=== PATIENT | male | born 1940 | race Caucasian/White ===

== ENCOUNTER 2017-12-14 07:47 | Outpatient (CLI) | payer MEDICARE, SELFPAY ==
[2017-12-14 13:13] LABS: Hemoglobin A1C 7.1 % (4.5-6.2)
[2017-12-14 13:49] LABS: Anion Gap 8.9 mmol/L (3-11); BUN 30 mg/dL (7-18); CO2 26.1 mmol/L (21.0-32.0); Calcium 8.6 mg/dL (8.5-10.1); Chloride 105 mmol/L (98-107); Estimated GFR 36.87 (mL/min/1.73m2); Glucose 144 mg/dL (70-100); Potassium 4.6 mmol/L (3.5-5.1); Sodium 140 mmol/L (136-145)
== END 2017-12-14 08:07 ==
PROVIDERS: PCP Emergency Medicine; Visit Provider Emergency Medicine
DX: E11.9 Type 2 diabetes mellitus without complications (principal)
CPT/HCPCS: 36415; 80048; 83036

== ENCOUNTER 2017-12-18 00:56 | Outpatient (CLI) | payer MEDICARE, SELFPAY ==
[2017-12-18 07:39] LABS: ALT 24 U/L (12-78); AST 21 U/L (15-37); Albumin 3.3 g/dL (3.4-5.0); Alkaline Phosphatase 66 U/L (46-116); Anion Gap 6.9 mmol/L (3-11); BUN 23 mg/dL (7-18); Bilirubin, Total 0.3 mg/dL (0.2-1.0); CO2 28.1 mmol/L (21.0-32.0); CREATININE 1.55 mg/dL (0.70-1.30); Calcium 8.9 mg/dL (8.5-10.1); Chloride 104 mmol/L (98-107); Estimated GFR 43.81 (mL/min/1.73m2); Glucose 168 mg/dL (70-100); Potassium 4.7 mmol/L (3.5-5.1); Sodium 139 mmol/L (136-145); Total Protein 7.1 g/dL (6.4-8.2)
== END 2017-12-18 01:16 ==
PROVIDERS: PCP Emergency Medicine; Visit Provider Urology
DX: C67.9 Malignant neoplasm of bladder, unspecified (principal)
CPT/HCPCS: 36415; 80053

== ENCOUNTER 2018-01-13 14:37 | Outpatient (CLI) | payer MEDICARE, SELFPAY ==
[2018-01-13 15:11] LABS: Bilirubin Negative (Negative); Blood Moderate (Negative); Clarity Clear; Glucose 100 mg/dL (Negative); Ketones Negative (Negative); Leukocyte Esterase Negative (Negative); Nitrite Negative (Negative); Urobilinogen 0.2 EU/dL (Up TO 0.2)
[2018-01-13 15:33] LABS: Epithelial Cells Rare HPF (Negative); RBC 20-50 (0-2)
[2018-01-13 15:34] LABS: Bacteria Rare HPF (Negative); Casts 0-2 Coarse Granular LPF (Negative); Crystals Negative HPF (Negative); Mucus Trace (Negative)
[2018-01-13 15:35] LABS: C & S Indicated? Yes
[2018-01-13 23:11] LABS: Other Cells Rare Yeast (Negative)
== END 2018-01-13 14:57 ==
PROVIDERS: PCP Emergency Medicine; Visit Provider Emergency Medicine
DX: R31.29 Other microscopic hematuria (principal)
CPT/HCPCS: 81003; 81015; 87086

== ENCOUNTER 2018-01-19 21:43 | Emergency (ER) | payer MEDICARE, SELFPAY ==
--- NOTE | 2018-01-19 00:20 | DI.CT_ITS ---
SYMPTOMS/DIAGNOSIS: LEFT FLANK PAIN, HEMATURIA NONCONTRAST CT OF THE ABDOMEN AND PELVIS: Comparison is made with June,. The lung bases are clear. The liver shows fatty infiltration. Gallstones are noted. There is no gallbladder wall thickening or biliary dilatation. The spleen, pancreas and left adrenal are unremarkable. There is a stable right adrenal adenoma. There are bilateral renal cysts. No urinary tract calculi are identified. There is a calcification near the left renal hilum, which is an arterial calcification. There is high density material in the posterior aspect of the bladder, which could represent a clot; however, a posterior mass cannot be entirely excluded. The prostate appears normal in size. No bowel dilatation or inflammatory changes are seen. There is calcification along the aorta. There is dilatation of both iliac arteries just prior to the bifurcation. There are anterior upper abdominal wall hernias containing nonobstructed loops of bowel, which have enlarged when compared with the 2014 exam. Degenerative changes are seen in the spine. IMPRESSION: High density material within the urinary bladder could represent clot versus mass. No obstructing calculi are seen.
[2018-01-19 21:47] VITALS: BP 157/70; PULSE 78; RESP 16; TEMP 36.3; O2SAT 96
[2018-01-19 22:27] LABS: Bilirubin Negative (Negative); Blood Large (Negative); Clarity Cloudy; Glucose 100 mg/dL (Negative); Ketones Negative (Negative); Leukocyte Esterase Negative (Negative); Nitrite Negative (Negative); Specific Gravity >= 1.030 (1.005-1.025); Urobilinogen 0.2 EU/dL (Up TO 0.2); pH 6.5 (5-8)
[2018-01-19 22:28] LABS: C & S Indicated? Yes; RBC >50 (0-2)
--- NOTE | 2018-01-19 23:40 | W.ED.GENAD ---
Discharge Plan Disposition Patient Disposition: HOME Condition: Good Discharge Details Chief Complaint: Urinary Clinical Impression: Gross hematuria Primary Care Provider: Mahin Damon ED Provider: Jorge Holman Home Meds and New Rx's Prescriptions: Continue aspirin [Aspirin Low-Strength] 81 MG tablet,chewable 81 mg PO DAILY RF: 0 LANCETS 1 EACH EACH 1 ea Miscellaneous QID Qty: 400 RF: 4 dorzolamide-timolol 10 ML drops 1 drp OS BID Qty: 1 RF: 12 blood sugar diagnostic [FreeStyle Lite Strips] 1 EACH strip 1 ea Miscellaneous DAILY Qty: 100 RF: 4 latanoprost [Xalatan] 2.5 ML drops 1 drp OU HS Qty: 1 RF: 6 lisinopril 20 mg tablet 20 mg PO DAILY RF: 0 atenolol 50 mg tablet 50 mg PO BID RF: 0 pravastatin [Pravachol] 40 mg tablet 40 mg PO HS RF: 0 terazosin 5 mg capsule 5 mg PO HS RF: 0 omeprazole 20 mg capsule,delayed release(DR/EC) 20 mg PO DAILY RF: 0 sildenafil [Viagra] 100 mg tablet 100 mg PO ONCE PRNRF: 0 amlodipine 5 mg tablet 5 mg PO DAILY Qty: 90 RF: 3 clonazepam 0.5 mg tablet 0.5 mg PO HS Qty: 90 RF: 1 Discharge Instructions Instructions: Hematuria (ED) Additional Instructions: Please contact your urologist at [facility] today for follow-up. Return to emergency department if you develop fever, inability to urinate, increasing abdominal pain, other concerns. Referrals: [facility] [Outside] Medical Decision Making Patient presenting with hematuria with a history of bladder cancer. He is also having a little bit of left back pain. He is not on blood thinners other than an aspirin. He looks pretty comfortable. Urine is grossly bloody. Because of the left back pain we will get a CT stone kidney stone. We will check CBC and chemistry. Patient's CBC is normal. His renal function is baseline. His CT scan is essentially unremarkable other than debris and presumed blood in his bladder. He continues to have some clots when he urinates. Elected to go ahead and place a three-way Obrien and start CBI. Patient has essentially cleared after a bag. We watched him for a while and his urine remained pinkish but did not turn bright red again. We will pull his Obrien and let him go home. He can contact his urologist at [facility] for follow-up. He is given a dose of p.o. Cipro as he reports that typically when he gets catheterized to give him antibiotics for 1 dose. Return to ED for inability to urinate, fever, worsening pain. Discharged home in good condition. Lab Data Lab results reviewed: Yes I reviewed the patient's lab results. HPI General Mode of arrival: ambulatory. Date/Time Provider Initiated Documentation: 01/19/18 23:32. Limitations to Documentation: no limitations. Information obtained by: patient. HPI Narrative: Patient presents to ED with hematuria. Patient has a history of bladder cancer but was seen by his urologist at [facility] just about a month ago. He had a CT scan with IV contrast as well as a cystoscopy which was essentially clean. There was one area in the bladder that he says was burned but he was given a clean bill of health by his urologist with follow-up in 6 months. He is not on blood thinners. He has a little bit of left lower back pain. He has no fever. He has had no nausea vomiting. He has no abdominal pain. He has no dysuria. He does report that he had some slight hematuria last week but it resolved within a day. This is more bright red and persistent. Related Data Home Medications Medication Instructions Recorded Confirmed Lancets 1 ea MISCELLANEOUS QID #400 ea 07/15/12 01/20/18 aspirin [Aspirin Low-Strength] 81 mg PO DAILY 07/15/12 01/20/18 dorzolamide-timolol 1 drp OS BID #1 drp 03/24/17 01/20/18 blood sugar diagnostic [FreeStyle #100 strip 07/28/17 01/20/18 Lite Strips] latanoprost [Xalatan] 1 drp OU HS #1 drp 10/28/17 01/20/18 atenolol 50 mg tablet 50 mg PO BID tab 12/01/17 01/20/18 lisinopril 20 mg tablet 20 mg PO DAILY 12/01/17 01/20/18 omeprazole 20 mg capsule,delayed 20 mg PO DAILY 12/01/17 01/20/18 release pravastatin 40 mg tablet 40 mg PO HS tab 12/01/17 01/20/18 sildenafil 100 mg tablet 100 mg PO ONCE PRN 12/01/17 01/20/18 terazosin 5 mg capsule 5 mg PO HS cap 12/01/17 01/20/18 amlodipine 5 mg tablet 5 mg PO DAILY #90 tab 12/08/17 01/20/18 clonazepam 0.5 mg tablet 0.5 mg PO HS #90 tab 12/08/17 01/20/18 Previous Rx's Medication Instructions Recorded dorzolamide-timolol 1 drp OS BID #1 drp 03/24/17 blood sugar diagnostic [FreeStyle #100 strip 07/28/17 Lite Strips] latanoprost [Xalatan] 1 drp OU HS #1 drp 10/28/17 amlodipine 5 mg tablet 5 mg PO DAILY #90 tab 12/08/17 clonazepam 0.5 mg tablet 0.5 mg PO HS #90 tab 12/08/17 Allergies Allergy/AdvReac Type Severity Reaction Status Date / Time ivp Allergy Intermediate per MD Uncoded 01/19/18 21:51 could shut down his kidneys General Stated Complaint: Urinary SUSAN: 3 Review of Systems Constitutional Denies chills, Denies fever(s), Denies headache(s), Denies malaise and Denies weakness ENT Denies otalgia, Denies headache(s) and Denies sore throat Cardiovascular Denies chest pain, Denies syncope, Denies edema and Denies dyspnea Respiratory Denies cough and Denies dyspnea Gastrointestinal Denies abdominal pain, Denies diarrhea, Denies nausea and Denies vomiting Genitourinary Reports hematuria, Denies difficulty urinating, Denies dysuria, Denies flank pain, Denies urinary frequency and Denies urinary hesitancy Musculoskeletal Reports back pain, Denies myalgias, Denies arthralgias and Denies numbness Integumentary/Breasts Denies erythema and Denies rash Neurologic Denies syncope, Denies headache(s), Denies numbness and Denies weakness [facility] Family History Mother No problems noted. Father Neoplasm Sister Heart disease Cerebrovascular accident Grandfather No problems noted. Grandfather Heart disease Grandmother No problems noted. Grandmother Personal history of malignant neoplasm Sister No problems noted. Sister No problems noted. Brother Neoplasm Brother No problems noted. Brother No problems noted. Brother No problems noted. Brother No problems noted. Son No problems noted. 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) Obstructive sleep apnea syndrome (Acute) Obesity (Acute) Incisional hernia of anterior abdominal wall without obstruction or gangrene (Acute 06/24/17) Glaucoma (Acute) Essential hypertension (Acute 07/09/16) Diabetes mellitus (Acute 08/04/12) Chronic gout due to renal impairment of multiple sites without tophus (Acute 06/05/15) CKD (chronic kidney disease) (Acute 06/12/15) Benign prostatic hyperplasia (Acute) Aortic aneurysm and dissection (Acute) Anxiety (Acute) Actinic keratoses (Acute 06/24/17) Social History household members: none current occupational status: retired pets and animals: No frequency: 3-4 times per week duration: 45-60 minutes/day Smoking/Tobacco Use Status: Former Tobacco Use alcohol intake: never substance use type: does not use noe/rastafarian: None Surgical History TURBT (08/11/16) hernia repair Exam Const General: cooperative and comfortable Orientation: alert and oriented x3 HENMT Head: normal to inspection, normocephalic and atraumatic Neck Neck: normal visual inspection, trachea midline and supple Resp Effort & Inspection: normal respiratory effort Auscultation: clear to auscultation bilaterally Cardio Rate: regular rate Rhythm: regular rhythm Heart Sounds: S1 normal and S2 normal GI Inspection: normal to inspection Palpation: soft, not firm, no guarding and nontender Back/Spine/Pelvis Back: no CVA tenderness Skin General skin exam: no rashes or lesions noted Neuro General: alert, oriented x3, no focal motor deficits and CN's II-XI intact bilaterally Extrem General: normal to inspection and full ROM Course Vital Signs Temperature 97.3 F L 01/19/18 21:47 Pulse 78 01/19/18 21:47 Respiratory Rate 16 01/19/18 21:47 Blood Pressure 157/70 H 10/23/18 21:47 Pulse Oximetry 96 01/19/18 21:47 Temperature 97.3 F L 01/19/18 21:47 Temperature Source Skin 01/19/18 21:47 Pulse 78 01/19/18 21:47 Respiratory Rate 16 01/19/18 21:47 Respiratory Effort Non-Labored 01/19/18 21:50 Blood Pressure 157/70 H 01/19/18 21:47 Pulse Oximetry 96 01/19/18 21:47 Oxygen Delivery Method Room Air 01/19/18 21:47 Oxygen Flow Rate 0 01/19/18 21:47 Lab/Test Results Lab/Test Results: 01/19/18 21:53 Urine - Reflex from Ua Urine Culture - Pending Laboratory Tests Range/Units 01/19/18 21:53 Urine Color (Yellow) Red Urine Clarity Cloudy Urine pH (5-8) 6.5 Ur Specific [place] (1.005-1.025) >= 1.030 H Urine Protein (Negative) mg/dL >=300 H Urine Ketones (Negative) mg/dL Negative Urine Blood (Negative) Large H Urine Nitrite (Negative) Negative Urine Bilirubin (Negative) Negative Urine Urobilinogen (Up TO 0.2) EU/dL 0.2 Ur Leukocyte Esterase (Negative) Negative Urine RBC (0-2) >50 H Urine WBC Not Applicable Ur Epithelial Cells Not Applicable Urine Crystals Not Applicable Urine Bacteria Not Applicable Urine Mucus Not Applicable Ur Culture Indicated? Yes Urine Glucose (Negative) mg/dL 100
[2018-01-20 00:06] LABS: Abs Immature Grans 0.02 k/cumm (0.0-0.09); Absolute Basophil Count 0.02 k/cumm (0.0-0.2); Absolute Lymphocyte Count 1.76 k/cumm (1.2-3.4); Absolute Monocyte Count 0.56 k/cumm (0.11-0.7); Absolute Neutrophil Count 4.86 k/cumm (1.2-6.7); Basophils % 0.3; Eosinophils % 1.4; HCT 42.6 % (40.0-50.0); HGB 14.4 g/dL (13.5-17.5); Immature Grans % 0.3; Mean Corp. HGB Concentration 33.8 g/dL (32.0-36.0); Mean Corpuscular Hemoglobin 31.7 pg (27.0-33.0); Mean Corpuscular Volume 93.8 fL (80-95); Mean Platelet Volume 9.9 fL (8.0-11.0); Monocytes % 7.7; Neutrophils % 66.3; Platelet Count 204 x1000/uL (130-400); RBC 4.54 m/cumm (4.50-6.00); RBC Distribution Width 12.3 % (11.8-14.1); White Blood Cell Count 7.32 k/cumm (4.4-10.8)
[2018-01-20 00:16] LABS: Anion Gap 9.8 mmol/L (3-11); BUN 28 mg/dL (7-18); CO2 26.2 mmol/L (21.0-32.0); CREATININE 1.88 mg/dL (0.70-1.30); Chloride 103 mmol/L (98-107); Estimated GFR 35.06 (mL/min/1.73m2); Glucose 163 mg/dL (70-100); Potassium 4.3 mmol/L (3.5-5.1); Sodium 139 mmol/L (136-145)
--- NOTE | 2018-01-20 01:06 | DI.VRAD_ITS ---
EXAM: CT Abdomen and Pelvis Without Intravenous Contrast CLINICAL HISTORY: 77 years old, male; Pain; Other: L flank; Patient HX: L flank pain and blood in urine TECHNIQUE: Axial computed tomography images of the abdomen and pelvis without intravenous contrast. All CT scans at this facility use at least one of these dose optimization techniques: automated exposure control; mA and/or kV adjustment per patient size (includes targeted exams where dose is matched to clinical indication); or iterative reconstruction. Coronal and sagittal reformatted images were created and reviewed. COMPARISON: CT RENAL COLIC WO CONTRAST 07/18/2013 10:39 AM FINDINGS: Lung bases: Unremarkable. No mass. No consolidation. ABDOMEN: Liver: Hepatic steatosis. Gallbladder and bile ducts: Unremarkable. No calcified stones. No ductal dilation. Pancreas: Unremarkable. No ductal dilation. Spleen: Unremarkable. No splenomegaly. Adrenals: Right adrenal gland adenoma. Kidneys and ureters: Renal cysts up to 2.6 cm. No obstructing stones. No hydronephrosis. Stomach and bowel: Colonic diverticulosis. Bowel containing midline ventral hernias. No obstruction. No mucosal thickening. PELVIS: Appendix: No findings to suggest acute appendicitis. Bladder: Nonspecific high density in the urinary bladder it likely represents blood products with underlying soft tissue mass unable to be excluded. No stones. Reproductive: Unremarkable as visualized. ABDOMEN and PELVIS: Intraperitoneal space: Unremarkable. No free air. No significant fluid collection. Bones/joints: Degenerative change of the spine. No acute fracture. No dislocation. Soft tissues: See above. Vasculature: Unremarkable. No abdominal aortic aneurysm. Lymph nodes: Unremarkable. No enlarged lymph nodes. Other findings: Fat-containing left internal hernia. IMPRESSION: Nonspecific high density in the urinary bladder, likely represents blood products with underlying soft tissue mass unable to be excluded. Dictated and Authenticated by: Noah Hairston MD. Ordering:AGAPITO RAMOS MD
[2018-01-20] MEDS: Ciprofloxacin 500 MG TAB PO (04:35)
== END 2018-01-20 04:40 | disposition home or self-care (01) ==
PROVIDERS: Emergency Provider Emergency Medicine; PCP Emergency Medicine
DX: R31.0 Gross hematuria (principal); R10.32 Left lower quadrant pain; Z85.51 Personal history of malignant neoplasm of bladder; I12.9 Hypertensive chronic kidney disease with stage 1 through stage 4 chronic kidney disease, or unspecified chronic kidney disease; N18.9 Chronic kidney disease, unspecified; E11.22 Type 2 diabetes mellitus with diabetic chronic kidney disease
CPT/HCPCS: 36415; 51700; 80048; 99284; 74176; 81003; 81015; 85025; 87086

== ENCOUNTER 2018-01-21 07:45 | Outpatient (CLI) | payer MEDICARE, SELFPAY ==
[2018-01-21 08:12] LABS: Bilirubin Negative (Negative); Blood Moderate (Negative); Clarity Clear; Glucose 500 mg/dL (Negative); Ketones Negative (Negative); Leukocyte Esterase Negative (Negative); Nitrite Negative (Negative); Urobilinogen 0.2 EU/dL (Up TO 0.2)
[2018-01-21 08:19] LABS: Bacteria Negative HPF (Negative); C & S Indicated? No; Casts Negative LPF (Negative); Crystals Negative HPF (Negative); Epithelial Cells Rare HPF (Negative); Mucus Negative (Negative)
== END 2018-01-21 08:05 ==
PROVIDERS: PCP Emergency Medicine; Visit Provider Emergency Medicine
DX: R31.9 Hematuria, unspecified (principal)
CPT/HCPCS: 81003; 81015

== ENCOUNTER 2018-04-14 01:04 | Outpatient (CLI) | payer MEDICARE, SELFPAY ==
--- NOTE | 2018-04-14 08:12 | DI.CT_ITS ---
SYMPTOMS/DIAGNOSIS: CHRONIC LEFT LUMBAR PAIN, KNOWN RT RENAL MASS, M54.5, N28.89 CT OF THE LUMBAR SPINE: Comparison is made with CT of the abdomen and pelvis dated . Images were performed from mid T 12 through S 4. The vertebral bodies are well maintained in height. The T 12 - L 1 and L 1 - 2 levels are unremarkable. There are anteriorly projecting osteophytes at L 2 - 3. There are mild facet degenerative changes. There is concentric disc bulging causing mild bilateral neural foraminal narrowing. At L 3 - 4, there are more prominent endplate osteophytes and moderate broad based disc bulging. There is ligamentous hypertrophy combining to produce mild to moderate degree of central canal stenosis. There is severe right and moderate left neural foraminal narrowing. At L 4 - 5, there is concentric disc bulging and vacuum disc. Endplate osteophytes along with a bulging disc cause severe bilateral neural foraminal encroachment. Facet degenerative changes and ligamentous hypertrophy combine to produce a moderate degree of central canal stenosis. At L 5 - S 1, there is mild disc bulging and facet degenerative changes. There is no significant central canal stenosis. Mild right and moderate left neural foraminal narrowing is seen. A right adrenal mass is again noted. A stent is now seen in the right kidney without evidence of hydronephrosis. There is stable dilatation of the iliac arteries and bilateral iliac artery aneurysms. IMPRESSION: Degenerative disc changes and facet degenerative changes combine to procedure central canal stenosis at L 3 - 4 and L 4 - 5. Bilateral neural foraminal narrowing is noted at multiple levels.
== END 2018-04-14 01:24 ==
PROVIDERS: PCP Emergency Medicine; Visit Provider Emergency Medicine
DX: M54.5 Low back pain (principal); M51.37 Other intervertebral disc degeneration, lumbosacral region; N28.89 Other specified disorders of kidney and ureter
CPT/HCPCS: 72131

== ENCOUNTER 2018-05-02 11:27 | Emergency (ER) | payer MEDICARE, SELFPAY ==
[2018-05-02] VITALS (31 sets, daily range): BP systolic 104–145; BP diastolic 53–72; PULSE 48–65; RESP 9–26; TEMP 36.5; O2SAT 95–98
--- NOTE | 2018-05-02 12:02 | W.ED.GENAD ---
Discharge Plan Disposition Patient Disposition: HOME Condition: Improving Discharge Details Chief Complaint: Chest Pain Clinical Impression: Atypical chest pain Primary Care Provider: Mahin Damon ED Provider: Tong James Home Meds and New Rx's Prescriptions: Continued aspirin [Aspirin Low-Strength] 81 MG tablet,chewable 81 mg PO DAILY RF: 0 LANCETS 1 EACH EACH 1 ea Miscellaneous QID Qty: 400 RF: 4 FreeStyle Lite Strips 1 EACH strip 1 ea Miscellaneous DAILY Qty: 100 RF: 4 latanoprost [Xalatan] 2.5 ML drops 1 drp OU HS Qty: 1 RF: 6 lisinopril 20 mg tablet 20 mg PO DAILY RF: 0 atenolol 50 mg tablet 50 mg PO BID RF: 0 pravastatin [Pravachol] 40 mg tablet 40 mg PO HS RF: 0 terazosin 5 mg capsule 5 mg PO HS RF: 0 omeprazole 20 mg capsule,delayed release(DR/EC) 20 mg PO DAILY RF: 0 sildenafil [Viagra] 100 mg tablet 100 mg PO ONCE PRNRF: 0 amlodipine 5 mg tablet 5 mg PO DAILY Qty: 90 RF: 3 clonazepam 0.5 mg tablet 0.5 mg PO HS Qty: 90 RF: 1 dorzolamide-timolol 22.3-6.8 mg/mL drops 1 drp OS BID Qty: 1 RF: 12 Discharge Instructions Instructions: Chest Pain (ED) Additional Instructions: Return if you have recurrent or persistent chest pain, develop a fever, vomiting, abdominal pain or any other acute concerns. Please follow-up with Dr. Damon for recheck if not improving this week. Continue your regular medications. [place] diet today Medical Decision Making 77-year-old male presents from home with his complaining of intermittent episodes of 3 out of 10 right-sided chest pressure. Last minutes at a time and dissipates on its own. Does not seem to be provoked by exercise. He denies fever, cough, shortness of breath. No palpitations. No lower extremity pain or swelling. He has been followed by Dr. Winkler at [facility] for a urothelial carcinoma, most recently undergoing laser surgery and placement of a right ureteral stent. Patient arrives with normal vital signs, he has no further complaints of discomfort. Referred for chest x-ray and screening laboratories. Patient is unremarkable CBC, chemistries are reassuring with a negative troponin. 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 Remains pain-free. Will discharge to home. Discussed with him that it may be mild gastritis, colonic distention, other benign process. Discussed with him return precautions to the ED. He will follow-up with primary care for recheck. Lab Data Lab results reviewed: Yes I reviewed the patient's lab results. Laboratory Results - last 24 hr 05/02/18 05/02/18 11:57 11:57 WBC 9.14 RBC 4.86 Hgb 15.3 Hct 45.1 MCV 92.8 MCH 31.5 MCHC 33.9 RDW 11.9 Plt Count 243 MPV 10.4 Immature Gran % 0.2 Neutrophils % 61.4 Lymphocytes % 28.7 Monocytes % 8.5 Eosinophils % 1.0 Basophils % 0.2 Absolute Neutrophils 5.61 Absolute Lymphocytes 2.62 Absolute Monocytes 0.78 H Absolute Eosinophils 0.09 Absolute Basophils 0.02 Sodium 140 Potassium 4.1 Chloride 105 Carbon Dioxide 27.9 Anion Gap 7.1 BUN 21 H Creatinine 1.82 H Estimated GFR/1.73 m2 36.40 Glucose 118 H Calcium 8.9 Magnesium 1.4 L Total Bilirubin 0.4 AST 18 ALT 24 Alkaline Phosphatase 65 Troponin I < 0.02 Total Protein 7.8 Albumin 3.5 ECG Data Attestation: I personally reviewed and interpreted this ECG (s) as follows: Prior ECG tracings: available for review Interpretation: Normal sinus rhythm, the rate is 55, QRS intraventricular conduction delay with slight right bundle branch block pattern. There is T wave inversion in aVR, the tracing is unchanged versus comparison of February 11, 2018 [facility] General Mode of arrival: ambulatory. Date/Time Provider Initiated Documentation: 05/02/18 11:52. Limitations to Documentation: no limitations. Information obtained by: patient. History of Present Illness 77 year old M presents to the emergency department with the chief complaint of Intermittent right-sided chest pain beginning yesterday afternoon. None at, with intensity rated at 3. Quality is described as dull, and is localized to the chest. Patient reports no radiation. Patient started experiencing this day(s) and it has been intermittent. No exacerbating factors reported . Patient notes no other symptoms.. Patient did receive the following treatments prior to arrival, none Related Data Home Medications Medication Instructions Recorded Confirmed Lancets 1 ea MISCELLANEOUS QID #400 ea 07/15/12 04/23/18 aspirin [Aspirin Low-Strength] 81 mg PO DAILY 07/15/12 04/23/18 FreeStyle Lite Strips #100 strip 07/28/17 04/23/18 latanoprost [Xalatan] 1 drp OU HS #1 drp 10/28/17 04/23/18 atenolol 50 mg tablet 50 mg PO BID tab 12/01/17 04/23/18 lisinopril 20 mg tablet 20 mg PO DAILY 12/01/17 04/23/18 omeprazole 20 mg capsule,delayed 20 mg PO DAILY 12/01/17 04/23/18 release pravastatin 40 mg tablet 40 mg PO HS tab 12/01/17 04/23/18 sildenafil 100 mg tablet 100 mg PO ONCE PRN 12/01/17 04/23/18 terazosin 5 mg capsule 5 mg PO HS cap 12/01/17 04/23/18 amlodipine 5 mg tablet 5 mg PO DAILY #90 tab 12/08/17 04/23/18 clonazepam 0.5 mg tablet 0.5 mg PO HS #90 tab 12/08/17 04/23/18 dorzolamide 22.3 mg-timolol 6.8 1 drp OS BID #1 drp 03/31/18 04/23/18 mg/mL eye drops Previous Rx's Medication Instructions Recorded FreeStyle Lite Strips #100 strip 07/28/17 latanoprost [Xalatan] 1 drp OU HS #1 drp 10/28/17 amlodipine 5 mg tablet 5 mg PO DAILY #90 tab 12/08/17 clonazepam 0.5 mg tablet 0.5 mg PO HS #90 tab 12/08/17 dorzolamide 22.3 mg-timolol 6.8 1 drp OS BID #1 drp 03/31/18 mg/mL eye drops Allergies Allergy/AdvReac Type Severity Reaction Status Date / Time ivp Allergy Intermediate per MD Uncoded 05/02/18 11:41 could shut down his kidneys General Stated Complaint: Chest Pain SUSAN: 2 Review of Systems Review of Systems 8 systems reviewed and otherwise neg [facility] 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 Father Neoplasm Sister Heart disease Stroke Grandfather No problems noted. Grandfather Heart disease Grandmother No problems noted. Grandmother Personal history of malignant neoplasm Sister No problems noted. Sister No problems noted. Brother Neoplasm Brother No problems noted. Brother No problems noted. Brother No problems noted. Brother No problems noted. Son No problems noted. Social History household members: none current occupational status: retired pets and animals: No frequency: 3-4 times per week duration: 45-60 minutes/day Smoking/Tobacco Use Status: Former Tobacco Use alcohol intake: never substance use type: does not use noe/hindu: None Exam Narrative Exam Narrative: GEN: awake, alert, oriented 3. Pleasant, well groomed, interactive. HEAD: Normocephalic, atraumatic ENT: Mucous membranes moist, oropharynx unremarkable, External ear exam unremarkable EYES: PERRL, EOMI NECK: Full ROM, no YEVGENIY, no menigismus CHEST/RESP: Nontender, clear to auscultation bilateral, no wheeze/rhonchi/rales CARDIOVASCULAR: RRR, no murmur, rub cruz. 2+ Rad pulse bilateral ABDOMEN: Soft, nontender, no mass. +Bowel sounds EXT: Full ROM, no edema, no rash Neuro: Grossly normal neurologic exam, conversant, interactive. Psych: Speech fluent, thoughts congruent, affect normal Course Vital Signs Temperature 36.5 C 05/02/18 11:32 Pulse 60 05/02/18 11:32 Respiratory Rate 16 05/02/18 11:32 Blood Pressure 136/72 05/02/18 11:32 Pulse Oximetry 97 05/02/18 11:32 Temperature 36.5 C 05/02/18 11:32 Temperature Source Skin 05/02/18 11:32 Pulse 60 05/02/18 11:32 Respiratory Rate 16 05/02/18 11:52 Respiratory Effort 05/02/18 11:52 Respiratory Depth Normal 05/02/18 11:52 Blood Pressure 136/72 05/02/18 11:32 Blood Pressure Position Sitting 05/02/18 11:32 Pulse Oximetry 97 05/02/18 11:32 Oxygen Delivery Method Room Air 05/02/18 11:32 Oxygen Flow Rate 0 05/02/18 11:32 Pain Level 3 05/02/18 11:52
--- NOTE | 2018-05-02 12:05 | ED.GENADUL_ITS ---
Discharge Plan Disposition Patient Disposition: HOME Condition: Improving Discharge Details Chief Complaint: Chest Pain Clinical Impression: Atypical chest pain Primary Care Provider: Mahin Damon ED Provider: Tong James Home Meds and New Rx's Prescriptions: Continued aspirin [Aspirin Low-Strength] 81 MG tablet,chewable 81 mg PO DAILY RF: 0 LANCETS 1 EACH EACH 1 ea Miscellaneous QID Qty: 400 RF: 4 FreeStyle Lite Strips 1 EACH strip 1 ea Miscellaneous DAILY Qty: 100 RF: 4 latanoprost [Xalatan] 2.5 ML drops 1 drp OU HS Qty: 1 RF: 6 lisinopril 20 mg tablet 20 mg PO DAILY RF: 0 atenolol 50 mg tablet 50 mg PO BID RF: 0 pravastatin [Pravachol] 40 mg tablet 40 mg PO HS RF: 0 terazosin 5 mg capsule 5 mg PO HS RF: 0 omeprazole 20 mg capsule,delayed release(DR/EC) 20 mg PO DAILY RF: 0 sildenafil [Viagra] 100 mg tablet 100 mg PO ONCE PRNRF: 0 amlodipine 5 mg tablet 5 mg PO DAILY Qty: 90 RF: 3 clonazepam 0.5 mg tablet 0.5 mg PO HS Qty: 90 RF: 1 dorzolamide-timolol 22.3-6.8 mg/mL drops 1 drp OS BID Qty: 1 RF: 12 Discharge Instructions Instructions: Chest Pain (ED) Additional Instructions: Return if you have recurrent or persistent chest pain, develop a fever, vomiting, abdominal pain or any other acute concerns. Please follow-up with Dr. Damon for recheck if not improving this week. Continue your regular medications. [place] diet today Medical Decision Making 77-year-old male presents from home with his complaining of intermittent episodes of 3 out of 10 right-sided chest pressure. Last minutes at a time and dissipates on its own. Does not seem to be provoked by exercise. He denies fever, cough, shortness of breath. No palpitations. No lower extremity pain or swelling. He has been followed by Dr. Winkler at [facility] for a urothelial carcinoma, most recently undergoing laser surgery and placement of a right ureteral stent. Patient arrives with normal vital signs, he has no further complaints of discomfort. Referred for chest x-ray and screening laboratories. Patient is unremarkable CBC, chemistries are reassuring with a negative troponin. Patient kept on child monitor repeat troponin obtained and negative as well. Remains pain-free. Will discharge to home. Discussed with him that it may be mild gastritis, colonic distention, other benign process. Discussed with him return precautions to the ED. He will follow-up with primary care for recheck. Lab Data Lab results reviewed: Yes I reviewed the patient's lab results. Laboratory Results - last 24 hr 05/02/18 05/02/18 11:57 11:57 WBC 9.14 RBC 4.86 Hgb 15.3 Hct 45.1 MCV 92.8 MCH 31.5 MCHC 33.9 RDW 11.9 Plt Count 243 MPV 10.4 Immature Gran % 0.2 Neutrophils % 61.4 Lymphocytes % 28.7 Monocytes % 8.5 Eosinophils % 1.0 Basophils % 0.2 Absolute Neutrophils 5.61 Absolute Lymphocytes 2.62 Absolute Monocytes 0.78 H Absolute Eosinophils 0.09 Absolute Basophils 0.02 Sodium 140 Potassium 4.1 Chloride 105 Carbon Dioxide 27.9 Anion Gap 7.1 BUN 21 H Creatinine 1.82 H Estimated GFR/1.73 m2 36.40 Glucose 118 H Calcium 8.9 Magnesium 1.4 L Total Bilirubin 0.4 AST 18 ALT 24 Alkaline Phosphatase 65 Troponin I < 0.02 Total Protein 7.8 Albumin 3.5 ECG Data Attestation: I personally reviewed and interpreted this ECG (s) as follows: Prior ECG tracings: available for review Interpretation: Normal sinus rhythm, the rate is 55, QRS intraventricular conduction delay with slight right bundle branch block pattern. There is T wave inversion in aVR, the tracing is unchanged versus comparison of February 11, 2018 [facility] General Mode of arrival: ambulatory . Date/Time Provider Initiated Documentation: 05/02/18 11:52 . Limitations to Documentation: no limitations . Information obtained by: patient . History of Present Illness 77 year old M presents to the emergency department with the chief complaint of Intermittent right-sided chest pain beginning yesterday afternoon. None at, with intensity rated at 3. Quality is described as dull, and is localized to the chest. Patient reports no radiation. Patient started experiencing this day(s) and it has been intermittent. No exacerbating factors reported . Patient notes no other symptoms.. Patient did receive the following treatments prior to arrival, none Related Data Home Medications Medication Instructions Recorded Confirmed Lancets 1 ea MISCELLANEOUS QID #400 ea 07/15/12 04/23/18 aspirin [Aspirin Low-Strength] 81 mg PO DAILY 07/15/12 04/23/18 FreeStyle Lite Strips #100 strip 07/28/17 04/23/18 latanoprost [Xalatan] 1 drp OU HS #1 drp 10/28/17 04/23/18 atenolol 50 mg tablet 50 mg PO BID tab 12/01/17 04/23/18 lisinopril 20 mg tablet 20 mg PO DAILY 12/01/17 04/23/18 omeprazole 20 mg capsule,delayed 20 mg PO DAILY 12/01/17 04/23/18 release pravastatin 40 mg tablet 40 mg PO HS tab 12/01/17 04/23/18 sildenafil 100 mg tablet 100 mg PO ONCE PRN 12/01/17 04/23/18 terazosin 5 mg capsule 5 mg PO HS cap 12/01/17 04/23/18 amlodipine 5 mg tablet 5 mg PO DAILY #90 tab 12/08/17 04/23/18 clonazepam 0.5 mg tablet 0.5 mg PO HS #90 tab 12/08/17 04/23/18 dorzolamide 22.3 mg-timolol 6.8 1 drp OS BID #1 drp 03/31/18 04/23/18 mg/mL eye drops Previous Rx's Medication Instructions Recorded FreeStyle Lite Strips #100 strip 07/28/17 latanoprost [Xalatan] 1 drp OU HS #1 drp 10/28/17 amlodipine 5 mg tablet 5 mg PO DAILY #90 tab 12/08/17 clonazepam 0.5 mg tablet 0.5 mg PO HS #90 tab 12/08/17 dorzolamide 22.3 mg-timolol 6.8 1 drp OS BID #1 drp 03/31/18 mg/mL eye drops Allergies Allergy/AdvReac Type Severity Reaction Status Date / Time ivp Allergy Intermediate per MD Uncoded 05/02/18 11:41 could shut down his kidneys General Stated Complaint: Chest Pain SUSAN: 2 Review of Systems Review of Systems 8 systems reviewed and otherwise neg [facility] 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 Father Neoplasm Sister Heart disease Stroke Grandfather No problems noted. Grandfather Heart disease Grandmother No problems noted. Grandmother Personal history of malignant neoplasm Sister No problems noted. Sister No problems noted. Brother Neoplasm Brother No problems noted. Brother No problems noted. Brother No problems noted. Brother No problems noted. Son No problems noted. Social History household members: none current occupational status: retired pets and animals: No frequency: 3-4 times per week duration: 45-60 minutes/day Smoking/Tobacco Use Status: Former Tobacco Use alcohol intake: never substance use type: does not use noe/worship: None Exam Narrative Exam Narrative: GEN: awake, alert, oriented 3. Pleasant, well groomed, interactive. HEAD: Normocephalic, atraumatic ENT: Mucous membranes moist, oropharynx unremarkable, External ear exam unremarkable EYES: PERRL, EOMI NECK: Full ROM, no YEVGENIY, no menigismus CHEST/RESP: Nontender, clear to auscultation bilateral, no wheeze/rhonchi/rales CARDIOVASCULAR: RRR, no murmur, rub cruz. 2+ Rad pulse bilateral ABDOMEN: Soft, nontender, no mass. +Bowel sounds EXT: Full ROM, no edema, no rash Neuro: Grossly normal neurologic exam, conversant, interactive. Psych: Speech fluent, thoughts congruent, affect normal Course Vital Signs Temperature 36.5 C 05/02/18 11:32 Pulse 60 05/02/18 11:32 Respiratory Rate 16 05/02/18 11:32 Blood Pressure 136/72 05/02/18 11:32 Pulse Oximetry 97 05/02/18 11:32 Temperature 36.5 C 05/02/18 11:32 Temperature Source Skin 05/02/18 11:32 Pulse 60 05/02/18 11:32 Respiratory Rate 16 05/02/18 11:52 Respiratory Effort 05/02/18 11:52 Respiratory Depth Normal 05/02/18 11:52 Blood Pressure 136/72 05/02/18 11:32 Blood Pressure Position Sitting 05/02/18 11:32 Pulse Oximetry 97 05/02/18 11:32 Oxygen Delivery Method Room Air 05/02/18 11:32 Oxygen Flow Rate 0 05/02/18 11:32 Pain Level 3 05/02/18 11:52
[2018-05-02 12:22] LABS: Abs Immature Grans 0.02 k/cumm (0.0-0.09); Absolute Basophil Count 0.02 k/cumm (0.0-0.2); Absolute Eosinophil Count 0.09 k/cumm (0.0-0.7); Absolute Lymphocyte Count 2.62 k/cumm (1.2-3.4); Absolute Monocyte Count 0.78 k/cumm (0.11-0.7); Absolute Neutrophil Count 5.61 k/cumm (1.2-6.7); Basophils % 0.2; HCT 45.1 % (40.0-50.0); HGB 15.3 g/dL (13.5-17.5); Immature Grans % 0.2; Lymphocytes % 28.7; Mean Corp. HGB Concentration 33.9 g/dL (32.0-36.0); Mean Corpuscular Hemoglobin 31.5 pg (27.0-33.0); Mean Corpuscular Volume 92.8 fL (80-95); Mean Platelet Volume 10.4 fL (8.0-11.0); Monocytes % 8.5; Neutrophils % 61.4; Platelet Count 243 x1000/uL (130-400); RBC 4.86 m/cumm (4.50-6.00); RBC Distribution Width 11.9 % (11.8-14.1); White Blood Cell Count 9.14 k/cumm (4.4-10.8)
--- NOTE | 2018-05-02 12:25 | DI.RAD_ITS ---
SYMPTOM/DIAGNOSIS: RT SIDED CHEST PAIN PA AND LATERAL CHEST: Comparison is made with 01/20/17. The heart size is within normal limits. The lungs are clear. No infiltrate, effusion or pneumothorax is seen. IMPRESSION: Negative chest xray.
[2018-05-02 12:34] LABS: ALT 24 U/L (12-78); AST 18 U/L (15-37); Albumin 3.5 g/dL (3.4-5.0); Alkaline Phosphatase 65 U/L (46-116); Anion Gap 7.1 mmol/L (3-11); BUN 21 mg/dL (7-18); Bilirubin, Total 0.4 mg/dL (0.2-1.0); CO2 27.9 mmol/L (21.0-32.0); CREATININE 1.82 mg/dL (0.70-1.30); Calcium 8.9 mg/dL (8.5-10.1); Chloride 105 mmol/L (98-107); Glucose 118 mg/dL (70-100); Magnesium 1.4 mg/dL (1.8-2.4); Potassium 4.1 mmol/L (3.5-5.1); Sodium 140 mmol/L (136-145); Total Protein 7.8 g/dL (6.4-8.2)
[2018-05-02 12:40] LABS: Troponin I < 0.02 ng/mL (0.00-0.06)
[2018-05-02] MEDS: MAGNESIUM SULFATE 1 GM/100 ML BAG IVPB (13:21)
--- NOTE | 2018-05-02 13:51 | DI.VRAD_ITS ---
EXAM: XR Chest, 2 Views EXAM DATE/TIME: 05/02/2018 12:03 PM CLINICAL HISTORY: 77 years old, male; Pain; Chest pain; On breathing; Patient HX: Right sided chest pain. TECHNIQUE: XR of the chest, 2 views. COMPARISON: CR (CHEST, RT) 01/20/2017 8:52 AM FINDINGS: Lungs: The lungs remain hyperaerated and hyperlucent. No focal infiltrates. Pleural space: Unremarkable. No pleural effusion. No pneumothorax. Heart/Mediastinum: Unremarkable. No cardiomegaly. Bones/joints: Unremarkable. IMPRESSION: No changes COPD. No evidence for acute abnormality. COMMENT: Preliminary interpretation is based on receipt of 2 image(s). A final report will be issued subsequently. Dictated and Authenticated by: Luann Sánchez MD. Ordering:MARINA Fortune MD
[2018-05-02 14:54] LABS: Troponin I < 0.02 ng/mL (0.00-0.06)
== END 2018-05-02 15:07 | disposition home or self-care (01) ==
PROVIDERS: Emergency Provider Emergency Medicine; PCP Emergency Medicine
DX: R07.89 Other chest pain (principal); I12.9 Hypertensive chronic kidney disease with stage 1 through stage 4 chronic kidney disease, or unspecified chronic kidney disease; N18.9 Chronic kidney disease, unspecified; E11.22 Type 2 diabetes mellitus with diabetic chronic kidney disease
CPT/HCPCS: 36415; 80053; 93005; 96365; 96366; 99285; 71046; 83735; 84484; 85025; 93010; J3475

== ENCOUNTER 2018-07-14 00:47 | Outpatient (CLI) | payer MEDICARE, SELFPAY ==
[2018-07-14 07:33] LABS: CREATININE 2.47 mg/dL (0.70-1.30); Estimated GFR 25.59 (mL/min/1.73m2)
== END 2018-07-14 01:07 ==
PROVIDERS: PCP Emergency Medicine; Visit Provider Urology
DX: C68.9 Malignant neoplasm of urinary organ, unspecified (principal)
CPT/HCPCS: 36415; 82565

== ENCOUNTER 2018-07-20 11:08 | Outpatient (CLI) | payer MEDICARE, SELFPAY ==
[2018-07-20 12:56] LABS: Abs Immature Grans 0.02 k/cumm (0.0-0.09); Absolute Basophil Count 0.04 k/cumm (0.0-0.2); Absolute Eosinophil Count 0.07 k/cumm (0.0-0.7); Absolute Lymphocyte Count 1.58 k/cumm (1.2-3.4); Absolute Monocyte Count 1.01 k/cumm (0.11-0.7); Absolute Neutrophil Count 5.16 k/cumm (1.2-6.7); Basophils % 0.5; Eosinophils % 0.9; HGB 12.8 g/dL (13.5-17.5); Immature Grans % 0.3; Lymphocytes % 20.1; Mean Corp. HGB Concentration 32.8 g/dL (32.0-36.0); Mean Corpuscular Hemoglobin 30.1 pg (27.0-33.0); Mean Corpuscular Volume 91.8 fL (80-95); Mean Platelet Volume 10.2 fL (8.0-11.0); Monocytes % 12.8; Neutrophils % 65.4; Platelet Count 303 x1000/uL (130-400); RBC 4.25 m/cumm (4.50-6.00); RBC Distribution Width 12.3 % (11.8-14.1); White Blood Cell Count 7.88 k/cumm (4.4-10.8)
[2018-07-20 13:35] LABS: ALT 18 U/L (12-78); AST 15 U/L (15-37); Albumin 3.2 g/dL (3.4-5.0); Alkaline Phosphatase 80 U/L (46-116); BUN 33 mg/dL (7-18); Bilirubin, Total 0.6 mg/dL (0.2-1.0); CREATININE 2.97 mg/dL (0.70-1.30); Chloride 101 mmol/L (98-107); Estimated GFR 20.69 (mL/min/1.73m2); Glucose 137 mg/dL (70-100); Potassium 5.1 mmol/L (3.5-5.1); Sodium 135 mmol/L (136-145); Total Protein 7.3 g/dL (6.4-8.2)
[2018-07-21 09:13] LABS: PSA, Screening 6.2 ng/ml (0-6.5)
== END 2018-07-20 11:28 ==
PROVIDERS: PCP Emergency Medicine; Visit Provider Family Medicine
DX: Z01.818 Encounter for other preprocedural examination (principal); I10 Essential (primary) hypertension; K43.2 Incisional hernia without obstruction or gangrene; Z12.5 Encounter for screening for malignant neoplasm of prostate
CPT/HCPCS: 36415; 80053; 84153; 85025

== ENCOUNTER 2018-08-04 15:55 | Outpatient (CLI) | payer MEDICARE, SELFPAY ==
[2018-08-04 16:40] LABS: Abs Immature Grans 0.01 k/cumm (0.0-0.09); Absolute Basophil Count 0.03 k/cumm (0.0-0.2); Absolute Eosinophil Count 0.14 k/cumm (0.0-0.7); Absolute Lymphocyte Count 1.44 k/cumm (1.2-3.4); Absolute Monocyte Count 0.76 k/cumm (0.11-0.7); Absolute Neutrophil Count 3.96 k/cumm (1.2-6.7); Basophils % 0.5; Eosinophils % 2.2; HGB 12.4 g/dL (13.5-17.5); Immature Grans % 0.2; Lymphocytes % 22.7; Mean Corp. HGB Concentration 32.6 g/dL (32.0-36.0); Mean Corpuscular Volume 91.8 fL (80-95); Mean Platelet Volume 9.8 fL (8.0-11.0); Neutrophils % 62.4; Platelet Count 216 x1000/uL (130-400); RBC 4.14 m/cumm (4.50-6.00); RBC Distribution Width 12.5 % (11.8-14.1); White Blood Cell Count 6.34 k/cumm (4.4-10.8)
[2018-08-04 16:42] LABS: Bilirubin Negative (Negative); Blood Small (Negative); Clarity Clear; Glucose Negative (Negative); Ketones Negative (Negative); Leukocyte Esterase Moderate (Negative); Nitrite Negative (Negative); Urobilinogen 0.2 EU/dL (Up TO 0.2); pH 5.5 (5-8)
[2018-08-04 17:00] LABS: Hemoglobin A1C 7.5 % (4.5-6.2)
[2018-08-04 17:01] LABS: Bacteria Negative HPF (Negative); C & S Indicated? Yes; Casts Negative LPF (Negative); Crystals Negative HPF (Negative); Epithelial Cells Few HPF (Negative); Mucus Negative (Negative); WBC 20-50 HPF (0-5)
[2018-08-04 17:23] LABS: ESR 50 MM/HR (1-20)
[2018-08-04 19:34] LABS: ALT 37 U/L (12-78); AST 22 U/L (15-37); Albumin 3.2 g/dL (3.4-5.0); Alkaline Phosphatase 116 U/L (46-116); Anion Gap 10.7 mmol/L (3-11); BUN 33 mg/dL (7-18); Bilirubin, Total 0.4 mg/dL (0.2-1.0); C-Reactive Protein 0.94 mg/dL (0.0-0.3); CO2 24.3 mmol/L (21.0-32.0); CREATININE 2.82 mg/dL (0.70-1.30); Calcium 8.5 mg/dL (8.5-10.1); Chloride 102 mmol/L (98-107); Estimated GFR 21.96 (mL/min/1.73m2); Glucose 117 mg/dL (70-100); Potassium 4.7 mmol/L (3.5-5.1); Sodium 137 mmol/L (136-145); TSH 0.65 uIU/mL (0.358-3.74); Total Protein 7.3 g/dL (6.4-8.2)
== END 2018-08-04 16:15 ==
PROVIDERS: PCP Emergency Medicine; Visit Provider Emergency Medicine
DX: R63.4 Abnormal weight loss (principal); E11.9 Type 2 diabetes mellitus without complications; E03.9 Hypothyroidism, unspecified; R30.0 Dysuria
CPT/HCPCS: 36415; 80053; 85652; 87077; 81003; 81015; 83036; 84443; 85025; 86140; 87086

== ENCOUNTER 2018-08-05 02:18 | Outpatient (CLI) | payer MEDICARE, SELFPAY ==
[2018-08-05 11:20] LABS: HCT 37.2 % (40.0-50.0); HGB 12.1 g/dL (13.5-17.5); Mean Corp. HGB Concentration 32.5 g/dL (32.0-36.0); Mean Corpuscular Hemoglobin 30.1 pg (27.0-33.0); Mean Corpuscular Volume 92.5 fL (80-95); Mean Platelet Volume 10.3 fL (8.0-11.0); Platelet Count 225 x1000/uL (130-400); RBC 4.02 m/cumm (4.50-6.00); RBC Distribution Width 12.5 % (11.8-14.1)
[2018-08-05 11:24] LABS: Anion Gap 9.1 mmol/L (3-11); CO2 26.9 mmol/L (21.0-32.0); CREATININE 2.74 mg/dL (0.70-1.30); Chloride 103 mmol/L (98-107); Sodium 139 mmol/L (136-145)
== END 2018-08-05 02:38 ==
PROVIDERS: PCP Emergency Medicine; Visit Provider Urology
DX: C68.9 Malignant neoplasm of urinary organ, unspecified (principal)
CPT/HCPCS: 36415; 80051; 85027; 82565

== ENCOUNTER 2018-08-11 13:49 | Outpatient (CLI) | payer MEDICARE, SELFPAY ==
[2018-08-11 14:04] LABS: Bilirubin Small (Negative); Blood Negative (Negative); Clarity Clear; Glucose Negative (Negative); Ketones Trace mg/dL (Negative); Leukocyte Esterase Trace (Negative); Nitrite Negative (Negative); Urobilinogen 0.2 EU/dL (Up TO 0.2); pH 5.5 (5-8)
[2018-08-11 14:17] LABS: Bacteria Few HPF (Negative); C & S Indicated? Yes; Casts Negative LPF (Negative); Crystals Negative HPF (Negative); Epithelial Cells Rare HPF (Negative); Mucus Trace (Negative); RBC 0-2 (0-2)
== END 2018-08-11 14:09 ==
PROVIDERS: PCP Emergency Medicine; Visit Provider Emergency Medicine
DX: R30.0 Dysuria (principal)
CPT/HCPCS: 81003; 81015; 87086

== ENCOUNTER 2018-08-24 08:43 | Outpatient (CLI) | payer MEDICARE, SELFPAY ==
[2018-08-24 11:06] LABS: HCT 38.1 % (40.0-50.0); HGB 12.5 g/dL (13.5-17.5); Mean Corp. HGB Concentration 32.8 g/dL (32.0-36.0); Mean Corpuscular Hemoglobin 30.2 pg (27.0-33.0); Mean Platelet Volume 10.4 fL (8.0-11.0); Platelet Count 237 x1000/uL (130-400); RBC 4.14 m/cumm (4.50-6.00); RBC Distribution Width 12.6 % (11.8-14.1); White Blood Cell Count 6.75 k/cumm (4.4-10.8)
[2018-08-24 11:11] LABS: Anion Gap 9.1 mmol/L (3-11); BUN 32 mg/dL (7-18); CO2 26.9 mmol/L (21.0-32.0); CREATININE 2.89 mg/dL (0.70-1.30); Calcium 8.9 mg/dL (8.5-10.1); Chloride 102 mmol/L (98-107); Estimated GFR 21.35 (mL/min/1.73m2); Glucose 155 mg/dL (70-100); Magnesium 1.2 mg/dL (1.8-2.4); Potassium 4.7 mmol/L (3.5-5.1); Sodium 138 mmol/L (136-145)
[2018-08-24 11:41] LABS: ESR 43 MM/HR (1-20)
[2018-08-25 12:06] LABS: ANCA Interpretation Negative (NEGAT)
== END 2018-08-24 09:03 ==
PROVIDERS: PCP Emergency Medicine; Visit Provider Emergency Medicine
DX: I10 Essential (primary) hypertension (principal); R63.4 Abnormal weight loss
CPT/HCPCS: 36415; 80048; 85027; 85652; 86255; 83735

== ENCOUNTER 2018-09-21 11:15 | Outpatient (CLI) | payer MEDICARE, SELFPAY ==
[2018-09-21 13:05] LABS: HCT 38.7 % (40.0-50.0); HGB 12.7 g/dL (13.5-17.5); Mean Corp. HGB Concentration 32.8 g/dL (32.0-36.0); Mean Corpuscular Hemoglobin 29.7 pg (27.0-33.0); Mean Corpuscular Volume 90.4 fL (80-95); Platelet Count 211 x1000/uL (130-400); RBC 4.28 m/cumm (4.50-6.00); RBC Distribution Width 12.7 % (11.8-14.1); White Blood Cell Count 6.29 k/cumm (4.4-10.8)
[2018-09-21 13:11] LABS: ALT 19 U/L (12-78); AST 15 U/L (15-37); Albumin 3.4 g/dL (3.4-5.0); Anion Gap 11.1 mmol/L (3-11); BUN 28 mg/dL (7-18); Bilirubin, Total 0.5 mg/dL (0.2-1.0); CO2 25.9 mmol/L (21.0-32.0); CREATININE 2.45 mg/dL (0.70-1.30); Calcium 9.2 mg/dL (8.5-10.1); Chloride 102 mmol/L (98-107); Estimated GFR 25.76 (mL/min/1.73m2); Glucose 111 mg/dL (70-100); Potassium 4.7 mmol/L (3.5-5.1); Sodium 139 mmol/L (136-145); Total Protein 7.4 g/dL (6.4-8.2)
[2018-09-21 14:16] LABS: Iron 56 ug/dL (50-175); Total Iron Binding Capacity 249 ug/dL (250-450); Transferrin Sat 22 % (20-55)
[2018-09-21 14:41] LABS: Alkaline Phosphatase 106 U/L (46-116); Ferritin 240 ng/mL (8-388); Folate 5.7 ng/mL (8.6-20.0); Vitamin B12 288 pg/mL (193-986)
== END 2018-09-21 11:35 ==
PROVIDERS: PCP Emergency Medicine; Visit Provider Emergency Medicine
DX: D64.9 Anemia, unspecified (principal); R63.4 Abnormal weight loss; I10 Essential (primary) hypertension
CPT/HCPCS: 36415; 80053; 85027; 82607; 82728; 82746; 83540; 83550

== ENCOUNTER 2018-09-24 02:01 | Outpatient (CLI) | payer MEDICARE, SELFPAY ==
[2018-09-24 09:11] LABS: Folate 6.9 ng/mL (8.6-20.0)
[2018-09-27 10:58] LABS: Homocysteine 21.6 umol/L (4.5-12.4)
[2018-09-28 09:25] LABS: Methylmalonic Acid 0.48 nmol/mL (<=0.40)
== END 2018-09-24 02:21 ==
PROVIDERS: PCP Emergency Medicine; Visit Provider Emergency Medicine
DX: D64.9 Anemia, unspecified (principal)
CPT/HCPCS: 36415; 80186; 83090; 82746

== ENCOUNTER 2018-11-24 09:02 | Outpatient (CLI) | payer MEDICARE, SELFPAY ==
[2018-11-24 11:22] LABS: HCT 39.9 % (40.0-50.0); HGB 12.9 g/dL (13.5-17.5); Mean Corp. HGB Concentration 32.3 g/dL (32.0-36.0); Mean Corpuscular Hemoglobin 29.7 pg (27.0-33.0); Mean Corpuscular Volume 91.9 fL (80-95); Mean Platelet Volume 10.4 fL (8.0-11.0); Platelet Count 214 x1000/uL (130-400); RBC 4.34 m/cumm (4.50-6.00); White Blood Cell Count 7.88 k/cumm (4.4-10.8)
[2018-11-24 12:51] LABS: Vitamin B12 924 pg/mL (193-986)
[2018-11-24 12:53] LABS: Folate > 20.0 ng/mL (8.6-20.0)
[2018-11-30 12:01] LABS: Methylmalonic Acid 0.25 nmol/mL (<=0.40)
== END 2018-11-24 09:22 ==
PROVIDERS: PCP Emergency Medicine; Visit Provider Emergency Medicine
DX: E53.8 Deficiency of other specified B group vitamins (principal); D64.9 Anemia, unspecified; N18.3 Chronic kidney disease, stage 3 (moderate); C64.1 Malignant neoplasm of right kidney, except renal pelvis
CPT/HCPCS: 36415; 80186; 85027; 82607; 82746

== ENCOUNTER 2018-12-24 10:11 | Outpatient (CLI) | payer MEDICARE, SELFPAY ==
[2018-12-24 13:06] LABS: HCT 40.8 % (40.0-50.0); HGB 13.3 g/dL (13.5-17.5); Mean Corp. HGB Concentration 32.6 g/dL (32.0-36.0); Mean Corpuscular Hemoglobin 30.1 pg (27.0-33.0); Mean Corpuscular Volume 92.3 fL (80-95); Mean Platelet Volume 10.4 fL (8.0-11.0); Platelet Count 209 x1000/uL (130-400); RBC 4.42 m/cumm (4.50-6.00); RBC Distribution Width 12.8 % (11.8-14.1); White Blood Cell Count 7.99 k/cumm (4.4-10.8)
[2018-12-24 13:07] LABS: Anion Gap 8.4 mmol/L (3-11); BUN 32 mg/dL (7-18); CO2 25.6 mmol/L (21.0-32.0); CREATININE 2.45 mg/dL (0.70-1.30); Chloride 106 mmol/L (98-107); Estimated GFR 25.76 (mL/min/1.73m2); Glucose 105 mg/dL (70-100); Potassium 5.1 mmol/L (3.5-5.1); Sodium 140 mmol/L (136-145)
[2018-12-24 14:49] LABS: Hemoglobin A1C 6.7 % (4.5-6.2)
== END 2018-12-24 10:31 ==
PROVIDERS: PCP Emergency Medicine; Visit Provider Emergency Medicine
DX: I10 Essential (primary) hypertension (principal); E11.9 Type 2 diabetes mellitus without complications
CPT/HCPCS: 36415; 80048; 85027; 83036

== ENCOUNTER 2019-04-27 07:00 | Outpatient (CLI) | payer MEDICARE, SELFPAY ==
[2019-04-27 12:42] LABS: Anion Gap 6.3 mmol/L (3-11); BUN 29 mg/dL (7-18); CO2 27.7 mmol/L (21.0-32.0); CREATININE 2.39 mg/dL (0.70-1.30); Calcium 8.8 mg/dL (8.5-10.1); Chloride 105 mmol/L (98-107); Estimated GFR 26.51 (mL/min/1.73m2); Glucose 123 mg/dL (74-106); Sodium 139 mmol/L (136-145)
[2019-04-27 12:50] LABS: HCT 42.3 % (40.0-50.0); Mean Corp. HGB Concentration 33.1 g/dL (32.0-36.0); Mean Corpuscular Volume 93.6 fL (80-95); Mean Platelet Volume 10.5 fL (8.0-11.0); Platelet Count 181 x1000/uL (130-400); RBC 4.52 m/cumm (4.50-6.00); RBC Distribution Width 12.2 % (11.8-14.1)
== END 2019-04-27 07:20 ==
PROVIDERS: PCP Emergency Medicine; Visit Provider Family Medicine
DX: N40.0 Benign prostatic hyperplasia without lower urinary tract symptoms (principal); Z01.818 Encounter for other preprocedural examination
CPT/HCPCS: 36415; 80048; 85027; 87086

== ENCOUNTER 2019-05-16 02:00 | Outpatient (CLI) | payer MEDICARE, SELFPAY ==
--- NOTE | 2019-05-16 | DI.CT_ITS ---
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 TECHNIQUE: Imaging Protocol: Axial computed tomography images with coronal and sagittal reformatted images were created and reviewed. COMPARISON: RENAL COLIC WO CONTRAST from 07/18/2013 CT renal colic wo from 01/19/2018 FINDINGS: ABDOMEN: Lung Bases: Normal where visualized. Liver: Nonenhanced liver appears unremarkable. No measurable mass. Gallbladder and biliary tract: Cholelithiasis. No biliary ductal dilatation. Pancreas: Normal density. Calcifications seen within the pancreas which may reflect previous bouts o f pancreatitis. Spleen: Normal. Kidneys: There is right renal cortical atrophy. Since the prior examination, there is marked dilatat ion of the right renal pelvis and proximal ureter to the level of the pelvic inlet. No discernible u reteral mass is identified. Bilateral renal cysts are present. No nephrolithiasis. Adrenal glands: There is again seen a right adrenal mass. This is unchanged compared to the CT scan from 07/18/2013. The left adrenal gland is unremarkable. Lymph nodes: Within normal limits. Abdominal Aorta: There is a 3.1 centimeter infrarenal abdominal aortic aneurysm. There is also aneur ysmal dilatation of both the common iliac arteries. PELVIS: Bladder: The urinary bladder is incompletely distended. There is bladder wall thickening present. It does appear asymmetric on the left and mass cannot be excluded. Bowel: Colonic diverticulosis. No evidence of acute diverticulitis. A normal appendix is visualized . There are 2 midline supraumbilical hernia present in the anterior abdominal wall. They both conta in unremarkable loops of bowel. No evidence of obstruction or incarceration. Peritoneal cavity: No ascites, collection or mesenteric inflammatory response. Reproductive organs: Within normal limits. Bones: Degenerative changes are present. IMPRESSION: 1. Incompletely distended urinary bladder. Asymmetric wall thickening of the urinary bladder. This may reflect inflammation or infection. Bladder mass cannot be excluded. 2. Interval marked dilatation of the right renal pelvis and proximal ureter. No definite obstructing mass or calculus is identified. CT urogram should be considered for further evaluation. 3. Abdominal and iliac artery aneurysms. 4. Stable right adrenal mass. 5. Anterior abdominal wall hernia containing unremarkable loops of bowel. 6. Cholelithiasis. No biliary ductal dilatation. DATA REPOSITORY: All CT scans at this facility are submitted to the National Radiology Data Registry (NRDR) Dose Index Registry (DIR) with the [employer] (ACR). RADIATION OPTIMIZATION: All CT scans at this facility use at least one of these dose optimization te chniques: automated exposure control; mA and/or kV adjustment per patient size (includes targeted exa ms where dose is matched to clinical indication); or iterative reconstruction.
--- NOTE | 2019-05-16 09:05 | DI.RAD_ITS ---
EXAM: XR CHEST 2V PA LATERAL CLINICAL HISTORY: HX UROTHELIAL CELL CARCINOMA C89.9. TECHNIQUE: 2D digital imaging was performed. COMPARISON: XR CHEST 2V PA LATERAL from 05/02/2018 FINDINGS: LUNGS: Clear. No pleural abnormality seen. HEART: Normal. MEDIASTINUM: Normal. OTHER FINDINGS:Normal. BONE:No acute abnormality. IMPRESSION: No acute pulmonary findings.
[2019-05-16] MEDS: Omnipaque 350 MG/ML 50 ML BTL PO (09:44)
[2019-05-16] MEDS: Breeza Beverage 473 ML BTL PO ×2 (09:44→09:45)
== END 2019-05-16 02:20 ==
PROVIDERS: PCP Emergency Medicine; Visit Provider Urology
DX: C68.9 Malignant neoplasm of urinary organ, unspecified (principal); K80.20 Calculus of gallbladder without cholecystitis without obstruction; E27.9 Disorder of adrenal gland, unspecified; N32.89 Other specified disorders of bladder; I71.4 Abdominal aortic aneurysm, without rupture
CPT/HCPCS: 71046; 74176; Q9967

== ENCOUNTER 2019-10-21 02:11 | Outpatient (CLI) | payer MEDICARE, SELFPAY ==
[2019-10-21 11:12] LABS: HCT 40.2 % (40.0-50.0); HGB 13.6 g/dL (13.5-17.5); Mean Corp. HGB Concentration 33.8 g/dL (32.0-36.0); Mean Corpuscular Hemoglobin 31.9 pg (27.0-33.0); Mean Corpuscular Volume 94.1 fL (80-95); Mean Platelet Volume 9.9 fL (8.0-11.0); Platelet Count 194 x1000/uL (130-400); RBC 4.27 m/cumm (4.50-6.00); RBC Distribution Width 12.1 % (11.8-14.1); White Blood Cell Count 6.37 k/cumm (4.4-10.8)
[2019-10-21 11:36] LABS: Hemoglobin A1C 6.6 % (3.8-5.6)
[2019-10-21 12:02] LABS: Anion Gap 8.7 mmol/L (3-11); BUN 38 mg/dL (7-18); CO2 25.3 mmol/L (21.0-32.0); CREATININE 2.51 mg/dL (0.70-1.30); Calcium 9.2 mg/dL (8.5-10.1); Chloride 106 mmol/L (98-107); Estimated GFR 24.99 (mL/min/1.73m2); Glucose 138 mg/dL (74-106); Potassium 5.4 mmol/L (3.5-5.1); Sodium 140 mmol/L (136-145)
== END 2019-10-21 02:31 ==
PROVIDERS: PCP Emergency Medicine; Visit Provider Emergency Medicine
DX: E11.9 Type 2 diabetes mellitus without complications (principal); I10 Essential (primary) hypertension
CPT/HCPCS: 36415; 80048; 85027; 83036

== ENCOUNTER 2019-10-31 01:14 | Outpatient (CLI) | payer MEDICARE, SELFPAY ==
--- NOTE | 2019-10-31 10:05 | DI.CT_ITS ---
EXAM: CT ABDOMEN PELVIS WO CLINICAL HISTORY: F/U UROTHELIAL CA,C68.9 TECHNIQUE: COMPARISON: CT CT ABDOMEN PELVIS WO from 05/16/2019 FINDINGS: CT examination of the abdomen and pelvis was performed without contrast administration due to impaire d renal function. Images obtained through the lung bases are unremarkable. The liver and spleen appear normal by nonco ntrast criteria. No biliary dilatation. Cholelithiasis noted. Pancreas is unremarkable in appearan ce except for scattered pancreatic calcifications. There is a ventral hernia containing fat and nonobstructed small bowel. No other significant abdomin al wall hernia seen. 31 millimeter abdominal aortic aneurysm noted, 26 millimeter left common iliac artery aneurysm noted. 25 millimeter right common iliac artery aneurysm noted. No evidence of leaking aneurysm. No abdom inal or pelvic adenopathy. Patient reportedly has a history of urothelial carcinoma. Urinary bladder is under distended cannot be adequately evaluated but there may be urinary bladder wall thickening. There is moderate to sever e right hydronephrosis, similar in appearance to prior CT of 05/16/2019 with dilatation of the right ureter to the mid ureteral level. No left hydronephrosis. No urinary tract calcification. Presumed left renal cyst noted. Stable 32 millimeter right adrenal mass noted. Left adrenal unremarkable in appearance. IMPRESSION: Stable appearance of moderate to severe right hydronephrosis and hydroureter to mid ureteral level in a patient with history of urothelial carcinoma. Additional findings as described above.
== END 2019-10-31 01:34 ==
PROVIDERS: PCP Emergency Medicine; Visit Provider Urology
DX: N13.30 Unspecified hydronephrosis (principal); Z85.51 Personal history of malignant neoplasm of bladder; I71.4 Abdominal aortic aneurysm, without rupture
CPT/HCPCS: 74176

== ENCOUNTER 2019-12-30 04:30 | Outpatient (CLI) | payer MEDICARE, SELFPAY ==
[2019-12-31 20:39] LABS: COVID-19 RT-PCR Result NEGATIVE (Negative)
== END 2019-12-30 04:50 ==
PROVIDERS: PCP Emergency Medicine; Visit Provider Urology
DX: Z11.59 Encounter for screening for other viral diseases (principal); Z01.818 Encounter for other preprocedural examination
CPT/HCPCS: U0003

== ENCOUNTER 2020-01-19 20:24 | Outpatient (REF) | payer MEDICARE, SELFPAY | END 2020-01-19 20:44 | LOC: LBN 20:24 | PROVIDERS: PCP Emergency Medicine; Visit Provider Nurse Practitioner Family | DX: N39.0 Urinary tract infection, site not specified (principal) | CPT/HCPCS: 87077; 87086; 87186 ==

== ENCOUNTER 2020-01-31 16:23 | Outpatient (REF) | payer MEDICARE, SELFPAY ==
[2020-01-31 12:52] LABS: Bilirubin Negative (Negative); Blood Trace-intact (Negative); Clarity Sl Cloudy (Clear); Glucose Negative (Negative); Ketones Negative (Negative); Leukocyte Esterase Negative (Negative); Nitrite Negative (Negative); Urobilinogen 0.2 EU/dL (Up TO 0.2)
[2020-01-31 12:58] LABS: Bacteria Negative HPF (Negative); C & S Indicated? No; Casts Negative LPF (Negative); Crystals Negative HPF (Negative); Epithelial Cells Rare HPF (Negative); Mucus Negative (Negative); Other Cells Negative (Negative); WBC 0-2 HPF (0-5)
== END 2020-01-31 16:43 ==
LOC: LBN 16:23
PROVIDERS: PCP Emergency Medicine; Visit Provider Emergency Medicine
DX: R30.0 Dysuria (principal)
CPT/HCPCS: 81003; 81015

== ENCOUNTER 2020-05-02 10:36 | Outpatient (CLI) | payer MEDICARE, SELFPAY ==
[2020-05-03 14:05] LABS: COVID-19 RT-PCR UVMMC Result Negative (Negative)
== END 2020-05-02 10:37 | disposition home or self-care (01) ==
LOC: LBO 10:37
PROVIDERS: PCP Emergency Medicine; Visit Provider Emergency Medicine
DX: Z20.822 Contact with and (suspected) exposure to COVID-19 (principal)
CPT/HCPCS: U0003; U0005

== ENCOUNTER 2020-06-28 01:45 | Outpatient (CLI) | payer MEDICARE, SELFPAY ==
--- NOTE | 2020-06-28 | DI.CT_ITS ---
EXAM: CT ABDOMEN PELVIS WO CLINICAL HISTORY: F/U UROTHELIAL CA,C68.9,BLADDER CA, STAGING EXAM. TECHNIQUE: Imaging Protocol: Axial computed tomography images with coronal and sagittal reformatted images were created and reviewed CONTRAST MATERIAL: Intravenous: none Oral: None COMPARISON: CT CT ABDOMEN PELVIS WO from 10/31/2019 FINDINGS: VISUALIZED LUNG BASES: No nodules nor pleural effusions evident. ABDOMEN: There is no ascites. There is anterior abdominal wall midline hernia again noted. This contains bot h small and large bowel loops do not appear obstructed. The hernia sac measurement is 5.6 centimetre s wide with wide neck. Cephalocaudal length of the hernia sac is 6.6 cm. LIVER: There are no obvious focal hepatic lesions evident of this noninfused study. GALLBLADDER/BILIARY: Gallstones are again noted. No gallbladder wall edema or pericholecystic fluid. CBD is not dilated. PANCREAS: There are few pancreatic parenchymal calcifications noted. No obvious mass in the pancreas evident on this noninfused study. The pancreatic duct is not dilated. SPLEEN: Spleen is not enlarged. No obvious intrasplenic lesions. ADRENALS: Continued stable appearance of the previously described mass in the right adrenal gland beh ind the IVC which measures 2.8 by 3.1 cm, unchanged. The opposite-left adrenal gland remains unremar kable. KIDNEYS:High-grade unilateral right-sided hydronephrosis and hydroureter are again noted. The right ureter is again noted be dilated down to the level of the right common iliac artery. It exhibits nor mal size below this level. There is no extrinsic compression despite the presence of an adjacent and aneurysm in the distal right common iliac artery which exhibits a diameter of 2.5 cm. The cortical mantle of the hydronephrotic right kidney is thin. There are no calculi in the right collecting syst em. Left kidney is unremarkable with the exception of a partially exophytic 1.8 by 1.3 cm unchanged nodule which is slightly dense for a simple cyst. There are no calculi in left kidney. No solid clarisa al masses. No calculi nor hydronephrosis. . ABDOMINAL AORTA: Mild fusiform infrarenal abdominal aortic aneurysm which exhibits maximum diameter o f 3 cm. There is arterial megaly of the common iliac arteries noted with distal aneurysms in these v essels again noted no aneurysm seen in the bilateral external iliac arteries nor in the internal karen c arteries. LYMPH NODES: There is no retroperitoneal nor paraaortic adenopathy. ABDOMINAL WALL/GI: Abdominal hernia as described above. No bowel obstruction. PELVIS: LYMPH NODES: There is no intrapelvic nor inguinal adenopathy. GI: No evidence of appendicitis.Sigmoid diverticulosis but no evidence of obvious acute diverticuliti s. URINARY BLADDER: No calculi nor obvious masses evident REPRODUCTIVE: Prostate gland size upper normal. Seminal vesicles unremarkable. OSSEOUS: In no significant osseous lesions. Partial ankylosis of the SI joints is noted IMPRESSION: 1. Compared to the prior CT scan of October 2019 there is again noted severe unilateral right-sided hy dronephrosis and hydroureter with the right ureter significantly dilated down to the level of the rig ht common iliac artery and normal diameter below this level. No obvious extrinsic compression and th erefore 1st consideration is for neoplastic lesion of the ureter at this level. There is no radiopaq ue calculus seen at this level nor elsewhere in either collecting system nor in the urinary bladder. 2. Finding in the opposite-left kidney is probably a hemorrhagic cyst but should be studied with ultr asound. 3. No obvious abnormality in the urinary bladder. 4. Prominent anterior abdominal wall midline hernia which contains small and large bowel loops, too lar to previous. There is no bowel obstruction although there is some streaking in the contain mesen judith. 5. Cholelithiasis again noted. No evidence of acute cholecystitis nor dilatation of the biliary roxane e. 6. There are few pancreatic parenchymal calcifications again noted. No obvious mass in the pancreas evident on this noninfused study. 7. Right adrenal mass is unchanged in size. Left adrenal gland remains unremarkable. 8. 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 These are unchanged. RADIATION DOSE DELIVERED: 1,173.56mGy.cm Total DLP DATA REPOSITORY: All CT scans at this facility are submitted to the National Radiology Data Registry (NRDR) Dose Index Registry (DIR) with the [employer] (ACR). RADIATION OPTIMIZATION: All CT scans at this facility use at least one of these dose optimization te chniques: automated exposure control; mA and/or kV adjustment per patient size (includes targeted exa ms where dose is matched to clinical indication); or iterative reconstruction.
--- NOTE | 2020-06-28 08:12 | DI.RAD_ITS ---
EXAM: XR CHEST 2V PA LATERAL CLINICAL HISTORY: F/U UROTHELIAL CA,C68.9,STAGING EXAM. TECHNIQUE: 2D digital imaging was performed. COMPARISON: CR CHEST 2 VIEWS PA,LAT from 06/08/2015 CR PORTABLE CHEST ONE VIEW from 06/15/2016 CR from 01/20/2017 CR XR CHEST 2V PA LATERAL from 05/02/2018 CR XR CHEST 2V PA LATERAL from 05/16/2019 FINDINGS: Heart size is normal. The mediastinum is not widened. Left lung is clear. In the right parahilar region there is a and 8 by 7 millimeter nodular density, not evident on prior studies. Possibly a new nodule. No other focal pulmonary findings nor pleural effusions. IMPRESSION: Possible 8 x 7 millimeter new right lung nodule. There is a possibility that this may just represent a vessel visualize and on but this finding is more evident on prior recent chest x-rays. Chest CT s can recommended. DATA REPOSITORY: RADIATION DOSE DELIVERED:
== END 2020-06-28 02:05 ==
PROVIDERS: PCP Emergency Medicine; Visit Provider Urology
DX: R91.8 Other nonspecific abnormal finding of lung field (principal); C68.8 Malignant neoplasm of overlapping sites of urinary organs; E27.8 Other specified disorders of adrenal gland; K80.20 Calculus of gallbladder without cholecystitis without obstruction; N13.30 Unspecified hydronephrosis; R93.422 Abnormal radiologic findings on diagnostic imaging of left kidney; I72.3 Aneurysm of iliac artery
CPT/HCPCS: 71046; 74176

== ENCOUNTER 2020-07-06 03:03 | Outpatient (CLI) | payer MEDICARE, SELFPAY ==
[2020-07-06 08:54] LABS: Anion Gap 7.3 mmol/L (3-11); BUN 25 mg/dL (7-18); CO2 29.7 mmol/L (21.0-32.0); CREATININE 2.2 mg/dL (0.70-1.30); Calcium 8.8 mg/dL (8.5-10.1); Chloride 106 mmol/L (98-107); Estimated GFR 29.09 (mL/min/1.73m2); Glucose 173 mg/dL (74-106); Potassium 4.8 mmol/L (3.5-5.1); Sodium 143 mmol/L (136-145)
== END 2020-07-06 03:04 | disposition home or self-care (01) ==
LOC: LBO 03:03
PROVIDERS: PCP Emergency Medicine; Visit Provider Urology
DX: I10 Essential (primary) hypertension (principal); E11.9 Type 2 diabetes mellitus without complications; N18.30 Chronic kidney disease, stage 3 unspecified
CPT/HCPCS: 36415; 80048

== ENCOUNTER 2020-07-24 03:29 | Outpatient (CLI) | payer MEDICARE, SELFPAY ==
[2020-07-24 08:38] LABS: Hemoglobin A1C 6.8 % (<5.7)
[2020-07-24 09:36] LABS: Uric Acid 6.9 mg/dL (3.5-7.2)
[2020-07-24 09:48] LABS: Calculated LDL 106 mg/dL (<100); Cholesterol 169 mg/dL (<200); HDL Cholesterol 38 mg/dL (40-60); Triglyceride 127 mg/dL (<150)
== END 2020-07-24 03:30 | disposition home or self-care (01) ==
LOC: LBO 03:29
PROVIDERS: PCP Emergency Medicine; Visit Provider Emergency Medicine
DX: E11.9 Type 2 diabetes mellitus without complications (principal); N18.30 Chronic kidney disease, stage 3 unspecified; I10 Essential (primary) hypertension
CPT/HCPCS: 36415; 80061; 83036; 84550

== ENCOUNTER 2020-08-29 01:55 | Outpatient (CLI) | payer MEDICARE, SELFPAY ==
--- NOTE | 2020-08-29 | DI.US_ITS ---
Exam(s) US RENAL EXAM: US RENAL CLINICAL HISTORY: F/U RENAL CYST,N28.1,F/U UROTHELIAL CA,C68.9. TECHNIQUE: Stone scale, color and spectral Doppler were used. COMPARISON: CT CT ABDOMEN PELVIS WO from 06/28/2020 FINDINGS: Renal size in cm: Right: 14.8. Left: 11.2. Echogenicity: Normal. Hydronephrosis: Persistent marked right hydronephrosis. Cyst or mass: 1.6 x 1.5 x 1.5 cm anechoic avascular exophytic lesion at the inferior pole of the left kidney consistent with a simple cyst. This corresponds to the finding on the CT scan. No solid clarisa al mass. Nephrolithiasis: No. Other findings: Right renal cortical thinning. Bladder:Normal. Ureteral jets: Right: Not definitely visualized on this examination. Left: Visualized and unremarkable. Prevoid vol:159 cc Postvoid vol:0 cc Prostate: 55 cc cc Renal color flow: Symmetric and within normal limits. IMPRESSION: 1. Simple cyst in the inferior pole of the left kidney corresponding to the CT abnormality. 2. Persistent marked right hydronephrosis and right renal cortical thinning. 3. Enlarged prostate gland. DATA REPOSITORY:
--- NOTE | 2020-08-29 | DI.CT_ITS ---
Exam(s) CT CHEST WO EXAM: CT CHEST WO CLINICAL HISTORY: H/O UROTHELIAL CA,C68.9,STAGING EXAM FOR BLADDER CA. TECHNIQUE: Imaging protocol: Axial computed tomography images were obtained and coronal and sagittal reformatted images were created and reviewed. COMPARISON: CT CHEST WITHOUT CONTRAST from 03/05/[address] ABDOMEN PELVIS WO from 06/28/2020 FINDINGS: Tracheobronchial tree: Patent where visualized. Pulmonary parenchyma: No consolidation or dominant measurable mass. No architectural distortion. No p ulmonary nodules. Mediastinum and Maribel: No dominant adenopathy or fluid collection. Pleura: No effusion or pneumothorax. Heart: The heart is not dilated. Dense coronary artery calcification. No pericardial effusion. Aorta: Thoracic aorta non-dilated. Atherosclerosis. Upper abdomen: Cholelithiasis. No biliary ductal dilatation. There is persistent smart right hydro nephrosis with renal cortical thinning. There is a stable 3 cm right adrenal nodule. A persistent m idline anterior abdominal wall hernia containing an unremarkable bowel loop is again noted. Lymph nodes: Within normal limits. Soft tissues: Unremarkable. Bones:Multiple old healed right rib fractures are present. No suspicious lytic or sclerotic lesions are seen in the bones. IMPRESSION: No evidence of thoracic metastatic disease. RADIATION DOSE DELIVERED: 586.91mGy.cm Total DLP 586.91mGy.cm Total DLP DATA REPOSITORY: All CT scans at this facility are submitted to the National Radiology Data Registry (NRDR) Dose Index Registry (DIR) with the [employer] (ACR). RADIATION OPTIMIZATION: All CT scans at this facility use at least one of these dose optimization te chniques: automated exposure control; mA and/or kV adjustment per patient size (includes targeted exa ms where dose is matched to clinical indication); or iterative reconstruction.
== END 2020-08-29 02:15 ==
PROVIDERS: PCP Emergency Medicine; Visit Provider Urology
DX: N28.1 Cyst of kidney, acquired (principal); N13.30 Unspecified hydronephrosis; N40.0 Benign prostatic hyperplasia without lower urinary tract symptoms; C68.9 Malignant neoplasm of urinary organ, unspecified; K80.20 Calculus of gallbladder without cholecystitis without obstruction
CPT/HCPCS: 71250; 76770

== ENCOUNTER 2020-11-08 04:19 | Outpatient (CLI) | payer MEDICARE, SELFPAY ==
[2020-11-08 11:04] LABS: Anion Gap 6.9 mmol/L (3-11); BUN 22 mg/dL (7-18); CO2 26.1 mmol/L (21.0-32.0); CREATININE 2.2 mg/dL (0.70-1.30); Calcium 8.5 mg/dL (8.5-10.1); Chloride 108 mmol/L (98-107); Estimated GFR 29.02 (mL/min/1.73m2); Glucose 141 mg/dL (74-106); Potassium 4.4 mmol/L (3.5-5.1); Sodium 141 mmol/L (136-145)
[2020-11-08 11:12] LABS: Hemoglobin A1C 6.9 % (<5.7)
== END 2020-11-08 04:20 | disposition home or self-care (01) ==
LOC: LBO 04:19
PROVIDERS: PCP Emergency Medicine; Visit Provider Emergency Medicine
DX: I10 Essential (primary) hypertension (principal); E11.9 Type 2 diabetes mellitus without complications
CPT/HCPCS: 36415; 80048; 83036

== ENCOUNTER 2021-02-07 01:05 | Outpatient (CLI) | payer MEDICARE, SELFPAY ==
--- NOTE | 2021-02-07 12:15 | DI.RAD_ITS ---
Exam(s) XR CHEST 2V PA LATERAL EXAM: XR CHEST 2V PA LATERAL CLINICAL HISTORY: UROTHELIAL CARCINOMA C68.9 TECHNIQUE: 2D digital imaging was performed. COMPARISON: CT CT CHEST WO from 08/29/2020 FINDINGS: MEDIASTINUM: Normal. HEART: Normal. PULMONARY VASCULATURE: Normal. LUNGS: Clear. No masses or nodules. No infiltrates. PLEURAL SPACE: No pleural effusion or pneumothorax. BONE:Unremarkable for age. IMPRESSION: No acute abnormality. DATA REPOSITORY: RADIATION DOSE DELIVERED:
[2021-02-07] MEDS: Breeza Beverage 473 ML BTL PO ×2 (12:18)
[2021-02-07] MEDS: Omnipaque 350 MG/ML 50 ML BTL PO (12:19)
--- NOTE | 2021-02-07 14:00 | DI.CT_ITS ---
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 TECHNIQUE: Imaging Protocol: Axial computed tomography images with coronal and sagittal reformatted images were created and reviewed. Oral: yes COMPARISON: CT CT renal colic wo from 01/19/[address] ABDOMEN PELVIS WO from 06/28/[address] ABDOMEN PELVIS WO from 06/28/2020 FINDINGS: ABDOMEN: Lung Bases: Normal where visualized. Heart mildly enlarged. Coronary artery calcifications. Liver: Normal density. No measurable mass. Gallbladder and biliary tract: Small dependent gallstones. No dilation. No gallbladder wall thicken ing. Pancreas: Normal density, no inflammatory process. Few scattered calcifications are again noted. Spleen: Normal. Kidneys: Stable severe right hydronephrosis with parenchymal thinning. Right ureter again dilated do wn to the level of the right common iliac artery. Stable small left renal cyst.. Adrenal glands: Stable low-density right adrenal lesion. Lymph nodes: Within normal limits. Abdominal Aorta: Athero sclerotic changes. Abdominal portion non-dilated. Dilatation of the iliac ar teries, stable. Soft tissues: Stable appearance of anterior upper abdominal wall hernias. PELVIS: Bladder: Symmetric distention, no gross wall thickening. Bowel: No obstruction or bowel wall thickening. Peritoneal cavity: No ascites, collection or mesenteric inflammatory response. Reproductive organs: Within normal limits. Bones: Within normal limits. Soft tissues: Fatty containing right inguinal hernia. IMPRESSION: Stable appearance of severe right hydronephrosis and transition point of the right ureter at the leve l of the right common iliac artery. There is no visible mass. No evidence of adenopathy or metastat ic disease. RADIATION DOSE DELIVERED: 1,203.79mGy.cm Total DLP DATA REPOSITORY: All CT scans at this facility are submitted to the National Radiology Data Registry (NRDR) Dose Index Registry (DIR) with the [employer] (ACR). RADIATION OPTIMIZATION: All CT scans at this facility use at least one of these dose optimization te chniques: automated exposure control; mA and/or kV adjustment per patient size (includes targeted exa ms where dose is matched to clinical indication); or iterative reconstruction.
== END 2021-02-07 01:25 ==
PROVIDERS: PCP Emergency Medicine; Visit Provider Urology
DX: C68.9 Malignant neoplasm of urinary organ, unspecified (principal); N13.30 Unspecified hydronephrosis
CPT/HCPCS: 71046; 74176; Q9967

== ENCOUNTER 2021-03-27 09:06 | Observation (INO) | payer MEDICARE, SELFPAY ==
[2021-03-27] VITALS (38 sets, daily range): BP systolic 120–165; BP diastolic 50–78; PULSE 47–78; RESP 10–22; TEMP 36.2–36.6; O2SAT 95–99
--- NOTE | 2021-03-27 09:00 | RT.EKG_ITS ---
APPROVED REPORT Exam: Resting ECG Reason for Exam: chest pain Patient Location: E HR:116 bpm ECG Measurements Heart Rate 116 [place] [place] [id number] P [id number] QRSd 197 QRS -90 QT 460 T -4 QTc 640 Conclusion Atrial fibrillation...V-rate 63-306, irreg A-activity Paired ventricular premature complexes...sequence of 2 V complexes RBBB and LAFB...QRSd >120mS, axis(-40,240) significant artifact, please disregard - will repeat
--- NOTE | 2021-03-27 09:00 | RT.EKG_ITS ---
APPROVED REPORT Exam: Resting ECG Reason for Exam: chest pain Patient Location: E HR:115 bpm ECG Measurements Heart Rate 115 [address] [place] [id number] P [id number] QRSd 170 QRS -62 QT 278 T [id number] QTc 386 Conclusion Atrial fibrillation...V-rate 98-150, irreg A-activity Ventricular tachycardia, unsustained...sequence of 3 or more V complexes Right bundle branch block...QRSd>120, terminal axis(90,270) significant artifact, please disregard - will repeat
--- NOTE | 2021-03-27 09:40 | W.ED.GENAD ---
Discharge Plan Disposition Condition: Good Discharge Details Chief Complaint: Chest Pain Admit Date/Time: 03/27/21 12:18 Admit Provider: Neelima Campbell Attending Provider: Neelima Campbell Primary Care Provider: Mahin Damon ED Provider: Flip Mcgee Discharge Instructions Activity:: Activity as Tolerated Equipment/Supplies:: No Equipment Needed Diet:: carb consistent heart healthy Discharge Orders Discharge Orders: Discharge Order (Routine); Ordered 03/28/21 Ordered By: Neelima Campbell Discharge Data Discharge Date/Time-TO BE ENTERED AT DEPARTURE: 03/27/21 13:09 Medical Decision Making 945--80-year-old male with altered medical problem occluding history of hypertension, diabetes, hyperlipidemia, smoking history, AAA status post repair, here with intermittent chest pain over the past few days. History concerning for coronary artery disease and unstable angina. Consider pulmonary embolism. Patient saturating well in no respiratory distress. He is hypertensive. No pain at this time. Initial three EKGs were reviewed and interpreted by me: Significant artifact secondary to technology issue (these EKG should be disregarded) Fourth EKG was reviewed and interpreted by me: No STEMI, please see report. Consider PE - will CT chest. --Patient notes poor kidney function. GFR 29. I discussed potential for pulmonary embolism and patient provided informed refusal of CT with contrast. Plan for VQ scan. 1054 -- I called and spoke with Dr. Campbell, on-call hospitalist, discussed ED presentation and course, she recommends canceling VQ scan to allow for nuclear medicine cardiac study and feel strongly that we should instead obtain bilateral lower extremity ultrasound. 1130 -- Bilateral LE US negative. HPI General Mode of arrival: ambulatory. Date/Time Provider Initiated Documentation: 03/27/21 09:10. Limitations to Documentation: no limitations. Information obtained by: patient. HPI Narrative: 80-year-old male with multiple medical problems including history of prior AAA status post repair, chronic kidney disease, diabetes, hypertension, hyperlipidemia, here with chief complaint of chest pain. Patient notes intermittent chest pain over the past few days. Pain moderate intensity. Pain localized to right left and central chest. Pain has occurred at rest. Pain is described as a dull ache. Pain can last up to an hour. No modifiers. No associated shortness of breath. He does note he has had cough recently and was seen by PCP and had negative Covid testing and was treated with a course of doxycycline. Patient has no associated leg swelling or calf pain. No abdominal pain. No pain currently - did have pain this AM. Related Data Home Medications Medication Instructions Recorded Confirmed Lancets 1 ea MISCELLANEOUS QID #400 ea 07/15/12 03/27/21 aspirin [Aspirin Low-Strength] 81 mg PO DAILY 07/15/12 03/27/21 cyanocobalamin (vitamin B-12) 1,000 mcg PO DAILY #90 cap 11/24/18 03/27/21 1,000 mcg capsule dorzolamide 22.3 mg-timolol 6.8 1 drp OS BID #1 drp 04/26/19 03/27/21 mg/mL eye drops latanoprost 0.005 % eye drops 1 drp OU HS #7.5 ml 06/14/20 03/27/21 atorvastatin 20 mg tablet 20 mg PO DAILY #90 tab 08/03/20 03/27/21 blood sugar diagnostic #100 strip 09/27/20 03/27/21 folic acid 1 mg tablet 1 mg PO DAILY #90 tab 10/11/20 03/27/21 atenolol 50 mg tablet 50 mg PO BID #180 tab 11/05/20 03/27/21 lisinopril 20 mg tablet 20 mg PO DAILY #90 tab 11/05/20 03/27/21 terazosin 5 mg capsule 5 mg PO HS #90 cap 12/06/20 03/27/21 amlodipine 5 mg tablet 5 mg PO DAILY #90 tab 01/07/21 03/27/21 clonazepam 0.5 mg tablet 0.5 mg PO HS #90 tab 01/28/21 03/27/21 magnesium oxide 400 mg PO BID #60 cap 03/28/21 omeprazole 40 mg PO DAILY #30 cap 03/28/21 Previous Rx's Medication Instructions Recorded cyanocobalamin (vitamin B-12) 1,000 mcg PO DAILY #90 cap 11/24/18 1,000 mcg capsule dorzolamide 22.3 mg-timolol 6.8 1 drp OS BID #1 drp 04/26/19 mg/mL eye drops latanoprost 0.005 % eye drops 1 drp OU HS #7.5 ml 06/14/20 atorvastatin 20 mg tablet 20 mg PO DAILY #90 tab 08/03/20 blood sugar diagnostic #100 strip 09/27/20 folic acid 1 mg tablet 1 mg PO DAILY #90 tab 10/11/20 atenolol 50 mg tablet 50 mg PO BID #180 tab 11/05/20 lisinopril 20 mg tablet 20 mg PO DAILY #90 tab 11/05/20 terazosin 5 mg capsule 5 mg PO HS #90 cap 12/06/20 amlodipine 5 mg tablet 5 mg PO DAILY #90 tab 01/07/21 clonazepam 0.5 mg tablet 0.5 mg PO HS #90 tab 01/28/21 magnesium oxide 400 mg PO BID #60 cap 03/28/21 omeprazole 40 mg PO DAILY #30 cap 03/28/21 Allergies Allergy/AdvReac Type Severity Reaction Status Date / Time ivp Allergy Intermediate per MD Uncoded 03/27/21 09:15 could shut down his kidneys General Stated Complaint: Chest Pain SUSAN: 2 Review of Systems All systems reviewed & are unremarkable except as noted in HPI and below Constitutional Constitutional: Denies fever(s) Cardiovascular Cardiovascular: Reports chest pain and Denies dyspnea Respiratory Respiratory: Reports cough and Denies dyspnea Gastrointestinal Gastrointestinal: Denies abdominal pain PFSH All Active Problems (Updated 03/29/21 @ 00:01 by ALEX JOHNSON) Hypomagnesemia (Acute) Atypical chest pain (Acute) URI (upper respiratory infection) (Acute) Urinary tract infection (Acute) Dental caries (Acute) History of umbilical hernia repair (Acute) Smoker (Acute) Status post hernia repair (Acute) Umbilical hernia (Acute) Weight loss, abnormal (Acute) Incisional hernia of anterior abdominal wall without obstruction or gangrene (Acute) Incisional hernia of anterior abdominal wall without obstruction or gangrene (Acute 06/24/17) Glaucoma (Acute) 03/12/15; OPTICAL EXPRESSIONS Chronic gout due to renal impairment of multiple sites without tophus (Acute 06/05/15) CKD (chronic kidney disease) stage 3, GFR 30-59 ml/min (Acute 07/30/16) due to ischemia during ruptured AAA Anxiety (Acute) Actinic keratoses (Acute 06/24/17) Medical History (Updated 03/29/21 @ 00:01 by ALEX JOHNSON) Anemia Anxiety 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 BELLO @ [facility] Umbilical hernia repaired 02/28 Family History Mother No problems noted. Father Neoplasm Sister Heart disease Stroke Grandfather No problems noted. Grandfather Heart disease Grandmother No problems noted. Grandmother Personal history of malignant neoplasm Sister No problems noted. Sister No problems noted. Brother Neoplasm Brother No problems noted. Brother No problems noted. Brother No problems noted. Brother No problems noted. Son No problems noted. Social History (Updated 11/06/20 @ 15:54 by Lindsey Locke) Smoking/Tobacco Use Status: Former Tobacco Use tobacco type: cigarettes Quit Date: 03/30/09 Second Hand Exposure: Yes Smoking risk assessment performed?: Yes Alcohol Intake: former Drug use: Never Substance use type: does not use Pets and animals: No Sexually active: Yes Do you think of yourself as: straight/heterosexual What is your relationship status?: How often do you talk on the phone with friends or family?: three or more times per week How often do you get together with friends or relatives?: three or more times per week How often do you attend pentecostal or gnosticist services?: decline to answer Do you belong to any clubs or organized social groups?: no Panel score (0-1 are the most socially isolated patients): 1 What type of physical activity do you participate in: walking Duration: 15-30 minutes/day Stephani/Latter Day: None Special stephani needs: No Seatbelt use: sometimes Helmet use: No Drive intox or ride 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: No Do you feel safe in your relationship?: Yes Exam Const General: cooperative and no acute distress [facility] Head: normocephalic and atraumatic Mouth: moist mucous membranes Eyes Conjunctivae: normal conjunctivae Sclera: normal sclerae Neck Neck: trachea midline and supple Resp Auscultation: no rales and wheezes (faint) Cardio Rate: regular rate and not tachycardic Rhythm: regular rhythm Heart Sounds: no murmurs GI Palpation: soft, not firm, no guarding, no masses, not rigid and nontender Skin General skin exam: no rashes or lesions noted Neuro General: patient alert, patient awake, patient oriented x3 and tone normal Extrem General: no calf tenderness and no edema Psych Appearance: grossly normal Mental Status: mental status grossly normal Course Vital Signs Vital signs: Vital Signs Temperature 36.2 C L 03/27/21 09:10 Pulse 64 03/27/21 09:10 Respiratory Rate 16 03/27/21 09:10 Blood Pressure 165/75 H 03/27/21 09:10 Pulse Oximetry 99 03/27/21 09:10 Temperature 36.2 C L 03/27/21 09:10 Temperature Source Skin 03/27/21 09:10 Pulse 64 03/27/21 09:10 Respiratory Rate 16 03/27/21 09:10 Respiratory Effort Non-Labored 03/27/21 09:10 Blood Pressure 165/75 H 03/27/21 09:10 Blood Pressure Position Supine 03/27/21 09:10 Pulse Oximetry 99 03/27/21 09:10 Oxygen Delivery Method Room Air 03/27/21 09:10 Oxygen Flow Rate 0 03/27/21 09:10 Pain Level 0 03/27/21 09:10
--- NOTE | 2021-03-27 09:45 | RT.EKG_ITS ---
APPROVED REPORT Exam: Resting ECG Reason for Exam: chest pain Patient Location: E HR:124 bpm ECG Measurements Heart Rate 124 [address] [place] [id number] P [id number] QRSd 136 QRS -62 QT [id number] T [id number] QTc 0 Conclusion Atrial fibrillation...? atrial activity Paired ventricular premature complexes...sequence of 2 V complexes Right bundle branch block...QRSd>120, terminal axis(90,270) Inferior infarct, age indeterminate...Q>35mS, T neg, II III aVF Nonspecific T abnormalities, lateral leads...T <-0.10mV, I aVL V5 V6 significant artifact, please disregard - will repeat EKG
--- NOTE | 2021-03-27 09:45 | RT.EKG_ITS ---
APPROVED REPORT Exam: Resting ECG Reason for Exam: chest pain Patient Location: E HR:56 bpm ECG Measurements Heart Rate 56 AXIS ME 179 P 56 QRSd 137 QRS -56 QT 461 T 11 QTc 446 Conclusion Sinus bradycardia...rate< 60 RBBB and LAFB...QRSd >120mS, axis(-40,240) Inferior infarct, old...Q >35mS, II III aVF no stemi
[2021-03-27 09:51] LABS: Abs Immature Grans 0.03 10^3/uL (0.0-0.06); Absolute Basophil Count 0.05 10^3/uL (0.0-0.2); Absolute Lymphocyte Count 2.65 10^3/uL (1.2-3.4); Absolute Monocyte Count 0.78 10^3/uL (0.1-0.8); Basophils % 0.6; Eosinophils % 1.1; HCT 41.3 % (40.0-50.0); HGB 13.4 g/dL (13.5-17.5); Immature Grans % 0.3; Lymphocytes % 29.7; MCH 30.7 pg (27.0-33.0); MCHC 32.4 % (32.0-36.0); MCV 94.5 fL (80-95); MPV 10.4 fL (8.0-11.0); Monocytes % 8.8; Neutrophils % 59.5; Nucleated RBC 0 %; Platelet Count 224 10^3/uL (130-400); RBC 4.37 10^6/uL (4.36-5.78); RDW 11.8 % (11.8-14.1); RDW-SD 41.1 fL; WBC 8.91 10^3/uL (4.4-10.8)
[2021-03-27 10:04] LABS: ALT 12 U/L (16-63); AST 15 U/L (15-37); Albumin 3.6 g/dL (3.4-5.0); Alkaline Phosphatase 79 U/L (46-116); BUN 24 mg/dL (7-18); Bilirubin, Total 0.6 mg/dL (0.2-1.0); CREATININE 2.2 mg/dL (0.70-1.30); Calcium 8.5 mg/dL (8.5-10.1); Chloride 102 mmol/L (98-107); Estimated GFR 29.02 (mL/min/1.73m2); Glucose 146 mg/dL (74-106); Magnesium 1.3 mg/dL (1.8-2.4); Potassium 3.9 mmol/L (3.5-5.1); Sodium 139 mmol/L (136-145); Total Protein 7.9 g/dL (6.4-8.2); Troponin I < 50 ng/L (<or=60)
[2021-03-27 10:08] LABS: Source Nasal/Nares
--- NOTE | 2021-03-27 10:30 | DI.RAD_ITS ---
Exam(s) XR CHEST 2V PA LATERAL EXAM: XR CHEST 2V PA LATERAL CLINICAL HISTORY: chest pain. TECHNIQUE: 2D digital imaging was performed. COMPARISON: CR XR CHEST 2V PA LATERAL from 02/07/2021 FINDINGS: Heart size is normal. The mediastinum is not widened. Lungs are clear. No infiltrates nor pleural effusions. IMPRESSION: No acute pulmonary findings.No significant change compared to 02/07/2021 DATA REPOSITORY: RADIATION DOSE DELIVERED:
--- NOTE | 2021-03-27 10:50 | DI.US_ITS ---
Exam(s) US EXTREMITY VENOUS BI EXAM: US EXTREMITY VENOUS BI CLINICAL HISTORY: possible PE TECHNIQUE: Grayscale, color, and doppler imaging of the deep venous system of both lower extremities was performed. COMPARISON: US US RENAL from 08/29/2020 FINDINGS: There is no evidence of intraluminal thrombus and there is normal compression and augmentation demons trated within the common femoral veins, femoral veins, and popliteal veins of both lower extremities. In the calves the interrogated veins also exhibit normal compression/ augmentation properties. The greater saphenous veins also appear patent as do the saphenofemoral junctions bilaterally.. IMPRESSION: 1. No ultrasound evidence of DVT in either lower extremity. DATA REPOSITORY:
[2021-03-27 11:12] LABS: D-Dimer 2015 ng/mlFEU (<500)
--- NOTE | 2021-03-27 11:32 | DI.NM_ITS ---
Exam(s) NM LUNG SCAN VENT PERF AEROS EXAM: NM LUNG SCAN VENT PERF AEROS CLINICAL HISTORY: elevated ddimer. chest pain. TECHNIQUE: Injected Dose: Ventilation: 34 mCi Tc-99m DTPA via inhalation Perfusion: 4.8 mCi Tc-99m MAA via IV COMPARISON: CR XR CHEST 2V PA LATERAL from 03/27/2021 FINDINGS: Chest X-Ray: Clear lungs. Perfusion: Normal. Ventilation:Normal There are no significant V/Q mismatches. IMPRESSION: 1. By the PIOPED criteria this scan is low probability for the presence of recent hemodynamically sig nificant pulmonary emboli. Modified PIOPED II criteria Probability Criteria High Two or more segments of V/Q mismatch Low Normal Perfusion, Non segmental perfusion abnormalitie s, pleural effusion in at least 1/3 of pleural cavity with no other defect Radiograph/perfusion matched defect in mid to upper lung confined to segment, one to three small segmental perfusion defects (<25% of segment) Perfusion defect smaller than corresponding radiogra phic lesion. Intermediate All other findings DATA REPOSITORY:
[2021-03-27] MEDS: MAGNESIUM SULFATE 2 GM/50 ML BAG IVPB ×2 (11:39→17:03)
[2021-03-27 11:59] LABS: Troponin I < 50 ng/L (<or=60)
[2021-03-27 12:34] LABS: COVID-19 PCR Negative (Negative)
[2021-03-27] MEDS: Enoxaparin 30 MG/0.3 ML SYR SC (17:02)
[2021-03-27] MEDS: Normal Saline Flush 10 ML SYR IVP ×2 (17:03→20:16)
--- NOTE | 2021-03-27 18:30 | RT.EKG_ITS ---
APPROVED REPORT Exam: Resting ECG Reason for Exam: chest pain Patient Location: I HR:131 bpm ECG Measurements Heart Rate 131 [address] [place] [id number] P [id number] QRSd 168 QRS -79 QT [id number] T -7 QTc 0 Conclusion NSR artifact Right bundle branch block...QRSd>120, terminal axis(90,270) Inferior infarct, age indeterminate...Q>35mS, T neg, II III aVF
[2021-03-27 18:31] LABS: Troponin I < 50 ng/L (<or=60)
--- NOTE | 2021-03-27 18:32 | W.PM.HP.N ---
Date of service: 03/27/21 Time of Service: 18:32 Assessment and Plan Assessment and plan (1) Atypical chest pain: Status: Acute Assessment and plan: ACS ruled out. DDx: arrhythmia in setting of hypomagnesemia, costochondritis, esophagitis from doxycycline, bronchitic pain/bronchospasm. Replete mag, repeat EKG, monitor on tele. Will benefit from outpatient MPI. Cannot complete MPI in-house tomorrow because the patient had a nuclear study (VQ today). We are clarifying how long of a period of time it needs to be between two nuclear tests. (2) Diabetes mellitus: Assessment and plan: Diet-controlled at home. Continue carb consistent diet here with SSI. (3) Essential hypertension: Assessment and plan: continue atenolol and amlodipine. (4) Hyperlipidemia: Assessment and plan: Check FLP. Continue atorvastatin 20 mg daily (5) Obstructive sleep apnea syndrome: Assessment and plan: Patient does not use CPAP or O2 at night. F/u as outpatient. (6) DVT prophylaxis: Status: Acute Assessment and plan: Renally dosed enoxaparin (7) Discharge planning issues: Status: Acute Assessment and plan: Full code Wants his son to make his decisions if/when he is not able to. Anticipate discharge home tomorrow. History of Present Illness History of Present Illness Chief Complaint: Chest pain Narrative: Mr Maldonado is a 80 year old male with PMHx of NIDDM2, hypertension, hyperlipidemia, as well as bladder and renal cancers and tobacco abuse in the past, who had presented to [facility] with chest pain which comes and goes. The chest pain episodes started three days ago. They occur with rest and with activity. They feel like heaviness/pressure midsternally but then also radiating to the right and to the left. The chest pains last a couple of minutes and go away on their own. The patient has had about 20 of these episodes in the last 3 days. He denies dizziness, shortness of breath, palpitations, nausea, radiation to the jaw. The pain did briefly go to the back as well as to LUE. The patient continues to have a residual cough after high URI (COVID negative). He took doxycycline for it completing it on 03/18. He is wondering if either the cold or the pill could have something to do with the chest discomfort. He has had three negative troponins. His EKG did not show acute ischemic changes. His magnesium was 1.3. He had a positive D-dimer, but negative venous dopplers and a VQ scan which was read as low probability of PE. His echo does not reveal any wall motion abnormalities. Review of Systems All systems reviewed & are unremarkable except as noted in HPI and below PFSH All Active Problems (Updated 03/27/21 @ 19:15 by Neelima Campbell MD) Discharge planning issues (Acute) DVT prophylaxis (Acute) Atypical chest pain (Acute) URI (upper respiratory infection) (Acute) Urinary tract infection (Acute) Dental caries (Acute) History of umbilical hernia repair (Acute) Smoker (Acute) Status post hernia repair (Acute) Umbilical hernia (Acute) Weight loss, abnormal (Acute) Incisional hernia of anterior abdominal wall without obstruction or gangrene (Acute) Incisional hernia of anterior abdominal wall without obstruction or gangrene (Acute 06/24/17) Glaucoma (Acute) 03/12/15; OPTICAL EXPRESSIONS Chronic gout due to renal impairment of multiple sites without tophus (Acute 06/05/15) CKD (chronic kidney disease) stage 3, GFR 30-59 ml/min (Acute 07/30/16) due to ischemia during ruptured AAA Anxiety (Acute) Actinic keratoses (Acute 06/24/17) Medical History (Updated 03/27/21 @ 19:15 by Neelima Campbell MD) Anemia Anxiety 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 BELLO @ [facility] Umbilical hernia repaired 02/28 Family History Mother No problems noted. Father Neoplasm Sister Heart disease Stroke Grandfather No problems noted. Grandfather Heart disease Grandmother No problems noted. Grandmother Personal history of malignant neoplasm Sister No problems noted. Sister No problems noted. Brother Neoplasm Brother No problems noted. Brother No problems noted. Brother No problems noted. Brother No problems noted. Son No problems noted. Social History (Updated 11/06/20 @ 15:54 by Lindsey Locke) Smoking/Tobacco Use Status: Former Tobacco Use tobacco type: cigarettes Quit Date: 03/30/09 Second Hand Exposure: Yes Smoking risk assessment performed?: Yes Alcohol Intake: former Drug use: Never Substance use type: does not use Pets and animals: No Sexually active: Yes Do you think of yourself as: straight/heterosexual What is your relationship status?: How often do you talk on the phone with friends or family?: three or more times per week How often do you get together with friends or relatives?: three or more times per week How often do you attend zoroastrianism or latter day services?: decline to answer Do you belong to any clubs or organized social groups?: no Panel score (0-1 are the most socially isolated patients): 1 What type of physical activity do you participate in: walking Duration: 15-30 minutes/day Stephani/Catholic: None Special stephani needs: No Seatbelt use: sometimes Helmet use: No Drive intox 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 Meds Allergies and Home Medications Allergies Allergy/AdvReac Type Severity Reaction Status Date / Time ivp Allergy Intermediate per MD Uncoded 03/27/21 09:15 could shut down his kidneys Home Medications Medication Instructions Recorded Confirmed Type Lancets 1 ea MISCELLANEOUS QID #400 ea 07/15/12 03/27/21 History aspirin [Aspirin Low-Strength] 81 mg PO DAILY 07/15/12 03/27/21 History magnesium oxide 400 mg PO DAILY cap 09/21/18 03/27/21 History cyanocobalamin (vitamin B-12) 1,000 mcg PO DAILY #90 cap 11/24/18 03/27/21 Rx 1,000 mcg capsule dorzolamide 22.3 mg-timolol 6.8 1 drp OS BID #1 drp 04/26/19 03/27/21 Rx mg/mL eye drops latanoprost 0.005 % eye drops 1 drp OU HS #7.5 ml 06/14/20 03/27/21 Rx atorvastatin 20 mg tablet 20 mg PO DAILY #90 tab 08/03/20 03/27/21 Rx blood sugar diagnostic #100 strip 09/27/20 03/27/21 Rx folic acid 1 mg tablet 1 mg PO DAILY #90 tab 10/11/20 03/27/21 Rx sildenafil 100 mg tablet 100 mg PO ONCE PRN #7 tab MDD 100 10/24/20 03/27/21 Rx mg atenolol 50 mg tablet 50 mg PO BID #180 tab 11/05/20 03/27/21 Rx lisinopril 20 mg tablet 20 mg PO DAILY #90 tab 11/05/20 03/27/21 Rx omeprazole 20 mg capsule,delayed 20 mg PO DAILY #90 cap 12/06/20 03/27/21 Rx release terazosin 5 mg capsule 5 mg PO HS #90 cap 12/06/20 03/27/21 Rx amlodipine 5 mg tablet 5 mg PO DAILY #90 tab 01/07/21 03/27/21 Rx clonazepam 0.5 mg tablet 0.5 mg PO HS #90 tab 01/28/21 03/27/21 Rx doxycycline monohydrate 100 mg 100 mg PO BID #10 tab 03/14/21 03/27/21 Rx tablet Exam Narrative Exam Narrative: General: Pleasant elderly male who appears comfortable in a chair, A&Ox3, NAD Neurological: A&Ox3, no focal deficits Psychiatric: Appropriate speech pattern/content Skin: Visible skin intact,including on B feet HEENT: Atraumatic, normocephalic, EOMI, MMM, clear oropharynx, no submandibular or cervical lymphadenopathy, no goiter or JVD Cardiovascular: RRR, no m/r/g Lungs: CTAB Gastrointestinal: soft, nontender, nondistended Genitourinary: deferred Extremities: no edema BLE's, 1+ pedal pulses BLEs. Results Imaging Additional studies: CXR: No acute pulmonary findings.No significant change compared to 02/07/2021 Venous doppler BLE's: 1. No ultrasound evidence of DVT in either lower extremity. VQ scan: 1. By the PIOPED criteria this scan is low probability for the presence of recent hemodynamically significant pulmonary emboli. Echo: LVEF 58%, normal LV chamber size, wall thickness, global and segmental systolic function. RV chamber size, wall thickens and systolic function are within normal limits. The cardiac valves appear structurally and functionally normal. There is no pericardial effusion. EKG: RBBB/LAFB (old), HR 56, Sinus bradycardia. Labs Result diagrams: 03/27/21 09:35 03/27/21 09:35 Labs: Laboratory Results - last 24 hr 03/27/21 03/27/21 03/27/21 09:35 09:35 09:35 WBC 8.91 RBC 4.37 Hgb 13.4 L Hct 41.3 MCV 94.5 MCH 30.7 MCHC 32.4 RDW 11.8 Plt Count 224 MPV 10.4 Immature Gran % 0.3 Neutrophils % 59.5 Lymphocytes % 29.7 Monocytes % 8.8 Eosinophils % 1.1 Basophils % 0.6 Nucleated RBC % 0 Absolute Neutrophils 5.30 Absolute Lymphocytes 2.65 Absolute Monocytes 0.78 Absolute Eosinophils 0.10 Absolute Basophils 0.05 D-Dimer 2015 H Sodium 139 Potassium 3.9 Chloride 102 Carbon Dioxide 28.0 Anion Gap 9.0 BUN 24 H Creatinine 2.2 H Estimated GFR/1.73 m2 29.02 Glucose 146 H Calcium 8.5 Magnesium 1.3 L Total Bilirubin 0.6 AST 15 ALT 12 L Alkaline Phosphatase 79 Troponin I < 50 Total Protein 7.9 Albumin 3.6 COVID-19 Source SARS-CoV-2 (PCR) 03/27/21 03/27/21 10:00 11:36 WBC RBC Hgb Hct MCV MCH MCHC RDW Plt Count MPV Immature Gran % Neutrophils % Lymphocytes % Monocytes % Eosinophils % Basophils % Nucleated RBC % Absolute Neutrophils Absolute Lymphocytes Absolute Monocytes Absolute Eosinophils Absolute Basophils D-Dimer Sodium Potassium Chloride Carbon Dioxide Anion Gap BUN Creatinine Estimated GFR/1.73 m2 Glucose Calcium Magnesium Total Bilirubin AST ALT Alkaline Phosphatase Troponin I < 50 Total Protein Albumin COVID-19 Source Nasal/Nares SARS-CoV-2 (PCR) Negative Last Vital Signs Temp 36.4 C L 03/27/21 16:58 Pulse 59 L 03/27/21 16:58 Resp 17 03/27/21 16:58 BP 157/78 H 03/27/21 16:58 Pulse Ox 99 03/27/21 16:58
[2021-03-27] MEDS: Atenolol 50 MG TAB PO (20:16)
[2021-03-27] MEDS: Latanoprost 0.005% 2.5 ML BTL OU (21:52)
[2021-03-27] MEDS: clonazePAM 0.5 MG TAB PO (21:52)
[2021-03-28 03:33] VITALS: BP 147/77; PULSE 63; RESP 18; TEMP 36.1; O2SAT 96
[2021-03-28 07:25] LABS: HCT 42.6 % (40.0-50.0); HGB 13.8 g/dL (13.5-17.5); MCH 30.7 pg (27.0-33.0); MCHC 32.4 % (32.0-36.0); MCV 94.9 fL (80-95); MPV 10.3 fL (8.0-11.0); Platelet Count 224 10^3/uL (130-400); RBC 4.49 10^6/uL (4.36-5.78); RDW 11.9 % (11.8-14.1); RDW-SD 40.9 fL; WBC 6.46 10^3/uL (4.4-10.8)
[2021-03-28 07:28] LABS: Hemoglobin A1C 6.9 % (<5.7)
[2021-03-28 07:35] LABS: Anion Gap 7.7 mmol/L (3-11); BUN 25 mg/dL (7-18); CO2 27.3 mmol/L (21.0-32.0); CREATININE 2.1 mg/dL (0.70-1.30); Calcium 8.9 mg/dL (8.5-10.1); Calculated LDL 87 mg/dL (<100); Chloride 105 mmol/L (98-107); Cholesterol 156 mg/dL (<200); Estimated GFR 30.62 (mL/min/1.73m2); Glucose 149 mg/dL (74-106); HDL Cholesterol 44 mg/dL (40-60); Magnesium 2.3 mg/dL (1.8-2.4); Potassium 4.3 mmol/L (3.5-5.1); Sodium 140 mmol/L (136-145); TSH (W/Ref FT4) 0.32 uIU/mL (0.36-3.74); Triglyceride 129 mg/dL (<150)
[2021-03-28 07:53] LABS: FREE T4 0.85 ng/dL (0.76-1.46)
[2021-03-28] MEDS: Omeprazole 20 MG CAPCR PO (07:55)
[2021-03-28] MEDS: Atenolol 50 MG TAB PO (07:55)
[2021-03-28] MEDS: Atorvastatin 20 MG TAB PO (07:55)
[2021-03-28] MEDS: Aspirin 81 MG CHEW PO (07:56)
[2021-03-28] MEDS: Cyanocobalamin 500 MCG TAB 1000 MCG PO (07:57)
[2021-03-28] MEDS: amLODIPine 5 MG TAB PO (07:57)
[2021-03-28] MEDS: Magnesium Oxide 400 MG TAB PO (07:57)
[2021-03-28] MEDS: Folic Acid 1 MG TAB PO (07:57)
[2021-03-28] MEDS: Lisinopril 20 MG TAB PO (07:57)
[2021-03-28] MEDS: Normal Saline Flush 10 ML SYR IVP (07:58)
[2021-03-28 08:02] VITALS: BP 155/76; PULSE 54; RESP 18; TEMP 36.3; O2SAT 97
[2021-03-28] MEDS: Insulin Aspart 300 UNITS/3 ML PEN SC (08:18)
--- NOTE | 2021-03-28 09:21 | DSE_ITS ---
Date of service: 03/28/21 Time of Service: 10:31 DS: Diagnosis Discharge Diagnosis (1) Atypical chest pain: Status: Acute (2) Diabetes mellitus: (3) Essential hypertension: (4) Hyperlipidemia: (5) Obstructive sleep apnea syndrome: (6) Hypomagnesemia: Status: Acute Discharge Plan Disposition Patient Disposition: HOME Condition: Good Discharge Details Reason For Visit: Chest Pain Admit Date/Time: 03/27/21 12:18 Admit Provider: Neelima Campbell Attending Provider: Neelima Campbell Primary Care Provider: Mahin Damon [facility] Hospital Course: Mr Maldonado is a 80 year old male with PMHx of NIDDM2, hypertension, hyperlipidemia, as well as bladder and renal cancers and tobacco abuse in the past, who was observed on [facility] hospitalist service from 03/27/21 until 03/28/21 for atypica midsternall chest pain with rest and with activity, radiating to both sides of the chest and to L arm. He had an elevated d-dimer and, given h/o malignancy and recent endoscopy, PE was high on differential, but his VQ scan was low probability and his venous dopplers of BLEs were negative. He ruled out for ACS by negative troponins and EKGs. His echo showed a preserved EF and no wall motion abnormalities. He did not have any arrhythmic events on telemetry. The patient continues to have a residual cough after high URI (COVID negative) and took doxycycline for this, so it is certainly possible that he is having esophageal symptoms or chostochondritis or bronchospasm. It is still recommended that he undergo outpatient stress test as he cannot complete one in-house today due to there needing to be at least 48 hours between nuclear tests (and he had just had a VQ test). He is stable to go home today. We are intensifying both his PPI and magnesium oxide doses. He will need outpatient labs to ensure adequate supplementation of magnesium. He will need to follow up with PCP in 1-2 weeks. Care for patient as well as completion of his discharge summary on day of discharge took 45 minutes. Home Meds and New Rx's Prescriptions: New omeprazole 40 mg capsule,delayed release(DR/EC) 40 mg PO DAILY Qty: 30 RF: 0 Continued cyanocobalamin (vitamin B-12) 1,000 mcg capsule 1,000 mcg PO DAILY Qty: 90 RF: 3 aspirin [Aspirin Low-Strength] 81 MG tablet,chewable 81 mg PO DAILY RF: 0 LANCETS 1 EACH EACH 1 ea Miscellaneous QID Qty: 400 RF: 4 dorzolamide-timolol 22.3-6.8 mg/mL drops 1 drp OS BID Qty: 1 RF: 12 latanoprost [Xalatan] 0.005 % drops 1 drp OU HS Qty: 7.5 RF: 6 atorvastatin 20 mg tablet 20 mg PO DAILY Qty: 90 RF: 4 (DME) FreeStyle Lite Strips Strip 1 ea Miscellaneous DAILY Qty: 100 RF: 4 folic acid 1 mg tablet 1 mg PO DAILY Qty: 90 RF: 3 atenolol 50 mg tablet 50 mg PO BID Qty: 180 RF: 3 lisinopril 20 mg tablet 20 mg PO DAILY Qty: 90 RF: 3 terazosin 5 mg capsule 5 mg PO HS Qty: 90 RF: 3 amlodipine 5 mg tablet 5 mg PO DAILY Qty: 90 RF: 3 clonazepam 0.5 mg tablet 0.5 mg PO HS Qty: 90 RF: 1 Changed magnesium oxide 400 mg capsule 400 mg PO BID Qty: 60 RF: 0 Discontinued doxycycline monohydrate 100 mg tablet 100 mg PO BID Qty: 10 RF: 0 sildenafil [Viagra] 100 mg tablet 100 mg PO ONCE MDD 100 mg PRN (Reason: sexual activity) Qty: 7 RF: 4 omeprazole 20 mg capsule,delayed release(DR/EC) 20 mg PO DAILY Qty: 90 RF: 3 Discharge Instructions Instructions: Chest Pain (DC), Hypomagnesemia (DC), Esophagitis (DC), Cardiac Stress Test (DC) Additional Instructions: Return to the hospital with any fever, bleeding, chest pain, or shortness of breath. Follow up for your stress test. Follow up for your bloodwork in 1 week. Follow up with your PCP in 1-2 weeks. Stand Alone Forms: Nursing Discharge Form Referrals: [facility] Radiology [Other] (Office will call you to make a appointment.) [facility] Lab [Other] (Please call to make an appointment to have you blood work done in 1 week) Mahin Damon DO [Primary Care Provider] - 04/02/21 1:40 pm Activity:: Activity as Tolerated Equipment/Supplies:: No Equipment Needed Diet:: carb consistent heart healthy Discharge Orders Discharge Orders: Discharge Order (Routine); Ordered 03/28/21 Ordered By: Neelima Campbell Other Ambulatory Orders: Basic Metabolic Panel (Routine) Timeframe: 1 Week Facility: [facility] - Location: Laboratory Outpatient Ordered By: Neelima Campbell Magnesium (Routine) Timeframe: 1 Week Facility: [facility] - Location: Laboratory Outpatient Ordered By: Neelima Campbell NM MPI rest & stress grp (Routine) Location: None Selected Ordered By: Neelima Campbell Discharge Data Discharge Date/Time-TO BE ENTERED AT DEPARTURE: 03/28/21 11:38 DS: Summary Time Spent with Patient providing and/or coordinating discharge services: Greater than 30 minutes Status at Discharge Functional status at discharge: independent ambulation Overall status at discharge: patient is back to baseline Mental Status: mental status grossly normal Speech and Movement: speech and movement normal Mood: congruent mood Affect: normal affect Exam Narrative Exam Narrative: General: Pleasant elderly male who appears comfortable in a chair, A&Ox3, NAD Neurological: A&Ox3, no focal deficits Psychiatric: Appropriate speech pattern/content Skin: Visible skin intact,including on B feet HEENT: Atraumatic, normocephalic, EOMI, MMM, clear oropharynx, no submandibular or cervical lymphadenopathy, no goiter or JVD Cardiovascular: RRR, no m/r/g Lungs: CTAB Gastrointestinal: soft, nontender, nondistended Genitourinary: deferred Extremities: no edema BLE's, 1+ pedal pulses BLEs. Psych Mental Status: mental status grossly normal Speech and Movement: speech and movement normal Mood: congruent mood Affect: normal affect DS: Data Vitals/I&O Vitals and I&O: Vital Signs Temperature 36.3 C L 03/28/21 08:02 Temperature Source Tympanic 03/28/21 08:02 Pulse 54 L 03/28/21 08:02 Pulse Rhythm Regular 03/28/21 04:20 Pulse 63 03/27/21 13:00 Respiratory Rate 18 03/28/21 08:02 Respiratory Effort Non-Labored 03/28/21 04:20 Respiratory Depth Normal 03/28/21 04:20 Respiratory Pattern Normal 03/28/21 04:20 Blood Pressure 155/76 H 03/28/21 08:02 Blood Pressure Mean 92 03/27/21 13:00 Blood Pressure Position Supine 03/27/21 09:10 Pulse Oximetry 97 03/28/21 08:02 Oxygen Delivery Method Room Air 03/28/21 08:02 Oxygen Flow Rate 0 03/28/21 08:02 Pain Level 0 03/28/21 08:02 Intake & Output 03/27/21 03/27/21 03/28/21 11:59 23:59 11:59 Intake Total 120 / 120 Balance 120 / 120 Weight 99.6 kg 91.8 kg 90.7 kg Intake: Oral 120 / 120 Other: Comment Patient used bathroom independently when tis nurse was in the rooom. Per pt. report, void x1 in the toilet. Voiding Methods Toilet Toilet Data Completed and Pending Completed studies during hospitalization [Text1]: CXR: No acute pulmonary findings.No significant change compared to 02/07/2021 Venous doppler BLE's: 1. No ultrasound evidence of DVT in either lower extremity. VQ scan: 1. By the PIOPED criteria this scan is low probability for the presence of recent hemodynamically significant pulmonary emboli. Echo: LVEF 58%, nml left ventricular chamber size, wall thickness, global and segmental systolic function. RV size, wall thickness, and systolic function are within normal limits. Cardiac valves appear structurally and functionally normal. There is no pericardial effusion. Labs on day of discharge: Labs from last 24 hours 03/28/21 03/28/21 03/28/21 07:00 07:00 07:00 WBC 6.46 RBC 4.49 Hgb 13.8 Hct 42.6 MCV 94.9 MCH 30.7 MCHC 32.4 RDW 11.9 Plt Count 224 MPV 10.3 Immature Gran % Neutrophils % Lymphocytes % Monocytes % Eosinophils % Basophils % Nucleated RBC % Absolute Neutrophils Absolute Lymphocytes Absolute Monocytes Absolute Eosinophils Absolute Basophils D-Dimer Sodium 140 Potassium 4.3 Chloride 105 Carbon Dioxide 27.3 Anion Gap 7.7 BUN 25 H Creatinine 2.1 H Estimated GFR/1.73 m2 30.62 Glucose 149 H Hemoglobin A1c 6.9 H Calcium 8.9 Magnesium 2.3 Total Bilirubin AST ALT Alkaline Phosphatase Troponin I Total Protein Albumin Triglycerides 129 Total Cholesterol 156 LDL Cholesterol, Calc 87 HDL Cholesterol 44 TSH 0.32 L Free T4 0.85 COVID-19 Source SARS-CoV-2 (PCR) 03/27/21 03/27/21 03/27/21 18:07 11:36 10:00 WBC RBC Hgb Hct MCV MCH MCHC RDW Plt Count MPV Immature Gran % Neutrophils % Lymphocytes % Monocytes % Eosinophils % Basophils % Nucleated RBC % Absolute Neutrophils Absolute Lymphocytes Absolute Monocytes Absolute Eosinophils Absolute Basophils D-Dimer Sodium Potassium Chloride Carbon Dioxide Anion Gap BUN Creatinine Estimated GFR/1.73 m2 Glucose Hemoglobin A1c Calcium Magnesium Total Bilirubin AST ALT Alkaline Phosphatase Troponin I < 50 < 50 Total Protein Albumin Triglycerides Total Cholesterol LDL Cholesterol, Calc HDL Cholesterol TSH Free T4 COVID-19 Source Nasal/Nares SARS-CoV-2 (PCR) Negative 03/27/21 03/27/21 03/27/21 09:35 09:35 09:35 WBC 8.91 RBC 4.37 Hgb 13.4 L Hct 41.3 MCV 94.5 MCH 30.7 MCHC 32.4 RDW 11.8 Plt Count 224 MPV 10.4 Immature Gran % 0.3 Neutrophils % 59.5 Lymphocytes % 29.7 Monocytes % 8.8 Eosinophils % 1.1 Basophils % 0.6 Nucleated RBC % 0 Absolute Neutrophils 5.30 Absolute Lymphocytes 2.65 Absolute Monocytes 0.78 Absolute Eosinophils 0.10 Absolute Basophils 0.05 D-Dimer 2015 H Sodium 139 Potassium 3.9 Chloride 102 Carbon Dioxide 28.0 Anion Gap 9.0 BUN 24 H Creatinine 2.2 H Estimated GFR/1.73 m2 29.02 Glucose 146 H Hemoglobin A1c Calcium 8.5 Magnesium 1.3 L Total Bilirubin 0.6 AST 15 ALT 12 L Alkaline Phosphatase 79 Troponin I < 50 Total Protein 7.9 Albumin 3.6 Triglycerides Total Cholesterol LDL Cholesterol, Calc HDL Cholesterol TSH Free T4 COVID-19 Source SARS-CoV-2 (PCR) [facility] All Active Problems (Updated 03/28/21 @ 10:52 by Neelima Campbell MD) Hypomagnesemia (Acute) Discharge planning issues (Acute) DVT prophylaxis (Acute) Atypical chest pain (Acute) URI (upper respiratory infection) (Acute) Urinary tract infection (Acute) Dental caries (Acute) History of umbilical hernia repair (Acute) Smoker (Acute) Status post hernia repair (Acute) Umbilical hernia (Acute) Weight loss, abnormal (Acute) Incisional hernia of anterior abdominal wall without obstruction or gangrene (Acute) Incisional hernia of anterior abdominal wall without obstruction or gangrene (Acute 06/24/17) Glaucoma (Acute) 03/12/15; OPTICAL EXPRESSIONS Chronic gout due to renal impairment of multiple sites without tophus (Acute 06/05/15) CKD (chronic kidney disease) stage 3, GFR 30-59 ml/min (Acute 07/30/16) due to ischemia during ruptured AAA Anxiety (Acute) Actinic keratoses (Acute 06/24/17) Medical History (Updated 03/28/21 @ 10:52 by Neelima Campbell MD) Anemia Anxiety 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 BELLO @ [facility] Umbilical hernia repaired 02/28 Family History Mother No problems noted. Father Neoplasm Sister Heart disease Stroke Grandfather No problems noted. Grandfather Heart disease Grandmother No problems noted. Grandmother Personal history of malignant neoplasm Sister No problems noted. Sister No problems noted. Brother Neoplasm Brother No problems noted. Brother No problems noted. Brother No problems noted. Brother No problems noted. Son No problems noted. Social History (Updated 11/06/20 @ 15:54 by Lindsey Locke) Smoking/Tobacco Use Status: Former Tobacco Use tobacco type: cigarettes Quit Date: 03/30/09 Second Hand Exposure: Yes Smoking risk assessment performed?: Yes Alcohol Intake: former Drug use: Never Substance use type: does not use Pets and animals: No Sexually active: Yes Do you think of yourself as: straight/heterosexual What is your relationship status?: How often do you talk on the phone with friends or family?: three or more times per week How often do you get together with friends or relatives?: three or more times per week How often do you attend mandaeism or hinduism services?: decline to answer Do you belong to any clubs or organized social groups?: no Panel score (0-1 are the most socially isolated patients): 1 What type of physical activity do you participate in: walking Duration: 15-30 minutes/day Stephani/Jew: None Special stephani needs: No Seatbelt use: sometimes Helmet use: No Drive intox or ride w/intox 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
== END 2021-03-28 11:38 | disposition home or self-care (01) ==
LOC: ER 09:37 → MS 13:11
PROVIDERS: Admitting Provider Internal Medicine; Emergency Provider Student in an Organized Health Care Education/Training Program; PCP Emergency Medicine; Visit Provider Internal Medicine
DX: R07.89 Other chest pain (principal); E78.5 Hyperlipidemia, unspecified; E11.9 Type 2 diabetes mellitus without complications; E83.42 Hypomagnesemia; I10 Essential (primary) hypertension; G47.33 Obstructive sleep apnea (adult) (pediatric); N18.30 Chronic kidney disease, stage 3 unspecified; M1A.49X0 Other secondary chronic gout, multiple sites, without tophus (tophi); F41.9 Anxiety disorder, unspecified; I45.2 Bifascicular block; E53.8 Deficiency of other specified B group vitamins; Z85.51 Personal history of malignant neoplasm of bladder; Z87.891 Personal history of nicotine dependence
CPT/HCPCS: 36415; 80048; 80053; 80061; 85027; 87635; 93005; 96365; 99285; 71046; 78582; 83036; 83735; 84439; 84443; 84484; 85025; 85379; 93010; 93306; 93970; 99217; 99220; G0378; J1650

== ENCOUNTER 2021-04-02 01:02 | Outpatient (CLI) | payer MEDICARE, SELFPAY | END 2021-04-02 01:22 | PROVIDERS: PCP Emergency Medicine; Visit Provider Internal Medicine ==

== ENCOUNTER 2021-04-04 04:01 | Outpatient (CLI) | payer MEDICARE, SELFPAY ==
[2021-04-04 10:14] LABS: Anion Gap 6.7 mmol/L (3-11); BUN 23 mg/dL (7-18); CO2 28.3 mmol/L (21.0-32.0); CREATININE 2.3 mg/dL (0.70-1.30); Calcium 8.6 mg/dL (8.5-10.1); Chloride 106 mmol/L (98-107); Estimated GFR 27.57 (mL/min/1.73m2); Glucose 127 mg/dL (74-106); Magnesium 1.8 mg/dL (1.8-2.4); Potassium 4.8 mmol/L (3.5-5.1); Sodium 141 mmol/L (136-145)
== END 2021-04-04 04:02 | disposition home or self-care (01) ==
LOC: LBO 04:01
PROVIDERS: PCP Emergency Medicine; Visit Provider Internal Medicine
DX: E83.42 Hypomagnesemia (principal)
CPT/HCPCS: 36415; 80048; 83735

== ENCOUNTER 2021-04-09 00:41 | Outpatient (CLI) | payer MEDICARE, SELFPAY ==
--- NOTE | 2021-04-09 09:00 | ETT_ITS ---
APPROVED REPORT Exam: Exercise Treadmill Patient Location: Out-Patient Room/Bed: Stress Nurse: Ny Ramos RN Ordering Provider:ADRIAN COPE, Contact Number: [phone] BMI: 31.16 Indications: Atypical chest pain Medical History Medical History: Hypertension, hyperlipidemia, diabetes, ELIANE, AA rupture and repair, CKD, gerd, anxie ty Cardiac Medications: Aspirin, atorvastatin, lisinopril, amlodipine, atenolol, dorzolamide-timolol Allergies: IVP Cardiac Risk Factors: Hypertension, hyperlipidemia, diabetes, smoker (former), CVD, family hx Previous Cardiac Procedures: AAA repair (2004) Pretest Chest Pain Characteristics: None Exercise History: Sedentary Physical Disabilities: None Lung Sounds: Clear to auscultation Heart Sounds: Regular Stress Test Details Test: Exercise stress testing was performed using a Jhonny protocol. Rest Stress HR Resting HR Supine: 75 bpm Max Heart Rate (APMHR): 141 bpm Resting HR Standin bpm Target HR (85% APMHR): 119 bpm Max HR Achieved: 152 bpm % of APMHR: 107 Recovery HR: 91 bpm HR response to stress: Normal HR response to stress Comment: Atenolol and dorzolamide-timolol held for 36 hrs. BP Resting BP Supine: 138/78 mmHg Resting BP Standin/74 mmHg Max BP: 200/64 mmHg Recovery BP: 144/68 mmHg BP response to stress: Abnormal hypertensive response to stress. ECG Ectopy: None ST Change: No significant ST segment changes noted Arrhythmia: Occasional PACs, rare PVCs Recovery ST Change: No significant ST segment changes noted Recovery Arrhythmia: Rare PACs and PVCs Clinical Reason for Termination: Fatigue Stress Symptoms: General Fatigue, Dyspnea Exercise duration: 8 min49 sec Highest Stage Reached: Stage 3: 3.4 mph at 14% grade. Exercise capacity: 10.16 METs Cohn Treadmill Score: 7.5 Rate Pressure Product: [id number] Stress ECG Conclusion 1. The resting electrocardiogram showed right bundle branch block and left anterior fascicular block 2. Patient exercised on the Jhonny protocol and completed a workload of 10.16 minutes, stopping due to fatigue 3. Normal heart rate and blood pressure response to exercise. The patient achieved greater than 100% of predicted heart rate for age 4. There was no electrocardiographic evidence of myocardial ischemia 5. Occasional atrial and ventricular ectopic beats were noted Cohn Treadmill Score is 7.5 which is Low risk. Stress Test Summary STAGE Time (mins) Speed (mph) Grade (%) HR BP SYMPTOMS METS Supine 75 138/78 Standing 93 130/74 SPO2 98% 1 3 1.7 10 122 174/70 SPO2 89% 4.6 2 6 2.5 12 135 200/64 SPO2 93% 7 3 9 3.4 14 150 Mild SOB, SPO2 92% 10.2 1 min recovery 140 184/68 SOB improving, SPO2 95% 3 min recovery 108 198/64 SOB resolved, SPO2 97% 6 min recovery 91 144/68 SPO2 97%
== END 2021-04-09 01:01 ==
PROVIDERS: PCP Emergency Medicine; Visit Provider Emergency Medicine
DX: R07.89 Other chest pain (principal); I44.4 Left anterior fascicular block; I45.10 Unspecified right bundle-branch block; I49.1 Atrial premature depolarization; I49.3 Ventricular premature depolarization; I10 Essential (primary) hypertension; E78.5 Hyperlipidemia, unspecified; E11.9 Type 2 diabetes mellitus without complications; Z87.891 Personal history of nicotine dependence; I25.10 Atherosclerotic heart disease of native coronary artery without angina pectoris; Z82.49 Family history of ischemic heart disease and other diseases of the circulatory system
CPT/HCPCS: 93016; 93018; 93017

== ENCOUNTER 2021-09-18 09:14 | Emergency (ER) | payer MEDICARE, SELFPAY ==
[2021-09-18] VITALS (48 sets, daily range): BP systolic 112–149; BP diastolic 53–87; PULSE 45–66; RESP 7–21; TEMP 36.5; O2SAT 95–99
--- NOTE | 2021-09-18 09:15 | RT.EKG_ITS ---
APPROVED REPORT Exam: Resting ECG Reason for Exam: cp Patient Location: E HR:59 bpm ECG Measurements Heart Rate 59 AXIS NM 194 P 72 QRSd 149 QRS -69 QT 476 T 21 QTc 471 Conclusion Sinus bradycardia...rate< 60 Right bundle branch block Inferior Q >35mS, II III aVF Similar to prev
--- NOTE | 2021-09-18 09:23 | W.ED.GENAD ---
Discharge Plan Disposition Patient Disposition: HOME Condition: Serious Discharge Details Clinical Impression: Chest pain Primary Care Provider: Sander Contreras ED Provider: Cayla Lin Home Meds and New Rx's Prescriptions: New magnesium oxide 400 mg (241.3 mg magnesium) tablet 400 mg PO BID Qty: 60 0RF Continued cyanocobalamin (vitamin B-12) 1,000 mcg capsule 1,000 mcg PO DAILY Qty: 90 3RF amlodipine 5 mg tablet 5 mg PO BID Qty: 90 3RF aspirin [Aspirin Low-Strength] 81 MG tablet,chewable 81 mg PO DAILY LANCETS 1 EACH EACH 1 ea Miscellaneous QID Qty: 400 Rx Instructions: DX: 250.0 dorzolamide-timolol 22.3-6.8 mg/mL drops 1 drp OS BID Qty: 1 12RF latanoprost [Xalatan] 0.005 % drops 1 drp OU HS Qty: 7.5 6RF atorvastatin 20 mg tablet 20 mg PO DAILY Qty: 90 4RF (DME) FreeStyle Lite Strips Strip 1 ea Miscellaneous DAILY Qty: 100 4RF Rx Instructions: DX E11.9 Test twice daily folic acid 1 mg tablet 1 mg PO DAILY Qty: 90 3RF atenolol 50 mg tablet 50 mg PO BID Qty: 180 3RF lisinopril 20 mg tablet 20 mg PO DAILY Qty: 90 3RF terazosin 5 mg capsule 5 mg PO HS Qty: 90 3RF clonazepam 0.5 mg tablet 0.5 mg PO HS Qty: 90 1RF omeprazole 40 mg capsule,delayed release(DR/EC) 40 mg PO DAILY Qty: 30 0RF magnesium oxide 400 mg capsule 400 mg PO BID Qty: 60 0RF Discharge Instructions Instructions: Chest Pain (ED) Additional Instructions: follow-up with pcp this week continue on your prescribed medications return earlier with new or worsening complaints Referrals: Sander Contreras MD [Primary Care Provider] - Discharge Data Discharge Date/Time-TO BE ENTERED AT DEPARTURE: 09/18/21 16:27 Medical Decision Making <ANIBAL Landon - Last Filed: 09/18/21 15:54> This is an 81-year-old gentleman with a significant past medical history that includes diabetes, right bundle branch block, obesity, hypertension, hyperlipidemia, status post prostate cancer, aortic aneurysm and dissection with repair, CKD, anxiety, presenting to the ER today for 2-day history of intermittent chest pain anterior nature with some left arm throbbing. Patient denies recent illness or trauma. Plan is to give a single dose of aspirin, obtain a cardiac work-up including a D-dimer and delta troponin. Abdomen is soft, nontender, no pulsatile mass. Initial laboratory values are unremarkable for any obvious emergent process. CBC unremarkable, electrolytes unremarkable. Creatinine 2.4 with a GFR of 26.18 which is near his baseline. Magnesium is 1.2, will give 1 g IV. Initial troponin is less than 50, COVID-negative, chest x-ray unremarkable. Awaiting D-dimer D-dimer is 1960. I would like to pursue CTA if he cannot tolerate IV contrast. Plan is now to admit, trend troponins, and obtain nuclear medicine study. Patient declines admission, reports that he has too much going on this week including 2 separate funerals and he would much rather not be admitted. He is agreeable to awaiting a delta troponin here in the ER. I will pursue potential nuclear medicine study here from the ER setting if at all possible. I contacted our radiology team and a VQ scan can be performed at approximately 3 PM today. Patient remains asymptomatic, able to tolerate p.o. intake without difficulty Delta troponin remains less than 50. Medical Records Medical records reviewed: Yes I reviewed the patient's medical records. Imaging Data Radiologic Study: Attestation: I personally reviewed and interpreted this imaging study as follows: Imaging: X-Ray Radiologist's impression: Exam(s) XR PORTABLE CHEST AP EXAM: XR PORTABLE CHEST AP CLINICAL HISTORY: ches pain TECHNIQUE: 2D digital imaging was performed of the chest. One image was obtained. An AP view was obtained. COMPARISON: CR XR CHEST 2V PA LATERAL from 03/27/2021 FINDINGS: MEDIASTINUM: Normal. HEART: Normal. PULMONARY VASCULATURE: Normal. LUNGS: Clear. PLEURAL SPACE: No pleural effusion or pneumothorax. BONE:Within normal limits for the patient's age. OTHER FINDINGS:Normal. IMPRESSION: No acute pulmonary findings. Lab Data Lab results reviewed: Yes I reviewed the patient's lab results. Labs: Laboratory Tests Range/Units 09/18/21 09/18/21 09/18/21 09:33 09:33 09:33 WBC (4.4-10.8) 10^3/uL 9.82 RBC (4.36-5.78) 10^6/uL 4.52 Hgb (13.5-17.5) g/dL 13.9 Hct (40.0-50.0) % 41.3 MCV (80-95) fL 91 MCH (27.0-33.0) pg 30.8 MCHC (32.0-36.0) % 33.7 RDW (11.8-14.1) % 12.0 Plt Count (130-400) 10^3/uL 174 MPV (8.0-11.0) fL 10.4 Immature Gran % 0.4 Neutrophils % 74.3 Lymphocytes % 18.0 Monocytes % 6.7 Eosinophils % 0.3 Basophils % 0.3 Nucleated RBC % (0.0-0.3) % 0.0 Absolute Neutrophils (1.2-6.7) 10^3/uL 7.29 H Absolute Lymphocytes (1.2-3.4) 10^3/uL 1.77 Absolute Monocytes (0.1-0.8) 10^3/uL 0.66 Absolute Eosinophils (0.0-0.7) 10^3/uL 0.03 Absolute Basophils (0.0-0.2) 10^3/uL 0.03 PT (9.3-11.0) sec 10.8 INR (0.9-1.1) 1.1 APTT (21.0-27.5) sec 24.9 D-Dimer (<500) ng/mlFEU 1960 H Sodium (136-145) mmol/L 140 Potassium (3.5-5.1) mmol/L 4.3 Chloride (98-107) mmol/L 104 Carbon Dioxide (21.0-32.0) mmol/L 26.8 Anion Gap (3-11) mmol/L 9.2 BUN (7-18) mg/dL 24 H Creatinine (0.70-1.30) mg/dL 2.4 H Estimated GFR/1.73 m2 (mL/min/1.73m2) 26.18 Glucose (74-106) mg/dL 153 H Calcium (8.5-10.1) mg/dL 8.5 Magnesium (1.8-2.4) mg/dL 1.2 L Total Bilirubin (0.2-1.0) mg/dL 0.7 AST (15-37) U/L 20 ALT (16-63) U/L 18 Alkaline Phosphatase (46-116) U/L 75 Troponin I (<or=60) ng/L < 50 Total Protein (6.4-8.2) g/dL 7.6 Albumin (3.4-5.0) g/dL 3.7 COVID-19 Source SARS-CoV-2 (PCR) (Negative) Range/Units 09/18/21 09/18/21 10:02 12:55 WBC (4.4-10.8) 10^3/uL RBC (4.36-5.78) 10^6/uL Hgb (13.5-17.5) g/dL Hct (40.0-50.0) % MCV (80-95) fL MCH (27.0-33.0) pg MCHC (32.0-36.0) % RDW (11.8-14.1) % Plt Count (130-400) 10^3/uL MPV (8.0-11.0) fL Immature Gran % Neutrophils % Lymphocytes % Monocytes % Eosinophils % Basophils % Nucleated RBC % (0.0-0.3) % Absolute Neutrophils (1.2-6.7) 10^3/uL Absolute Lymphocytes (1.2-3.4) 10^3/uL Absolute Monocytes (0.1-0.8) 10^3/uL Absolute Eosinophils (0.0-0.7) 10^3/uL Absolute Basophils (0.0-0.2) 10^3/uL PT (9.3-11.0) sec INR (0.9-1.1) APTT (21.0-27.5) sec D-Dimer (<500) ng/mlFEU Sodium (136-145) mmol/L Potassium (3.5-5.1) mmol/L Chloride (98-107) mmol/L Carbon Dioxide (21.0-32.0) mmol/L Anion Gap (3-11) mmol/L BUN (7-18) mg/dL Creatinine (0.70-1.30) mg/dL Estimated GFR/1.73 m2 (mL/min/1.73m2) Glucose (74-106) mg/dL Calcium (8.5-10.1) mg/dL Magnesium (1.8-2.4) mg/dL Total Bilirubin (0.2-1.0) mg/dL AST (15-37) U/L ALT (16-63) U/L Alkaline Phosphatase (46-116) U/L Troponin I (<or=60) ng/L < 50 Total Protein (6.4-8.2) g/dL Albumin (3.4-5.0) g/dL COVID-19 Source Nasal/Nares SARS-CoV-2 (PCR) (Negative) Negative ECG Data Attestation: I personally reviewed and interpreted this ECG (s) as follows: Interpretation: Please see official report by Dr. James, sinus bradycardia, ventricular rate of 59, right bundle branch block, inferior Q waves in leads II-III-aVF, similar to previous <ANIBAL Nazario - Last Filed: 09/18/21 20:28> This is an 81-year-old gentleman with a significant past medical history that includes diabetes, right bundle branch block, obesity, hypertension, hyperlipidemia, status post prostate cancer, aortic aneurysm and dissection with repair, CKD, anxiety, presenting to the ER today for 2-day history of intermittent chest pain anterior nature with some left arm throbbing. Patient denies recent illness or trauma. Plan is to give a single dose of aspirin, obtain a cardiac work-up including a D-dimer and delta troponin. Abdomen is soft, nontender, no pulsatile mass. Initial laboratory values are unremarkable for any obvious emergent process. CBC unremarkable, electrolytes unremarkable. Creatinine 2.4 with a GFR of 26.18 which is near his baseline. Magnesium is 1.2, will give 1 g IV. Initial troponin is less than 50, COVID-negative, chest x-ray unremarkable. Awaiting D-dimer D-dimer is 1960. I would like to pursue CTA if he cannot tolerate IV contrast. Plan is now to admit, trend troponins, and obtain nuclear medicine study. Patient declines admission, reports that he has too much going on this week including 2 separate funerals and he would much rather not be admitted. He is agreeable to awaiting a delta troponin here in the ER. I will pursue potential nuclear medicine study here from the ER setting if at all possible. I contacted our radiology team and a VQ scan can be performed at approximately 3 PM today. Patient remains asymptomatic, able to tolerate p.o. intake without difficulty Delta troponin remains less than 50. care accepted from Kendrick Garcia at 1545 pending vq scan which was neg for dvt Patient is asymptomatic He has offered admission on several occasions and has declined He is fully alert, oriented, of decisional capacity He is aware that he is at risk for cardiac etiology of pain and that is our recommendation that he be admitted He feels comfortable following up with his PCP, I did place referral for outpatient reassessment within the next 24 to 48 hours Patient expresses comfort with plan and again confirms that he is unwilling to be hospitalized He is discharged home in stable condition without EKG changes or acute elevation in his troponin HPI <ANIBAL Landon - Last Filed: 09/18/21 15:54> General Mode of arrival: ambulatory. Date/Time Provider Initiated Documentation: 09/18/21 09:16. Limitations to Documentation: no limitations. Information obtained by: patient. HPI Narrative: This is an 81-year-old gentleman, past medical history of diabetes, right bundle branch block, obesity, hyperlipidemia, hypertension, aortic aneurysm and dissection with repair, CKD, anxiety, history of prostate cancer, presenting to the ER for evaluation of intermittent anterior chest pain, dull and aching, 5 out of 10 associated with some dull aching in his left arm over the past 1-2 days. Currently asymptomatic. Nothing made his symptoms worse or better. Patient states that he has had multiple family deaths of this year, has 2 funerals this week, would prefer to be discharged home if at all possible. He states that he had a very similar work-up back in February 2021, March 2021. He denies recent illness or trauma, headache, visual changes, neck pain, numbness, ting, weakness, shortness of breath, abdominal pain, nausea, vomiting, change in bowel or bladder function. He has not taken any medication for his symptoms today. Related Data Home Medications Medication Instructions Recorded Confirmed Lancets 1 ea miscellaneous QID #400 ea 07/15/12 07/09/21 aspirin 81 mg chewable tablet 81 mg PO DAILY 07/15/12 09/18/21 (Aspirin Low-Strength) cyanocobalamin (vitamin B-12) 1,000 mcg PO DAILY #90 caps 11/24/18 09/18/21 1,000 mcg capsule dorzolamide 22.3 mg-timolol 6.8 1 drp OS BID #1 drp 04/26/19 09/18/21 mg/mL eye drops latanoprost 0.005 % eye drops 1 drp OU HS #7.5 mL 06/14/20 07/09/21 (Xalatan) atorvastatin 20 mg tablet 20 mg PO DAILY #90 tabs 08/03/20 09/18/21 blood sugar diagnostic (FreeStyle #100 strips 09/27/20 07/09/21 Lite Strips) folic acid 1 mg tablet 1 mg PO DAILY #90 tabs 10/11/20 09/18/21 atenolol 50 mg tablet 50 mg PO BID #180 tabs 11/05/20 09/18/21 lisinopril 20 mg tablet 20 mg PO DAILY #90 tabs 11/05/20 09/18/21 terazosin 5 mg capsule 5 mg PO HS #90 caps 12/06/20 09/18/21 magnesium oxide 400 mg PO BID #60 caps 03/28/21 09/18/21 omeprazole 40 mg capsule,delayed 40 mg PO DAILY #30 caps 03/28/21 09/18/21 release amlodipine 5 mg tablet 5 mg PO BID #90 tabs 04/02/21 09/18/21 clonazepam 0.5 mg tablet 0.5 mg PO HS #90 tabs 08/12/21 09/18/21 magnesium oxide 400 mg (241.3 mg 400 mg PO BID #60 tabs 09/18/21 magnesium) tablet Previous Rx's Medication Instructions Recorded cyanocobalamin (vitamin B-12) 1,000 mcg PO DAILY #90 caps 11/24/18 1,000 mcg capsule dorzolamide 22.3 mg-timolol 6.8 1 drp OS BID #1 drp 04/26/19 mg/mL eye drops latanoprost 0.005 % eye drops 1 drp OU HS #7.5 mL 06/14/20 (Xalatan) atorvastatin 20 mg tablet 20 mg PO DAILY #90 tabs 08/03/20 blood sugar diagnostic (FreeStyle #100 strips 09/27/20 Lite Strips) folic acid 1 mg tablet 1 mg PO DAILY #90 tabs 07/15/21 atenolol 50 mg tablet 50 mg PO BID #180 tabs 11/05/20 lisinopril 20 mg tablet 20 mg PO DAILY #90 tabs 11/05/20 terazosin 5 mg capsule 5 mg PO HS #90 caps 12/06/20 magnesium oxide 400 mg PO BID #60 caps 03/28/21 omeprazole 40 mg capsule,delayed 40 mg PO DAILY #30 caps 03/28/21 release amlodipine 5 mg tablet 5 mg PO BID #90 tabs 04/02/21 clonazepam 0.5 mg tablet 0.5 mg PO HS #90 tabs 08/12/21 magnesium oxide 400 mg (241.3 mg 400 mg PO BID #60 tabs 09/18/21 magnesium) tablet General SUSAN: 2 Review of Systems <ANIBAL Landon - Last Filed: 09/18/21 15:54> Constitutional Constitutional: Denies fever(s) and Denies headache(s) Eyes Eyes: Denies change in vision ENT Ears, Nose, Mouth, and Throat: Denies headache(s) Neurologic Neurologic: Denies headache(s) PFSH <ANIBAL Landon - Last Filed: 09/18/21 15:54> All Active Problems (Updated 09/18/21 @ 16:11 by ANIBAL Nazario) Chest pain (Acute) Diabetes mellitus (Chronic) 06/2021-diet controlled RBBB (right bundle branch block with left anterior fascicular block) (Acute) 06/2021-unremarkable ETT 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 Obstructive sleep apnea syndrome (Acute) Obesity (Acute) Hyperlipidemia (Acute 08/04/12) Essential hypertension (Acute 07/09/16) White coat augmentation neg stress echo 07/14 Benign prostatic hyperplasia (Acute) Aortic aneurysm and dissection (Acute) AAA ruptured --multiple transfusions; repair, open repair about 2009 Smoker (Acute) quit 2009, about 40-50 pk yr Incisional hernia of anterior abdominal wall without obstruction or gangrene (Acute) Glaucoma (Acute) 03/12/15; OPTICAL EXPRESSIONS Chronic gout due to renal impairment of multiple sites without tophus (Acute 06/05/15) CKD (chronic kidney disease) stage 3, GFR 30-59 ml/min (Acute 07/30/16) due to ischemia during ruptured AAA 2021, stage 4 Anxiety (Acute) Actinic keratoses (Acute 06/24/17) Medical History Anemia Anxiety Diabetes mellitus (08/04/12) RBBB (right bundle branch block with left anterior fascicular block) (07/30/16) Vitamin B 12 deficiency Surgical History hernia repair S/P AAA repair TURBT (08/11/16) DR. BELLO @ [facility] Umbilical hernia repaired 02/28 Family History Mother No problems noted. Father Neoplasm Sister Heart disease Stroke Grandfather No problems noted. Grandfather Heart disease Grandmother No problems noted. Grandmother Personal history of malignant neoplasm Sister No problems noted. Sister No problems noted. Brother Neoplasm Brother No problems noted. Brother No problems noted. Brother No problems noted. Brother No problems noted. Son No problems noted. Social History Smoking/Tobacco Use Status: Former Tobacco Use tobacco type: cigarettes Quit Date: 03/30/09 Second Hand Exposure: Yes Smoking risk assessment performed?: Yes Alcohol Intake: former Drug use: Never Substance use type: does not use Pets and animals: No Sexually active: Yes Do you think of yourself as: straight/heterosexual What is your relationship status?: How often do you talk on the phone with friends or family?: three or more times per week How often do you get together with friends or relatives?: three or more times per week How often do you attend voodoo or shinto services?: decline to answer Do you belong to any clubs or organized social groups?: no Panel score (0-1 are the most socially isolated patients): 1 What type of physical activity do you participate in: walking Duration: 15-30 minutes/day Frequency: 3-4 times per week Stephani/Yarsani: None Special stephani needs: No Seatbelt use: sometimes Helmet use: No Drive intox or ride w/intox 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 Exam <ANIBAL Landon - Last Filed: 09/18/21 15:54> Const General: cooperative, healthy appearing, comfortable and no acute distress Orientation: alert and awake [facility] Head: normal to inspection, normocephalic and atraumatic Face and sinus: normal facial exam Mouth: moist mucous membranes Eyes General: appearance normal, both eyes and all related structures Conjunctivae: conjunctivae normal Neck Neck: normal visual inspection, full ROM, trachea midline, supple and nontender Resp Effort & Inspection: normal respiratory effort and able to speak in complete sentences Auscultation: clear to auscultation bilaterally Cardio Rate: regular rate Rhythm: regular rhythm GI Inspection: normal to inspection Palpation: soft, not firm, no guarding, no pulsatile masses and nontender Auscultation: normal bowel sounds Back/Spine/Pelvis Back: No back tenderness Skin General skin exam: no rashes or lesions noted Neuro General: patient alert, patient awake, moves all extremities and no focal motor deficits Cognition: normal cognition Speech: speech normal Gait: normal gait Motor: muscle tone normal throughout Sensory Exam: no sensory deficits noted Extrem General: normal to inspection, full ROM, capillary refill normal, no pedal edema and no calf tenderness Psych Appearance: grossly normal Mental Status: mental status grossly normal Sign Out <ANIBAL Landon - Last Filed: 09/18/21 15:54> Sign Out Data: Sign Out Comment: Chest pain and left arm aching intermittent for 2 days, asymptomatic now. Patient declines admission. Initial troponin and delta troponin unremarkable. Awaiting a VQ scan to rule out PE Last updated by Kendrick Garcia PA at 09/18/21 15:45
--- NOTE | 2021-09-18 09:30 | DI.RAD_ITS ---
Exam(s) XR PORTABLE CHEST AP EXAM: XR PORTABLE CHEST AP CLINICAL HISTORY: ches pain TECHNIQUE: 2D digital imaging was performed of the chest. One image was obtained. An AP view was ob tained. COMPARISON: CR XR CHEST 2V PA LATERAL from 03/27/2021 FINDINGS: MEDIASTINUM: Normal. HEART: Normal. PULMONARY VASCULATURE: Normal. LUNGS: Clear. PLEURAL SPACE: No pleural effusion or pneumothorax. BONE:Within normal limits for the patient's age. OTHER FINDINGS:Normal. IMPRESSION: No acute pulmonary findings. DATA REPOSITORY: RADIATION DOSE DELIVERED:
[2021-09-18] MEDS: Aspirin 81 MG CHEW 324 MG CH (10:00)
[2021-09-18 10:01] LABS: Abs Immature Grans 0.04 10^3/uL (0.0-0.06); Absolute Basophil Count 0.03 10^3/uL (0.0-0.2); Absolute Eosinophil Count 0.03 10^3/uL (0.0-0.7); Absolute Lymphocyte Count 1.77 10^3/uL (1.2-3.4); Absolute Monocyte Count 0.66 10^3/uL (0.1-0.8); Absolute Neutrophil Count 7.29 10^3/uL (1.2-6.7); Basophils % 0.3; Eosinophils % 0.3; HCT 41.3 % (40.0-50.0); HGB 13.9 g/dL (13.5-17.5); Immature Grans % 0.4; MCH 30.8 pg (27.0-33.0); MCHC 33.7 % (32.0-36.0); MCV 91 fL (80-95); MPV 10.4 fL (8.0-11.0); Monocytes % 6.7; Neutrophils % 74.3; Platelet Count 174 10^3/uL (130-400); RBC 4.52 10^6/uL (4.36-5.78); RDW-SD 40.1 fL; WBC 9.82 10^3/uL (4.4-10.8)
[2021-09-18 10:06] LABS: Source Nasal/Nares
[2021-09-18 10:18] LABS: ALT 18 U/L (16-63); AST 20 U/L (15-37); Albumin 3.7 g/dL (3.4-5.0); Alkaline Phosphatase 75 U/L (46-116); Anion Gap 9.2 mmol/L (3-11); BUN 24 mg/dL (7-18); Bilirubin, Total 0.7 mg/dL (0.2-1.0); CO2 26.8 mmol/L (21.0-32.0); CREATININE 2.4 mg/dL (0.70-1.30); Calcium 8.5 mg/dL (8.5-10.1); Chloride 104 mmol/L (98-107); Estimated GFR 26.18 (mL/min/1.73m2); Glucose 153 mg/dL (74-106); INR 1.1 (0.9-1.1); Magnesium 1.2 mg/dL (1.8-2.4); PTT Activated 24.9 sec (21.0-27.5); Potassium 4.3 mmol/L (3.5-5.1); Prothrombin Time 10.8 sec (9.3-11.0); Sodium 140 mmol/L (136-145); Total Protein 7.6 g/dL (6.4-8.2); Troponin I < 50 ng/L (<or=60)
[2021-09-18 10:32] LABS: D-Dimer 1960 ng/mlFEU (<500)
[2021-09-18] MEDS: MAGNESIUM SULFATE 1 GM/100 ML BAG IVPB (10:41)
--- NOTE | 2021-09-18 10:53 | DI.NM_ITS ---
Exam(s) OR LUNG SCAN VENT PERF AEROS EXAM: OR LUNG SCAN VENT PERF AEROS CLINICAL HISTORY: cp/sob, elevated dimer. TECHNIQUE: Injected Dose: Ventilation: 32 mCi Tc-99m DTPA via inhalation Perfusion: 4.5 mCi Tc-99m MAA via IV COMPARISON: [facility] LUNG SCAN VENT PERF AEROS from 03/27/2021 CR XR PORTABLE CHEST AP from 09/18/2021 FINDINGS: Chest X-Ray: Clear lungs. Perfusion: Normal. Ventilation:Normal IMPRESSION: 1. Low probability VQ examination. 2. Results of this exam have been verbally communicated with provider. Modified PIOPED II criteria Probability Criteria High Two or more segments of V/Q mismatch Low Normal Perfusion, Non segmental perfusion abnormalitie s, pleural effusion in at least 1/3 of pleural cavity with no other defect Radiograph/perfusion matched defect in mid to upper lung confined to segment, one to three small segmental perfusion defects (<25% of segment) Perfusion defect smaller than corresponding radiogra phic lesion. Intermediate All other findings DATA REPOSITORY:
[2021-09-18 11:00] LABS: COVID-19 PCR Negative (Negative)
[2021-09-18 13:18] LABS: Troponin I < 50 ng/L (<or=60)
--- NOTE | 2021-09-18 16:19 | NUR.NOTE ---
Nursing Note: Referral faxed to PCP for chest pain LEXIE.
== END 2021-09-18 16:27 | disposition home or self-care (01) ==
PROVIDERS: Physician Assistant; Emergency Provider Physician Assistant; PCP Family Medicine
DX: R07.9 Chest pain, unspecified (principal); R79.1 Abnormal coagulation profile; Z20.822 Contact with and (suspected) exposure to COVID-19
CPT/HCPCS: 36415; 80053; 87635; 93005; 96365; 99284; 71045; 78582; 83735; 84484; 85025; 85379; 85610; 85730; 93010; J3475

== ENCOUNTER 2021-10-10 02:29 | Outpatient (CLI) | payer MEDICARE, SELFPAY ==
[2021-10-10 10:42] LABS: COMMENT (LAB VIEW ONLY) 83.85 mg/dL; Microalb ug/mg Crea 38.6 ug/mg Cr
[2021-10-10 11:02] LABS: Anion Gap 8.2 mmol/L (3-11); BUN 22 mg/dL (7-18); CO2 26.8 mmol/L (21.0-32.0); CREATININE 2.3 mg/dL (0.70-1.30); Calcium 8.9 mg/dL (8.5-10.1); Chloride 104 mmol/L (98-107); Glucose 158 mg/dL (74-106); Magnesium 1.7 mg/dL (1.8-2.4); Potassium 4.5 mmol/L (3.5-5.1); Sodium 139 mmol/L (136-145); Vitamin B12 213 pg/mL (193-986)
== END 2021-10-10 02:30 | disposition home or self-care (01) ==
LOC: LBO 02:29
PROVIDERS: PCP Family Medicine; Visit Provider Family Medicine
DX: E11.9 Type 2 diabetes mellitus without complications (principal); E53.8 Deficiency of other specified B group vitamins; E83.42 Hypomagnesemia; I10 Essential (primary) hypertension; N18.9 Chronic kidney disease, unspecified
CPT/HCPCS: 36415; 80048; 82043; 82570; 82607; 83036; 83735

== ENCOUNTER → 2021-12-11 00:47 | Outpatient (CLI) | payer MEDICARE, SELFPAY ==
--- NOTE | 2021-12-11 | DI.CT_ITS ---
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 TECHNIQUE: Imaging Protocol: Axial computed tomography images with coronal and sagittal reformatted images were created and reviewed CONTRAST MATERIAL: Intravenous: none Oral: None COMPARISON: CT CT ABDOMEN PELVIS WO from 02/07/2021 FINDINGS: VISUALIZED LUNG BASES: No nodules nor pleural effusions evident. ABDOMEN: There is no ascites. LIVER: There are no obvious focal hepatic lesions evident of this noninfused study. GALLBLADDER/BILIARY: Layering gallstones on the dependent wall of the gallbladder again noted. No ev idence of acute cholecystitis. CBD is not dilated. PANCREAS: No evidence of pancreatic mass. However, there are small parenchymal calcifications noted. One of these is in the pancreatic head-uncinate and the others are in the body region, these calcif ications unchanged from the prior 2020 study. The pancreatic duct is not dilated. SPLEEN: Spleen is not enlarged. No obvious intrasplenic lesions. ADRENALS: The previously described low-density mass in the right adrenal gland is unchanged in size, measuring 3 by 3 cm and with density Hounsfield units less than 10 HU +size stability implying that i t probably a benign adenoma. The opposite-left adrenal gland remains unremarkable. KIDNEYS:Severe hydronephrosis almost imperceptible cortical rim in the right kidney is again noted. Also ipsilateral hydroureter and with again noted abrupt transitional change to a normal right ureter al size at and below the iliac artery level. No radiopaque calculus in the ureter at this level nor extrinsic mass. 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 No masses seen within the right kidney. Cyst in the lower pole of t he opposite-left kidney again noted. One of these is exophytic measuring 1.8 x 1.8 cm. The other is intraparenchymal and slightly smaller measuring 12 x 12 millimeters. No obvious abnormality in the somewhat contracted urinary bladder.. ABDOMINAL AORTA: Infrarenal abdominal aortic aneurysm with maximum diameter 3 cm again noted. 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 The maximum diameter of the fu siform aneurysm of the distal right common iliac artery is 2.5 cm, unchanged. The maximum diameter o f the diameter of the aneurysm in the distal left common iliac artery is 2.7 cm. Both are unchanged. LYMPH NODES: There is no retroperitoneal nor paraaortic adenopathy. ABDOMINAL WALL: There are again noted 2 midline supraumbilical hernia sacs, both of which contain non edematous small bowel loops. There is no transition point/bowel obstruction. GI: There is no evidence of bowel obstruction, free air, nor abscess. PELVIS: LYMPH NODES: There is no intrapelvic nor inguinal adenopathy. GI: There is a calcified appendicular lith in the distal tip of the appendix. However, there is no e vidence of acute appendicitis.There diverticuli in the sigmoid but no evidence of acute diverticuliti s. URINARY BLADDER: No calculi nor obvious masses evident REPRODUCTIVE: Prostate size upper normal. Seminal vesicles unremarkable. The urinary bladder is not distended. OSSEOUS: No new lytic nor blastic osseous lesions identified. Partial ankylosis of the sacroiliac darlin ints noted. No fractures evident. IMPRESSION: 1. Stable appearance when compared to the prior CT scan of January 2021. 2. Severe right-sided hydronephrosis and hydroureter is again noted with abrupt transition point to n ormal in the ureter at the level of the right common iliac artery, similar to previous. There is no obvious calculus nor extrinsic insert playing mass at this level (and the adjacent right common iliac artery aneurysm is doubtful contributing to the ipsilateral hydroureter). 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 The ipsilateral right kidney cortical mantle is significantly attenuated, as previo usly evident. The opposite-left kidney appears unremarkable with the exception of 2 benign unchanged inferior pole level cysts, 1 intra cortical and the other exophytic at this level. 3. No new lymphadenopathy nor ascites evident. 4. Stable appearance of the 3 cm hypodense right adrenal mass probably a benign adenoma. The opposi te-left adrenal gland remains. 5. Two anterior abdominal wall hernias, both of which contains small bowel loops which do not appear edematous nor obstructed at this time. 6. Cholelithiasis again noted. No evidence of acute cholecystitis nor dilatation of the biliary roxane e. 7. 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 8. Other findings as described above. RADIATION DOSE DELIVERED: 1,050.6mGy.cm Total DLP DATA REPOSITORY: All CT scans at this facility are submitted to the National Radiology Data Registry (NRDR) Dose Index Registry (DIR) with the [employer] (A[employer]). RADIATION OPTIMIZATION: All CT scans at this facility use at least one of these dose optimization te chniques: automated exposure control; mA and/or kV adjustment per patient size (includes targeted exa ms where dose is matched to clinical indication); or iterative reconstruction.
--- NOTE | 2021-12-11 08:18 | DI.RAD_ITS ---
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 METS. TECHNIQUE: 2D digital imaging was performed. COMPARISON: CR XR PORTABLE CHEST AP from 09/18/2021 FINDINGS: 2 views: Heart size is normal. The mediastinum is not widened. Lungs are clear. No infiltrates nor pleural effusions. IMPRESSION: No acute pulmonary findings. DATA REPOSITORY: RADIATION DOSE DELIVERED:
== END ==
PROVIDERS: PCP Family Medicine; Visit Provider Urology
DX: C64.1 Malignant neoplasm of right kidney, except renal pelvis (principal); K80.20 Calculus of gallbladder without cholecystitis without obstruction; K86.89 Other specified diseases of pancreas; N13.39 Other hydronephrosis; N28.1 Cyst of kidney, acquired; I71.4 Abdominal aortic aneurysm, without rupture; N13.4 Hydroureter; I72.3 Aneurysm of iliac artery
CPT/HCPCS: 71046; 74176

== ENCOUNTER 2022-03-24 15:06 | Emergency (ER) | payer MEDICARE, SELFPAY ==
[2022-03-24] VITALS (23 sets, daily range): BP systolic 121–158; BP diastolic 61–79; PULSE 53–72; RESP 10–20; TEMP 36.7; O2SAT 96–99
--- NOTE | 2022-03-24 15:00 | RT.EKG_ITS ---
APPROVED REPORT Exam: Resting ECG Reason for Exam: chest pain Patient Location: E HR:66 bpm ECG Measurements Heart Rate 66 AXIS SC 180 P 49 QRSd 145 QRS -54 QT 442 T 22 QTc 463 Conclusion Sinus rhythm...normal P axis, V-rate 60- 99 Right bundle branch block...QRSd>120, terminal axis(90,270) Inferior infarct, old...Q >35mS, II III aVF sinus rhtyhm, left axis, RBBB
--- NOTE | 2022-03-24 15:15 | DI.RAD_ITS ---
Exam(s) XR PORTABLE CHEST AP EXAM: XR PORTABLE CHEST AP CLINICAL HISTORY: chest pain. TECHNIQUE: 2D digital imaging was performed. COMPARISON: CR XR CHEST 2V PA LATERAL from 12/11/2021 FINDINGS: Single AP portable view. Heart size is upper normal. The mediastinum is not widened. Lungs are clear. No infiltrates nor obvious pleural effusions. IMPRESSION: No acute pulmonary findings on this single AP portable view of the chest. DATA REPOSITORY: RADIATION DOSE DELIVERED:
--- NOTE | 2022-03-24 15:19 | W.ED.GENAD ---
Discharge Plan Disposition Patient Disposition: Home Condition: Improving Discharge Details Chief Complaint: Chest Pain Clinical Impression: Chest pain Primary Care Provider: Sander Contreras ED Provider: Nish Abreu Home Meds and New Rx's Prescriptions: No Action cyanocobalamin (vitamin B-12) 1,000 mcg capsule 1,000 mcg PO DAILY Qty: 90 3RF clonazepam 0.5 mg tablet 0.5 mg PO HS Qty: 90 1RF Rx Instructions: try 1/2 tab (0.25 mg) each night 03/18/22 aspirin [Aspirin Low-Strength] 81 MG tablet,chewable 81 mg PO DAILY LANCETS 1 EACH EACH 1 ea Miscellaneous QID Qty: 400 Rx Instructions: DX: 250.0 dorzolamide-timolol 22.3-6.8 mg/mL drops 1 drp OS BID Qty: 1 12RF latanoprost [Xalatan] 0.005 % drops 1 drp OU HS Qty: 7.5 6RF folic acid 1 mg tablet 1 mg PO DAILY Qty: 90 3RF atorvastatin 20 mg tablet 20 mg PO DAILY Qty: 90 4RF (DME) FreeStyle Lite Strips Strip 1 ea Miscellaneous DAILY Qty: 100 4RF Rx Instructions: DX E11.9 Test twice daily terazosin 5 mg capsule 5 mg PO HS Qty: 90 3RF atenolol 50 mg tablet 50 mg PO BID Qty: 90 3RF lisinopril 20 mg tablet 20 mg PO DAILY Qty: 90 3RF omeprazole 20 mg capsule,delayed release(DR/EC) 20 mg PO DAILY Qty: 90 3RF amlodipine 5 mg tablet 5 mg PO DAILY Qty: 90 3RF sildenafil 100 mg tablet 100 mg PO DAILY PRN (Reason: sexual activity) Qty: 7 0RF Rx Instructions: administer 30 minutes to 4 hours before activity magnesium oxide 400 mg (241.3 mg magnesium) tablet 400 mg PO BID Qty: 60 0RF Discharge Instructions Instructions: Chest Pain (ED) Additional Instructions: Please follow-up with primary care physician. Please return to the emergency department for any worsening symptoms. Medical Decision Making 81-year-old male history of abdominal aortic aneurysm status post repair in 2014, presents with nonexertional chest pain over the past 2 days anterior pressure-like in nature nonradiating. Patient denies history of IA or stenting. Patient is alert nontoxic no acute distress. Abdomen soft nontender nondistended, no pulsatile mass appreciated, equal radial pulses bilaterally. EKG sinus rhythm with right bundle branch block unchanged from prior. Given patient's age and risk factors must consider ACS versus GERD versus gastritis versus less likely thoracic aortic aneurysm or dissection versus less likely PE given history and physical lower suspicion for pneumothorax or pneumonia consider possible musculoskeletal versus anxiety. Will dose remainder of aspirin, will obtain labs, x-ray chest EKG GI cocktail close reassessment of symptoms. Disposition pending results and reassessment. 1847 patient resting comfortably asymptomatic. 2 troponins negative. X-ray unremarkable. Patient a significant amount of stressors including multiple sick family members and recent family members. He does have good social support in the setting of his fianc?e. Patient feels comfortable going home. Given home care instructions and return precautions. HPI General Date/Time Provider Initiated Documentation: 03/24/22 15:10. HPI Narrative: 81-year-old male history of abdominal aortic aneurysm status postrepair in 2014, presents with nonexertional chest pain anterior nature over the past 2 days intermittent pressure-like nonradiating; slightly improving from earlier however still present on arrival. Patient took 81 mg of aspirin earlier today Related Data Home Medications Medication Instructions Recorded Confirmed Lancets 1 ea miscellaneous QID #400 ea 07/15/12 03/24/22 aspirin 81 mg chewable tablet 81 mg PO DAILY 07/15/12 03/24/22 (Aspirin Low-Strength) cyanocobalamin (vitamin B-12) 1,000 mcg PO DAILY #90 caps 11/24/18 03/24/22 1,000 mcg capsule dorzolamide 22.3 mg-timolol 6.8 1 drp OS BID #1 drp 04/26/19 03/24/22 mg/mL eye drops latanoprost 0.005 % eye drops 1 drp OU HS #7.5 mL 06/14/20 03/24/22 (Xalatan) magnesium oxide 400 mg (241.3 mg 400 mg PO BID #60 tabs 09/18/21 03/24/22 magnesium) tablet folic acid 1 mg tablet 1 mg PO DAILY #90 tabs 10/04/21 03/24/22 atorvastatin 20 mg tablet 20 mg PO DAILY #90 tabs 10/25/21 03/24/22 blood sugar diagnostic (FreeStyle #100 strips 11/22/21 03/24/22 Lite Strips) terazosin 5 mg capsule 5 mg PO HS #90 caps 12/09/21 03/24/22 atenolol 50 mg tablet 50 mg PO BID #90 tabs 01/04/22 03/24/22 lisinopril 20 mg tablet 20 mg PO DAILY #90 tabs 01/04/22 03/24/22 omeprazole 20 mg capsule,delayed 20 mg PO DAILY #90 caps 01/11/22 03/24/22 release amlodipine 5 mg tablet 5 mg PO DAILY #90 tabs 01/18/22 03/24/22 sildenafil 100 mg tablet 100 mg PO DAILY PRN sexual 03/05/22 03/24/22 activity #7 tabs clonazepam 0.5 mg tablet 0.5 mg PO HS #90 tabs 03/18/22 03/24/22 Previous Rx's Medication Instructions Recorded cyanocobalamin (vitamin B-12) 1,000 mcg PO DAILY #90 caps 11/24/18 1,000 mcg capsule dorzolamide 22.3 mg-timolol 6.8 1 drp OS BID #1 drp 04/26/19 mg/mL eye drops latanoprost 0.005 % eye drops 1 drp OU HS #7.5 mL 06/14/20 (Xalatan) magnesium oxide 400 mg (241.3 mg 400 mg PO BID #60 tabs 09/18/21 magnesium) tablet folic acid 1 mg tablet 1 mg PO DAILY #90 tabs 10/04/21 atorvastatin 20 mg tablet 20 mg PO DAILY #90 tabs 10/25/21 blood sugar diagnostic (FreeStyle #100 strips 11/22/21 Lite Strips) terazosin 5 mg capsule 5 mg PO HS #90 caps 12/09/21 atenolol 50 mg tablet 50 mg PO BID #90 tabs 01/04/22 lisinopril 20 mg tablet 20 mg PO DAILY #90 tabs 01/04/22 omeprazole 20 mg capsule,delayed 20 mg PO DAILY #90 caps 01/11/22 release amlodipine 5 mg tablet 5 mg PO DAILY #90 tabs 01/18/22 sildenafil 100 mg tablet 100 mg PO DAILY PRN sexual 03/05/22 activity #7 tabs clonazepam 0.5 mg tablet 0.5 mg PO HS #90 tabs 03/18/22 Allergies Allergy/AdvReac Type Severity Reaction Status Date / Time IV contrask Allergy Intermediate renal Uncoded 03/24/22 15:23 impairment General SUSAN: 2 Review of Systems Narrative: Review of Systems Constitutional: negative Eyes: negative ENT: negative Cardiovascular: Chest pain Respiratory: negative Gastrointestinal: negative : negative Musculoskeletal: negative Skin: negative Neurologic: negative Psych: negative PFSH All Active Problems (Updated 03/24/22 @ 18:50 by Nish Abreu MD) Actinic keratoses (Acute 06/24/17) Anxiety (Acute) Aortic aneurysm and dissection (Acute) AAA ruptured --multiple transfusions; repair, open repair about 2009 Benign prostatic hyperplasia (Acute) CKD (chronic kidney disease) stage 3, GFR 30-59 ml/min (Acute 07/30/16) due to ischemia during ruptured AAA 2021, stage 4 Chronic gout due to renal impairment of multiple sites without tophus (Acute 06/05/15) Essential hypertension (Acute 07/09/16) White coat augmentation neg stress echo 07/14 Glaucoma (Acute) 03/12/15; OPTICAL EXPRESSIONS Obesity (Acute) Obstructive sleep apnea syndrome (Acute) 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 BELLO @ [facility] Umbilical hernia repaired 02/28 Family History Mother No problems noted. Father Neoplasm Sister Heart disease Stroke Grandfather No problems noted. Grandfather Heart disease Grandmother No problems noted. Grandmother Personal history of malignant neoplasm Sister No problems noted. Sister No problems noted. Brother Neoplasm Brother No problems noted. Brother No problems noted. Brother No problems noted. Brother No problems noted. Son No problems noted. Social History (Updated 03/19/22 @ 14:23 by Peyton Guzmán) Smoking/Tobacco Use Status: Former Tobacco Use tobacco type: cigarettes Quit Date: 03/30/09 Tobacco: How many years used: 40 Second Hand Exposure: Yes Smoking risk assessment performed?: Yes Alcohol Intake: former Drug use: Never Substance use type: does not use Household members: none Housing: house Do you need help understanding health information?: Rarely Pets and animals: No Sexually active: Yes Do you think of yourself as: straight/heterosexual Current gender identity: male What is your relationship status?: How often do you talk on the phone with friends or family?: three or more times per week How often do you get together with friends or relatives?: three or more times per week How often do you attend sabianist or restorationist services?: decline to answer Do you belong to any clubs or organized social groups?: no Panel score (0-1 are the most socially isolated patients): 1 What type of physical activity do you participate in: walking Duration: 15-30 minutes/day Frequency: 3-4 times per week Stephani/Spiritism: None Special stephani needs: No Seatbelt use: sometimes Helmet use: No 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 Exam Narrative Exam Narrative: Physical Examination General: alert, awake, cooperative, resting comfortably, no acute distress HEENT: normocephalic, atraumatic; PERRL, EOM intact, conjunctiva normal; no nasal discharge; moist mucous membranes, oral and pharyngeal mucosa normal, tolerating secretions Neck: supple, trachea midline; full ROM Chest: normal to inspection Respiratory: normal respiratory effort, speaking in full sentences, clear to auscultation, no wheezing, rales or rhonchi Cardiac: regular rate, regular rhythm, S1S2 intact, no murmurs rubs or gallops; equal radial pulses bilaterally GI: abdomen soft, non-tender, non-distended; no palpable mass or hepatosplenomegaly Skin: no lesions, rashes or trauma appreciated Neuro: AAOx3, normal speech, moving all extremities Extremities: Warm well perfused Psych: Appropriate mood and affect
[2022-03-24 15:31] LABS: Abs Immature Grans 0.04 10^3/uL (0.0-0.06); Absolute Basophil Count 0.05 10^3/uL (0.0-0.2); Absolute Eosinophil Count 0.08 10^3/uL (0.0-0.7); Absolute Lymphocyte Count 2.95 10^3/uL (1.2-3.4); Absolute Neutrophil Count 5.42 10^3/uL (1.2-6.7); Basophils % 0.5; Eosinophils % 0.8; HCT 40.6 % (40.0-50.0); HGB 13.8 g/dL (13.5-17.5); Immature Grans % 0.4; Lymphocytes % 31.3; MCH 31.7 pg (27.0-33.0); MCV 93 fL (80-95); Monocytes % 9.5; Neutrophils % 57.5; Platelet Count 186 10^3/uL (130-400); RBC 4.35 10^6/uL (4.36-5.78); RDW 11.7 % (11.8-14.1); RDW-SD 39.8 fL; WBC 9.44 10^3/uL (4.4-10.8)
[2022-03-24] MEDS: Aspirin 81 MG CHEW 243 MG CH (15:36)
[2022-03-24] MEDS: Famotidine 20 MG/2 ML VIAL IVP (15:36)
[2022-03-24] MEDS: Mylanta Suspension 30 ML CUP PO (15:36)
[2022-03-24] MEDS: Lidocaine 2% Viscous 15 ML CUP PO (15:37)
[2022-03-24 15:46] LABS: PTT Activated 24.7 sec (21.0-27.5); Prothrombin Time 10.5 sec (9.3-11.0)
[2022-03-24 15:50] LABS: ALT 15 U/L (16-63); AST 18 U/L (15-37); Albumin 3.9 g/dL (3.4-5.0); Alkaline Phosphatase 78 U/L (46-116); Anion Gap 6.1 mmol/L (3-11); BUN 26 mg/dL (7-18); Bilirubin, Total 0.5 mg/dL (0.2-1.0); CO2 29.9 mmol/L (21.0-32.0); CREATININE 2.3 mg/dL (0.70-1.30); Chloride 105 mmol/L (98-107); Glucose 123 mg/dL (74-106); Lipase 186 U/L (73-393); Potassium 3.7 mmol/L (3.5-5.1); Sodium 141 mmol/L (136-145); Troponin I < 50 ng/L (<or=60)
--- NOTE | 2022-03-24 16:21 | DI.VRAD_ITS ---
PROCEDURE INFORMATION: Exam: XR Chest Exam date and time: 03/24/2022 3:18 PM Age: 81 years old Clinical indication: Other: Chest pain TECHNIQUE: Imaging protocol: Radiologic exam of the chest. 1image(s) are provided. Views: 1 view. COMPARISON: CR XR CHEST 2V PA LATERAL 12/11/2021 8:13 AM FINDINGS: Lungs: There is linear subsegmental atelectasis versus post inflammatory scarring demonstrated.No lobar consolidation is appreciated. Pleural spaces: No pneumothorax or pleural effusion is appreciated. Heart/Mediastinum: The cardiomediastinal silhouette is upper normal in size. Diaphragm: There is slight asymmetric right hemidiaphragm elevation. Bones/joints: No fracture or dislocation is appreciated. Soft tissues: No radiopaque foreign body or subcutaneous emphysema is appreciated. Other findings: No significant interval changes are appreciated. IMPRESSION: No lobar consolidation is appreciated.No interval acute cardiopulmonary changes are appreciated. Dictated and Authenticated by: Aidan Irby MD. Ordering:GIANNI Mock MD
[2022-03-24 18:33] LABS: Troponin I < 50 ng/L (<or=60)
== END 2022-03-24 19:00 | disposition home or self-care (01) ==
PROVIDERS: Emergency Provider Emergency Medicine; PCP Family Medicine
DX: R07.9 Chest pain, unspecified (principal); I45.10 Unspecified right bundle-branch block; Z79.82 Long term (current) use of aspirin
CPT/HCPCS: 36415; 80053; 83690; 93005; 96374; 99284; 71045; 84484; 85025; 85610; 85730; 93010; 99285

== ENCOUNTER 2022-04-01 00:26 | Outpatient (CLI) | payer MEDICARE, SELFPAY ==
--- NOTE | 2022-04-01 07:00 | DI.NM_ITS ---
APPROVED REPORT Exam: Exercise Treadmill Patient Location: Out-Patient Room/Bed: Stress Nurse: Ny Ramos RN Ordering Provider:ANTONY DE LA CRUZ, Contact Number: [phone] BMI: 31.92 Baseline Rhythm: Sinus Rhythm, RBBB Comment: Baseline ST abnormalities in anthony-septal leads Indications: Chest pain Medical History Medical History: RBBB, AAA repair, hypertension, hyperlipidemia, diabetes, CKD, gout, glaucoma, BPH, smoker (former) Cardiac Medications: Terazosin, omeprazole, magnesium, lisinopril, timolol eye drops, atrovastatin, a tenolol, aspirin, amlodipine Allergies: IV Contrast Cardiac Risk Factors: Hypertension, hyperlipidemia, diabetes, smoker (former), family hx Previous Cardiac Procedures: AAA repair s/p dissesction (2014) Pretest Chest Pain Characteristics: None Exercise History: Indeterminate Physical Disabilities: None Lung Sounds: Clear to auscultation Heart Sounds: Regular Stress Test Details Test: Exercise stress testing was performed using a Jhonny protocol. Nuclear Acquisition: Rest Tc-99m/Stress Tc-99m 1 day Rest Isotope: Tc-99m Sestamibi. Dose: 11.5 Date: 04/01/2022 Injection Time: 0925 Stress Isotope: Tc-99m Sestamibi. Dose: 37 Date: 04/01/2022 Injection Time: 1120 HR Resting HR Supine: 64 bpm Max Heart Rate (APMHR): 140.195385 bpm Resting HR Standin bpm Target HR (85% APMHR): 119.635671 bpm Max HR Achieved: 138 bpm % of APMHR: 98.57 Recovery HR: 75 bpm HR response to stress: Normal HR response to stress BP Resting BP Supine: 148/76 mmHg Resting BP Standin/58 mmHg Max BP: 180/52 mmHg Recovery BP: 144/70 mmHg BP response to stress: Normal blood pressure response to stress. Comment: Pt held atenolol for 48 hrs prior to testing ECG Resting ECG: Sinus Rhythm, RBBB Ectopy: None Comment: Baseline ST abnormalities in anthony-septal leads Stress ECG: Sinus Tachycardia, RBBB ST Change: No significant ST segment changes noted Arrhythmia: Rare PVCs Recovery ECG: Sinus Rhythm, RBBB Recovery Arrhythmia: Rare PVC Clinical Reason for Termination: Fatigue Stress Symptoms: Dyspnea, General Fatigue Exercise duration: 2 min50 sec Highest Stage Reached: Stage 1: 1.7 mph at 10% grade. Exercise capacity: 4.64 METs Angina Score: None Cohn Treadmill Score: 2.3 Rate Pressure Product: 70159 Stress ECG Conclusion 1. The resting electrocardiogram showed a right bundle branch block 2. Patient exercised on the Jhonny protocol and completed a workload of 4.64 METS 3. Normal heart rate and blood pressure response to exercise. The patient achieved 99% of predicted heart rate for age 4. There was no electrocardiographic evidence of myocardial ischemia 5. There were no significant dysrhythmias 6. See MPI report Cohn Treadmill Score is 2.3 which is Moderate risk. Stress Test Summary STAGE Time (mins) Speed (mph) Grade (%) HR BP SpO2 SYMPTOMS METS Supine 64 148/76 98% Standing 78 130/58 98% 1 3 1.7 10 136 162/62 91% 4.5 1 min recovery 121 180/52 94% 3 min recovery 86 178/64 95% 6 min recovery 75 144/70 95% MPI Conclusion Myocardial perfusion is normal. There is no evidence of ischemia or prior infarction EF 57%, normal wall motion Radiologist Interpretation Radiologist agrees with Barrel Driller's Interpretation. Radiologist Interpretation by: Lilliana Garcia MD Interpretation Date/Time: 04/04/2022 08:42:56
== END 2022-04-01 00:46 ==
LOC: DI 00:27
PROVIDERS: PCP Family Medicine; Visit Provider Family Medicine
DX: R07.9 Chest pain, unspecified (principal)
CPT/HCPCS: 78452; 93016; 93018; 93017

== ENCOUNTER 2022-04-07 10:16 | Day surgery (SDC) | payer MEDICARE, SELFPAY ==
[2022-04-07 10:40] VITALS: BP 160/82; PULSE 60; RESP 18; TEMP 36.1; O2SAT 98
[2022-04-07] MEDS: Tropicam./Phenyleph. (1/2.5%) 5 ML BTL OS ×3 (11:04→11:14)
--- NOTE | 2022-04-07 11:38 | W.ANESPRE ---
General Info Date of Service Date Performed: 04/07/22 Height: 5 ft 5.75 in Weight: 95.9 kg Body Mass Index (BMI): 34.4 Surgical Procedure: Operation Date: 04/07/22 12:10 Proposed Procedure Side Surgeon p Cataract Extraction with IOL Implant w/Glaucoma Stent & Microgoniotomy Left Nish Domingo MD Meds Allergies and Home Medications Allergies Allergy/AdvReac Type Severity Reaction Status Date / Time IV contrask Allergy Intermediate renal Uncoded 03/27/22 10:09 impairment Home Medication Medication Instructions Recorded Lancets 1 ea miscellaneous QID #400 ea 07/15/12 aspirin 81 mg chewable tablet 81 mg PO DAILY 07/15/12 (Aspirin Low-Strength) cyanocobalamin (vitamin B-12) 1,000 mcg PO DAILY #90 caps 11/24/18 1,000 mcg capsule dorzolamide 22.3 mg-timolol 6.8 1 drp OS BID #1 drp 04/26/19 mg/mL eye drops latanoprost 0.005 % eye drops 1 drp OU HS #7.5 mL 06/14/20 (Xalatan) folic acid 1 mg tablet 1 mg PO DAILY #90 tabs 10/04/21 atorvastatin 20 mg tablet 20 mg PO DAILY #90 tabs 10/25/21 blood sugar diagnostic (FreeStyle #100 strips 11/22/21 Lite Strips) terazosin 5 mg capsule 5 mg PO HS #90 caps 12/09/21 atenolol 50 mg tablet 50 mg PO BID #90 tabs 01/04/22 lisinopril 20 mg tablet 20 mg PO DAILY #90 tabs 01/04/22 omeprazole 20 mg capsule,delayed 20 mg PO DAILY #90 caps 01/11/22 release amlodipine 5 mg tablet 5 mg PO DAILY #90 tabs 01/18/22 sildenafil 100 mg tablet 100 mg PO DAILY PRN sexual 03/05/22 activity #7 tabs brimonidine 0.2 % eye drops 1 drp ophthalmic (eye) BID 04/04/22 clonazepam 0.5 mg tablet 2.5 mg PO HS 04/04/22 magnesium oxide 400 mg (241.3 mg 400 mg PO DAILY 04/04/22 magnesium) tablet Current Visit Medications: Current Medications Generic Name Dose Route Start Last Admin Trade Name Freq PRN Reason Stop Dose Admin Acetaminophen 1,000 mg 04/07/22 06:00 Acetaminophen 500 Mg Tab PO Q4H PRN PRN Miscellaneous Medication 0 ml 04/07/22 06:00 Prednisolone 1%, Moxifloxacin 0.5%, Nepafenac 0.1% 5ml Btl OS DIRECTED [facility] Miscellaneous Medication 0 ml 04/07/22 06:00 04/07/22 11:14 Tropicam./Phenyleph. (1/2.5%) 5 Ml Btl OS 1 drp DIRECTED ANDREW Administration Tetracaine HCl 0 ml 04/07/22 06:00 Tetracaine 0.5% 4 Ml Btl OS DIRECTED ANDREW PFSH Active Problems Active Problems: Problem Status Onset Code Primary open-angle glaucoma, left eye, moderate stage H40.1122 Nuclear sclerotic cataract of left eye H25.12 Chest pain R07.9 Actinic keratoses 06/24/17 L57.0 Anxiety F41.9 Aortic aneurysm and dissection I71.00 Benign prostatic hyperplasia N40.0 CKD (chronic kidney disease) stage 3, GFR 30-59 ml/min 07/30/16 N18.3 Chronic gout due to renal impairment of multiple sites without tophus 06/05/15 [id number] Essential hypertension 07/09/16 I10 Glaucoma H40.9 Obesity E66.9 Obstructive sleep apnea syndrome G47.33 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 BELLO @ [facility] Umbilical hernia repaired 02/28 Tobacco Smoking/Tobacco Use Status: Former Tobacco Use Passive smoking exposure: Yes Second hand exposure: Yes Alcohol Alcohol Intake: former Substance Use Substance use: Never Substance use type: does not use Vital Signs and Lab Results Vital Signs Most Recent Vital Signs in EMR: Most Recent Vital Signs Temp Pulse Resp BP Pulse Ox 36.1 C L 60 18 160/82 H 98 04/07/22 10:40 04/07/22 10:40 04/07/22 10:40 04/07/22 10:40 04/07/22 10:40 Lab Results Blood Type / Crossmatch: No Data to Display Complete Blood Count: White Blood Count 9.44 10^3/uL (4.4-10.8) 03/24/22 15:25 Red Blood Count 4.35 10^6/uL (4.36-5.78) L 03/24/22 15:25 Hemoglobin 13.8 g/dL (13.5-17.5) 03/24/22 15:25 Hematocrit 40.6 % (40.0-50.0) 03/24/22 15:25 Platelet Count 186 10^3/uL (130-400) 03/24/22 15:25 Complete Metabolic Panel: Sodium 141 mmol/L (136-145) 03/24/22 15:25 Potassium 3.7 mmol/L (3.5-5.1) 03/24/22 15:25 Chloride 105 mmol/L (98-107) 03/24/22 15:25 Carbon Dioxide 29.9 mmol/L (21.0-32.0) 03/24/22 15:25 BUN 26 mg/dL (7-18) H 03/24/22 15:25 Creatinine 2.3 mg/dL (0.70-1.30) H 03/24/22 15:25 Est GFR (CKD-EPI 2020) 28.00 (mL/min/1.73m2) 03/24/22 15:25 Calcium 9.0 mg/dL (8.5-10.1) 03/24/22 15:25 Albumin 3.9 g/dL (3.4-5.0) 03/24/22 15:25 Glucose 123 mg/dL (74-106) H 03/24/22 15:25 Liver Function Panel: Alanine Aminotransferase (ALT/SGPT) 15 U/L (16-63) L 03/24/22 15:25 Aspartate Amino Transf (AST/SGOT) 18 U/L (15-37) 03/24/22 15:25 Coagulation Panel: INR International Normalized Ratio 1.0 (0.9-1.1) 03/24/22 15:25 Prothrombin Time 10.5 sec (9.3-11.0) 03/24/22 15:25 Activated Partial Thromboplast Time 24.7 sec (21.0-27.5) 03/24/22 15:25 Cardiac Panel: Troponin I < 50 ng/L (<or=60) 03/24/22 Arterial Blood Gas: No Data to Display Venous Blood Gas: No Data to Display Pancreas Panel: Lipase 186 U/L (73-393) 03/24/22 15:25 Thyroid Panel: No Data to Display Infectious Disease: No Data to Display Blood Cultures: No Data to Display Toxicology Panel: No Data to Display Imaging and Studies Imaging and Studies Study information below may be from another EMR and interpreted by another provider. Please see original notes in EMR for more complete details. EKG Summary: DATE/TIME OF SERVICE: 03/24/22 1515 : 2PERFORMING LOCATION: ER APPROVED REPORT Exam: Resting ECG Reason for Exam: chest pain Patient Location: E HR:66 bpm ECG Measurements Heart Rate 66 AXIS FL 180 P 49 QRSd 145 QRS -54 QT 442 T22 QTc 463 Conclusion Sinus rhythm...normal P axis, V-rate 60- 99 Right bundle branch block...QRSd>120, terminal axis(90,270) Inferior infarct, old...Q >35mS, II III aVF sinus rhtyhm, left axis, RBBB Stress Test Summary: 04/01/22: MPI Conclusion Myocardial perfusion is normal. There is no evidence of ischemia or prior infarction EF 57%, normal wall motion 04/09/21: Stress ECG Conclusion 1. The resting electrocardiogram showed right bundle branch block and left anterior fascicular block 2. Patient exercised on the Jhonny protocol and completed a workload of 10.16 minutes, stopping due to fatigue 3. Normal heart rate and blood pressure response to exercise. The patient achieved greater than 100% of predicted heart rate for age 4. There was no electrocardiographic evidence of myocardial ischemia 5. Occasional atrial and ventricular ectopic beats were noted Cohn Treadmill Score is 7.5 which is Low risk. Echocardiogram Summary: 03/27/21: EF 58%, Normal valves Carotid Artery Summary:: Date of Exam: 07/19/15ex: M : 2Age: 74 Exam(s) [id number] US:Carotid SYMPTOM/DIAGNOSIS: DECREASED CAROTIDS PULSE R09.89 CAROTID ULTRASOUND: There is mild bilateral plaque formation right more advanced than left. There is no evidence of a significant right or left carotid stenosis. Bilateral antegrade vertebral flow is seen. SUMMARY: No evidence of significant carotid stenosis. Anesthesia Assessment and Plan Anesthesia History Personal History: No History of Anesthesia Complications Family History: No Family History of Anesthesia Complications Exercise Tolerance Exercise Tolerance: Metabolic Equivalents>4 Pertinent Negatives Pertinent Negatives: No Symptoms of GERD Cardiac & Pulmonary Exam Cardiac Exam: Normal S1/S2 Heart Sounds Pulmonary Exam: Clear Bilateral Breath Sounds Implantable Cardiac Device Does patient have a Pacemaker or an ICD?: No Airway Exam Known Difficult Airway: No Mallampati Class: 1 Mouth Opening: Normal (> 3cm) Thyromental Distance: Greater than 3 cm Neck Range of Motion: Full ROM Neck Circumference: Normal Teeth Condition: Normal Dentition ASA Classification ASA Score: ASA 3 Emergency Case?: No NPO Status NPO Status: NPO Clears >2 hours, Solids >8 hours Anesthesia Plan Resuscitation Status: Full Code Anesthesia Technique: MAC Anesthesia Airway Planned: Natural Airway Monitors Used: Standard Monitors
[2022-04-07 11:57] VITALS: BMI 34.4
[2022-04-07] MEDS: Lidocaine 1% Pres-Free 5 ML VIAL (12:29)
[2022-04-07] MEDS: Balanced Salt Soln.-PLUS 500 ML BAG (12:30)
[2022-04-07] MEDS: Tetracaine 0.5% 4 ML BTL OS (12:30)
[2022-04-07] MEDS: Duovisc Viscoelastic System EACH 1 EACH (12:31)
[2022-04-07] MEDS: Lidocaine 2% Jelly 6 ML SYR (12:31)
[2022-04-07] MEDS: Povidone-Iodine Ophth 30 ML BTL (12:33)
[2022-04-07 12:57] VITALS: BP 152/74; PULSE 60; RESP 18; TEMP 36.3; O2SAT 98
--- NOTE | 2022-04-07 12:58 | W.PM.DSUDISC ---
Date of service: 04/07/22 Time of Service: 12:58 Discharge Plan Disposition Patient Disposition: Home Discharge Details Attending Provider: Nish Domingo Primary Care Provider: Sander Contreras Home Meds and New Rx's Prescriptions: No Action cyanocobalamin (vitamin B-12) 1,000 mcg capsule 1,000 mcg PO DAILY Qty: 90 3RF aspirin [Aspirin Low-Strength] 81 MG tablet,chewable 81 mg PO DAILY LANCETS 1 EACH EACH 1 ea Miscellaneous QID Qty: 400 Rx Instructions: DX: 250.0 dorzolamide-timolol 22.3-6.8 mg/mL drops 1 drp OS BID Qty: 1 12RF latanoprost [Xalatan] 0.005 % drops 1 drp OU HS Qty: 7.5 6RF folic acid 1 mg tablet 1 mg PO DAILY Qty: 90 3RF atorvastatin 20 mg tablet 20 mg PO DAILY Qty: 90 4RF (DME) FreeStyle Lite Strips Strip 1 ea Miscellaneous DAILY Qty: 100 4RF Rx Instructions: DX E11.9 Test twice daily terazosin 5 mg capsule 5 mg PO HS Qty: 90 3RF atenolol 50 mg tablet 50 mg PO BID Qty: 90 3RF lisinopril 20 mg tablet 20 mg PO DAILY Qty: 90 3RF omeprazole 20 mg capsule,delayed release(DR/EC) 20 mg PO DAILY Qty: 90 3RF amlodipine 5 mg tablet 5 mg PO DAILY Qty: 90 3RF sildenafil 100 mg tablet 100 mg PO DAILY PRN (Reason: sexual activity) Qty: 7 0RF Rx Instructions: administer 30 minutes to 4 hours before activity clonazepam 0.5 mg tablet 2.5 mg PO HS Rx Instructions: try 1/2 tab (0.25 mg) each night 03/18/22 magnesium oxide 400 mg (241.3 mg magnesium) tablet 400 mg PO DAILY brimonidine 0.2 % drops 1 drp ophthalmic (eye) BID Label Comments: INSTILL ONE DROP INTO THE LEFT EYE TWO TIMES A DAY Discharge Instructions Stand Alone Forms: Post-op Topical Cataract, Press Ganey (DSU) Discharge Orders Discharge Orders: Discharge Order (Routine); Ordered 04/07/22 Ordered By: Nish Domingo DS: Diagnosis Discharge Diagnosis (1) Nuclear sclerotic cataract of left eye: Status: Resolved (2) Posterior subcapsular age-related cataract of left eye: Status: Resolved (3) Primary open-angle glaucoma, left eye, moderate stage: Status: Chronic
--- NOTE | 2022-04-07 13:07 | W.PM.OP ---
Date of service: 04/07/22 Time of Service: 13:07 Operative Note Operative Note DATE OF PROCEDURE: 04/07/22 PRE-OP DIAGNOSIS: Nuclear/posterior subcapsular cataract, left eye primary open-angle glaucoma, left eye, moderate stage PROCEDURE: 1. Cataract extraction using phacoemulsification with intraocular lens implant, left eye 2. Insertion of multiple anterior segment aqueous drainage devices (Glaukos iStent inject x 2) into trabecular meshwork, left eye SURGEON: Nish Domingo ANESTHESIA TYPE: Local By Surgeon and MAC Refer to Anesthesia Record ESTIMATED BLOOD LOSS: 0 PATHOLOGY: none sent COMPLICATIONS: None Patient was transported to: same day Patient's condition: stable Implants: 1. Otoniel [employer] / [employer] Tecnis [id number] intraocular lens 2. Glaukos iStent inject trabecular micro-bypass stent x 2 Indications: 1. Progressive decreased vision due to cataract, left eye 2. Primary open angle glaucoma, left eye Procedure Description: CATARACT SURGERY OPERATIVE REPORT PREOPERATIVE DIAGNOSIS: Nuclear/posterior subcapsular cataract, left eye Primary open-angle glaucoma, left eye, moderate stage POSTOPERATIVE DIAGNOSIS: Same OPERATION: 1. Cataract extraction using phacoemulsification with posterior chamber intraocular lens implant, left eye. 2. Insertion of multiple anterior segment aqueous drainage devices (Glaukos iStent inject x 2) into trabecular meshwork, left eye IOL: IOL Retail Wireless Sales Representative/Model: J[employer]J Vision / CHRIS Tecnis ZCB00 IOL Power: + 22.0 diopters IOL Serial Number: [id number] Optic Diameter: 6.0mm Haptic/Overall Diameter: 13.0mm PHACO INFO: Joseph [employer] Vision System with OZil and Active [employer]uidics Cumulative Dispersed Energy (CDE): 7.25 seconds TRABECULAR MICRO-BYPASS STENT INFO: Glaukos iStent inject x 2 Reference Number: [id number] Serial Number: [id number] SURGEON: Nish Domingo MD, ABHAY ANESTHESIA: Monitored Anesthesia Care (MAC), with local sub-tenon's anesthetic infiltration COMPLICATIONS: None SPECIMENS: None INDICATIONS FOR PROCEDURE: The patient is a 81-year-old gentleman with history of primary open-angle glaucoma, moderate stage, on multiple medications. He has developed a significant nuclear/posterior subcapsular cataract in the left eye. He is currently on 4 topical medications to control his glaucoma in the left eye and visual beatty appear to be worsening over the past 2 years with intraocular pressure in the high teens to low 20s. The option of cataract surgery was offered to the patient and he wished to proceed. In addition, the option of glaucoma stent procedure at the time of cataract surgery was offered to the patient and he wished to proceed with that as well. PROCEDURE: The correct surgical eye was identified and marked as the left eye and the pupil was dilated in the preoperative area using mydriatics and cycloplegics. The dilated pupil size was 6.0 mm. He elected to proceed without oral sedation. The patient was brought to the operating room where cardiopulmonary monitoring was instituted and surgical time-out was performed, confirming the correct operative eye and IOL power. Topical anesthesia was administered and ophthalmic povidone-iodine 5% was instilled into the conjunctival fornices. Lidocaine gel was applied to the cornea and the virginie-ocular area was prepped with Betadine 10% solution and draped in the usual sterile fashion for intraocular surgery, including an aperture drape. A Tegaderm transparent film dressing was cut in half and used to cover the lashes and lid margins. Care was taken to sequester the lashes and lid margins under the Tegaderm dressing. A lid speculum was placed between the lids of the operative eye and the Joseph Lux[employer] Revalia operating microscope was maneuvered into position. Maria L scissors were then used to make a conjunctival buttonhole approximately 6mm posterior to the limbus in the inferonasal quadrant. Blunt dissection was carried out to expose bare sclera, and a blunt-tipped sub-tenon?s anesthesia cannula was introduced and passed posteriorly along the globe where non-preserved plain lidocaine was injected into posterior sub-Tenon?s space. A sideport knife was used to make a paracentesis port superior/superiortemporally. Intraocular phenylephrine/lidocaine was injected into the anterior chamber. The anterior chamber was then filled with viscoelastic. A 2.4mm keratome knife was used to create a half-thickness groove at the limbus and then to construct a three-plane near-clear corneal tunnel extending 2.0mm into clear cornea in the temporal position. . A flap was raised on the anterior capsule and capsulorhexis forceps were used to complete a continuous curvilinear capsulorhexis of 5.0 mm. Balanced salt solution was then used to perform cortical cleaving hydrodissection and nuclear hydrodelineation until the lens could be freely rotated within the capsular bag. The lens nucleus was then disassembled and removed within the capsular bag and iris plane using phacoemulsification. Residual cortical material was removed using the 45-degree angled silicone I/A tip with 0.3mm port. The posterior capsule was carefully polished to remove as much residual lens epithelial cells as safely possible. The capsular bag was then inflated and the anterior chamber deepened with viscoelastic. The lens implant described above was inserted into the capsular bag using the CHRIS [place] Injector. A Kuglen hook was used to dial the IOL into position. The anterior chamber was then slightly over-filled with viscoelastic. The microsope and the patient's head were tilted into the ideal position for viewing of the anterior chamber angle. Viscoelastic was placed on the cornea followed by a surgical gonionlens, and the anterior chamber angle landmarks were identified. The BodyGuardzukos iStent inject handpiece was introduced into the anterior chamber and the insertion sleeve was retracted once the injector was distal to the pupillary margin. The trocar was advanced through the central portion of the trabecular meshwork and into the back wall of Schlemm's canal in the superiornasal quadrant, with care taken to ensure the micro-insertion tube was perpendicular to the trabecular meshwork. The trabecular meshwork was lightly dimpled and the stent was injected without difficulty. The same procedure was then performed in the inferiornasal quradrant. Both stents were then examined and noted to be in good position within the trabecular meshwork. The microscope and the patients head were returned to the normal coaxial position. Viscoelatic was then removed from the anterior chamber using the I/A handpiece. The lens implant was noted to center nicely within the capsular bag. The incisions were stromally hydrated, and the anterior chamber was reformed using BSS. Some posterior pressure was noted, with iris prolapse through the main incision. This was read posited. Miostat was then injected into the anterior chamber. A second paracentesis was made at the 6 o'clock position at where more Miostat was injected. Then 0.5cc of moxifloxacin 1.0mg/ml were injected into the capsular bag and anterior chamber. The incisions were checked with a Weck spear and found to be secure. Several drops of ophthalmic povidone-iodine 5% were then applied to the eye followed by two drops of Imprimis combination prednisolone/moxifloxacin/nepafenac solution. The drapes were removed and a clear plastic protective eye shield was placed over the eye. The patient was then returned to Same Day Surgery in stable condition.
--- NOTE | 2022-04-07 15:09 | W.ANESPOSTOP ---
Postoperative Evaluation Date, Time and Location Date Performed: 04/07/22 Time Performed: 13:15 Patient Location: Day Surgery Unit Vital Signs Most Recent Imported Vital Signs: Most Recent Vital Signs Temp Pulse Resp BP Pulse Ox 36.3 C L 60 18 152/74 H 98 04/07/22 12:57 04/07/22 12:57 04/07/22 12:57 04/07/22 12:57 04/07/22 12:57 Pain Score Most Recent Pain Score: Most Recent Pain Score Pain Level 0 04/07/22 10:40 Assessment Mental Status: Awake (Alert & Oriented to Patient Baseline) Airway and Respiratory Function: Patent airway with normal (patient baseline) respiratory exam Cardiovascular Function: Hemodynamically Stable Hydration Status: Adequately Hydrated Nausea & Vomiting: No Nausea or Vomiting Pain: Pt. Denies Any Pain Peripheral Nerve Block: Patient did not receive a nerve block
== END 2022-04-07 13:21 | disposition home or self-care (01) ==
LOC: SUR 10:17
PROVIDERS: PCP Family Medicine; Visit Provider Ophthalmology
PROC: (CPT 66991; principal; 2022-04-07 12:00)
DX: H25.042 Posterior subcapsular polar age-related cataract, left eye (principal); H40.1122 Primary open-angle glaucoma, left eye, moderate stage; E11.22 Type 2 diabetes mellitus with diabetic chronic kidney disease; N18.30 Chronic kidney disease, stage 3 unspecified
CPT/HCPCS: 66991; V2632; C1783

== ENCOUNTER 2022-07-11 00:24 | Outpatient (CLI) | payer MEDICARE, SELFPAY ==
--- NOTE | 2022-07-11 08:20 | DI.CT_ITS ---
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 TECHNIQUE: Imaging Protocol: Axial computed tomography images with coronal and sagittal reformatted images were created and reviewed. Oral: no COMPARISON: CT CT ABDOMEN PELVIS WO from 12/11/2021 CT,NM,TMT NM MPI REST STRESS GRP from 04/01/2022 FINDINGS: ABDOMEN: Lung Bases: Normal where visualized. Liver: Normal density. No measurable mass. Gallbladder and biliary tract: Small gallstones in the dependent portion of the gallbladder. No wall thickening. No biliary dilatation. Pancreas: Normal density, no abnormal calcifications or inflammatory process. Spleen: Normal. Kidneys: Stable severe right hydronephrosis and marked renal parenchymal thinning. Left kidney no ch kimo in cysts lower pole. Adrenal glands: No change right adrenal mass. Lymph nodes: Within normal limits. Abdominal Aorta: Abdominal portion non-dilated. Atherosclerotic changes. 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 Stable dilatation right iliac artery. Soft tissues: No change in 2 areas of anterior upper abdominal wall hernia containing bowel loops. N o evidence of obstruction. PELVIS: Bladder: Mildly distended. No gross wall thickening. No evidence of stones. No visible mass. Bowel: Diverticulosis. No obstruction or bowel wall thickening. Peritoneal cavity: No ascites, collection or mesenteric inflammatory response. Reproductive organs: Within normal limits. Bones: Degenerative changes in the lumbar spine. Syndesmophyte formation lower thoracic spine. IMPRESSION: Stable appearance of the abdomen and pelvis. No evidence of adenopathy or metastatic disease. RADIATION DOSE DELIVERED: 990.77mGy.cm Total DLP DATA REPOSITORY: All CT scans at this facility are submitted to the National Radiology Data Registry (NRDR) Dose Index Registry (DIR) with the [employer] (ACR). RADIATION OPTIMIZATION: All CT scans at this facility use at least one of these dose optimization te chniques: automated exposure control; mA and/or kV adjustment per patient size (includes targeted exa ms where dose is matched to clinical indication); or iterative reconstruction.
--- NOTE | 2022-07-11 08:20 | DI.RAD_ITS ---
Exam(s) XR CHEST 2V PA LATERAL EXAM: XR CHEST 2V PA LATERAL CLINICAL HISTORY: UROTHELIAL CARCINOMA C68.9 TECHNIQUE: 2D digital imaging was performed. COMPARISON: CR,XR XR PORTABLE CHEST AP from 03/24/2022 FINDINGS: HEART: Normal size. Aorta: Not dilated. PULMONARY VASCULATURE: Normal. LUNGS: Clear. PLEURAL SPACE: No pleural effusion or pneumothorax. BONE:Syndesmophyte formation along thoracic spine. IMPRESSION: No acute abnormality. DATA REPOSITORY: RADIATION DOSE DELIVERED:
== END 2022-07-11 00:44 ==
LOC: DI 00:25
PROVIDERS: PCP Family Medicine; Visit Provider Urology
DX: C68.9 Malignant neoplasm of urinary organ, unspecified (principal)
CPT/HCPCS: 71046; 74176

== ENCOUNTER → 2022-12-11 01:08 | Outpatient (CLI) | payer MEDICARE, SELFPAY ==
--- NOTE | 2022-12-11 | DI.RAD_ITS ---
Exam(s) XR CHEST 2V PA LATERAL EXAM: XR CHEST 2V PA LATERAL CLINICAL HISTORY: H/O UROTHELIAL CA,C68.9,F/U TECHNIQUE: 2D digital imaging was performed. COMPARISON: CR XR CHEST 2V PA LATERAL from 07/11/2022 FINDINGS: HEART: Normal size. Aorta: Not dilated. PULMONARY VASCULATURE: Normal. LUNGS: Clear. PLEURAL SPACE: No pleural effusion or pneumothorax. BONE:Syndesmophyte formation thoracic spine. IMPRESSION: No acute abnormality. DATA REPOSITORY: RADIATION DOSE DELIVERED:
--- NOTE | 2022-12-11 | DI.CT_ITS ---
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 TECHNIQUE: Imaging Protocol: Axial computed tomography images with coronal and sagittal reformatted images were created and reviewed. Oral: no COMPARISON: CT CT ABDOMEN PELVIS WO from 07/11/2022 FINDINGS: ABDOMEN: Lung Bases: Normal where visualized. Liver: Normal density. No measurable mass. Gallbladder and biliary tract: A few small gallstones again noted. No biliary dilation. Pancreas: Normal density, no abnormal calcifications or inflammatory process. Spleen: Normal. Kidneys: Severe parenchymal thinning of the right kidney with marked hydronephrosis. No obstructing stone or mass. Stable cysts lower pole left kidney. No suspicious masses seen. Adrenal glands: Stable right adrenal mass. Lymph nodes: Within normal limits. Abdominal Aorta: Severe atherosclerotic changes. Stable dilatation of the iliac arteries, left great er than right Soft tissues: No change in abdominal wall hernia containing a small bowel loop which is not obstructe d. No change fatty containing left inguinal hernia. PELVIS: Bladder: Nearly empty. No gross wall thickening. Bowel: Moderate diverticulosis. No evidence of diverticulitis. No obstruction or bowel wall thicken ing. No evidence of appendicitis. Peritoneal cavity: No ascites, collection or mesenteric inflammatory response. Reproductive organs: Within normal limits. Bones: Bones appear osteopenic. Syndesmophytes noted lower thoracic region. Endplate osteophytes. No compression fractures. No lytic or blastic lesions. IMPRESSION: Stable appearance of right renal parenchymal severe hydronephrosis. Stable right adrenal mass. No new abnormalities. No evidence of metastatic disease. RADIATION DOSE DELIVERED: 821.72mGy.cm Total DLP DATA REPOSITORY: All CT scans at this facility are submitted to the National Radiology Data Registry (NRDR) Dose Index Registry (DIR) with the [employer] (ACR). RADIATION OPTIMIZATION: All CT scans at this facility use at least one of these dose optimization te chniques: automated exposure control; mA and/or kV adjustment per patient size (includes targeted exa ms where dose is matched to clinical indication); or iterative reconstruction.
== END ==
PROVIDERS: PCP Family Medicine; Visit Provider Urology
DX: C68.9 Malignant neoplasm of urinary organ, unspecified (principal)
CPT/HCPCS: 71046; 74176

== ENCOUNTER 2022-12-17 10:26 | Observation (INO) | payer MEDICARE, SELFPAY ==
[2022-12-17] VITALS (51 sets, daily range): BP systolic 100–152; BP diastolic 49–72; PULSE 49–72; RESP 10–24; TEMP 35.5–36.1; O2SAT 95–99
--- NOTE | 2022-12-17 10:15 | RT.EKG_ITS ---
APPROVED REPORT Exam: Resting ECG Reason for Exam: Chest Pain Patient Location: E HR:58 bpm ECG Measurements Heart Rate 58 AXIS MT 168 P 59 QRSd 149 QRS -71 QT 468 T 9 QTc 459 Conclusion Sinus bradycardia...rate< 60 Right bundle branch block...QRSd>120, terminal axis(90,270) Inferior infarct, old...Q >35mS, II III aVF Agree w/ above. minor changes from previous. No STEMI
--- NOTE | 2022-12-17 10:31 | ED.GENADUL_ITS ---
Discharge Plan Disposition Patient Disposition: Admit to [facility] Condition: Improving Discharge Details Clinical Impression: Chest pain, Chronic kidney disease (CKD), Block, bifascicular Admit Date/Time: 12/17/22 14:41 Admit Provider: Neelima Campbell Attending Provider: Neelima Campbell Primary Care Provider: Sander Contreras ED Provider: Joselin Mayer Discharge Data Discharge Date/Time-TO BE ENTERED AT DEPARTURE: 12/17/22 16:12 Discharge Physician: Joselin Mayer Medical Decision Making This is an 82-year-old male with risk factors for coronary artery disease and history of chronic renal insufficiency, who presents with substernal chest discomfort which has resolved but continued left arm and neck pain. I am concerned he is having unstable angina. My plan is to give him a full dose of aspirin and nitroglycerin since he has not had sildenafil recently. We will check cardiac enzymes. His EKG does not show evidence of ST elevation OK. We will give him a full dose of aspirin. I will obtain a chest x-ray to rule out pneumonia and congestive heart failure. We will check a comprehensive metabolic panel for renal function electrolytes including potassium and liver function test. We will check a troponin and if positive I will consult cardiology. I will have a low threshold for admitting him. We will attempt to review his previous stress test Differential Diagnosis Differential Diagnosis: ACS, OK, NSTEMI, GE reflux Medical Records Medical records reviewed: Yes I reviewed the patient's medical records. Imaging Data Radiologic Study: Imaging: X-Ray (Portable chest x-ray) Radiologist's impression: No acute findings. Lab Data Lab results reviewed: Yes I reviewed the patient's lab results. Lab results narrative: Troponin normal x2 ECG Data Attestation: I personally reviewed and interpreted this ECG (s) as follows: Prior ECG tracings: available for review HPI General Date/Time Provider Initiated Documentation: 12/17/22 10:31 . Limitations to Documentation: no limitations . Information obtained by: patient and family . History of Present Illness with intensity rated at 3. Quality is described as aching and dull, Patient did receive the following treatments prior to arrival, Aspirin and other (The patient did take 1 baby aspirin prior to arrival while with his regular a.m. meds) HPI Narrative: Time seen was on arrival in bed 1. The patient is a 82-year-old male with a history of abdominal aortic aneurysm chronic kidney disease, gout, hyperlipidemia obesity and hypertension who presents with 2 days of chest discomfort which she attributed to gas pains. 2 days ago the pain began radiating to the left arm and left neck. The patient tells me he has had a nuclear stress test in the past. She thinks was normal but was done many years ago. The neck chest and arm pain are worse with exertion. He did take 1 baby aspirin prior to arrival. Currently he is experiencing pain in his left neck and in his left arm which is 3-4 out of 10 in severity. He is not currently experiencing any anterior chest pain. He describes the discomfort as dull. It comes and goes and varies in length usually lasting minutes but can be longer. This morning his symptoms began at 7 AM while at rest. He denies any pleuritic chest pain although he does have dyspnea on exertion. He has no prior history of OK that he is aware of. He denies any fevers chills or dizziness. He did endorse diaphoresis. He does take sildenafil but has not taken any recently. Related Data Home Medications Medication Instructions Recorded Confirmed Lancets 1 ea miscellaneous QID #400 ea 07/15/12 09/23/22 aspirin 81 mg chewable tablet 81 mg PO DAILY 07/15/12 12/17/22 (Aspirin Low-Strength) latanoprost 0.005 % eye drops 1 drp OU HS #7.5 mL 06/14/20 12/17/22 (Xalatan) blood sugar diagnostic (FreeStyle #100 strips 11/22/21 09/23/22 Lite Strips) lisinopril 20 mg tablet 20 mg PO DAILY #90 tabs 01/04/22 12/17/22 sildenafil 100 mg tablet 100 mg PO DAILY PRN sexual 03/05/22 09/23/22 activity #7 tabs brimonidine 0.2 % eye drops 1 drp ophthalmic (eye) BID 04/04/22 12/17/22 omeprazole 20 mg capsule,delayed 20 mg PO BID #180 caps 04/09/22 12/17/22 release atenolol 50 mg tablet 50 mg PO BID #180 tabs 09/08/22 12/17/22 atorvastatin 20 mg tablet 20 mg PO DAILY #90 tabs 09/23/22 12/17/22 folic acid 1 mg tablet 1 mg PO DAILY #90 tabs 10/04/22 12/17/22 terazosin 5 mg capsule 5 mg PO HS #90 caps 12/03/22 12/17/22 amlodipine 5 mg tablet 5 mg PO BID 12/17/22 12/17/22 dorzolamide 22.3 mg-timolol 6.8 1 drp ophthalmic (eye) BID 12/17/22 12/17/22 mg/mL eye drops Previous Rx's Medication Instructions Recorded latanoprost 0.005 % eye drops 1 drp OU HS #7.5 mL 06/14/20 (Xalatan) blood sugar diagnostic (FreeStyle #100 strips 11/22/21 Lite Strips) lisinopril 20 mg tablet 20 mg PO DAILY #90 tabs 01/04/22 sildenafil 100 mg tablet 100 mg PO DAILY PRN sexual 03/05/22 activity #7 tabs omeprazole 20 mg capsule,delayed 20 mg PO BID #180 caps 04/09/22 release atenolol 50 mg tablet 50 mg PO BID #180 tabs 09/08/22 atorvastatin 20 mg tablet 20 mg PO DAILY #90 tabs 09/23/22 folic acid 1 mg tablet 1 mg PO DAILY #90 tabs 10/04/22 terazosin 5 mg capsule 5 mg PO HS #90 caps 12/03/22 Allergies Allergy/AdvReac Type Severity Reaction Status Date / Time IV contrask Allergy Intermediate renal Uncoded 09/23/22 10:25 impairment General SUSAN: 2 Review of Systems Narrative: see hpi Gastrointestinal Comments: The patient states that he has not had a AAA which was leaking prior to surgery Genitourinary Comments: The patient has chronic renal insufficiency. A stent placement was attempted at [facility] which ruptured and he tells me caused his left kidney to fail. PFSH All Active Problems Atypical chest pain (Acute) DVT prophylaxis (Acute) Discharge planning issues (Acute) Chest pain (Acute) Chronic kidney disease (CKD) (Chronic) Block, bifascicular (Acute) Primary open-angle glaucoma, left eye, moderate stage (Chronic) Chest pain (Acute) Actinic keratoses (Acute 06/24/17) Anxiety (Acute) Aortic aneurysm and dissection (Acute) AAA ruptured --multiple transfusions; repair, open repair about 2009 Benign prostatic hyperplasia (Acute) CKD (chronic kidney disease) stage 3, GFR 30-59 ml/min (Acute 07/30/16) due to ischemia during ruptured AAA 2021, stage 4 Chronic gout due to renal impairment of multiple sites without tophus (Acute 06/05/15) Essential hypertension (Acute 07/09/16) White coat augmentation neg stress echo 07/14 Glaucoma (Acute) 03/12/15; OPTICAL EXPRESSIONS Obesity (Acute) Obstructive sleep apnea syndrome (Acute) 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 BELLO @ [facility] Umbilical hernia repaired 02/28 Family History Mother No problems noted. Father Neoplasm Sister Heart disease Stroke Grandfather No problems noted. Grandfather Heart disease Grandmother No problems noted. Grandmother Personal history of malignant neoplasm Sister No problems noted. Sister No problems noted. Brother Neoplasm Brother No problems noted. Brother No problems noted. Brother No problems noted. Brother No problems noted. Son No problems noted. Social History Smoking/Tobacco Use Status: Former Tobacco Use tobacco type: cigarettes Quit Date: 03/30/09 Tobacco: How many years used: 40 Second Hand Exposure: Yes Smoking risk assessment performed?: Yes Alcohol Intake: former Drug use: Never Substance use type: does not use Household members: none Housing: house Do you need help understanding health information?: Rarely Pets and animals: No Sexually active: Yes Do you think of yourself as: straight/heterosexual Current gender identity: male What is your relationship status?: How often do you talk on the phone with friends or family?: three or more times per week How often do you get together with friends or relatives?: three or more times per week How often do you attend caodaism or baptist services?: decline to answer Do you belong to any clubs or organized social groups?: no Panel score (0-1 are the most socially isolated patients): 1 What type of physical activity do you participate in: walking Duration: 15-30 minutes/day Frequency: 3-4 times per week Stephani/Uatsdin: None Special stephani needs: No Seatbelt use: sometimes Helmet use: No Drive intox or ride w/intox 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 He does not appear in acute distress. He is mildly hypertensive. He was not tachycardic tachypneic or febrile. His initial room air O2 sat was normal at 97%. Const General: cooperative, healthy appearing, comfortable, no acute distress, well developed, well groomed and well hydrated Nutritional Appearance: average body habitus and well nourished Orientation: alert, awake and oriented x3 HENMT Head: normal to inspection, normocephalic and atraumatic Ears: hearing grossly normal bilaterally and external ears normal General nose exam: external nose normal, nares normal and no nasal discharge Face and sinus: normal facial exam, sinuses nontender and face symmetric Mouth: oral mucosae normal, lip normal, tongue normal, oropharynx normal, moist mucous membranes and other (Normal phonation. The patient is handling secreti ons.) Throat: posterior oropharynx normal and uvula midline Eyes General: appearance normal, both eyes and all related structures Eyelids: eyelids normal Conjunctivae: conjunctivae normal Sclera: sclerae normal Cornea: corneas normal Pupils: PERRL EOM: EOM intact bilaterally and No nystagmus Other: The patient has had bilateral lens implants Neck Neck: normal visual inspection, full ROM, no lymphadenopathy, no meningeal signs, trachea midline and supple Lymphatic: no lymphadenopathy noted Other: No JVD. No carotid bruits Chest Chest: normal inspection of the chest Resp Effort & Inspection: normal respiratory effort, able to speak in complete sentences, no audible wheezes, no nasal flaring, no respiratory distress, no retractions, no stridor, not tachypneic, no tracheal deviation, no use of accessory muscles, No prolonged expiratory phase and other (Normal inspiratory to expiratory ratio.) Auscultation: clear to auscultation bilaterally, no rales, no rhonchi, no wheezes and no rubs Tactile Fremitus: tactile fremitus absent Cardio Jugular venous pressure: no JVD Palpation: normal PMI Rate: regular rate Rhythm: regular rhythm Heart Sounds: S1 normal, S2 normal, no gallops, no murmurs and no rubs GI Inspection: no abdominal wall ecchymosis and non-distended Palpation: soft, no hepatosplenomegaly, no guarding and nontender Percussion: normal to percussion Auscultation: normal bowel sounds Other: The patient has a well-healed midline abdominal surgical scar. General: No CVA tenderness Back/Spine/Pelvis Back: no CVA tenderness and No back tenderness Cervical Spine: normal cervical lordosis, cervical ROM normal, No cervical muscular tenderness, No pain with cervical ROM, No cervical spinal tenderness and No step off deformity Thoracic/Lumbar Spine: thoracic and lumbar spine normal to inspection, No thoracic spinal tenderness and No lumbar spinal tenderness Pelvis: no pain with anterior-posterior compression and no pain with lateral compression Skin General skin exam: no rashes or lesions noted, turgor normal, no petechiae, no purpura and other (Skin is normal for ethnicity.) Lesions: no lesions Rashes: no rashes Trauma: no lacerations or abrasions Neuro General: patient alert, patient awake, patient oriented x3, moves all extremities, no meningeal signs, no focal motor deficits and CN's II-XI intact bilaterally Cranial Nerves: CN's II-XI intact bilaterally, PERRL, accommodation normal, EOM intact bilaterally, no nystagmus, facial strength normal, tongue midline, hearing normal and no nystagmus Cognition: normal cognition Speech: speech normal Gait: normal gait Motor: muscle tone normal throughout and strength 5/5 throughout Sensory Exam: no sensory deficits noted Extrem General: normal to inspection, full ROM, capillary refill normal, no clubbing, cyanosis or edema and no calf tenderness Psych Appearance: grossly normal Affect: normal affect Attitude: cooperative Thought Process: normal Thought Content: normal Insight: insight good Judgment: judgment good Other: The patient appears to have capacity make medical decisions. Course After 3 sublingual nitroglycerin he had complete resolution of his neck and arm pain. Repeat EKG was unchanged. Critical Care Time Critical Care Time Total Critical Care Time: 67 Attestation: This includes time at the bedside, discussion with family, review and interpretation of the EKGs, lab work and review of old records and consultation with hospitalist
--- NOTE | 2022-12-17 10:45 | DI.RAD_ITS ---
Exam(s) XR PORTABLE CHEST AP EXAM: XR PORTABLE CHEST AP CLINICAL HISTORY: CP and SOB TECHNIQUE: 2D digital imaging was performed. COMPARISON: CR XR CHEST 2V PA LATERAL from 12/11/2022 FINDINGS: LUNGS: Suboptimally inflated but clear. No pleural abnormality seen. HEART: Normal size. AORTA: Normal diameter. BONES: Syndesmophyte formation along thoracic spine. Soft tissues: Unremarkable. IMPRESSION: No acute findings. DATA REPOSITORY: RADIATION DOSE DELIVERED:
--- NOTE | 2022-12-17 10:45 | RT.EKG_ITS ---
APPROVED REPORT Exam: Resting ECG Reason for Exam: cp Patient Location: E HR:57 bpm ECG Measurements Heart Rate 57 AXIS AK 165 P 47 QRSd 160 QRS -58 QT 472 T -6 QTc 460 Conclusion Sinus bradycardia...rate< 60 Right bundle branch block...QRSd>120, terminal axis(90,270) Inferior infarct, age indeterminate...Q>35mS, T neg, II III aVF no significant change from previous from earlier. This is a pain-free ECG
[2022-12-17] MEDS: nitroGLYcerin 0.4 MG TAB SL ×3 (10:57→11:11)
[2022-12-17] MEDS: Aspirin 81 MG CHEW 243 MG CH (10:57)
--- NOTE | 2022-12-17 10:59 | NUR.NOTE ---
Nursing Note: Nitro given at this time. Pt blood pressure 130/62. heart rate 60
[2022-12-17 11:00] LABS: Abs Immature Grans 0.05 10^3/uL (0.0-0.06); Absolute Basophil Count 0.05 10^3/uL (0.0-0.2); Absolute Eosinophil Count 0.19 10^3/uL (0.0-0.7); Absolute Lymphocyte Count 2.01 10^3/uL (1.2-3.4); Absolute Monocyte Count 0.65 10^3/uL (0.1-0.8); Absolute Neutrophil Count 6.45 10^3/uL (1.2-6.7); Basophils % 0.5; HCT 37.3 % (40.0-50.0); Immature Grans % 0.5; Lymphocytes % 21.4; MCH 31.1 pg (27.0-33.0); MCHC 34.9 % (32.0-36.0); MCV 89 fL (80-95); MPV 10.2 fL (8.0-11.0); Monocytes % 6.9; Neutrophils % 68.7; Platelet Count 226 10^3/uL (130-400); RBC 4.18 10^6/uL (4.36-5.78); RDW 11.7 % (11.8-14.1); RDW-SD 37.6 fL
--- NOTE | 2022-12-17 11:04 | NUR.NOTE ---
Nursing Note: another nitro given at this time per provider. pt denies chest pain at this time. pt blood pressure 134/61, heart rate 62.
--- NOTE | 2022-12-17 11:12 | NUR.NOTE ---
Nursing Note: Pt given last nitro at this time.
[2022-12-17 11:45] LABS: ALT 12 U/L (16-63); AST 10 U/L (15-37); Albumin 3.3 g/dL (3.4-5.0); Alkaline Phosphatase 72 U/L (46-116); BUN 25 mg/dL (7-18); Bilirubin, Total 0.6 mg/dL (0.2-1.0); CREATININE 2.1 mg/dL (0.70-1.30); Calcium 8.7 mg/dL (8.5-10.1); Chloride 105 mmol/L (98-107); Estimated GFR 31.04 (mL/min/1.73m2); Glucose 169 mg/dL (74-106); Magnesium 0.9 mg/dL (1.8-2.4); NT-proBNP 276 pg/mL (<300); Potassium 3.7 mmol/L (3.5-5.1); Sodium 139 mmol/L (136-145); Total Protein 7.4 g/dL (6.4-8.2); Troponin I < 50 ng/L (<or=60)
[2022-12-17] MEDS: MAGNESIUM SULFATE 2 GM/50 ML BAG IVPB (13:48)
[2022-12-17 14:18] LABS: Troponin I < 50 ng/L (<or=60)
--- NOTE | 2022-12-17 15:17 | W.PM.HP.N ---
Date of service: 12/17/22 Time of Service: 15:17 Assessment and Plan Assessment and plan (1) Atypical chest pain: Status: Acute Assessment and plan: referred to observation to rule out Replete mag, repeat EKG, monitor on tele. previous negative MPI. cards consult (2) Diabetes mellitus: Assessment and plan: Diet-controlled at home. Continue carb consistent diet here with SSI. (3) Essential hypertension: Status: Acute Assessment and plan: continue atenolol and amlodipine. (4) Hyperlipidemia: Status: Acute Assessment and plan: Continue atorvastatin 20 mg daily (5) Obstructive sleep apnea syndrome: Status: Acute Assessment and plan: Patient does not use CPAP or O2 at night. F/u as outpatient. (6) DVT prophylaxis: Status: Acute Assessment and plan: Renally dosed enoxaparin (7) Discharge planning issues: Status: Acute Assessment and plan: Full code Wants his son to make his decisions if/when he is not able to. Anticipate discharge home tomorrow. discussed with DR Campbell History of Present Illness History of Present Illness Chief Complaint: chest pain Narrative: This is an 82-year-old male patient past medical history of aortic aneurysm with dissection stage III chronic kidney disease ELIANE diabetes who presented to the emergency department after brief substernal left-sided and right-sided chest discomfort that started today while he was at rest. He states he was in his usual state of health prior. Denied any shortness of breath diaphoresis nausea he states he also had some pain in the back of his left arm which he was attributing to suspenders he has been wearing. He reports that the pain is reproducible when he moves that upper extremity. He has no history of coronary artery disease. He has had 2 previous stress test report and the last one as chemical which was unremarkable approximately 1 year ago. Review of Systems All systems reviewed & are unremarkable except as noted in HPI and below PFSH All Active Problems (Updated 12/17/22 @ 15:26 by Eloina Godoy NP) Atypical chest pain (Acute) DVT prophylaxis (Acute) Discharge planning issues (Acute) Chest pain (Acute) Chronic kidney disease (CKD) (Chronic) Block, bifascicular (Acute) Primary open-angle glaucoma, left eye, moderate stage (Chronic) Chest pain (Acute) Actinic keratoses (Acute 06/24/17) Anxiety (Acute) Aortic aneurysm and dissection (Acute) AAA ruptured --multiple transfusions; repair, open repair about 2009 Benign prostatic hyperplasia (Acute) CKD (chronic kidney disease) stage 3, GFR 30-59 ml/min (Acute 07/30/16) due to ischemia during ruptured AAA 2021, stage 4 Chronic gout due to renal impairment of multiple sites without tophus (Acute 06/05/15) Essential hypertension (Acute 07/09/16) White coat augmentation neg stress echo 07/14 Glaucoma (Acute) 03/12/15; OPTICAL EXPRESSIONS Obesity (Acute) Obstructive sleep apnea syndrome (Acute) 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 BELLO @ [facility] Umbilical hernia repaired 02/28 Family History Mother No problems noted. Father Neoplasm Sister Heart disease Stroke Grandfather No problems noted. Grandfather Heart disease Grandmother No problems noted. Grandmother Personal history of malignant neoplasm Sister No problems noted. Sister No problems noted. Brother Neoplasm Brother No problems noted. Brother No problems noted. Brother No problems noted. Brother No problems noted. Son No problems noted. Social History (Updated 03/19/22 @ 14:23 by Peyton Guzmán) Smoking/Tobacco Use Status: Former Tobacco Use tobacco type: cigarettes Quit Date: 03/30/09 Tobacco: How many years used: 40 Second Hand Exposure: Yes Smoking risk assessment performed?: Yes Alcohol Intake: former Drug use: Never Substance use type: does not use Household members: none Housing: house Do you need help understanding health information?: Rarely Pets and animals: No Sexually active: Yes Do you think of yourself as: straight/heterosexual Current gender identity: male What is your relationship status?: How often do you talk on the phone with friends or family?: three or more times per week How often do you get together with friends or relatives?: three or more times per week How often do you attend taoist or religion services?: decline to answer Do you belong to any clubs or organized social groups?: no Panel score (0-1 are the most socially isolated patients): 1 What type of physical activity do you participate in: walking Duration: 15-30 minutes/day Frequency: 3-4 times per week Stephani/Mormon: None Special stephani needs: No Seatbelt use: sometimes Helmet use: No Drive 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 Meds Allergies and Home Medications Allergies Allergy/AdvReac Type Severity Reaction Status Date / Time IV contrask Allergy Intermediate renal Uncoded 09/23/22 10:25 impairment Home Medications Medication Instructions Recorded Confirmed Type Lancets 1 ea miscellaneous QID #400 ea 07/15/12 09/23/22 History aspirin 81 mg chewable tablet 81 mg PO DAILY 07/15/12 12/17/22 History (Aspirin Low-Strength) cyanocobalamin (vitamin B-12) 1,000 mcg PO DAILY #90 caps 11/24/18 09/23/22 Rx 1,000 mcg capsule dorzolamide 22.3 mg-timolol 6.8 1 drp OS BID #1 drp 04/26/19 12/17/22 Rx mg/mL eye drops latanoprost 0.005 % eye drops 1 drp OU HS #7.5 mL 06/14/20 12/17/22 Rx (Xalatan) blood sugar diagnostic (FreeStyle #100 strips 11/22/21 09/23/22 Rx Lite Strips) lisinopril 20 mg tablet 20 mg PO DAILY #90 tabs 01/04/22 12/17/22 Rx amlodipine 5 mg tablet 5 mg PO DAILY #90 tabs 01/18/22 12/17/22 Rx sildenafil 100 mg tablet 100 mg PO DAILY PRN sexual 03/05/22 09/23/22 Rx activity #7 tabs brimonidine 0.2 % eye drops 1 drp ophthalmic (eye) BID 04/04/22 09/23/22 History clonazepam 0.5 mg tablet 0.25 mg PO HS PRN 04/04/22 12/17/22 History magnesium oxide 400 mg (241.3 mg 400 mg PO DAILY 04/04/22 09/23/22 History magnesium) tablet omeprazole 20 mg capsule,delayed 20 mg PO BID #180 caps 04/09/22 12/17/22 Rx release atenolol 50 mg tablet 50 mg PO BID #180 tabs 09/08/22 12/17/22 Rx atorvastatin 20 mg tablet 20 mg PO DAILY #90 tabs 09/23/22 09/23/22 Rx dapagliflozin propanediol 10 mg 10 mg PO DAILY #30 tabs 09/23/22 09/23/22 Rx tablet (Farxiga) folic acid 1 mg tablet 1 mg PO DAILY #90 tabs 10/04/22 Rx terazosin 5 mg capsule 5 mg PO HS #90 caps 12/03/22 12/17/22 Rx phenazopyridine 200 mg tablet 200 mg PO TID 12/17/22 12/17/22 History pravastatin 40 mg tablet 40 mg PO DAILY 12/17/22 12/17/22 History Exam Const General: cooperative, healthy appearing, comfortable and no acute distress Nutritional Appearance: average body habitus Orientation: alert, awake and oriented x3 HENMT Head: normal to inspection, normocephalic and atraumatic Mouth: oral mucosae normal Chest Chest: normal inspection of the chest Resp Effort & Inspection: normal respiratory effort Auscultation: clear to auscultation bilaterally Cardio Rate: regular rate Rhythm: regular rhythm Heart Sounds: no murmurs GI Inspection: normal to inspection Palpation: soft Skin General skin exam: no rashes or lesions noted Neuro General: patient alert, patient awake and patient oriented x3 Extrem General: normal to inspection, full ROM and no pedal edema Results Labs 12/17/22 10:52 12/17/22 10:52 Labs: Laboratory Results - last 24 hr 12/17/22 12/17/22 12/17/22 10:52 10:52 13:55 WBC 9.40 RBC 4.18 L Hgb 13.0 L Hct 37.3 L MCV 89 MCH 31.1 MCHC 34.9 RDW 11.7 L Plt Count 226 MPV 10.2 Immature Gran % 0.5 Neutrophils % 68.7 Lymphocytes % 21.4 Monocytes % 6.9 Eosinophils % 2.0 Basophils % 0.5 Nucleated RBC % 0.0 Absolute Neutrophils 6.45 Absolute Lymphocytes 2.01 Absolute Monocytes 0.65 Absolute Eosinophils 0.19 Absolute Basophils 0.05 Sodium 139 Potassium 3.7 Chloride 105 Carbon Dioxide 24.0 Anion Gap 10.0 BUN 25 H Creatinine 2.1 H Est GFR (CKD-EPI 2020) 31.04 Glucose 169 H Calcium 8.7 Magnesium 0.9 L Total Bilirubin 0.6 AST 10 L ALT 12 L Alkaline Phosphatase 72 Troponin I < 50 < 50 NT-Pro-B Natriuret Pep 276 Total Protein 7.4 Albumin 3.3 L Last Vital Signs Pulse 52 L 12/17/22 12:31 Resp 19 12/17/22 12:31 BP 116/57 L 12/17/22 12:31 Pulse Ox 98 12/17/22 12:31 Time Spent Time spent with Patient: 40-54 minutes Time was spent: preparing to see the patient(eg.review tests), obtaining and/or reviewing separately otained hiistory, ordering medications,tests, procedures, indepentently interpreting results and counseling the patient
[2022-12-17 16:23] LABS: Troponin I < 50 ng/L (<or=60)
--- NOTE | 2022-12-17 16:45 | TELEP.MEDR_ITS ---
Date of service: 12/17/22 Time of Service: 16:45 Telepharmacy Home Med Rec Allergies Allergies: IV contrask Allergy (Intermediate, Uncoded 09/23/22 10:25) renal impairment Interview Person Interviewed: * Patient Quality Quality of Interview/Accuracy of Medication List: Fair Sources Sources used to compile medication list: [facility] Medication List and [employer] Changes made to Home Medication List: ADDITIONS: * none DELETIONS: * Clonazepam * B12 * Farxiga * Magnesium * Phenazopyridine * Pravastatin CHANGES: * Amlodipine 5mg PO BID Additional Notes Additional Notes: * Aaron reports he gave ED staff a medication list. Both the ED and med surg staff are not aware of it's location. This med rec was done based on patient interview and retail pharmacy records (per sure scripts) Recommended Changes Recommended Changes(reason for recommendation): * none Attestation: The home medication list is now updated to the best of my knowledge and is ready to be reconciled by the provider. Please contact the TelePharmacy Medication Reconciliation Pharmacist at for any questions.
--- NOTE | 2022-12-17 16:45 | TELEP.MEDREC ---
Date of service: 12/17/22 Time of Service: 16:45 Telepharmacy Home Med Rec Allergies Allergies: IV contrask Allergy (Intermediate, Uncoded 09/23/22 10:25) renal impairment Interview Person Interviewed: Patient Quality Quality of Interview/Accuracy of Medication List: Fair Sources Sources used to compile medication list: [facility] Medication List and [employer] Changes made to Home Medication List: ADDITIONS: none DELETIONS: Clonazepam B12 Farxiga Magnesium Phenazopyridine Pravastatin CHANGES: Amlodipine 5mg PO BID Additional Notes Additional Notes: Aaron reports he gave ED staff a medication list. Both the ED and med surg staff are not aware of it's location. This med rec was done based on patient interview and retail pharmacy records (per sure scripts) Recommended Changes Recommended Changes(reason for recommendation): none Attestation: The home medication list is now updated to the best of my knowledge and is ready to be reconciled by the provider. Please contact the TelePharmacy Medication Reconciliation Pharmacist at for any questions.
[2022-12-17] MEDS: Latanoprost 0.005% 2.5 ML BTL OU (21:08)
[2022-12-17] MEDS: Atenolol 50 MG TAB PO (21:09)
[2022-12-17] MEDS: Pravastatin 20 MG TAB 40 MG PO (21:09)
[2022-12-17] MEDS: Omeprazole 20 MG CAPCR PO (21:09)
[2022-12-18 00:02] VITALS: PULSE 71
[2022-12-18 02:43] VITALS: BP 129/66; PULSE 68; RESP 18; TEMP 36.3; O2SAT 96
[2022-12-18] MEDS: Omeprazole 20 MG CAPCR PO (07:22)
[2022-12-18 07:23] VITALS: BP 146/83; PULSE 61; RESP 18; TEMP 36.8; O2SAT 97
--- NOTE | 2022-12-18 07:31 | RESPIRATORY ---
ELIANE: patient doesn't use CPAP or O2 at night
[2022-12-18 07:48] LABS: Abs Immature Grans 0.04 10^3/uL (0.0-0.06); Absolute Basophil Count 0.06 10^3/uL (0.0-0.2); Absolute Eosinophil Count 0.21 10^3/uL (0.0-0.7); Absolute Lymphocyte Count 1.77 10^3/uL (1.2-3.4); Absolute Neutrophil Count 6.06 10^3/uL (1.2-6.7); Basophils % 0.7; Eosinophils % 2.4; HCT 35.7 % (40.0-50.0); HGB 12.8 g/dL (13.5-17.5); Immature Grans % 0.5; Lymphocytes % 20.3; MCH 32.2 pg (27.0-33.0); MCHC 35.9 % (32.0-36.0); MCV 90 fL (80-95); MPV 10.6 fL (8.0-11.0); Monocytes % 6.9; Neutrophils % 69.2; Platelet Count 209 10^3/uL (130-400); RBC 3.98 10^6/uL (4.36-5.78); RDW 11.8 % (11.8-14.1); WBC 8.74 10^3/uL (4.4-10.8)
--- NOTE | 2022-12-18 08:40 | W.CARDCONSUL ---
Date of service: 12/18/22 Time of Service: 08:40 Assessment and Plan Assessment and plan (1) Atypical chest pain: Status: Acute Assessment and plan: Patient's chest pain as described is musculoskeletal. It is reproducible with palpation. There is no evidence of any myocardial necrosis nor change in his bifascicular block. I see no indication to perform repeat stress testing. It was discussed with the patient that his chest pain and left shoulder pain are not suggestive of a cardiac etiology History of Present Illness History of Present Illness Chief Complaint: Chest pain Narrative: This is an 82-year-old man who presented to the emergency room yesterday because of chest pain. He has chest pain intermittently, generally at rest. It can be located in various places around his chest and is tender to touch when it is present. Generally the chest pain lasts for only a few minutes, it is not severe. He also has left shoulder pain which is worse when he moves his shoulder. He has attributed that to his suspenders In the emergency room there was no enzymatic evidence of myocardial necrosis. His EKGs have shown right bundle branch block and left anterior fascicular block, no acute changes He has had prior cardiac testing prompted by his symptoms. An echocardiogram in 2020 was entirely normal. He had a myocardial perfusion imaging study done in March where he was able to complete stage I with Jhonny protocol and achieved 99% of predicted heart rate for age. Myocardial perfusion was normal. Ejection fraction was within the range of normal, normal wall motion Currently the patient is comfortable. He says he is fairly active overall. He does things like stacking wood. He denies experiencing any exertional chest pressure that would cause him to stop and rest. He denies exertional dyspnea Review of Systems Cardiovascular Cardiovascular: Reports as per HPI and Reports system reviewed and no additional complaints, except as documented PFSH All Active Problems Atypical chest pain (Acute) DVT prophylaxis (Acute) Discharge planning issues (Acute) Chest pain (Acute) Chronic kidney disease (CKD) (Chronic) Block, bifascicular (Acute) Primary open-angle glaucoma, left eye, moderate stage (Chronic) Chest pain (Acute) Actinic keratoses (Acute 06/24/17) Anxiety (Acute) Aortic aneurysm and dissection (Acute) AAA ruptured --multiple transfusions; repair, open repair about 2009 Benign prostatic hyperplasia (Acute) CKD (chronic kidney disease) stage 3, GFR 30-59 ml/min (Acute 07/30/16) due to ischemia during ruptured AAA 2021, stage 4 Chronic gout due to renal impairment of multiple sites without tophus (Acute 06/05/15) Essential hypertension (Acute 07/09/16) White coat augmentation neg stress echo 07/14 Glaucoma (Acute) 03/12/15; OPTICAL EXPRESSIONS Obesity (Acute) Obstructive sleep apnea syndrome (Acute) 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 BELLO @ [facility] Umbilical hernia repaired 02/28 Family History Mother No problems noted. Father Neoplasm Sister Heart disease Stroke Grandfather No problems noted. Grandfather Heart disease Grandmother No problems noted. Grandmother Personal history of malignant neoplasm Sister No problems noted. Sister No problems noted. Brother Neoplasm Brother No problems noted. Brother No problems noted. Brother No problems noted. Brother No problems noted. Son No problems noted. Social History Smoking/Tobacco Use Status: Former Tobacco Use tobacco type: cigarettes Quit Date: 03/30/09 Tobacco: How many years used: 40 Second Hand Exposure: Yes Smoking risk assessment performed?: Yes Alcohol Intake: former Drug use: Never Substance use type: does not use Household members: none Housing: house Do you need help understanding health information?: Rarely Pets and animals: No Sexually active: Yes Do you think of yourself as: straight/heterosexual Current gender identity: male What is your relationship status?: How often do you talk on the phone with friends or family?: three or more times per week How often do you get together with friends or relatives?: three or more times per week How often do you attend mormonism or worship services?: decline to answer Do you belong to any clubs or organized social groups?: no Panel score (0-1 are the most socially isolated patients): 1 What type of physical activity do you participate in: walking Duration: 15-30 minutes/day Frequency: 3-4 times per week Stephani/Voodoo: None Special stephani needs: No Seatbelt use: sometimes Helmet use: No Drive intox or ride w/intox 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 Exam Const Other: Well-developed well-nourished looks a bit younger than stated age no acute distress Neck Other: Neck is supple trachea is midline carotid pulsations are normal no bruits Resp Auscultation: clear to auscultation bilaterally Cardio Other: Heart is regular S2 is widely split there is no murmur or gallop Results Last Vital Signs Temp 36.8 C 12/18/22 07:23 Pulse 61 12/18/22 07:23 Resp 18 12/18/22 07:23 BP 146/83 H 12/18/22 07:23 Pulse Ox 97 12/18/22 07:23 Labs 12/18/22 06:25 12/17/22 10:52 Labs: Laboratory Results - last 24 hr 12/17/22 12/17/22 12/17/22 10:52 10:52 13:55 WBC 9.40 RBC 4.18 L Hgb 13.0 L Hct 37.3 L MCV 89 MCH 31.1 MCHC 34.9 RDW 11.7 L Plt Count 226 MPV 10.2 Immature Gran % 0.5 Neutrophils % 68.7 Lymphocytes % 21.4 Monocytes % 6.9 Eosinophils % 2.0 Basophils % 0.5 Nucleated RBC % 0.0 Absolute Neutrophils 6.45 Absolute Lymphocytes 2.01 Absolute Monocytes 0.65 Absolute Eosinophils 0.19 Absolute Basophils 0.05 Sodium 139 Potassium 3.7 Chloride 105 Carbon Dioxide 24.0 Anion Gap 10.0 BUN 25 H Creatinine 2.1 H Est GFR (CKD-EPI 2020) 31.04 Glucose 169 H Calcium 8.7 Magnesium 0.9 L Total Bilirubin 0.6 AST 10 L ALT 12 L Alkaline Phosphatase 72 Troponin I < 50 < 50 NT-Pro-B Natriuret Pep 276 Total Protein 7.4 Albumin 3.3 L 12/17/22 12/18/22 15:58 06:25 WBC 8.74 RBC 3.98 L Hgb 12.8 L Hct 35.7 L MCV 90 MCH 32.2 MCHC 35.9 RDW 11.8 Plt Count 209 MPV 10.6 Immature Gran % 0.5 Neutrophils % 69.2 Lymphocytes % 20.3 Monocytes % 6.9 Eosinophils % 2.4 Basophils % 0.7 Nucleated RBC % 0.0 Absolute Neutrophils 6.06 Absolute Lymphocytes 1.77 Absolute Monocytes 0.60 Absolute Eosinophils 0.21 Absolute Basophils 0.06 Sodium Potassium Chloride Carbon Dioxide Anion Gap BUN Creatinine Est GFR (CKD-EPI 2020) Glucose Calcium Magnesium Total Bilirubin AST ALT Alkaline Phosphatase Troponin I < 50 NT-Pro-B Natriuret Pep Total Protein Albumin
[2022-12-18] MEDS: Folic Acid 1 MG TAB PO (08:46)
[2022-12-18] MEDS: Cyanocobalamin 500 MCG TAB 1000 MCG PO (08:46)
[2022-12-18] MEDS: amLODIPine 5 MG TAB PO (08:47)
[2022-12-18] MEDS: Magnesium Oxide 400 MG TAB PO (08:48)
[2022-12-18] MEDS: Aspirin 81 MG CHEW PO (08:48)
[2022-12-18] MEDS: Lisinopril 20 MG TAB PO (08:48)
[2022-12-18] MEDS: Atorvastatin 20 MG TAB PO (08:48)
[2022-12-18] MEDS: Atenolol 50 MG TAB PO (08:59)
[2022-12-18 09:07] LABS: Anion Gap 9.6 mmol/L (3-11); BUN 22 mg/dL (7-18); CO2 24.4 mmol/L (21.0-32.0); CREATININE 2.1 mg/dL (0.70-1.30); Calcium 8.9 mg/dL (8.5-10.1); Chloride 106 mmol/L (98-107); Estimated GFR 31.04 (mL/min/1.73m2); Glucose 157 mg/dL (74-106); Magnesium 1.4 mg/dL (1.8-2.4); Potassium 3.6 mmol/L (3.5-5.1); Sodium 140 mmol/L (136-145); Troponin I < 50 ng/L (<or=60)
--- NOTE | 2022-12-18 10:34 | PDOC.CMIN ---
Date of service: 12/18/22 Time of Service: 10:34 Care Management Initial Assmt Initial Assessment REASON FOR HOSPITALIZATION:: Chest Pain PFSH All Active Problems Atypical chest pain (Acute) DVT prophylaxis (Acute) Discharge planning issues (Acute) Chest pain (Acute) Chronic kidney disease (CKD) (Chronic) Block, bifascicular (Acute) Primary open-angle glaucoma, left eye, moderate stage (Chronic) Chest pain (Acute) Actinic keratoses (Acute 06/24/17) Anxiety (Acute) Aortic aneurysm and dissection (Acute) AAA ruptured --multiple transfusions; repair, open repair about 2009 Benign prostatic hyperplasia (Acute) CKD (chronic kidney disease) stage 3, GFR 30-59 ml/min (Acute 07/30/16) due to ischemia during ruptured AAA 2021, stage 4 Chronic gout due to renal impairment of multiple sites without tophus (Acute 06/05/15) Essential hypertension (Acute 07/09/16) White coat augmentation neg stress echo 07/14 Glaucoma (Acute) 03/12/15; OPTICAL EXPRESSIONS Obesity (Acute) Obstructive sleep apnea syndrome (Acute) 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 BELLO @ [facility] Umbilical hernia repaired 02/28 Family History Mother No problems noted. Father Neoplasm Sister Heart disease Stroke Grandfather No problems noted. Grandfather Heart disease Grandmother No problems noted. Grandmother Personal history of malignant neoplasm Sister No problems noted. Sister No problems noted. Brother Neoplasm Brother No problems noted. Brother No problems noted. Brother No problems noted. Brother No problems noted. Son No problems noted. Social History Smoking/Tobacco Use Status: Former Tobacco Use tobacco type: cigarettes Quit Date: 03/30/09 Tobacco: How many years used: 40 Second Hand Exposure: Yes Smoking risk assessment performed?: Yes Alcohol Intake: former Drug use: Never Substance use type: does not use Household members: none Housing: house Do you need help understanding health information?: Rarely Pets and animals: No Sexually active: Yes Do you think of yourself as: straight/heterosexual Current gender identity: male What is your relationship status?: How often do you talk on the phone with friends or family?: three or more times per week How often do you get together with friends or relatives?: three or more times per week How often do you attend yazdanism or worship services?: decline to answer Do you belong to any clubs or organized social groups?: no Panel score (0-1 are the most socially isolated patients): 1 What type of physical activity do you participate in: walking Duration: 15-30 minutes/day Frequency: 3-4 times per week Stephani/Hoahaoism: None Special stephani needs: No Seatbelt use: sometimes Helmet use: No Drive intox or ride w/intox 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
[2022-12-18 11:04] VITALS: BP 129/72; PULSE 62; RESP 18; TEMP 36.6; O2SAT 98
--- NOTE | 2022-12-18 11:10 | W.PM.DS.N ---
Date of service: 12/18/22 Time of Service: 11:10 DS: Diagnosis Discharge Diagnosis (1) Atypical chest pain: Status: Acute Discharge Plan Disposition Patient Disposition: Home Condition: Stable Discharge Details Reason For Visit: Chest Pain Admit Date/Time: 12/17/22 14:41 Admit Provider: Neelima Campbell Attending Provider: Neelima Campbell Primary Care Provider: Sander Contreras Hospital Course Hospital Course: This is an 82-year-old male patient with no history of known coronary artery disease who presented to the emergency department with onset of generalized chest discomfort with left shoulder pain that was reproducible. He had no acute ST segment changes on his EKG his serial troponins were negative, hospitalist services was requested to observe overnight for formal rule out. While on medical surgical unit he remained asymptomatic. Serial troponins remain negative he remained in normal sinus rhythm on telemetry with no dysrhythmias. Cardiology evaluation was requested and was in agreement with no further cardiology testing at this time. There have been no changes in his home medications and he is stable for discharge to home should follow-up with his primary care provider outpatient return to the emergency department sooner for new or worsening symptoms. Discharge discussed with Dr. Campbell Home Meds and New Rx's Prescriptions: Continued atorvastatin 20 mg tablet 20 mg PO DAILY Qty: 90 4RF Patient Comments: pt states not taking aspirin [Aspirin Low-Strength] 81 MG tablet,chewable 81 mg PO DAILY LANCETS 1 EACH EACH 1 ea Miscellaneous QID Qty: 400 Rx Instructions: DX: 250.0 latanoprost [Xalatan] 0.005 % drops 1 drp OU HS Qty: 7.5 6RF (DME) FreeStyle Lite Strips Strip 1 ea Miscellaneous DAILY Qty: 100 4RF Rx Instructions: DX E11.9 Test twice daily lisinopril 20 mg tablet 20 mg PO DAILY Qty: 90 3RF sildenafil 100 mg tablet 100 mg PO DAILY PRN (Reason: sexual activity) Qty: 7 0RF Patient Comments: pt states not taking Rx Instructions: administer 30 minutes to 4 hours before activity omeprazole 20 mg capsule,delayed release(DR/EC) 20 mg PO BID Qty: 180 3RF atenolol 50 mg tablet 50 mg PO BID Qty: 180 3RF folic acid 1 mg tablet 1 mg PO DAILY Qty: 90 3RF Patient Comments: pt states not taking terazosin 5 mg capsule 5 mg PO HS Qty: 90 3RF brimonidine 0.2 % drops 1 drp ophthalmic (eye) BID Patient Comments: INSTILL ONE DROP INTO THE LEFT EYE TWO TIMES A DAY pt states not taking Rx Instructions: both eyes amlodipine 5 mg tablet 5 mg PO BID Patient Comments: TAKE ONE TABLET BY MOUTH TWICE A DAY dorzolamide-timolol 22.3-6.8 mg/mL drops 1 drp ophthalmic (eye) BID Patient Comments: INSTILL ONE DROP IN EACH EYE TWO TIMES A DAY Rx Instructions: 1 drop to each eye Discharge Instructions Instructions: Chest Pain (DC) Stand Alone Forms: Nursing Discharge Form Referrals: Sander Contreras MD [Primary Care Provider] - 12/30/22 1:00 pm Activity:: Activity as Tolerated Equipment/Supplies:: No Equipment Needed Diet:: As Tolerated Discharge Orders Discharge Orders: Discharge Order (Routine); Ordered 12/18/22 Ordered By: Eloina Godoy Discharge Data Discharge Date/Time-TO BE ENTERED AT DEPARTURE: 12/18/22 12:38 DS: Summary Time Spent with Patient providing and/or coordinating discharge services: Less than 30 minutes Status at Discharge Functional status at discharge: independent ambulation Overall status at discharge: patient is back to baseline Mental Status: mental status grossly normal Speech and Movement: speech and movement normal Mood: congruent mood Affect: normal affect Exam Const General: cooperative, healthy appearing, comfortable and no acute distress Nutritional Appearance: average body habitus Orientation: alert, awake and oriented x3 HENMT Head: normal to inspection, normocephalic and atraumatic Mouth: oral mucosae normal Chest Chest: normal inspection of the chest Resp Effort & Inspection: normal respiratory effort Auscultation: clear to auscultation bilaterally Cardio Rate: regular rate Rhythm: regular rhythm Heart Sounds: no murmurs GI Inspection: normal to inspection Palpation: soft Skin General skin exam: no rashes or lesions noted Neuro General: patient alert, patient awake and patient oriented x3 Extrem General: normal to inspection, full ROM and no pedal edema Psych Mental Status: mental status grossly normal Speech and Movement: speech and movement normal Mood: congruent mood Affect: normal affect DS: Data Vitals/I&O Vitals and I&O: Vital Signs Temperature 36.6 C 12/18/22 11:04 Temperature Source Tympanic 12/18/22 11:04 Pulse 62 12/18/22 11:04 Pulse Rhythm Regular 12/18/22 07:27 Pulse 54 L 12/17/22 15:40 Respiratory Rate 18 12/18/22 11:04 Respiratory Effort Normal, Non-Labored 12/18/22 07:27 Respiratory Depth Normal 12/18/22 07:27 Respiratory Pattern Normal 12/18/22 07:27 Blood Pressure 129/72 12/18/22 11:04 Blood Pressure Mean 88 12/17/22 14:31 Blood Pressure Position Sitting 12/17/22 10:33 Pulse Oximetry 98 12/18/22 11:04 Oxygen Delivery Method Room Air 12/18/22 11:04 Oxygen Flow Rate 0 12/18/22 11:04 Pain Level 0 12/18/22 11:04 Comment bp relayed to RN 12/18/22 07:23 Intake & Output 12/17/22 12/17/22 12/18/22 11:59 23:59 11:59 Intake Total 50 / 50 Output Total 300 / 300 Balance 50 / 50 -300 / -300 Weight 90.083 kg 90.083 kg Intake: IV 50 / 50 Output: Urine 300 / 300 Other: Urine Color Yellow Urine Appearance Clear Clear Voiding Methods Toilet Data Completed and Pending Labs on day of discharge: Labs from last 24 hours 12/18/22 12/18/22 12/17/22 06:25 06:25 15:58 WBC 8.74 RBC 3.98 L Hgb 12.8 L Hct 35.7 L MCV 90 MCH 32.2 MCHC 35.9 RDW 11.8 Plt Count 209 MPV 10.6 Immature Gran % 0.5 Neutrophils % 69.2 Lymphocytes % 20.3 Monocytes % 6.9 Eosinophils % 2.4 Basophils % 0.7 Nucleated RBC % 0.0 Absolute Neutrophils 6.06 Absolute Lymphocytes 1.77 Absolute Monocytes 0.60 Absolute Eosinophils 0.21 Absolute Basophils 0.06 Sodium 140 Potassium 3.6 Chloride 106 Carbon Dioxide 24.4 Anion Gap 9.6 BUN 22 H Creatinine 2.1 H Est GFR (CKD-EPI 2020) 31.04 Glucose 157 H Calcium 8.9 Magnesium 1.4 L Total Bilirubin AST ALT Alkaline Phosphatase Troponin I < 50 < 50 NT-Pro-B Natriuret Pep Total Protein Albumin 12/17/22 12/17/22 13:55 10:52 WBC RBC Hgb Hct MCV MCH MCHC RDW Plt Count MPV Immature Gran % Neutrophils % Lymphocytes % Monocytes % Eosinophils % Basophils % Nucleated RBC % Absolute Neutrophils Absolute Lymphocytes Absolute Monocytes Absolute Eosinophils Absolute Basophils Sodium 139 Potassium 3.7 Chloride 105 Carbon Dioxide 24.0 Anion Gap 10.0 BUN 25 H Creatinine 2.1 H Est GFR (CKD-EPI 2020) 31.04 Glucose 169 H Calcium 8.7 Magnesium 0.9 L Total Bilirubin 0.6 AST 10 L ALT 12 L Alkaline Phosphatase 72 Troponin I < 50 < 50 NT-Pro-B Natriuret Pep 276 Total Protein 7.4 Albumin 3.3 L PFSH All Active Problems Atypical chest pain (Acute) DVT prophylaxis (Acute) Discharge planning issues (Acute) Chest pain (Acute) Chronic kidney disease (CKD) (Chronic) Block, bifascicular (Acute) Primary open-angle glaucoma, left eye, moderate stage (Chronic) Chest pain (Acute) Actinic keratoses (Acute 06/24/17) Anxiety (Acute) Aortic aneurysm and dissection (Acute) AAA ruptured --multiple transfusions; repair, open repair about 2009 Benign prostatic hyperplasia (Acute) CKD (chronic kidney disease) stage 3, GFR 30-59 ml/min (Acute 07/30/16) due to ischemia during ruptured AAA 2021, stage 4 Chronic gout due to renal impairment of multiple sites without tophus (Acute 06/05/15) Essential hypertension (Acute 07/09/16) White coat augmentation neg stress echo 07/14 Glaucoma (Acute) 03/12/15; OPTICAL EXPRESSIONS Obesity (Acute) Obstructive sleep apnea syndrome (Acute) 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 BELLO @ [facility] Umbilical hernia repaired 02/28 Family History Mother No problems noted. Father Neoplasm Sister Heart disease Stroke Grandfather No problems noted. Grandfather Heart disease Grandmother No problems noted. Grandmother Personal history of malignant neoplasm Sister No problems noted. Sister No problems noted. Brother Neoplasm Brother No problems noted. Brother No problems noted. Brother No problems noted. Brother No problems noted. Son No problems noted. Social History Smoking/Tobacco Use Status: Former Tobacco Use tobacco type: cigarettes Quit Date: 03/30/09 Tobacco: How many years used: 40 Second Hand Exposure: Yes Smoking risk assessment performed?: Yes Alcohol Intake: former Drug use: Never Substance use type: does not use Household members: none Housing: house Do you need help understanding health information?: Rarely Pets and animals: No Sexually active: Yes Do you think of yourself as: straight/heterosexual Current gender identity: male What is your relationship status?: How often do you talk on the phone with friends or family?: three or more times per week How often do you get together with friends or relatives?: three or more times per week How often do you attend methodist or faith services?: decline to answer Do you belong to any clubs or organized social groups?: no Panel score (0-1 are the most socially isolated patients): 1 What type of physical activity do you participate in: walking Duration: 15-30 minutes/day Frequency: 3-4 times per week Stephani/Mormon: None Special stephani needs: No Seatbelt use: sometimes Helmet use: No 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
== END 2022-12-18 12:38 | disposition home or self-care (01) ==
LOC: ER 15:19 → MS 16:07
PROVIDERS: Nurse Practitioner Acute Care; Admitting Provider Internal Medicine; Emergency Provider Emergency Medicine Emergency Medical Services; PCP Family Medicine; Visit Provider Internal Medicine
DX: R07.89 Other chest pain (principal); G47.33 Obstructive sleep apnea (adult) (pediatric); E78.5 Hyperlipidemia, unspecified; I25.2 Old myocardial infarction; R00.1 Bradycardia, unspecified; E66.9 Obesity, unspecified; I12.9 Hypertensive chronic kidney disease with stage 1 through stage 4 chronic kidney disease, or unspecified chronic kidney disease; Z68.30 Body mass index [BMI] 30.0-30.9, adult; E11.22 Type 2 diabetes mellitus with diabetic chronic kidney disease; I71.40 Abdominal aortic aneurysm, without rupture, unspecified; H40.1122 Primary open-angle glaucoma, left eye, moderate stage; F41.9 Anxiety disorder, unspecified; N18.30 Chronic kidney disease, stage 3 unspecified; I45.2 Bifascicular block; D64.9 Anemia, unspecified; Z85.51 Personal history of malignant neoplasm of bladder; M1A.39X0 Chronic gout due to renal impairment, multiple sites, without tophus (tophi)
CPT/HCPCS: 36415; 80048; 80053; 93005; 96365; 96366; 99222; 99285; 99291; 71045; 83735; 83880; 84484; 85025; 93010; 99223; 99238; G0378

== ENCOUNTER → 2022-12-18 07:53 | Outpatient (BNVA) | payer MEDICARE, SELFPAY | PROVIDERS: PCP Family Medicine; Referring Provider Family Medicine; Visit Provider Internal Medicine Cardiovascular Disease ==

== ENCOUNTER 2023-01-15 11:32 | Outpatient (REF) | payer MEDICARE, SELFPAY | END 2023-01-15 11:33 | disposition home or self-care (01) | LOC: LBN 11:32 | PROVIDERS: PCP Family Medicine; Visit Provider Family Medicine | DX: N39.0 Urinary tract infection, site not specified (principal) | CPT/HCPCS: 87077; 87086; 87186 ==

== ENCOUNTER 2023-05-20 14:37 | Outpatient (CLI) | payer MEDICARE, SELFPAY ==
--- NOTE | 2023-05-20 14:30 | RT.EKG_ITS ---
APPROVED REPORT Exam: Resting ECG Reason for Exam: L shoulder/ear pain Patient Location: O HR:56 bpm ECG Measurements Heart Rate 56 AXIS IN 169 P 73 QRSd 146 QRS -73 QT 458 T 31 QTc 443 Conclusion Sinus rhythm...normal P axis, V-rate 50- 99 Right bundle branch block...QRSd>120, terminal axis(90,270) Inferior infarct, old...Q >35mS, II III aVF
== END 2023-05-20 14:38 | disposition home or self-care (01) ==
LOC: DI.CM 14:37
PROVIDERS: PCP Family Medicine; Visit Provider Family Medicine
DX: R07.9 Chest pain, unspecified (principal)
CPT/HCPCS: 93010

== ENCOUNTER 2023-05-22 02:38 | Outpatient (CLI) | payer MEDICARE, SELFPAY ==
[2023-05-22 14:03] LABS: Hemoglobin A1C 6.8 % (<5.7)
[2023-05-22 14:29] LABS: CREATININE 2.6 mg/dL (0.70-1.30); Estimated GFR 24.02 (mL/min/1.73m2); Magnesium 1.3 mg/dL (1.8-2.4); Vitamin B12 187 pg/mL (193-986)
[2023-05-23 07:46] LABS: Lab Add On Test DONE
[2023-05-23 07:53] LABS: BUN 30 mg/dL (7-18)
== END 2023-05-22 02:39 | disposition home or self-care (01) ==
LOC: LBO 02:39
PROVIDERS: PCP Family Medicine; Visit Provider Family Medicine
DX: I10 Essential (primary) hypertension; E83.42 Hypomagnesemia; N18.31 Chronic kidney disease, stage 3a
CPT/HCPCS: 36415; 84520; 82565; 82607; 83036; 83735

== ENCOUNTER → 2023-06-12 01:14 | Outpatient (CLI) | payer MEDICARE, SELFPAY ==
--- NOTE | 2023-06-12 | DI.CT_ITS ---
Exam(s) CT ABDOMEN PELVIS WO EXAM: CT ABDOMEN PELVIS WO CLINICAL HISTORY: UROTHELIAL CA, C68.9. TECHNIQUE: Imaging Protocol: Axial computed tomography images with coronal and sagittal reformatted images were created and reviewed. Oral: / no COMPARISON: CT CT ABDOMEN PELVIS WO from 12/11/2022 FINDINGS: Lung Bases: New patchy densities in the right lung base could represent infiltrate versus atelectasis .. Clinical correlation recommended. Liver: Normal density. No suspicious mass. Gallbladder and biliary tract: Cholelithiasis. No biliary dilatation. No gallbladder wall thicken ing. Pancreas: Normal density, no abnormal calcifications or inflammatory process. Spleen: Normal. Kidneys: Evaluation for masses somewhat limited due to lack of IV contrast. Severe right hydronephro sis with parenchymal thinning. The right ureter is again dilated down to level of the mid pelvis. N o obstructing stone or mass visible. Stable appearance of left renal cysts.. No suspicious masses s een. Adrenal glands: No change in size or appearance of low-density right adrenal mass. Lymph nodes: Within normal limits. Vasculature: Atherosclerotic changes. Stable dilatation of the iliac arteries. Soft tissues: Stable appearance upper abdominal midline hernia containing loop of bowel. No evidence of obstruction. Bladder: No wall thickening. No mass or calculi. Bowel: No obstruction or bowel wall thickening. Appendix normal. Peritoneal cavity: No ascites, collection or mesenteric inflammatory response. Reproductive organs: Unremarkable. Bones: Unremarkable for age. IMPRESSION: No acute abnormality in the abdomen or pelvis.Patchy right lower lobe densities could represent pneum onitis. Clinical correlation recommended. Stable severe right hydronephrosis and parenchymal thinning. RADIATION DOSE DELIVERED: Total DLP DATA REPOSITORY: All CT scans at this facility are submitted to the National Radiology Data Registry (NRDR) Dose Index Registry (DIR) with the [employer] (A[employer]). RADIATION OPTIMIZATION: All CT scans at this facility use at least one of these dose optimization te chniques: automated exposure control; mA and/or kV adjustment per patient size (includes targeted exa ms where dose is matched to clinical indication); or iterative reconstruction.
== END ==
PROVIDERS: PCP Family Medicine; Visit Provider Urology
DX: C68.8 Malignant neoplasm of overlapping sites of urinary organs (principal)
CPT/HCPCS: 74176

== ENCOUNTER 2023-06-24 04:39 | Outpatient (CLI) | payer MEDICARE, SELFPAY ==
[2023-06-24 10:38] LABS: CREATININE 2.2 mg/dL (0.70-1.30); Estimated GFR 29.36 (mL/min/1.73m2)
== END 2023-06-24 04:40 | disposition home or self-care (01) ==
LOC: LBO 04:40
PROVIDERS: PCP Family Medicine; Visit Provider Family Medicine
DX: I10 Essential (primary) hypertension (principal)
CPT/HCPCS: 36415; 82565

== ENCOUNTER 2023-08-13 09:46 | Observation (INO) | payer MEDICARE, SELFPAY ==
[2023-08-13] VITALS (35 sets, daily range): BP systolic 104–157; BP diastolic 38–77; PULSE 47–70; RESP 11–20; TEMP 35.8–36.7; O2SAT 96–100
--- NOTE | 2023-08-13 09:45 | RT.EKG_ITS ---
APPROVED REPORT Exam: Resting ECG Reason for Exam: CHEST PAIN Patient Location: E HR:57 bpm ECG Measurements Heart Rate 57 AXIS IL 160 P 68 QRSd 145 QRS -67 QT 467 T 16 QTc 457 Conclusion Sinus bradycardia...rate< 60 Right bundle branch block...QRSd>120, terminal axis(90,270)
[2023-08-13 10:08] LABS: Abs Immature Grans 0.04 10^3/uL (0.0-0.06); Absolute Basophil Count 0.03 10^3/uL (0.0-0.2); Absolute Eosinophil Count 0.03 10^3/uL (0.0-0.7); Absolute Lymphocyte Count 2.06 10^3/uL (1.2-3.4); Absolute Monocyte Count 0.66 10^3/uL (0.1-0.8); Absolute Neutrophil Count 5.96 10^3/uL (1.2-6.7); Basophils % 0.3 %; Eosinophils % 0.3 %; HCT 38.6 % (40.0-50.0); Immature Grans % 0.5 %; Lymphocytes % 23.5 %; MCH 31.8 pg (27.0-33.0); MCHC 33.7 % (32.0-36.0); MCV 94 fL (80-95); MPV 9.8 fL (8.0-11.0); Monocytes % 7.5 %; Neutrophils % 67.9 %; Platelet Count 155 10^3/uL (130-400); RBC 4.09 10^6/uL (4.36-5.78); RDW-SD 41.6 fL; WBC 8.78 10^3/uL (4.4-10.8)
[2023-08-13] MEDS: Normal Saline 500 ML IV (10:28)
[2023-08-13 10:35] LABS: ALT 21 U/L (16-63); AST 17 U/L (15-37); Albumin 3.5 g/dL (3.4-5.0); Alkaline Phosphatase 58 U/L (46-116); Anion Gap 8.8 mmol/L (3-11); BUN 33 mg/dL (7-18); CO2 26.2 mmol/L (21.0-32.0); CREATININE 2.8 mg/dL (0.70-1.30); Calcium 8.2 mg/dL (8.5-10.1); Chloride 104 mmol/L (98-107); Estimated GFR 21.98 (mL/min/1.73m2); Glucose 150 mg/dL (74-106); Magnesium 0.9 mg/dL (1.8-2.4); Potassium 3.9 mmol/L (3.5-5.1); Sodium 139 mmol/L (136-145); Troponin I < 50 ng/L (< or =60)
[2023-08-13] MEDS: MAGNESIUM SULFATE 2 GM/50 ML BAG IVINF ×2 (11:12→18:22)
[2023-08-13 11:24] LABS: Bilirubin Negative (Negative); Blood Negative (Negative); Clarity Clear (Clear); Glucose 100 mg/dL (Negative); Ketones Negative (Negative); Leukocyte Esterase Negative (Negative); Nitrite Negative (Negative); Urobilinogen 0.2 mg/dL (Up to 0.2); pH 6.5 (5-8)
[2023-08-13 13:03] LABS: Troponin I < 50 ng/L (< or =60)
--- NOTE | 2023-08-13 13:20 | W.ED.GENAD ---
Discharge Plan Disposition Patient Disposition: Admit to [facility] Condition: Serious Discharge Details Chief Complaint: Chest Pain Clinical Impression: MITRA (acute kidney injury), Acute dehydration, Lightheadedness, Hypomagnesemia, Hypocalcemia Primary Care Provider: Sander oCntreras ED Provider: Flip Mcgee Home Meds and New Rx's Prescriptions: No Action aspirin [Aspirin Low-Strength] 81 MG tablet,chewable 81 mg PO DAILY LANCETS 1 EACH EACH 1 ea Miscellaneous QID Qty: 400 Rx Instructions: DX: 250.0 atenolol 50 mg tablet 50 mg PO BID Qty: 180 3RF folic acid 1 mg tablet 1 mg PO DAILY Qty: 90 3RF Patient Comments: pt states not taking terazosin 5 mg capsule 5 mg PO HS Qty: 90 3RF lisinopril 20 mg tablet 20 mg PO DAILY Qty: 90 3RF Hold Instructions: elevated creatinine latanoprost [Xalatan] 0.005 % drops 1 drp OU HS Qty: 7.5 6RF (DME) FreeStyle Lite Strips Strip 1 ea Miscellaneous DAILY Qty: 100 4RF Rx Instructions: DX E11.9 Test once/day brimonidine 0.2 % drops 1 drp ophthalmic (eye) BID Patient Comments: INSTILL ONE DROP INTO THE LEFT EYE TWO TIMES A DAY pt states not taking Rx Instructions: both eyes dorzolamide-timolol 22.3-6.8 mg/mL drops 1 drp ophthalmic (eye) BID Patient Comments: INSTILL ONE DROP IN EACH EYE TWO TIMES A DAY Rx Instructions: 1 drop to each eye acetaminophen 500 mg capsule 500 mg PO Q6H PRN amlodipine 5 mg tablet 5 mg PO DAILY Patient Comments: TAKE ONE TABLET BY MOUTH TWICE A DAY clonazepam [Klonopin] 0.5 mg tablet 0.5 mg PO QHS Rx Instructions: administer 30 minutes before bedtime cyanocobalamin (vitamin B-12) 500 mcg tablet 500 mcg PO DAILY magnesium oxide [MagOx] 400 mg (241.3 mg magnesium) tablet 400 mg PO DAILY omeprazole 20 mg capsule,delayed release(DR/EC) 20 mg PO DAILY pravastatin 40 mg tablet 40 mg PO QHS sildenafil [Viagra] 50 mg tablet 50 mg PO ONCE Rx Instructions: administer 30 minutes to 4 hours before activity HPI General Mode of arrival: ambulatory. Date/Time Provider Initiated Documentation: 08/13/23 09:47. Limitations to Documentation: no limitations. Information obtained by: patient. HPI Narrative: 82-year-old male with multiple medical problems including history of renal cancer, hypertension, hyperlipidemia, chronic kidney disease, aortic aneurysm, presents today with chief complaint of. Lightheadedness. Patient notes feeling dizzy and lightheaded over the past 3 days. He states at times he has blurring of his vision. He also notes intermittent chest pain that has been ongoing for some time. No chest pain at this time. He denies shortness of breath. No abdominal pain. He feels generally fatigued. Related Data Home Medications Medication Instructions Recorded Confirmed Lancets 1 ea miscellaneous QID #400 ea 07/15/12 08/13/23 aspirin 81 mg chewable tablet 81 mg PO DAILY 07/15/12 08/13/23 (Aspirin Low-Strength) brimonidine 0.2 % eye drops 1 drp ophthalmic (eye) BID 04/04/22 08/13/23 atenolol 50 mg tablet 50 mg PO BID #180 tabs 09/08/22 08/13/23 folic acid 1 mg tablet 1 mg PO DAILY #90 tabs 10/04/22 08/13/23 terazosin 5 mg capsule 5 mg PO HS #90 caps 12/03/22 08/13/23 dorzolamide 22.3 mg-timolol 6.8 1 drp ophthalmic (eye) BID 12/17/22 08/13/23 mg/mL eye drops lisinopril 20 mg tablet 20 mg PO DAILY #90 tabs 12/29/22 08/13/23 latanoprost 0.005 % eye drops 1 drp OU HS #7.5 mL 05/14/23 08/13/23 (Xalatan) blood sugar diagnostic (FreeStyle #100 strips 06/06/23 08/13/23 Lite Strips) acetaminophen 500 mg capsule 500 mg PO Q6H PRN 08/13/23 08/13/23 amlodipine 5 mg tablet 5 mg PO DAILY 08/13/23 08/13/23 clonazepam 0.5 mg tablet (Klonopin) 0.5 mg PO QHS 08/13/23 08/13/23 cyanocobalamin (vitamin B-12) 500 500 mcg PO DAILY 08/13/23 08/13/23 mcg tablet magnesium oxide 400 mg (241.3 mg 400 mg PO DAILY 08/13/23 08/13/23 magnesium) tablet (MagOx) omeprazole 20 mg capsule,delayed 20 mg PO DAILY 08/13/23 08/13/23 release pravastatin 40 mg tablet 40 mg PO QHS 08/13/23 08/13/23 sildenafil 50 mg tablet (Viagra) 50 mg PO ONCE 08/13/23 08/13/23 Previous Rx's Medication Instructions Recorded atenolol 50 mg tablet 50 mg PO BID #180 tabs 09/08/22 folic acid 1 mg tablet 1 mg PO DAILY #90 tabs 10/04/22 terazosin 5 mg capsule 5 mg PO HS #90 caps 12/03/22 lisinopril 20 mg tablet 20 mg PO DAILY #90 tabs 12/29/22 latanoprost 0.005 % eye drops 1 drp OU HS #7.5 mL 05/14/23 (Xalatan) blood sugar diagnostic (FreeStyle #100 strips 06/06/23 Lite Strips) Allergies Allergy/AdvReac Type Severity Reaction Status Date / Time ciprofloxacin [From Cipro] AdvReac Intermediate Dizziness/L Verified 08/13/23 09:53 ighthead sulfamethoxazole AdvReac Intermediate malaise Verified 08/13/23 09:53 [From Bactrim] trimethoprim [From Bactrim] AdvReac Intermediate malaise Verified 08/13/23 09:53 IV contrask Allergy Intermediate renal Uncoded 08/13/23 09:53 impairment General Stated Complaint: Chest Pain SUSAN: 2 Review of Systems All systems reviewed & are unremarkable except as noted in HPI and below Constitutional Constitutional: Denies fever(s) Genitourinary Genitourinary: Denies dysuria and Denies urinary frequency Exam Const General: cooperative and no acute distress Orientation: alert and awake [facility] Head: atraumatic Mouth: mucous membranes dry Eyes Conjunctivae: normal conjunctivae Sclera: normal sclerae EOM: EOM intact bilaterally Neck Neck: trachea midline and supple Resp Auscultation: clear to auscultation bilaterally, no rales, no rhonchi and no wheezes Cardio Rate: regular rate and not tachycardic Rhythm: regular rhythm GI Palpation: soft, not firm, no guarding, no masses, not rigid and nontender Skin General skin exam: no rashes or lesions noted Neuro General: patient alert, patient awake, patient oriented x3 and tone normal Cranial Nerves: CN's II-XI intact bilaterally Cognition: normal cognition Speech: speech normal Motor: strength 5/5 throughout Sensory Exam: no sensory deficits noted Extrem General: no edema Psych Appearance: grossly normal Mental Status: mental status grossly normal Course Vital Signs Vital signs: Vital Signs Temperature 36.1 C L 08/13/23 09:48 Pulse 64 08/13/23 09:48 Respiratory Rate 16 08/13/23 09:48 Blood Pressure 148/58 H 08/13/23 09:48 Pulse Oximetry 97 08/13/23 09:48 Temperature 36.1 C L 08/13/23 11:49 Temperature Source Tympanic 08/13/23 11:49 Pulse 64 08/13/23 12:45 Pulse 67 08/13/23 12:45 Respiratory Rate 12 08/13/23 12:45 Respiratory Effort Normal, Non-Labored 08/13/23 09:56 Respiratory Depth Normal 08/13/23 09:56 Respiratory Pattern Normal 08/13/23 09:56 Blood Pressure 157/68 H 08/13/23 12:45 Blood Pressure Mean 98 08/13/23 12:45 Pulse Oximetry 96 08/13/23 12:45 Oxygen Delivery Method Room Air 08/13/23 09:48 Oxygen Flow Rate 0 08/13/23 09:48 Pain Level 0 08/13/23 11:49 Lab/Test Results Lab/Test Results: Laboratory Tests Range/Units 08/13/23 08/13/23 08/13/23 09:55 11:15 12:40 WBC (4.4-10.8) 10^3/uL 8.78 RBC (4.36-5.78) 10^6/uL 4.09 L Hgb (13.5-17.5) g/dL 13.0 L Hct (40.0-50.0) % 38.6 L MCV (80-95) fL 94 MCH (27.0-33.0) pg 31.8 MCHC (32.0-36.0) % 33.7 RDW (11.8-14.1) % 12.0 Plt Count (130-400) 10^3/uL 155 MPV (8.0-11.0) fL 9.8 Immature Gran % % 0.5 Neutrophils % % 67.9 Lymphocytes % % 23.5 Monocytes % % 7.5 Eosinophils % % 0.3 Basophils % % 0.3 Nucleated RBC % (0.0-0.3) % 0.0 Absolute Neutrophils (1.2-6.7) 10^3/uL 5.96 Absolute Lymphocytes (1.2-3.4) 10^3/uL 2.06 Absolute Monocytes (0.1-0.8) 10^3/uL 0.66 Absolute Eosinophils (0.0-0.7) 10^3/uL 0.03 Absolute Basophils (0.0-0.2) 10^3/uL 0.03 Sodium (136-145) mmol/L 139 Potassium (3.5-5.1) mmol/L 3.9 Chloride (98-107) mmol/L 104 Carbon Dioxide (21.0-32.0) mmol/L 26.2 Anion Gap (3-11) mmol/L 8.8 BUN (7-18) mg/dL 33 H Creatinine (0.70-1.30) mg/dL 2.8 H Est GFR (CKD-EPI 2020) (mL/min/1.73m2) 21.98 Glucose (74-106) mg/dL 150 H Calcium (8.5-10.1) mg/dL 8.2 L Magnesium (1.8-2.4) mg/dL 0.9 L Total Bilirubin (0.2-1.0) mg/dL 1.0 AST (15-37) U/L 17 ALT (16-63) U/L 21 Alkaline Phosphatase (46-116) U/L 58 Troponin I (< or =60) ng/L < 50 < 50 Total Protein (6.4-8.2) g/dL 7.0 Albumin (3.4-5.0) g/dL 3.5 Urine Color (Yellow) Yellow Urine Clarity (Clear) Clear Urine pH (5-8) 6.5 Ur Specific [place] (1.005-1.025) 1.010 Urine Protein (Neg-Trace) mg/dL Negative Urine Ketones (Negative) mg/dL Negative Urine Blood (Negative) Negative Urine Nitrite (Negative) Negative Urine Bilirubin (Negative) Negative Urine Urobilinogen (Up to 0.2) mg/dL 0.2 Ur Leukocyte Esterase (Negative) Negative Urine Glucose (Negative) mg/dL 100 H Medical Decision Making 1328 --82-year-old male with multiple medical problems including history of chronic kidney disease, urothelial cancer, hypertension, aortic aneurysm, here with lightheadedness over the past 3 to 4 days, generalized fatigue, intermittent chest pain over the past few weeks. Patient does appear dehydrated with dry mucous membranes on examination. He is hemodynamically stable. Patient is saturating well in no respiratory distress. Abdominal exam is benign. He is afebrile. Neurologic exam unremarkable. Patient has received normal saline 500 mL bolus. Labs reviewed and concerning for hypomagnesemia, acute on chronic kidney disease, hypocalcemia. Considered arrhythmia. EKG was reviewed and interpreted by me: Sinus bradycardia 57 bpm, right bundle branch block. Considered ACS. EKG nondiagnostic. Initial troponin and delta troponin negative. Considered UTI and urinalysis not consistent with infection. I suspect his symptoms are secondary to severe hypomagnesemia. Magnesium 2 g IV infusion has been administered. Patient has severe hypomagnesemia and will require continued IV replacement. I called and spoke with Dr. Conklin, discussed ED presentation and course, he will admit the patient. Plan discussed with patient who is in agreement. Quality:SDOH Health Related Social Needs: No Data to Display PFSH All Active Problems (Updated 08/13/23 @ 13:35 by Flip Mcgee MD) Hypocalcemia (Acute) Hypomagnesemia (Acute) Lightheadedness (Acute) Acute dehydration (Acute) MITRA (acute kidney injury) (Acute) Side effect of medication (Acute) Constipation (Acute) UTI (urinary tract infection) (Acute) w/ degree of prostatitis Atypical chest pain (Acute) Chronic kidney disease (CKD) (Chronic) Block, bifascicular (Acute) Primary open-angle glaucoma, left eye, moderate stage (Chronic) Chest pain (Acute) Actinic keratoses (Acute 06/24/17) Anxiety (Acute) Aortic aneurysm and dissection (Acute) AAA ruptured --multiple transfusions; repair, open repair about 2009 Benign prostatic hyperplasia (Acute) CKD (chronic kidney disease) stage 3, GFR 30-59 ml/min (Acute 07/30/16) due to ischemia during ruptured AAA 2021, stage 4 Chronic gout due to renal impairment of multiple sites without tophus (Acute 06/05/15) Essential hypertension (Acute 07/09/16) White coat augmentation neg stress echo 07/14 Glaucoma (Acute) 03/12/15; OPTICAL EXPRESSIONS Obesity (Acute) Obstructive sleep apnea syndrome (Acute) 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 Hyperlipidemia (Acute 08/04/12) Incisional hernia of anterior abdominal wall without obstruction or gangrene (Acute) Smoker (Acute) quit 2009, about 40-50 pk yr RBBB (right bundle branch block with left anterior fascicular block) (Acute) 06/2021-unremarkable ETT Diabetes mellitus (Chronic) 06/2021-diet controlled Medical History (Updated 08/13/23 @ 13:35 by Flip Mcgee MD) Vitamin B 12 deficiency Anemia Anxiety RBBB (right bundle branch block with left anterior fascicular block) (07/30/16) Diabetes mellitus (08/04/12) Surgical History (Updated 06/10/23 @ 10:09 by Daisy Anglin MD) Posterior subcapsular age-related cataract of left eye Nuclear sclerotic cataract of left eye S/P AAA repair Umbilical hernia repaired 02/28 hernia repair TURBT (08/11/16) DR. BELLO @ [facility] Family History Mother No problems noted. Father Neoplasm Sister Heart disease Stroke Grandfather No problems noted. Grandfather Heart disease Grandmother No problems noted. Grandmother Personal history of malignant neoplasm Sister No problems noted. Sister No problems noted. Brother Neoplasm Brother No problems noted. Brother No problems noted. Brother No problems noted. Brother No problems noted. Son No problems noted. Social History Smoking/Tobacco Use Status: Former Tobacco Use tobacco type: cigarettes Quit Date: 03/30/09 Tobacco: How many years used: 40 Second Hand Exposure: Yes Smoking risk assessment performed?: Yes Alcohol Intake: former Drug use: Never Substance use type: does not use Household members: none Housing: house Do you need help understanding health information?: Rarely Pets and animals: No Sexually active: Yes Do you think of yourself as: straight/heterosexual Current gender identity: male What is your relationship status?: How often do you talk on the phone with friends or family?: three or more times per week How often do you get together with friends or relatives?: three or more times per week How often do you attend cheondoism or roman catholic services?: decline to answer Do you belong to any clubs or organized social groups?: no Panel score (0-1 are the most socially isolated patients): 1 What type of physical activity do you participate in: walking Duration: 15-30 minutes/day Frequency: 3-4 times per week Stephani/Restoration: None Special stephani needs: No Seatbelt use: sometimes Helmet use: No Drive intox or ride w/intox courtesy 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
--- NOTE | 2023-08-13 15:09 | PHA.REVIEW2 ---
Pharmacy Admission Review Admission Clinical Review Admission Pharmacy Review: (Updated 08/13/23 @ 14:37 by ALEX JOHNSON) Hypocalcemia (Acute) Hypomagnesemia (Acute) Lightheadedness (Acute) Acute dehydration (Acute) MITRA (acute kidney injury) (Acute) ciprofloxacin [From Cipro] Adverse Reaction (Intermediate, Verified 08/13/23 09:53) Dizziness/Lighthead sulfamethoxazole [From Bactrim] Adverse Reaction (Intermediate, Verified 08/13/23 09:53) malaise trimethoprim [From Bactrim] Adverse Reaction (Intermediate, Verified 08/13/23 09:53) malaise IV contrask Allergy (Intermediate, Uncoded 08/13/23 09:53) renal impairment Resuscitation Status Full Code Height 5 ft 7 in Weight 85.1 kg Pharmacy Admission Review Renal Dosing Renal Dosing: BUN 33 mg/dL (7-18) H 08/13/23 09:55 Creatinine 2.8 mg/dL (0.70-1.30) H 08/13/23 09:55 Medications needing adjustments: Intervened (CrCl 21.5 mL/min) List of meds needing interventions: Reached out to provider regarding atenolol dose. Currently takes 50mg BID, recommended max of 50mg daily if CrCl < 30. Order was changed to 50mg once daily per provider Provider asked for recommended dose of famotidine (switching from omeprazole 20mg BID), given renal function recommended 10mg once daily Anticoagulation Anticoagulation: Hgb 13.0 g/dL (13.5-17.5) L 08/13/23 09:55 Hct 38.6 % (40.0-50.0) L 08/13/23 09:55 Plt Count 155 10^3/uL (130-400) 08/13/23 09:55 Creatinine 2.8 mg/dL (0.70-1.30) H 08/13/23 09:55 DVT Prophylaxis: Reviewed Medications: Heparin (q8h) Relevant Labs Relevant Labs: Sodium 139 mmol/L (136-145) 08/13/23 09:55 Potassium 3.9 mmol/L (3.5-5.1) 08/13/23 09:55 Chloride 104 mmol/L (98-107) 08/13/23 09:55 Magnesium 0.9 mg/dL (1.8-2.4) L 08/13/23 09:55 Electrolytes, C-Reactive P, ESR: Reviewed (Mg 0.9 - received 2g IV infusion in ED at 1105, order for mag gluconate 500mg BID, Hgb 13, glucose 150) Cardiac Review Cardiac Review: Troponin I < 50 ng/L (< or =60) 08/13/23 12:40 Blood Pressure 144/61 1440 Blood Pressure 149/72 1438 Blood Pressure 137/44 1416 Blood Pressure 124/38 1401 Blood Pressure 146/64 1346 Blood Pressure 144/45 1331 Blood Pressure 124/44 1316 Blood Pressure 122/46 1301 Blood Pressure 157/68 1245 Blood Pressure 132/67 1231 Blood Pressure 112/50 1216 Blood Pressure 122/46 1212 Blood Pressure 104/56 1201 BP, HR, EF%: Reviewed (BP 144/61, HR WNL) QTc Review QTc: Reviewed (457 from 08/13/23) IV to PO Switch IV Medications: Reviewed Home Meds Home Med List reviewed: Intervened Relevent Home Meds Not ordered & why?: Sildenafil (PRN), omeprazole (changed to famotidine due to hypomagnesemia per provider) Pravastatin listed on home med list but fill history is for atorvastatin 20mg daily last filled 06/08/23 - corrected home med list and changed order Amlodipine is 1 tablet twice daily at home, order was put in for once daily. Corrected order and home med list Checked VP[facility], no history of patient having filled clonazepam in the past year. Order was canceled, provider aware Current Meds Current Medication Order Review: Intervened Comments: Two orders were put in for famotidine, tablet and liquid. Spoke with provider and canceled the order for liquid.
[2023-08-13] MEDS: Famotidine 20 MG TAB 10 MG PO (15:34)
[2023-08-13] MEDS: Heparin 5,000 UNITS/ML VIAL 5000 UNITS SC (15:35)
--- NOTE | 2023-08-13 16:27 | IN_ITS ---
PT Notes Visit Reasons: Hypomagnesemia, Weakness Physical Therapy Inpatient Initial Evaluation Date: 08/13/2023 Referring Doctor: Kendrick Lopez MD PT Orders: PT CONSULT: Fall safety assessment Precautions: Fall. Standard. Activity as tolerated. Patient Profile/Admitting Diagnosis: Aaron is an 82-year-old male who presented to the ED with chief complaints of worsening lightheadedness, blurriness of vision, and intermittent chest pain for the past 3 days now. Patient is admitted for management of lightheadedness, hypomagnesemia, acute dehydration, MITRA, atypical chest pain, CKD, and hypocalcemia. PMHX: All Active Problems (Updated 08/13/23 @ 18:44 by Kendrick Lopez MD) Hypocalcemia (Acute) Hypomagnesemia (Acute) Lightheadedness (Acute) MITRA (acute kidney injury) (Acute) Side effect of medication (Acute) Constipation (Acute) UTI (urinary tract infection) (Acute) w/ degree of prostatitis Atypical chest pain (Chronic) Chronic kidney disease (CKD) (Chronic) Block, bifascicular (Acute) Primary open-angle glaucoma, left eye, moderate stage (Chronic) Chest pain (Acute) Actinic keratoses (Acute 06/24/17) Anxiety (Acute) Aortic aneurysm and dissection (Acute) AAA ruptured --multiple transfusions; repair, open repair about 2009 Benign prostatic hyperplasia (Acute) CKD (chronic kidney disease) stage 3, GFR 30-59 ml/min (Acute 07/30/16) due to ischemia during ruptured AAA 2021, stage 4 Chronic gout due to renal impairment of multiple sites without tophus (Acute 06/05/15) Essential hypertension (Acute 07/09/16) White coat augmentation neg stress echo 07/14 Glaucoma (Acute) 03/12/15; OPTICAL EXPRESSIONS Obesity (Acute) Obstructive sleep apnea syndrome (Acute) 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 Hyperlipidemia (Acute 08/04/12) Incisional hernia of anterior abdominal wall without obstruction or gangrene (Acute) Smoker (Acute) quit 2009, about 40-50 pk 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 BELLO @ [facility] Social History/Home Situation: Lives alone in a private home with 3 steps to enter with 1 rail. Has family and friends close by who can provide support as needed. Independent with all aspects of ADLs prior to admission. Still drives. Equipment Owned/DME: None Subjective: Denied lightheadedness, chest pain, and headache throughout mobility assessment. [place] comfortable with using no assistive device during ambulation activity. Objective: General Observation: Resting in bed. Son present in room. Telemetry monitoring in place. Mental Status: Alert and oriented as to person, place, time, and purpose. Able to pay attention, focus, and respond appropriately. Pain: None reported Vital Signs: Closely monitored by nursing staff ROM: Right Upper Extremity: Shoulder Flexion WFL. Shoulder abduction WFL. Elbow flexion WFL. Wrist flexion WFL. Functional opening and closing of hand WFL. Left Upper Extremity: Shoulder Flexion WFL. Shoulder abduction WFL. Elbow flexion WFL. Wrist flexion WFL. Functional opening and closing of hand WFL. Right Lower Extremity: Hip flexion WFL. Hip abduction WFL. Knee flexion WFL. Ankle dorsiflexion WFL. Ankle plantarflexion WFL. Left Lower Extremity: Hip flexion WFL. Hip abduction WFL. Knee flexion WFL. Ankle dorsiflexion WFL. Ankle plantarflexion WFL. Strength: Right Upper Extremity: Shoulder flexors 4/5. Shoulder abductors 4/5. Elbow flexors 5/5. Elbow extensors 5/5. Exhaust Emissions Automotive Technician strong. Left Upper Extremity: Shoulder flexors 4/5. Shoulder abductors 4/5. Elbow flexors 5/5. Elbow extensors 5/5. Exhaust Emissions Automotive Technician strong. Right Lower Extremity: Hip flexors 4/5. Hip abductors 5/5. Knee flexors 5/5. Knee extensors 4/5. Ankle dorsiflexors 4/5. Ankle plantarflexors 4/5. Left Lower Extremity: Hip flexors 4/5. Hip abductors 5/5. Knee flexors 5/5. Knee extensors 4/5. Ankle dorsiflexors 4/5. Ankle plantarflexors 4/5. Bed Mobility/Transfers: Rolling independent Supine to sit independent Sit to supine independent Sit to stand independent Stand to sit independent Bed to reclining chair supervision with no AD Reclining chair to bed supervision with no AD Gait: 350 feet using no assistive device with supervision assist only without report of lightheadedness, headache, and chest pain throughout activity. No shortness of breath. No loss of balance. Stairs: Negotiated 2 x 6 inch steps and 3 x 4 inch steps while holding onto 1 rail with step over step gait pattern requiring only supervision assist. Balance: Static Sitting: Normal Dynamic Sitting: Normal Static Standing: Normal Dynamic Standing: Good Special Tests: Mobility Limitations Standardized Measure [facility] 6 clicks Basic Mobility Inpatient Short Form: Raw Score: 24 CMS Score: 0% deficit 4-Stage Balance Test: Feet together 10 seconds Semi-tandem 10 seconds Full tandem 10 seconds One legged stance 10 seconds with right LE; less than 10 seconds with left LE Informed Consent/Education: Patient was instructed in purpose of PT consult and plan of care. Agreeable to proceed with established PT POC to achieve personal goals. Assessment: Did not require assistive ambulatory device throughout mobility assessment. Supervision provided for symptoms monitoring only. Patient did express not 100% back to mobility baseline with some associated weakness and would like to work with physical therapy for continued mobility performance. Patient presents with clinical signs and symptoms consistent with current/admitting diagnoses that have resulted to mobility limitations, gait instability, generalized weakness, and overall ADL decline as demonstrated by the following impairment level findings: 1. Impaired standing balance 2. Impaired activity tolerance Impairments are contributing to the following functional limitations: 1. Increased completion time for mobility ADL performance 2. At risk for falls 3. Difficulty with managing steps alone safely Patient is assessed as a 71583 low complexity based on the following: History: 82-year-old male Rosita Goodman MD with past medical history as indicated above Examination: Demonstrable impairment in strength, balance, and mobility level with underlying impairments and functional limitations as exhibited above Presentation: Stable Decision Makin low complexity Goals: Goals X1 week 1. Independent gait on level surface with use of no AD for at least 600 feet without report of pain nor dyspnea 2. Independent stair negotiation while holding onto 1 rail for at least 5 steps without report of pain nor dyspnea 3. Independent with home exercise program 4. Noormal static and dynamic standing balance/tolerance Plan of Care/Treatment Plan: 1-2x/day, 7 days/week x 1 week. Plan of care has been reviewed with the [employer] providing the service under Physical Therapy direction. Initiate Physical Therapy intervention for pain management as needed, strengthening, bed mobility, transfers, gait, stairs, balance training, and use of assistive device. DISCHARGE RECOMMENDATIONS: [X] Home with no services. Home when medically cleared by hospitalist. No services needed at this time. [] Home with services [specify] [] Home with outpatient PT [] [] SNF for continued rehabilitation [] [] Long-Term Care [] [] SNF versus LTC based on ability to participate and progress [] TREATMENT CODE/TIME: 9716 1 x 23 minutes for 1 unit (16:27-16:50). Thank you for the opportunity to participate in the care of this patient. Faith Moran PT, DPT, CLT [facility] [place], [place]
--- NOTE | 2023-08-13 17:02 | HPE_ITS ---
Date of service: 08/13/23 Time of Service: 17:02 Assessment and Plan Assessment and plan (1) Lightheadedness: Status: Acute Assessment and plan: unclear etiology, may be BP related, does not sound like arrhythmia (no hx of palpitations) but will monitor on tele overnight, monitor orthostatic vitals now that he had bolus of iv fluids. He does not appear to be clinically dehydrated although is creatinine is up a bit to 2.8 from his baseline of 2.2. there were discrepancies on his med lists. he no longer takes the lisinopril so I have taken this off his list. He also is taking amlodipine 5 mg twice a day. The medication list he handed to me was from an [email or web address] EMR possibly from his urologist or the opthalmologist (Dr. Bryce Ball) in [place]. I went over both his list he showed me from [email or web address] and the one on the [facility] profile and have corrected his medications to the best that I can based on the patient's knowledge. His dizziness may have been secondary to his recent medications (Rocklatan or the methylprednisolone dose) If he has no arrhythmias overnight, and his magnesium is corrected by morning and his BP is stable, then I think he can go home in the morning. He does not need another ischemic workup. He had two negative troponin levels. His EKG demonstrated sinus bradycardia 57 bpm w/ RBBB and no ischemic ST-T changes. this is similar to his EKG on 05/20/23 which was sinus bradycardia 56 bpm. He may need more prolonged holter or groundwater monitoring technician as outpatient to see if he developes worsening bradycardia w/ his symptoms of dizziness. This may be from his eye drops for his glaucoma (cosopt which has timolol) and his antihypertensive atenolol which he was taking bid and w/ his renal dysfunction should only be once a day. We have continued his atenolol at the proper dosing. (2) Hypomagnesemia: Status: Acute Assessment and plan: likely d/t his chronic use of a PPI, I have switched his omeprazole to pepcid 10 mg daily. (3) Acute dehydration: Status: Suspected Assessment and plan: I do not believe him to be dehydrated. although his creatinine is elevated at 2.8 up from baseline of 2.2 his BUN is 33 which is pretty much his baseline and on exam he does not look dry and he denies any diarrhea or vomiting. (4) MITRA (acute kidney injury): Status: Acute (5) Atypical chest pain: Status: Chronic Assessment and plan: no further workup planned at this time. If he developes recurrent chest pains while hospitalized then I will revisit this and re-evaluate w/ exam, EKG, labs etc as deemed appropriate. His stres MPI 04/01/22 was normal. (6) Chronic kidney disease (CKD): Status: Chronic Qualifiers: Chronic kidney disease stage: stage 4 (severe) Qualified Code(s): N18.4 - Chronic kidney disease, stage 4 (severe) (7) Hypocalcemia: Status: Acute Assessment and plan: will check his ionized calcium History of Present Illness History of Present Illness Chief Complaint: dizziness (lightheaded), chest pains Narrative: 82 yr old male w/ hx of bladder cancer (followed by urology at [facility]), HTN, CKD (baseline creatinine 2.2), glaucoma, AAA s/p repair of dissection 2009, BPH, NIDDM (not currently on meds, diet controlled, last A1C 6.8% as of 05/22), HLD, ELIANE, who had some recent medications for his glaucoma including trial of Rocklatan (a combination of Rho kinase inhibitor and latanoprost, prostaglandin alpha anaolog). He says that he got severe side effects including tongue swelling and went off this (this was prescribed by opthalmologist in [place]) he then was put on taper dose of methylprednisolone prescribed by Dr. Domingo to counteract the side effects of the Rocklatan. It was while he was completing the steroid taper that he developed dizziness (lightheadedness). He states that he takes his BP twice a day before taking his medications and his SBP is usually 120 to 140 but sometime will go down to the high 90's and he will withold his medications. He recently went off his lisinopril (about 3 weeks ago, due to low BP). He presented to the ED today because of severe lightheadedness. He denies any syncope or falls. he also mentioned in the ED that he has been having chest pains. He says that they will last for a few seconds and they are worse w/ palpation of his chest wall. he says that he had a stress test about a year ago and was told by Dr. Tom that his CP are not from his heart. however he also takes omeprazole, but when asked about acid reflux symptoms he denies the same. he has never had an EGD. Today as part of his workup his labs revealed two normal troponin I levels and a very low magnesium level of 0.9. CMP revealed worsening renal function w/ creatinine 2.8. CBC revealed mild anemia Hb 13 grams which is his baseline. Treatment in the ED included IVF of NS x 500 mL and magnesium 2 gm. The hospitalist service was requested to admit the patient d/t his low magnesium and need for continued replacement and to monitor his symptoms of dizziness and CP. He is admitted on telemetry. We will check orthostatic BP monitor his HR and replete his magnesium. His CP is entirely musculoskeletal and reproducible. His low magnesium is likely d/t his use of omeprazole. We will change to pepcid at renal dosing. Review of Systems All systems reviewed & are unremarkable except as noted in HPI and below PFSH All Active Problems (Updated 08/13/23 @ 18:44 by Kendrick Lopez MD) Hypocalcemia (Acute) Hypomagnesemia (Acute) Lightheadedness (Acute) MITRA (acute kidney injury) (Acute) Side effect of medication (Acute) Constipation (Acute) UTI (urinary tract infection) (Acute) w/ degree of prostatitis Atypical chest pain (Chronic) Chronic kidney disease (CKD) (Chronic) Block, bifascicular (Acute) Primary open-angle glaucoma, left eye, moderate stage (Chronic) Chest pain (Acute) Actinic keratoses (Acute 06/24/17) Anxiety (Acute) Aortic aneurysm and dissection (Acute) AAA ruptured --multiple transfusions; repair, open repair about 2009 Benign prostatic hyperplasia (Acute) CKD (chronic kidney disease) stage 3, GFR 30-59 ml/min (Acute 07/30/16) due to ischemia during ruptured AAA 2021, stage 4 Chronic gout due to renal impairment of multiple sites without tophus (Acute 06/05/15) Essential hypertension (Acute 07/09/16) White coat augmentation neg stress echo 07/14 Glaucoma (Acute) 03/12/15; OPTICAL EXPRESSIONS Obesity (Acute) Obstructive sleep apnea syndrome (Acute) 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 Hyperlipidemia (Acute 08/04/12) 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 BELLO @ [facility] Family History Mother No problems noted. Father Neoplasm Sister Heart disease Stroke Grandfather No problems noted. Grandfather Heart disease Grandmother No problems noted. Grandmother Personal history of malignant neoplasm Sister No problems noted. Sister No problems noted. Brother Neoplasm Brother No problems noted. Brother No problems noted. Brother No problems noted. Brother No problems noted. Son No problems noted. Social History Smoking/Tobacco Use Status: Former Tobacco Use tobacco type: cigarettes Quit Date: 03/30/09 Tobacco: How many years used: 40 Second Hand Exposure: Yes Smoking risk assessment performed?: Yes Alcohol Intake: former Drug use: Never Substance use type: does not use Household members: none Housing: house Do you need help understanding health information?: Rarely Pets and animals: No Sexually active: Yes Do you think of yourself as: straight/heterosexual Current gender identity: male What is your relationship status?: How often do you talk on the phone with friends or family?: three or more times per week How often do you get together with friends or relatives?: three or more times per week How often do you attend methodist or anabaptism services?: decline to answer Do you belong to any clubs or organized social groups?: no Panel score (0-1 are the most socially isolated patients): 1 What type of physical activity do you participate in: walking Duration: 15-30 minutes/day Frequency: 3-4 times per week Stephani/Nondenominational: None Special stephani needs: No Seatbelt use: sometimes Helmet use: No Drive intox or ride w/intox backhaul 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 Meds Allergies and Home Medications Allergies Allergy/AdvReac Type Severity Reaction Status Date / Time ciprofloxacin [From Cipro] AdvReac Intermediate Dizziness/L Verified 08/13/23 09:53 ighthead sulfamethoxazole AdvReac Intermediate malaise Verified 08/13/23 09:53 [From Bactrim] trimethoprim [From Bactrim] AdvReac Intermediate malaise Verified 08/13/23 09:53 IV contrask Allergy Intermediate renal Uncoded 08/13/23 09:53 impairment Home Medications Medication Instructions Recorded Confirmed Type Lancets 1 ea miscellaneous QID #400 ea 07/15/12 08/13/23 History aspirin 81 mg chewable tablet 81 mg PO DAILY 07/15/12 08/13/23 History (Aspirin Low-Strength) brimonidine 0.2 % eye drops 1 drp ophthalmic (eye) BID 04/04/22 08/13/23 History atenolol 50 mg tablet 50 mg PO BID #180 tabs 09/08/22 08/13/23 Rx folic acid 1 mg tablet 1 mg PO DAILY #90 tabs 10/04/22 08/13/23 Rx terazosin 5 mg capsule 5 mg PO HS #90 caps 12/03/22 08/13/23 Rx dorzolamide 22.3 mg-timolol 6.8 1 drp ophthalmic (eye) BID 12/17/22 08/13/23 History mg/mL eye drops lisinopril 20 mg tablet 20 mg PO DAILY #90 tabs 12/29/22 08/13/23 Rx latanoprost 0.005 % eye drops 1 drp OU HS #7.5 mL 05/14/23 08/13/23 Rx (Xalatan) blood sugar diagnostic (FreeStyle #100 strips 06/06/23 08/13/23 Rx Lite Strips) acetaminophen 500 mg capsule 500 mg PO Q6H PRN 08/13/23 08/13/23 History amlodipine 5 mg tablet 5 mg PO BID 08/13/23 08/13/23 History atorvastatin 20 mg tablet 20 mg PO DAILY 08/13/23 08/13/23 History clonazepam 0.5 mg tablet (Klonopin) 0.5 mg PO QHS 08/13/23 08/13/23 History cyanocobalamin (vitamin B-12) 500 500 mcg PO DAILY 08/13/23 08/13/23 History mcg tablet magnesium oxide 400 mg (241.3 mg 400 mg PO DAILY 08/13/23 08/13/23 History magnesium) tablet (MagOx) omeprazole 20 mg capsule,delayed 20 mg PO DAILY 08/13/23 08/13/23 History release sildenafil 50 mg tablet (Viagra) 50 mg PO ONCE 08/13/23 08/13/23 History Exam Narrative Exam Narrative: Mr. Herring is sitting up at the bedside, eating his dinner, no acute distress, not having active CP and not dizzy at present HEENT: wears glasses, full EOMI, VA not tested, mucosa normal, teeth fair repair, no facial asymmetry Neck: supple, nontender, normal carotid pulses, no bruits, no JVD, no thyromegaly, no adenopathy, supple neck Lungs: clear Heart: RRR, no murmur, rub or gallops Chest wall nontender at the moment Abdomen: scar down midline from from prior AAA repair, nontender, palpable aorta, no organomegaly, normal femoral pulses, non-tender, no guarding Legs: normal femoral , popliteal and DP and PT pulses w/out cyanosis or edema Neuro: grossly normal CN and normal motor and sensory exam. I did not test his VA but he indicated that he has central blurred vision in his left eye but can see objects in the lateral beatty Results Labs 08/13/23 09:55 08/13/23 09:55 Labs: Laboratory Results - last 24 hr 08/13/23 08/13/23 08/13/23 09:55 11:15 12:40 WBC 8.78 RBC 4.09 L Hgb 13.0 L Hct 38.6 L MCV 94 MCH 31.8 MCHC 33.7 RDW 12.0 Plt Count 155 MPV 9.8 Immature Gran % 0.5 Neutrophils % 67.9 Lymphocytes % 23.5 Monocytes % 7.5 Eosinophils % 0.3 Basophils % 0.3 Nucleated RBC % 0.0 Absolute Neutrophils 5.96 Absolute Lymphocytes 2.06 Absolute Monocytes 0.66 Absolute Eosinophils 0.03 Absolute Basophils 0.03 Sodium 139 Potassium 3.9 Chloride 104 Carbon Dioxide 26.2 Anion Gap 8.8 BUN 33 H Creatinine 2.8 H Est GFR (CKD-EPI 2020) 21.98 Glucose 150 H Calcium 8.2 L Magnesium 0.9 L Total Bilirubin 1.0 AST 17 ALT 21 Alkaline Phosphatase 58 Troponin I < 50 < 50 Total Protein 7.0 Albumin 3.5 Urine Color Yellow Urine Clarity Clear Urine pH 6.5 Ur Specific [place] 1.010 Urine Protein Negative Urine Ketones Negative Urine Blood Negative Urine Nitrite Negative Urine Bilirubin Negative Urine Urobilinogen 0.2 Ur Leukocyte Esterase Negative Urine Glucose 100 H Last Vital Signs Temp 35.8 C L 08/13/23 14:38 Pulse 65 08/13/23 14:40 Resp 16 08/13/23 14:40 BP 144/61 H 08/13/23 14:40 Pulse Ox 99 08/13/23 14:40 Time Spent Time spent with Patient: 55-74 minutes Time was spent: preparing to see the patient(eg.review tests), obtaining and/or reviewing separately otained hiistory, ordering medications,tests, procedures, referring, communicating with other health special needs child caregiver, indepentently interpreting results, counseling the patient and care coordination
[2023-08-13] MEDS: Normal Saline Flush 10 ML SYR IVP (18:23)
[2023-08-13] MEDS: Magnesium Gluconate 500 MG TAB PO (19:46)
[2023-08-13] MEDS: Latanoprost 0.005% 2.5 ML BTL OU (19:46)
[2023-08-13] MEDS: Atorvastatin 20 MG TAB PO (19:46)
[2023-08-13] MEDS: Timolol 0.5% 5 ML BTL OP (19:46)
[2023-08-14] VITALS (8 sets, daily range): BP systolic 100–155; BP diastolic 59–74; PULSE 57–74; RESP 15–20; TEMP 35.4–36.9; O2SAT 95–98
[2023-08-14 07:01] LABS: Anion Gap 9.7 mmol/L (3-11); BUN 28 mg/dL (7-18); CO2 24.3 mmol/L (21.0-32.0); CREATININE 2.4 mg/dL (0.70-1.30); Calcium 8.6 mg/dL (8.5-10.1); Chloride 108 mmol/L (98-107); Estimated GFR 26.44 (mL/min/1.73m2); Glucose 140 mg/dL (74-106); Magnesium 2.1 mg/dL (1.8-2.4); Potassium 4.4 mmol/L (3.5-5.1); Sodium 142 mmol/L (136-145)
[2023-08-14] MEDS: Normal Saline Flush 10 ML SYR IVP ×2 (08:37→20:10)
[2023-08-14] MEDS: Heparin 5,000 UNITS/ML VIAL 5000 UNITS SC ×3 (08:38→22:52)
[2023-08-14] MEDS: Magnesium Gluconate 500 MG TAB PO ×2 (08:38→20:09)
[2023-08-14] MEDS: Aspirin 81 MG CHEW PO (08:38)
[2023-08-14] MEDS: Cyanocobalamin 500 MCG TAB PO (08:39)
[2023-08-14] MEDS: amLODIPine 5 MG TAB PO ×2 (08:39→20:09)
[2023-08-14] MEDS: Atenolol 50 MG TAB PO (08:39)
[2023-08-14] MEDS: Folic Acid 1 MG TAB PO (08:39)
[2023-08-14] MEDS: Famotidine 20 MG TAB 10 MG PO (08:39)
[2023-08-14] MEDS: Timolol 0.5% 5 ML BTL OP ×2 (08:55→20:08)
--- NOTE | 2023-08-14 09:29 | PT.INTREAT ---
PT Notes Visit Reasons: Hypomagnesemia, Weakness Date: 08/14/23 PRECAUTIONS: Fall. Standard. Activity as tolerated. SUBJECTIVE: pt observed walking independently inside his room coming out from toilet, pt agreed to participating with session OBJECTIVE: ? PAIN: none reported VITALS: monitored by nursing ? Therapeutic Activities 55117: Direct one-on-one instruction in dynamic activities to improve functional performance. ?? BED MOBILITY/TRANSFERS? Rolling L/R: independent Supine-sit: ?independent? Sit-supine: ? ?independent ? Sit-stand: ? ? independent? Stand-sit: ?? ?independent ? Bed-Chair:? ? independent ? Chair-bed: independent Provided skilled cues and instruction on performance and technique throughout. Gait Training 71816: Direct one-on-one instruction and skilled instruction in: Employing an assistive device Modified weight-bearing status Movement sequencing Turning and movement with proper form Provided verbal cues for equipment management and technique Provided instruction in gait pattern Patient education regarding pacing and breathing techniques to maximize activity tolerance? GAIT? Assistive Device: ?? FWW ? Weight bearing: FWB Assist: ? SBA? Distance:?? ?300'? Deviation: ? low step height, short step length, has tendency to speed up? STAIRS:? ? Step through gait pattern 1handrail 6 2x3, 4 3x3? SBA? ASSESSMENT:?Pt reporthe feel stronger, that he could even jog the entire loop if i let him. stayed in his room recliner after session. PLAN: Continue with balance training, global strengthening and general conditioning for improved safety, mobility and activity tolerance until pt is ready for DC. TREATMENT CODE/TIME: 18182k5 15mins (9:10-9:25am)
--- NOTE | 2023-08-14 13:14 | PGE_ITS ---
Date of Service Date of service: 08/14/23 Time of Service: 13:14 Assessment and Plan Assessment and plan (1) Lightheadedness: Status: Acute Assessment and plan: -likely due to combination of low mag and BID dosing of atenolol -lightheadedness improved AM 08/13 after Mg replacement and holding HS atenolol dose -tele without findings overnight other then mild bradycardia in the high 50's (2) Hypomagnesemia: Status: Acute Assessment and plan: -likely d/t his chronic use of a PPI -switched his omeprazole to pepcid 10 mg daily. (3) Acute dehydration: Status: Suspected Assessment and plan: I do not believe him to be dehydrated. although his creatinine is elevated at 2.8 up from baseline of 2.2 his BUN is 33 which is pretty much his baseline and on exam he does not look dry and he denies any diarrhea or vomiting. (4) MITRA (acute kidney injury): Status: Acute (5) Atypical chest pain: Status: Chronic Assessment and plan: no further workup planned at this time. If he developes recurrent chest pains while hospitalized then I will revisit this and re-evaluate w/ exam, EKG, labs etc as deemed appropriate. His stres MPI 04/01/22 was normal. (6) Chronic kidney disease (CKD): Status: Chronic Qualifiers: Chronic kidney disease stage: stage 4 (severe) Qualified Code(s): N18.4 - Chronic kidney disease, stage 4 (severe) (7) Hypocalcemia: Status: Acute Assessment and plan: will check his ionized calcium Subjective Subjective Interval history since last seen: Patient states that he is feeling better today and that he has been able to ambulate without difficulty. It was explained to him that his magnesium has been replaced and that his atenolol dose has been decreased which are the likely reasons for his improvement. Exam Narrative Exam Narrative: Well appearing anxious older gentleman in no acute distress, AOx4, heart RRR, lungs CTAB, abdomen soft, non-tender, non-distended Objective Last Vital Signs Temp 96.1 F L 08/14/23 11:48 Pulse 57 L 08/14/23 11:48 Resp 15 08/14/23 11:48 BP 117/66 08/14/23 11:48 Pulse Ox 98 08/14/23 11:48 Laboratory Results - last 24 hr 08/14/23 06:16 Sodium 142 Potassium 4.4 Chloride 108 H Carbon Dioxide 24.3 Anion Gap 9.7 BUN 28 H Creatinine 2.4 H Est GFR (CKD-EPI 2020) 26.44 Glucose 140 H Calcium 8.6 Magnesium 2.1 Time Spent with Patient Time Spent with Patient: >50 minutes Time was spent: preparing to see the patient(eg.review tests), obtaining and/or reviewing separately otained hiistory, ordering medications,tests, procedures, r eferring, communicating with other health healthcare social worker, indepentently interpreting results, counseling the patient and care coordination
--- NOTE | 2023-08-14 13:37 | INITIAL_ITS ---
Date of service: 08/14/23 Time of Service: 13:37 Care Management Initial Assmt Initial Assessment REASON FOR HOSPITALIZATION:: Hypomagnesemia, dehydration, lightheadedness PREVIOUS FUNCTIONAL STATUS/SOCIAL/FAMILY SUPPORTS:: Aaron owns a home in [facility] that he stays at when he's not at his Finance's home, which is just down the street from him. He has a good relationship with his son Sandeep, whom lives locally but goes to [facility]. in the winter. Aaron drives and is fully independent with is ADL/IADL's at baseline. CURRENT FUNCTIONAL STATUS:: Aaron was ambulating in his room when CM met with him. He is pleasant and easy to engage in conversation. ADVANCE DIRECTIVES:: On file, [facility] is joon Garcia, alt is MIGEL Shettykody Garcia. Has patient been provided with info about the portal/API?: Yes Did the patient sign up for the portal?: No CODE STATUS:: Full Code INSURANCE COVERAGE / FINANCIAL ISSUES:: AARP Medicare CURRENT HOME/COMMUNITY SERVICES/EQUIPMENT:: None PRIMARY CARE PHYSICIAN:: Dr. Contreras POTENTIAL DISCHARGE NEEDS:: Discharge plan of care, evaluations for further needs PATIENT/FAMILY EDUCATION NEEDS:: Review discharge instructions, limitations, medications and plan to follow up with community providers. Discuss ask me three and goals of self care. ANTICIPATED BARRIERS TO DISCHARGE:: None identified TRANSPORTATION:: Private vehicle with family PLAN:: Anticipate Aaron will discharge home with new services, if indicated when he is medically ready. He will follow up with community providers and his discharge plan of care as recommended. CM will continue to support discharge planning needs. PFSH All Active Problems (Updated 08/13/23 @ 18:44 by Kendrick Lopez MD) Hypocalcemia (Acute) Hypomagnesemia (Acute) Lightheadedness (Acute) MITRA (acute kidney injury) (Acute) Side effect of medication (Acute) Constipation (Acute) UTI (urinary tract infection) (Acute) w/ degree of prostatitis Atypical chest pain (Chronic) Chronic kidney disease (CKD) (Chronic) Block, bifascicular (Acute) Primary open-angle glaucoma, left eye, moderate stage (Chronic) Chest pain (Acute) Actinic keratoses (Acute 06/24/17) Anxiety (Acute) Aortic aneurysm and dissection (Acute) AAA ruptured --multiple transfusions; repair, open repair about 2009 Benign prostatic hyperplasia (Acute) CKD (chronic kidney disease) stage 3, GFR 30-59 ml/min (Acute 07/30/16) due to ischemia during ruptured AAA 2021, stage 4 Chronic gout due to renal impairment of multiple sites without tophus (Acute 06/05/15) Essential hypertension (Acute 07/09/16) White coat augmentation neg stress echo 07/14 Glaucoma (Acute) 03/12/15; OPTICAL EXPRESSIONS Obesity (Acute) Obstructive sleep apnea syndrome (Acute) 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 Hyperlipidemia (Acute 08/04/12) 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 BELLO @ [facility] Family History Mother No problems noted. Father Neoplasm Sister Heart disease Stroke Grandfather No problems noted. Grandfather Heart disease Grandmother No problems noted. Grandmother Personal history of malignant neoplasm Sister No problems noted. Sister No problems noted. Brother Neoplasm Brother No problems noted. Brother No problems noted. Brother No problems noted. Brother No problems noted. Son No problems noted. Social History Smoking/Tobacco Use Status: Former Tobacco Use tobacco type: cigarettes Quit Date: 03/30/09 Tobacco: How many years used: 40 Second Hand Exposure: Yes Smoking risk assessment performed?: Yes Alcohol Intake: former Drug use: Never Substance use type: does not use Household members: none Housing: house Do you need help understanding health information?: Rarely Pets and animals: No Sexually active: Yes Do you think of yourself as: straight/heterosexual Current gender identity: male What is your relationship status?: How often do you talk on the phone with friends or family?: three or more times per week How often do you get together with friends or relatives?: three or more times per week How often do you attend buddhism or church services?: decline to answer Do you belong to any clubs or organized social groups?: no Panel score (0-1 are the most socially isolated patients): 1 What type of physical activity do you participate in: walking Duration: 15-30 minutes/day Frequency: 3-4 times per week Stephani/Confucianist: None Special stephani needs: No Seatbelt use: sometimes Helmet use: No Drive intox or ride 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 SDOH(Care Management) Screening Will the Patient Participate in the Screening?: Yes Do you worry about having a steady place to live?: no Problems where you live: no known problems In the past 12 months, have you had to go without electric, gas, oil or water in your home?: no Have you or anyone in your house had to go without enough food to eat?: no Has lack of transportation kept you from medical appointments or from doing things needed for daily living?: no Has anyone in your support network made you feel unsafe for any reason?: no
--- NOTE | 2023-08-14 13:55 | PT.INTREAT ---
PT Notes Visit Reasons: Hypomagnesemia, Weakness Inpatient Physical Therapy Treatment Note [facility] Date: 08/14/23 PRECAUTIONS:Standard SUBJECTIVE: Pt reports that he has had some lightheadedness today. OBJECTIVE: Therapeutic Activities (58695h[1]): Direct one-on-one instruction in dynamic activities to improve functional performance. ? BED MOBILITY/TRANSFERS? Stand-sit: I ? Provided skilled cues and instruction on performance and technique throughout. ? GAIT? Assistive Device: No assistive device ? Weight bearing: Full Assist: SBA ? Distance:? 150ft? Therapeutic Exercises ([id number][]): Direct one-on-one instruction in therapeutic exercises to develop strength, endurance, range of motion and flexibility. ? Exercises ? Seated rowing x 20 Seated shoulder flexion 20x Seated horz abd x 20 Seated shoulder circles x [address] LAQ x 20 Seated hip abd x 20 B ASSESSMENT:? Pt was fatigued post session. PLAN: Cont as per PT POC. TREATMENT CODE/TIME: 1:40-1:55 ( 15) TA
--- NOTE | 2023-08-14 15:30 | NUR.NOTE ---
Pt has had Hospitalist and nursing come to his room to discuss his labs, meds and care multiple times. He is very nervous and keeps asking for the same information, then explaining that his family thinks he needs to stay another night because his dizziness is not completely gone, though much improved from admission. It was found that at home he had been taking his atenolol as needed and in the hospital we were giving it to him BID. That was corrected at admission, but he is still concerned about the change. Nursing Note:
[2023-08-14 18:01] LABS: Ionized Calcium 1.15 mmol/L (1.14-1.35)
--- NOTE | 2023-08-14 20:00 | RESPIRATORY ---
RT seen pt. for ELIANE diagnosis. Pt. advised RT that he does not use any form of CPAP machine and states never on CPAP before. Pt. states he will be okay without it.
[2023-08-14] MEDS: Latanoprost 0.005% 2.5 ML BTL OU (20:08)
[2023-08-14] MEDS: Melatonin 3 MG TAB 6 MG PO (20:09)
[2023-08-14] MEDS: Atorvastatin 20 MG TAB PO (20:09)
[2023-08-15 03:38] VITALS: BP 103/65; BP 117/75; BP 155/81; PULSE 60; PULSE 63; PULSE 64; RESP 15; TEMP 35.3; O2SAT 98
[2023-08-15 07:30] VITALS: BP 113/70; PULSE 60; RESP 16; TEMP 35.7; O2SAT 98
[2023-08-15 08:00] VITALS: BP 134/59; PULSE 52
[2023-08-15] MEDS: amLODIPine 5 MG TAB PO (08:04)
[2023-08-15] MEDS: Cyanocobalamin 500 MCG TAB PO (08:04)
[2023-08-15] MEDS: Famotidine 20 MG TAB 10 MG PO (08:04)
[2023-08-15] MEDS: Magnesium Gluconate 500 MG TAB PO (08:05)
[2023-08-15] MEDS: Folic Acid 1 MG TAB PO (08:05)
[2023-08-15] MEDS: Normal Saline Flush 10 ML SYR IVP (08:05)
[2023-08-15] MEDS: Aspirin 81 MG CHEW PO (08:05)
[2023-08-15] MEDS: Timolol 0.5% 5 ML BTL OP (08:05)
[2023-08-15] MEDS: Heparin 5,000 UNITS/ML VIAL 5000 UNITS SC (08:14)
--- NOTE | 2023-08-15 09:01 | PT.INTREAT ---
Date of service: 08/15/23 Time of Service: 08:40 PT Notes Visit Reasons: Hypomagnesemia, Weakness Inpatient Physical Therapy Treatment Note [facility] Date: 08/15/2023 PRECAUTIONS: Standard, Fall and Activities as Tolerated SUBJECTIVE: Just tired today, but not having an dizziness. OBJECTIVE: ? PAIN: No complaints of pain offered. Therapeutic Activities (49464u6 - 20 minutes): Direct one-on-one instruction in dynamic activities to improve functional performance. ? BED MOBILITY/TRANSFERS? Ambulating around room when I arrived. ? Sit-stand: Stand by guard ? Stand-sit: SBG ? GAIT? Assistive Device: None? Weight bearing: Full Assist: SBG ? Distance:? 150 x 2 ? Well controlled gait pattern ? STAIRS: Up / Down 4 6 inch and 3 4 inch steps with 1 handrail, utilizing a reciprocal gait pattern. Stand by guarding with this task ? Exercises: Performed seated horizontal shoulder abd/ adduction 2 x 10 reps, LAQs 2 x 10 reps, shoulder flexion to 100 degrees 2 x 10 reps, seated march 2 x 10 reps, shoulder circles 2 x 10 reps and seated hip abd/adduction 2 x 10 reps. ? Provided skilled instruction in proper exercise performance Provided skilled manual cues to facilitate proper muscle recruitment and/or form ASSESSMENT:? Good stability with ambulation on flat surfaces and stairs. Offered good effort with functional exercises without SOB or complaints of pain or discomfort. PLAN: Continue to work on functional activities preparation for discharge from hospital. TREATMENT CODE/TIME: 17851 x 1, 8:40 to 9:00 am (20 minutes)
--- NOTE | 2023-08-15 09:53 | W.PM.DS.N ---
Date of service: 08/15/23 Time of Service: 18:10 DS: Diagnosis Discharge Diagnosis (1) Lightheadedness: Status: Resolved Asessment and Plan: -likely due to combination of low mag and BID dosing of atenolol -lightheadedness improved AM 5/17 after Mg replacement and holding HS atenolol dose -tele without findings overnight other then mild bradycardia in the high 50's -patients symptoms significantly improved as he was able to ambulate without recurrence of lightheadedness -discharged with decreased dose of atenolol (2) Hypomagnesemia: Status: Resolved Asessment and Plan: -replaced (3) Acute dehydration: Status: Resolved (4) MITRA (acute kidney injury): Status: Resolved (5) Atypical chest pain: Status: Resolved (6) Chronic kidney disease (CKD): Status: Chronic (7) Hypocalcemia: Status: Resolved Discharge Plan Disposition Patient Disposition: Home Condition: Good Discharge Details Reason For Visit: Hypomagnesemia, Weakness Admit Date/Time: 08/13/23 13:29 Admit Provider: Kendrick Lopez Attending Provider: Kendrick Lopez Primary Care Provider: Sander Contreras Hospital Course Hospital Course: Patient presented with weakness and lightheadedness that was determined to be a combination of hypomagnesemia and twice daily atenolol dose. His atenolol was decreased during hospitalization and patient did experience improvement of his symptoms. However, he still appeared to be mildly bradycardic for which his atenolol was decreased to 25 mg daily, and his amlodipine was also discontinued. Home Meds and New Rx's Prescriptions: Continued aspirin [Aspirin Low-Strength] 81 MG tablet,chewable 81 mg PO DAILY LANCETS 1 EACH EACH 1 ea Miscellaneous QID Qty: 400 Rx Instructions: DX: 250.0 folic acid 1 mg tablet 1 mg PO DAILY Qty: 90 3RF terazosin 5 mg capsule 5 mg PO HS Qty: 90 3RF latanoprost [Xalatan] 0.005 % drops 1 drp OU HS Qty: 7.5 6RF brimonidine 0.2 % drops 1 drp ophthalmic (eye) BID Patient Comments: INSTILL ONE DROP INTO THE LEFT EYE TWO TIMES A DAY pt states not taking Rx Instructions: both eyes dorzolamide-timolol 22.3-6.8 mg/mL drops 1 drp ophthalmic (eye) BID Patient Comments: INSTILL ONE DROP IN EACH EYE TWO TIMES A DAY Rx Instructions: 1 drop to each eye acetaminophen 500 mg capsule 500 mg PO Q6H PRN clonazepam [Klonopin] 0.5 mg tablet 0.5 mg PO QHS Rx Instructions: administer 30 minutes before bedtime cyanocobalamin (vitamin B-12) 500 mcg tablet 500 mcg PO DAILY magnesium oxide [MagOx] 400 mg (241.3 mg magnesium) tablet 400 mg PO DAILY omeprazole 20 mg capsule,delayed release(DR/EC) 20 mg PO DAILY sildenafil [Viagra] 50 mg tablet 50 mg PO ONCE Rx Instructions: administer 30 minutes to 4 hours before activity atorvastatin 20 mg tablet 20 mg PO DAILY Patient Comments: TAKE ONE TABLET BY MOUTH EVERY DAY Changed atenolol 50 mg tablet 25 mg PO BID Qty: 180 3RF Discontinued lisinopril 20 mg tablet 20 mg PO DAILY Qty: 90 3RF Hold Instructions: elevated creatinine amlodipine 5 mg tablet 5 mg PO BID Patient Comments: TAKE ONE TABLET BY MOUTH TWICE A DAY No Action (DME) FreeStyle Lite Strips Strip 1 ea Miscellaneous DAILY Qty: 100 4RF Rx Instructions: DX E11.9 Test once/day Discharge Instructions Instructions: Hypotension (DC) Stand Alone Forms: Nursing Discharge Form Referrals: Sander Contreras MD [Primary Care Provider] - (Please call the office on Thursday morning to make an appointment to be seen within 2 weeks) Activity:: Activity as Tolerated Equipment/Supplies:: No Equipment Needed Diet:: As Tolerated Discharge Orders Discharge Orders: Discharge Order (Routine); Ordered 08/15/23 Ordered By: Addy Sanchez Discharge Data Discharge Date/Time-TO BE ENTERED AT DEPARTURE: 08/15/23 11:26 DS: Summary Time Spent with Patient providing and/or coordinating discharge services: Greater than 30 minutes Status at Discharge Functional status at discharge: independent ambulation Overall status at discharge: patient is back to baseline Mental Status: mental status grossly normal Speech and Movement: speech and movement normal Mood: congruent mood Affect: normal affect Quality:SDOH Health Related Social Needs: No Data to Display Exam Narrative Exam Narrative: Well appearing anxious older gentleman in no acute distress, AOx4, heart RRR, lungs CTAB, abdomen soft, non-tender, non-distended Psych Mental Status: mental status grossly normal Speech and Movement: speech and movement normal Mood: congruent mood Affect: normal affect DS: Data Vitals/I&O Vitals and I&O: Vital Signs Temperature 96.3 F L 08/15/23 07:30 Temperature Source Tympanic 08/15/23 07:30 Pulse 52 L 08/15/23 08:00 Pulse Rhythm Regular 08/15/23 07:37 Pulse 52 L 08/13/23 14:20 Respiratory Rate 16 08/15/23 07:30 Respiratory Effort Normal, Non-Labored 08/15/23 07:37 Respiratory Depth Normal 08/15/23 07:37 Respiratory Pattern Normal 08/15/23 07:37 Blood Pressure 134/59 L 08/15/23 08:00 Blood Pressure Mean 76 08/13/23 14:16 Pulse Oximetry 98 08/15/23 07:30 Oxygen Delivery Method Room Air 08/15/23 07:30 Oxygen Flow Rate 0 08/15/23 07:30 Pain Level 0 08/15/23 07:30 Comment METAL OFF BEARER Notified 08/15/23 03:38 Intake & Output 08/14/23 08/15/23 08/15/23 17:59 05:59 17:59 Intake Total 400 / 400 10 / 410 Output Total 575 / 575 100 / 100 Balance -175 / -175 10 / -165 -100 / -100 Weight 185 lb 10.067 oz 184 lb 11.958 oz Intake: IV 10 / 10 Oral 400 / 400 Output: Urine 575 / 575 100 / 100 Other: Urine Color Yellow Yellow Urine Appearance Clear Clear Clear Urine Odor None Comment pt independant in bathroom, has voided. voids independently in toilet Stool Size Moderate Moderate Stool Characteristics Soft Soft Formed Formed Voiding Methods Toilet Urinal PFSH All Active Problems (Updated 08/18/23 @ 15:19 by Sander Contreras MD) Dizziness (Acute) Side effect of medication (Acute) Constipation (Acute) UTI (urinary tract infection) (Acute) w/ degree of prostatitis Chronic kidney disease (CKD) (Chronic) Block, bifascicular (Acute) Primary open-angle glaucoma, left eye, moderate stage (Chronic) Chest pain (Acute) Actinic keratoses (Acute 06/24/17) Anxiety (Acute) Aortic aneurysm and dissection (Acute) AAA ruptured --multiple transfusions; repair, open repair about 2009 Benign prostatic hyperplasia (Acute) CKD (chronic kidney disease) stage 3, GFR 30-59 ml/min (Acute 07/30/16) due to ischemia during ruptured AAA 2021, stage 4 Chronic gout due to renal impairment of multiple sites without tophus (Acute 06/05/15) Essential hypertension (Acute 07/09/16) White coat augmentation neg stress echo 07/14 Glaucoma (Acute) 03/12/15; OPTICAL EXPRESSIONS Obesity (Acute) Obstructive sleep apnea syndrome (Acute) 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 Hyperlipidemia (Acute 08/04/12) 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 BELLO @ [facility] Family History Mother No problems noted. Father Neoplasm Sister Heart disease Stroke Grandfather No problems noted. Grandfather Heart disease Grandmother No problems noted. Grandmother Personal history of malignant neoplasm Sister No problems noted. Sister No problems noted. Brother Neoplasm Brother No problems noted. Brother No problems noted. Brother No problems noted. Brother No problems noted. Son No problems noted. Social History Smoking/Tobacco Use Status: Former Tobacco Use tobacco type: cigarettes Quit Date: 03/30/09 Tobacco: How many years used: 40 Second Hand Exposure: Yes Smoking risk assessment performed?: Yes Alcohol Intake: former Drug use: Never Substance use type: does not use Household members: none Housing: house Do you need help understanding health information?: Rarely Pets and animals: No Sexually active: Yes Do you think of yourself as: straight/heterosexual Current gender identity: male What is your relationship status?: How often do you talk on the phone with friends or family?: three or more times per week How often do you get together with friends or relatives?: three or more times per week How often do you attend restorationism or restoration services?: decline to answer Do you belong to any clubs or organized social groups?: no Panel score (0-1 are the most socially isolated patients): 1 What type of physical activity do you participate in: walking Duration: 15-30 minutes/day Frequency: 3-4 times per week Stephani/Islam: None Special stephani needs: No Seatbelt use: sometimes Helmet use: No Drive intox or ride w/intox seasonal 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 Time Spent with Patient Time Spent with Patient: <45 minutes Time was spent: preparing to see the patient(eg.review tests), obtaining and/or reviewing separately otained hiistory, ordering medications,tests, procedures, referring, communicating with other health ocular care technologist, indepentently interpreting results, counseling the patient and care coordination
--- NOTE | 2023-08-15 15:00 | PDOC.CMDIS ---
Date of service: 08/15/23 Time of Service: 15:00 LACE Index Scoring Tool Questions: Length of Stay (in days): 2 Was the patient admitted via the E.D.?: Yes Comorbidities: Diabetes w/o Complication, Any Tumor and Liver or Renal Disease E.D. Visits: 1 Answers: Total Score: 11 Risk of Readmission: High Risk Care Management Discharge Plan Reason for Hospitalization: Hypomagnesemia, dehydration, lightheadedness Discharge Plan: Aaron will be discharged home with no new services. He will follow up with his community providers and plan of care and transport with his rah?e. Patient/Family Education Needs: Review discharge instructions, limitations, medications and plan to follow up with community providers. Discuss ask me three and goals of self care. SDOH Health Related Social Needs: No Data to Display
== END 2023-08-15 11:26 | disposition home or self-care (01) ==
LOC: ER 13:35 → MS 14:36
PROVIDERS: Admitting Provider Internal Medicine; Emergency Provider Student in an Organized Health Care Education/Training Program; PCP Family Medicine; Visit Provider Internal Medicine
DX: R42 Dizziness and giddiness (principal); N17.9 Acute kidney failure, unspecified; T44.7X5A Adverse effect of beta-adrenoreceptor antagonists, initial encounter; E83.42 Hypomagnesemia; N18.4 Chronic kidney disease, stage 4 (severe); E83.51 Hypocalcemia; R07.89 Other chest pain; K59.00 Constipation, unspecified; F41.9 Anxiety disorder, unspecified; I12.9 Hypertensive chronic kidney disease with stage 1 through stage 4 chronic kidney disease, or unspecified chronic kidney disease; E66.9 Obesity, unspecified; G47.33 Obstructive sleep apnea (adult) (pediatric); I45.2 Bifascicular block; H40.1122 Primary open-angle glaucoma, left eye, moderate stage; E11.22 Type 2 diabetes mellitus with diabetic chronic kidney disease
CPT/HCPCS: 00123; 36415; 80048; 80053; 93005; 96361; 96365; 96366; 96372; 97161; 97530; 99285; 81003; 82330; 83735; 84484; 85025; 93010; 99222; 99233; 99238; G0378; J1644; J3475

== ENCOUNTER 2023-10-11 15:32 | Emergency (ER) | payer MEDICARE, SELFPAY ==
[2023-10-11] VITALS (25 sets, daily range): BP systolic 154–259; BP diastolic 43–136; PULSE 52–74; RESP 12–25; TEMP 36.4; O2SAT 96–99
--- NOTE | 2023-10-11 15:30 | RT.EKG_ITS ---
APPROVED REPORT Exam: Resting ECG Reason for Exam: Chest Pain Patient Location: E HR:61 bpm ECG Measurements Heart Rate 61 AXIS RI 157 P 72 QRSd 143 QRS -65 QT 455 T 30 QTc 454 Conclusion Sinus rhythm...normal P axis, V-rate 60- 99 Atrial premature complex...SV complex w/ short R-R interval Right bundle branch block...QRSd>120, terminal axis(90,270)
--- NOTE | 2023-10-11 15:45 | DI.RAD_ITS ---
Exam(s) XR PORTABLE CHEST AP EXAM: XR PORTABLE CHEST AP CLINICAL HISTORY: chest pain. TECHNIQUE: 2D digital imaging was performed. COMPARISON: Prior chest x-ray 12/17/2022 FINDINGS: Single AP portable view. Heart size is upper normal. The mediastinum is not widened. Lungs are clear. No infiltrates nor obvious pleural effusions. IMPRESSION: No acute pulmonary findings on this single AP portable view of the chest. DATA REPOSITORY: RADIATION DOSE DELIVERED:
--- NOTE | 2023-10-11 15:50 | ED.GENADUL_ITS ---
Discharge Plan Disposition Patient Disposition: Home Condition: Stable Discharge Details Clinical Impression: Hypomagnesemia, Chest pain Primary Care Provider: Sander Contreras ED Provider: Noah Sanchez [place] Meds and New Rx's Prescriptions: Continued aspirin [Aspirin Low-Strength] 81 MG tablet,chewable 81 mg PO DAILY LANCETS 1 EACH EACH 1 ea Miscellaneous QID Qty: 400 Rx Instructions: DX: 250.0 terazosin 5 mg capsule 5 mg PO HS Qty: 90 3RF latanoprost [Xalatan] 0.005 % drops 1 drp OU HS Qty: 7.5 6RF (DME) FreeStyle Lite Strips Strip 1 ea Miscellaneous DAILY Qty: 100 4RF Rx Instructions: DX E11.9 Test once/day atenolol 50 mg tablet 25 mg PO BID Qty: 90 3RF Patient Comments: recent change to lower dose folic acid 1 mg tablet 1 mg PO DAILY Qty: 90 3RF atorvastatin 20 mg tablet 20 mg PO DAILY Qty: 90 3RF Patient Comments: TAKE ONE TABLET BY MOUTH EVERY DAY brimonidine 0.2 % drops 1 drp ophthalmic (eye) BID Patient Comments: INSTILL ONE DROP INTO THE LEFT EYE TWO TIMES A DAY pt states not taking Rx Instructions: both eyes dorzolamide-timolol 22.3-6.8 mg/mL drops 1 drp ophthalmic (eye) BID Patient Comments: INSTILL ONE DROP IN EACH EYE TWO TIMES A DAY Rx Instructions: 1 drop to each eye acetaminophen 500 mg capsule 500 mg PO Q6H PRN clonazepam [Klonopin] 0.5 mg tablet 0.5 mg PO QHS Rx Instructions: administer 30 minutes before bedtime cyanocobalamin (vitamin B-12) 500 mcg tablet 500 mcg PO DAILY magnesium oxide [MagOx] 400 mg (241.3 mg magnesium) tablet 400 mg PO DAILY omeprazole 20 mg capsule,delayed release(DR/EC) 20 mg PO DAILY sildenafil [Viagra] 50 mg tablet 50 mg PO ONCE Rx Instructions: administer 30 minutes to 4 hours before activity Discharge Instructions Additional Instructions: Your blood work was reassuring other than your magnesium level still low. I would recommend continuing your magnesium supplementation. Follow-up with your primary care provider scheduled Thursday If you feel more ill or have severe worsening pain or new symptoms such as high fevers return to the emergency department for reevaluation HPI General Date/Time Provider Initiated Documentation: 10/11/23 15:33 . Limitations to Documentation: no limitations . Information obtained by: patient . History of Present Illness 83 year old M presents to the emergency department with the chief complaint of Chest pain, described as mild, Quality is described as other (twinging), and is localized to the chest. Patient reports no radiation. Patient started experiencing this day(s) (1) and it has been intermittent. No relieving factors improve symptom(s), No exacerbating factors reported . Patient notes no other symptoms.. Patient did receive the following treatments prior to arrival, none Related Data Home Medications ?Medication ?Instructions ?Recorded ?Confirmed Lancets 1 ea miscellaneous QID #400 ea 07/15/12 10/11/23 aspirin 81 mg chewable tablet 81 mg PO DAILY 07/15/12 10/11/23 (Aspirin Low-Strength) brimonidine 0.2 % eye drops 1 drp ophthalmic (eye) BID 04/04/22 10/11/23 terazosin 5 mg capsule 5 mg PO HS #90 caps 12/03/22 10/11/23 dorzolamide 22.3 mg-timolol 6.8 1 drp ophthalmic (eye) BID 12/17/22 10/11/23 mg/mL eye drops latanoprost 0.005 % eye drops 1 drp OU HS #7.5 mL 05/14/23 10/11/23 (Xalatan) blood sugar diagnostic (FreeStyle #100 strips 06/06/23 10/11/23 Lite Strips) acetaminophen 500 mg capsule 500 mg PO Q6H PRN 08/13/23 10/11/23 clonazepam 0.5 mg tablet (Klonopin) 0.5 mg PO QHS 08/13/23 10/11/23 cyanocobalamin (vitamin B-12) 500 500 mcg PO DAILY 08/13/23 10/11/23 mcg tablet magnesium oxide 400 mg (241.3 mg 400 mg PO DAILY 08/13/23 10/11/23 magnesium) tablet (MagOx) omeprazole 20 mg capsule,delayed 20 mg PO DAILY 08/13/23 10/11/23 release sildenafil 50 mg tablet (Viagra) 50 mg PO ONCE 08/13/23 10/11/23 atenolol 50 mg tablet 25 mg (1/2 x 50 mg) PO BID #90 tabs 08/29/23 10/11/23 folic acid 1 mg tablet 1 mg PO DAILY #90 tabs 09/26/23 10/11/23 atorvastatin 20 mg tablet 20 mg PO DAILY #90 tabs 10/05/23 10/11/23 Previous Rx's ?Medication ?Instructions ?Recorded terazosin 5 mg capsule 5 mg PO HS #90 caps 12/03/22 latanoprost 0.005 % eye drops 1 drp OU HS #7.5 mL 05/14/23 (Xalatan) blood sugar diagnostic (FreeStyle #100 strips 06/06/23 Lite Strips) atenolol 50 mg tablet 25 mg (1/2 x 50 mg) PO BID #90 tabs 08/29/23 folic acid 1 mg tablet 1 mg PO DAILY #90 tabs 09/26/23 atorvastatin 20 mg tablet 20 mg PO DAILY #90 tabs 10/05/23 Allergies Allergy/AdvReac Type Severity Reaction Status Date / Time ciprofloxacin (From Cipro) AdvReac Intermediate Dizziness/L Verified 10/11/23 15:51 ighthead sulfamethoxazole (From AdvReac Intermediate malaise Verified 10/11/23 15:51 Bactrim) trimethoprim (From Bactrim) AdvReac Intermediate malaise Verified 10/11/23 15:51 IV contrask Allergy Intermediate renal Uncoded 10/11/23 15:51 impairment General Stated Complaint: Chest Pain SUSAN: 2 Review of Systems All systems reviewed & are unremarkable except as noted in HPI and below Constitutional Constitutional: Denies chills, Denies fever(s) and Denies weakness Cardiovascular Cardiovascular: Denies dyspnea Respiratory Respiratory: Denies cough and Denies dyspnea Gastrointestinal Gastrointestinal: Denies abdominal pain, Denies nausea and Denies vomiting Integumentary/Breasts Skin/Breast: Denies rash Neurologic Neurologic: Denies weakness Exam Const General: no acute distress Orientation: alert [facility] Head: normal to inspection Ears: external ears normal General nose exam: external nose normal Mouth: moist mucous membranes Eyes General: appearance normal, both eyes and all related structures Neck Neck: normal visual inspection Resp Effort & Inspection: normal respiratory effort and able to speak in complete sentences Auscultation: clear to auscultation bilaterally Cardio Jugular venous pressure: no JVD Rate: regular rate GI Palpation: soft and nontender Skin General skin exam: no rashes or lesions noted Neuro General: patient alert and patient oriented x3 Extrem General: normal to inspection Psych Mental Status: mental status grossly normal Course Vital Signs Vital signs: Vital Signs Temperature 36.4 C L 10/11/23 15:47 Pulse 61 10/11/23 15:47 Respiratory Rate 14 10/11/23 15:47 Blood Pressure 209/101 H 10/11/23 15:47 Pulse Oximetry 98 10/11/23 15:47 Temperature 36.4 C L 10/11/23 15:47 Temperature Source Temporal Artery Scan 10/11/23 15:47 Pulse 61 10/11/23 15:47 Respiratory Rate 14 10/11/23 15:47 Respiratory Effort Normal, Non-Labored 10/11/23 15:49 Blood Pressure 209/101 H 10/11/23 15:47 Blood Pressure Position Supine 10/11/23 15:47 Pulse Oximetry 98 10/11/23 15:47 Oxygen Delivery Method Room Air 10/11/23 15:47 Oxygen Flow Rate 0 10/11/23 15:47 Pain Level 5 10/11/23 15:47 Medical Decision Making 83-year-old male with a history of chronic kidney disease, anxiety, BPH, gout, sleep apnea, prior AAA repaired in 2004, who comes in with complaint of intermittent what he says are twinges in his chest since yesterday. He says that they feel like a spasm of the anterior chest and last a few seconds. He does not have any increased pain with exertion, no diaphoresis, no radiation of pain, no nausea or vomiting, no difficulty breathing. He was admitted in July for lightheadedness and was taken off lisinopril and amlodipine and has atenolol reduced. He has noted to be hypertensive here was not having any pain now. He has equal peripheral pulses, no leg swelling or calf tenderness, no JVD. He appears well in no distress. His chest pain seems very atypical for ACS and seems more likely musculoskeletal, will check a CBC, CMP, troponin. He is not significantly tachycardic or hypoxic and has no pleuritic pain or evidence of DVT so doubt PE. No tearing back pain so doubt dissection. Will monitor his blood pressure and if still elevated consider restarting amlodipine. Patient's BP now 150/60 and he has actually no symptoms. He feels well, his troponin is negative his magnesium level is low but appears to be chronically low. Symptoms do not seem consistent with ACS, we discussed observation admission versus discharge and given his symptoms are not consistent with ACS he does not want to stay in the hospital attending is reasonable. He has a medical decision-making capacity. He will follow-up with his primary care provider scheduled on Thursday and return precautions given Differential Diagnosis Differential Diagnosis: Chest wall pain, muscle spasm, anxiety, hypertension, NSTEMI Medical Records Medical records reviewed: Yes I reviewed the patient's medical records. Imaging Data Radiologic Study: Attestation: I personally reviewed and interpreted this imaging study as follows: Imaging: X-Ray Radiologist's impression: No acute findings Lab Data Lab results reviewed: Yes I reviewed the patient's lab results. ECG Data Attestation: I personally reviewed and interpreted this ECG (s) as follows: Prior ECG tracings: available for review Interpretation: Sinus rhythm, rate of 61, right bundle branch block, no STEMI Quality:SDOH Health Related Social Needs: No Data to Display PFSH All Active Problems (Updated 10/11/23 @ 17:26 by Noah Sanchez MD) Chest pain (Acute) Hypomagnesemia (Acute) Dizziness (Acute) Side effect of medication (Acute) Constipation (Acute) UTI (urinary tract infection) (Acute) w/ degree of prostatitis Chronic kidney disease (CKD) (Chronic) Block, bifascicular (Acute) Primary open-angle glaucoma, left eye, moderate stage (Chronic) Chest pain (Acute) Actinic keratoses (Acute 06/24/17) Anxiety (Acute) Aortic aneurysm and dissection (Acute) AAA ruptured --multiple transfusions; repair, open repair about 2009 Benign prostatic hyperplasia (Acute) CKD (chronic kidney disease) stage 3, GFR 30-59 ml/min (Acute 07/30/16) due to ischemia during ruptured AAA 2021, stage 4 Chronic gout due to renal impairment of multiple sites without tophus (Acute 06/05/15) Essential hypertension (Acute 07/09/16) White coat augmentation neg stress echo 07/14 Glaucoma (Acute) 03/12/15; OPTICAL EXPRESSIONS Obesity (Acute) Obstructive sleep apnea syndrome (Acute) 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 Hyperlipidemia (Acute 08/04/12) 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 BELLO [facility] Family History Mother No problems noted. Father Neoplasm Sister Heart disease Stroke Grandfather No problems noted. Grandfather Heart disease Grandmother No problems noted. Grandmother Personal history of malignant neoplasm Sister No problems noted. Sister No problems noted. Brother Neoplasm Brother No problems noted. Brother No problems noted. Brother No problems noted. Brother No problems noted. Son No problems noted. Social History Smoking/Tobacco Use Status: Former Tobacco Use tobacco type: cigarettes Quit Date: 03/30/09 Tobacco: How many years used: 40 Second Hand Exposure: Yes Smoking risk assessment performed?: Yes Alcohol Intake: former Drug use: Never Substance use type: does not use Household members: none Housing: house Do you need help understanding health information?: Rarely Pets and animals: No Sexually active: Yes Do you think of yourself as: straight/heterosexual Current gender identity: male What is your relationship status?: How often do you talk on the phone with friends or family?: three or more times per week How often do you get together with friends or relatives?: three or more times per week How often do you attend tenriism or congregational services?: decline to answer Do you belong to any clubs or organized social groups?: no Panel score (0-1 are the most socially isolated patients): 1 What type of physical activity do you participate in: walking Duration: 15-30 minutes/day Frequency: 3-4 times per week Stephani/Pentecostalism: None Special stephani needs: No Seatbelt use: sometimes Helmet use: No Drive intox or ride w/intox catering 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
[2023-10-11 16:14] LABS: Abs Immature Grans 0.02 10^3/uL (0.0-0.06); Absolute Basophil Count 0.04 10^3/uL (0.0-0.2); Absolute Eosinophil Count 0.08 10^3/uL (0.0-0.7); Absolute Monocyte Count 0.81 10^3/uL (0.1-0.8); Absolute Neutrophil Count 5.37 10^3/uL (1.2-6.7); Basophils % 0.4 %; Eosinophils % 0.9 %; HCT 44.3 % (40.0-50.0); HGB 15.3 g/dL (13.5-17.5); Immature Grans % 0.2 %; Lymphocytes % 29.9 %; MCH 32.3 pg (27.0-33.0); MCHC 34.5 % (32.0-36.0); MCV 94 fL (80-95); Neutrophils % 59.6 %; Platelet Count 183 10^3/uL (130-400); RBC 4.74 10^6/uL (4.36-5.78); RDW-SD 41.6 fL; WBC 9.02 10^3/uL (4.4-10.8)
[2023-10-11 16:28] LABS: INR 1.1 (0.9-1.1); PTT Activated 24.2 sec (23.6-32.8); Prothrombin Time 10.6 sec (9.1-11.1)
[2023-10-11 17:08] LABS: ALT 14 U/L (16-63); AST 12 U/L (15-37); Albumin 3.1 g/dL (3.4-5.0); Alkaline Phosphatase 62 U/L (46-116); Anion Gap 9.7 mmol/L (3-11); BUN 26 mg/dL (7-18); Bilirubin, Total 0.55 mg/dL (0.2-1.0); CO2 24.3 mmol/L (21.0-32.0); CREATININE 2.5 mg/dL (0.70-1.30); Calcium 8.6 mg/dL (8.5-10.1); Chloride 105 mmol/L (98-107); Estimated GFR 25.02 (mL/min/1.73m2); Glucose 160 mg/dL (74-106); Lipase 49 U/L (16-77); Magnesium 1.1 mg/dL (1.8-2.4); Potassium 3.8 mmol/L (3.5-5.1); Sodium 139 mmol/L (136-145); Total Protein 6.5 g/dL (6.4-8.2); Troponin I < 50 ng/L (< or =60)
--- NOTE | 2023-10-11 17:13 | DI.VRAD_ITS ---
PROCEDURE INFORMATION: Exam: XR Chest Exam date and time: 10/11/2023 4:18 PM Age: 83 years old Clinical indication: Other: Unspecified; Patient HX: Chest pain TECHNIQUE: Imaging protocol: Radiologic exam of the chest. Views: 1 view. Other technique: Portable exam. COMPARISON: CR XR PORTABLE CHEST AP 12/17/2022 11:24 AM FINDINGS: Lungs: Unremarkable. No consolidation. Pleural spaces: Unremarkable. No pleural effusion. No pneumothorax. Heart/Mediastinum: Unremarkable. No cardiomegaly. Bones/joints: Unremarkable. IMPRESSION: No evidence for acute abnormality in the chest. Dictated and Authenticated by: Luann Sánchez MD. Ordering:ALEC Zamora MD
[2023-10-11] MEDS: Magnesium Oxide 400 MG TAB 800 MG PO (17:45)
== END 2023-10-11 17:50 | disposition home or self-care (01) ==
PROVIDERS: Emergency Provider Emergency Medicine; PCP Family Medicine
DX: R07.9 Chest pain, unspecified (principal); E83.42 Hypomagnesemia; I71.40 Abdominal aortic aneurysm, without rupture, unspecified; I45.2 Bifascicular block; I12.9 Hypertensive chronic kidney disease with stage 1 through stage 4 chronic kidney disease, or unspecified chronic kidney disease; E11.22 Type 2 diabetes mellitus with diabetic chronic kidney disease; N18.30 Chronic kidney disease, stage 3 unspecified; E78.5 Hyperlipidemia, unspecified; Z79.82 Long term (current) use of aspirin; Z87.891 Personal history of nicotine dependence
CPT/HCPCS: 36415; 80053; 83690; 93005; 99283; 71045; 83735; 84484; 85025; 85610; 85730; 93010

== ENCOUNTER 2024-06-18 07:53 | Emergency (ER) | payer MEDICARE, SELFPAY ==
[2024-06-18 07:59] VITALS: BP 197/99; PULSE 78; RESP 14; TEMP 36.6; O2SAT 98
--- NOTE | 2024-06-18 08:15 | DI.CT_ITS ---
Exam(s) CT ABDOMEN PELVIS WO EXAM: CT ABDOMEN PELVIS WO CLINICAL HISTORY: recently reduced umbilical hernia, pain in area. TECHNIQUE: Imaging Protocol: Axial computed tomography images with coronal and sagittal reformatted images were created and reviewed. Oral: yes / no COMPARISON: CT CT ABDOMEN PELVIS WO from 06/12/2023 FINDINGS: Lung Bases: No acute findings. Liver: Normal density. No suspicious mass. Gallbladder and biliary tract: There are few small stones in the dependent portion of the gallbladder . No biliary dilation. Pancreas: Normal density. No abnormal calcifications or inflammatory process. Spleen: Normal. Kidneys: Severe right renal cortical thinning and hydronephrosis, stable from prior. No radiodense s tones. No obstructive uropathy. No suspicious masses seen. Adrenal glands: Stable right edge adrenal adenoma. Lymph nodes: Within normal limits. Vasculature: Abdominal aorta non-dilated. Of the left common iliac artery is dilated to 2.8 cm. The right measures 2.3 cm. Soft tissues/bowel: 2 adjacent upper midline anterior abdominal wall hernias the containing loops of bowel. The more superior hernia appears nonobstructed. The more inferior hernia appears obstructing with some decreased diameter of the distal small bowel mild dilatation proximally. Moderate stool i s present in the colon. There is mild colonic diverticulosis. The appendix appears mildly dilated h owever there is no surrounding inflammation. There is an appendicolith which was present previously. Bladder: No wall thickening. No mass or calculi. Peritoneal cavity: No ascites. No focal collection. No mesenteric inflammatory response. Reproductive organs: Enlarged prostate. Bones: Unremarkable for age. IMPRESSION: Two supraumbilical abdominal wall hernias, the inferior of which appears to the partially obstructin g small bowel. The appendix is mildly dilated but shows an appendicolith however there is no abnormal stranding in the fat. RADIATION DOSE DELIVERED: Total DLP DATA REPOSITORY: All CT scans at this facility are submitted to the National Radiology Data Registry (NRDR) Dose Index Registry (DIR) with the [employer] (A[employer]). RADIATION OPTIMIZATION: All CT scans at this facility use at least one of these dose optimization te chniques: automated exposure control; mA and/or kV adjustment per patient size (includes targeted exa ms where dose is matched to clinical indication); or iterative reconstruction.
--- NOTE | 2024-06-18 08:34 | W.ED.GENAD ---
Discharge Plan Disposition Patient Disposition: Home Condition: Good Discharge Details Clinical Impression: Incisional hernia Primary Care Provider: Sander Contreras ED Provider: Rigoberto Orantes Home Meds and New Rx's Prescriptions: No Action terazosin 5 mg capsule 5 mg PO HS Qty: 90 3RF aspirin [Aspirin Low-Strength] 81 MG tablet,chewable 81 mg PO DAILY LANCETS 1 EACH EACH 1 ea Miscellaneous QID Qty: 400 Rx Instructions: DX: 250.0 latanoprost [Xalatan] 0.005 % drops 1 drp OU HS Qty: 7.5 6RF (DME) FreeStyle Lite Strips Strip 1 ea Miscellaneous DAILY Qty: 100 4RF Rx Instructions: DX E11.9 Test once/day atenolol 50 mg tablet 25 mg PO BID Qty: 90 3RF Patient Comments: recent change to lower dose folic acid 1 mg tablet 1 mg PO DAILY Qty: 90 3RF atorvastatin 20 mg tablet 20 mg PO DAILY Qty: 90 3RF Patient Comments: TAKE ONE TABLET BY MOUTH EVERY DAY omeprazole 20 mg capsule,delayed release(DR/EC) 20 mg PO .qod Qty: 45 3RF Patient Comments: reduce to qod brimonidine 0.2 % drops 1 drp ophthalmic (eye) BID Patient Comments: 06/01/24-rx'd by [facility] Rx Instructions: administer approximately 8 hours apart moxifloxacin 0.5 % drops, viscous 1 drp ophthalmic (eye) QID Patient Comments: 06/01/34-[facility]pps Rx Instructions: 1 gtt L eye QID until gone/pps prednisolone acetate 1 % drops,suspension 1 drp ophthalmic (eye) QID Patient Comments: 06/01/24-Rx'd by [facility] after surgery/pps Rx Instructions: 1 gtt L eye QID amlodipine 5 mg tablet 5 mg PO DAILY lisinopril 10 mg tablet 20 mg PO DAILY pravastatin 40 mg tablet 40 mg PO QHS dorzolamide-timolol 22.3-6.8 mg/mL drops 1 drp ophthalmic (eye) BID Patient Comments: INSTILL ONE DROP IN EACH EYE TWO TIMES A DAY Rx Instructions: 1 drop to each eye acetaminophen 500 mg capsule 500 mg PO Q6H PRN clonazepam [Klonopin] 0.5 mg tablet 0.5 mg PO QHS Rx Instructions: administer 30 minutes before bedtime cyanocobalamin (vitamin B-12) 500 mcg tablet 500 mcg PO DAILY magnesium oxide [MagOx] 400 mg (241.3 mg magnesium) tablet 400 mg PO DAILY sildenafil [Viagra] 50 mg tablet 50 mg PO ONCE Rx Instructions: administer 30 minutes to 4 hours before activity Discharge Instructions Instructions: Abdominal wall hernias Additional Instructions: At this time your hernia has been reduced. Please wear an abdominal binder to help keep the hernia in. Please keep your stool soft. If your hernia does come back out and it turns red or causes significant or severe pain, please return immediately. You will likely require further outpatient surgical intervention to correct these hernias as we discussed together and as you discussed with Dr. Rodriguez. If you notice any worsening of your symptoms, or any new symptoms such as vomiting, diarrhea, fever, chills, shortness of breath, chest pain, numbness, weakness, or fainting , please return immediately to the emergency department for reevaluation. Please follow up with your primary care provider as soon as possible for reassessment and reevaluation. As always, it was a pleasure participating in your medical care today. Referrals: Sander Contreras MD [Primary Care Provider] - Discharge Data Discharge Date/Time-TO BE ENTERED AT DEPARTURE: 06/18/24 11:16 HPI General Date/Time Provider Initiated Documentation: 06/18/24 08:17. HPI Narrative: 83-year-old male with past medical history of abdominal aortic aneurysm with partial rupture, chronic kidney disease, diabetes, hypertension, high cholesterol, post AAA incisional hernia, who presents today for evaluation of his hernia. Patient states that last night the hernia pushed out became hard firm and tender. He has had no vomiting. His stools have remained regularly soft. He denies fever or chills. He denies any tearing or ripping sensation. No other complaints at this time. He was unable to push the hernia back in. Related Data Home Medications ?Medication ?Instructions ?Recorded ?Confirmed Lancets 1 ea miscellaneous QID #400 ea 07/15/12 05/19/24 aspirin 81 mg chewable tablet 81 mg PO DAILY 07/15/12 06/18/24 (Aspirin Low-Strength) dorzolamide 22.3 mg-timolol 6.8 1 drp ophthalmic (eye) BID 12/17/22 06/18/24 mg/mL eye drops latanoprost 0.005 % eye drops 1 drp OU HS #7.5 mL 05/14/23 06/18/24 (Xalatan) blood sugar diagnostic (FreeStyle #100 strips 06/06/23 06/18/24 Lite Strips) acetaminophen 500 mg capsule 500 mg PO Q6H PRN 08/13/23 06/18/24 clonazepam 0.5 mg tablet (Klonopin) 0.5 mg PO QHS 08/13/23 06/18/24 cyanocobalamin (vitamin B-12) 500 500 mcg PO DAILY 08/13/23 06/18/24 mcg tablet magnesium oxide 400 mg (241.3 mg 400 mg PO DAILY 08/13/23 06/18/24 magnesium) tablet (MagOx) sildenafil 50 mg tablet (Viagra) 50 mg PO ONCE 08/13/23 06/18/24 atenolol 50 mg tablet 25 mg (1/2 x 50 mg) PO BID #90 tabs 08/29/23 06/18/24 folic acid 1 mg tablet 1 mg PO DAILY #90 tabs 09/26/23 06/18/24 atorvastatin 20 mg tablet 20 mg PO DAILY #90 tabs 10/05/23 06/18/24 terazosin 5 mg capsule 5 mg PO HS #90 caps 10/13/23 06/18/24 omeprazole 20 mg capsule,delayed 20 mg PO .qod #45 caps 03/01/24 06/18/24 release brimonidine 0.2 % eye drops 1 drp ophthalmic (eye) BID 06/01/24 06/18/24 moxifloxacin 0.5 % viscous eye 1 drp ophthalmic (eye) QID 06/01/24 06/18/24 drops prednisolone acetate 1 % eye 1 drp ophthalmic (eye) QID 06/01/24 06/18/24 drops,suspension amlodipine 5 mg tablet 5 mg PO DAILY 06/07/24 06/18/24 lisinopril 10 mg tablet 20 mg PO DAILY 06/07/24 06/18/24 pravastatin 40 mg tablet 40 mg PO QHS 06/07/24 Previous Rx's ?Medication ?Instructions ?Recorded latanoprost 0.005 % eye drops 1 drp OU HS #7.5 mL 05/14/23 (Xalatan) blood sugar diagnostic (FreeStyle #100 strips 06/06/23 Lite Strips) atenolol 50 mg tablet 25 mg (1/2 x 50 mg) PO BID #90 tabs 08/29/23 folic acid 1 mg tablet 1 mg PO DAILY #90 tabs 09/26/23 atorvastatin 20 mg tablet 20 mg PO DAILY #90 tabs 10/05/23 terazosin 5 mg capsule 5 mg PO HS #90 caps 10/13/23 omeprazole 20 mg capsule,delayed 20 mg PO .qod #45 caps 03/01/24 release Allergies Allergy/AdvReac Type Severity Reaction Status Date / Time ciprofloxacin (From Cipro) AdvReac Intermediate Dizziness/L Verified 06/18/24 08:07 ighthead sulfamethoxazole (From AdvReac Intermediate malaise Verified 06/18/24 08:07 Bactrim) trimethoprim (From Bactrim) AdvReac Intermediate malaise Verified 06/18/24 08:07 IV contrask Allergy Intermediate renal Uncoded 06/18/24 08:07 impairment General Stated Complaint: Abd Prob SUSAN: 3 Exam Narrative Exam Narrative: 1.Const: Well-nourished, Well-developed, appearing stated age 2.Eyes: PERRL, no conjunctival injection, and symmetrical lids. 3.ENT: Atraumatic external nose and ears. Moist MM. Neck: Symmetric, trachea midline, No thyromegaly. 4.CVS: +S1/S2, Peripheral pulses 2+ and equal in all extremities. Brisk capillary refill in all extremities. 5.RESP: Unlabored respiratory effort. Clear to auscultation bilaterally. No wheezes rales or rhonchi 6.GI: Soft, Nontende. Incisional site hernia is present. It is firm and hard. No redness or warmth though. No pulsatile abdominal mass. 7.MSK: Normocephalic/Atraumatic, Extremities w/o deformity or ttp No cyanosis or clubbing, Normal movement of all extremities 8.Skin: Warm, Dry. No rashes or lesions. 9.Neuro: machine plug shaper II-XII grossly intact. Sensation grossly intact, no focal neurologic deficits. 10.Psych: (AAO) x3. Appropriate mood and affect Course Vital Signs Vital signs: Vital Signs Temperature 36.6 C 03/22/25 07:59 Pulse 78 06/18/24 07:59 Respiratory Rate 14 06/18/24 07:59 Blood Pressure 197/99 H 06/18/24 07:59 Pulse Oximetry 98 06/18/24 07:59 Temperature 36.6 C 06/18/24 07:59 Temperature Source Oral 06/18/24 07:59 Pulse 78 06/18/24 07:59 Respiratory Rate 14 06/18/24 07:59 Blood Pressure 197/99 H 06/18/24 07:59 Blood Pressure Position Sitting 06/18/24 07:59 Pulse Oximetry 98 06/18/24 07:59 Oxygen Delivery Method Room Air 06/18/24 07:59 Oxygen Flow Rate 0 06/18/24 07:59 Pain Level 4 06/18/24 07:59 Comment Pain with palp. 06/18/24 07:59 Medical Decision Making 83-year-old male with past medical history of abdominal aortic aneurysm with partial rupture, chronic kidney disease, diabetes, hypertension, high cholesterol, post AAA incisional hernia, who presents today for evaluation of his hernia. Patient states that last night the hernia pushed out became hard firm and tender. He has had no vomiting. His stools have remained regularly soft. He denies fever or chills. He denies any tearing or ripping sensation. No other complaints at this time. He was unable to push the hernia back in. Physical exam demonstrates a firm hard incisional site hernia in the mid abdominal wall. No redness or warmth to suggest strangulation. I did lay the patient down in Trendelenburg position, and applied gentle gradual pressure to the hernia. Over the course of about a minute and a half it slowly gradually and gently reduced without complication. Postreduction hernia hole site is roughly 3 cm. Hernia is then able to move freely in and out of it. Patient admits to some mild soreness after reduction. No severe pain. Patient was very concerned about his AAA, and wanted the size to be checked. He refuses contrast, and this is secondary to his renal impairment. I did make it clear to him that we would not be able to evaluate for acute bleeds without the contrast, and he understands. He would still like to move forward with the CT scan. Out of an abundance of precaution and respecting patient's wishes we will get CT scan to evaluate for obstruction, AAA size alteration, and reassess. No other signs of acute life-threatening etiology otherwise at this time. Patient looks notably clinically well. 10:30 AM Patient continues to look notably well, and has asked multiple times to be discharged. CT scan results have returned, and demonstrates ventral hernias with her radiology evidence of small bowel obstruction, also masslike soft tissue density in the posterior bladder likely the prostate, but the patient is able to urinate well. Despite the reading for small bowel obstruction, patient has not had any vomiting, his abdominal pain has resolved after reduction of the hernia, and he has had no diarrhea or other concerning components. Bowel sounds are present. Hernia continues to be easily reducible. Symptoms do not appear clinically consistent with obstructing hernia at all. I did contact Dr. Rodriguez of surgery, he came and evaluated the patient himself, he to agrees that the patient does not show any signs or symptoms that are clinically consistent with obstruction. He does recommend close outpatient follow-up with his primary care provider. If the hernia does recur and cause strangulation and incarceration, the patient would need potential emergent surgery but there is no clinical evidence of that whatsoever at this time. Dr. Rodriguez does recommend outpatient follow-up with [facility] surgical consultants for potential outpatient nonemergent robotic surgery. He has recommended close follow-up with his PCP in regards to this for further discussion. At this time patient continues to asked to go home, and as he demonstrates no evidence of an acute surgical pathology or life-threatening etiology I do feel that this is reasonable. Discussed red flags for which to return. I have extensively reviewed the treatment plan and discharge instructions with the patient. I have addressed all patient concerns at this time. The patient was made aware of what symptoms to monitor for that would warrant a return to the emergency department. Discussed the plan with the patient, they demonstrate verbal understanding and agreement with our assessment and plan at this time. The documentation in this chart was dictated using [employer] dictation software. Please excuse any dictation errors. FINDINGS: Limitations: No intravenous contrast was administered, limiting evaluation for some pathologies. Diaphragm: Elevated left hemidiaphragm. Liver: No focal hepatic lesion identified, within the limitations of a noncontrast examination. Gallbladder and biliary ducts: Cholelithiasis. Pancreas: Pancreatic calcifications suggest cystic foci of chronic pancreatitis. Correlate clinically. Spleen: No splenomegaly. Adrenal glands: Indeterminate right adrenal mass. Consider follow-up. Kidneys and ureters: Cortical thinning in the right kidney. Bilateral renal cysts. Right hydroureteronephrosis with abrupt narrowing of the ureter in the upper pelvis, also seen previously. No ureteral calculi seen this time. Punctate left renal calcification may represent small nonobstructing calculus or renal vascular calcification. Stomach and bowel: Moderate gastric distension. Multiple dilated air and fluid-filled small bowel loops are identified and collapsed loops are also seen. Findings are consistent with small bowel obstruction. Transition point appears to be in a ventral hernia to the right of midline which contains small bowel loops. Superior to this is an additional ventral hernia containing a short segment of small bowel. Gas and fecal material in the colon, suggesting that obstruction may be early/partial or intermittent. Colonic diverticula noted. Appendix: No evidence of appendicitis. Intraperitoneal space: No free air. Vasculature: Arterial calcifications. 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 2.3 cm right common iliac artery aneurysm. Lymph nodes: No acute findings. Urinary bladder: The urinary bladder appears mildly thickened but is incompletely distended. Reproductive: Enlarged prostate indenting the posterior bladder. Masslike soft tissue density in the posterior bladder, contiguous with the prostate. Bones/joints: No pertinent acute abnormality seen. Soft tissues: See Stomach and bowel finding. IMPRESSION: 1. Ventral hernias with evidence for small bowel obstruction as described above. 2. Masslike soft tissue density in the posterior bladder, contiguous with the prostate. This may reflect prostatic enlargement but cannot exclude prostate or bladder neoplasm. Follow-up as clinically warranted. 3. Right hydroureteronephrosis. No obstructing calculus identified at this time. Cannot exclude obstruction by a non radiopaque lesion such as stricture or neoplasm. Follow-up as clinically warranted. 4. Cholelithiasis. 5. Additional findings as above. 6. THIS REPORT CONTAINS FINDINGS THAT MAY BE CRITICAL TO PATIENT CARE. The findings were verbally communicated via telephone conference with RIGOBERTO ORANTES at 9:33 AM EST on 06/18/2024. The findings were acknowledged and understood. Thank you for allowing us to participate in the care of your patient. Dictated and Authenticated by: Blanca Galdamze MD 06/18/2024 9:34 AM Eastern Time ([place] & C Quality:SDOH Health Related Social Needs: No Data to Display PFSH All Active Problems (Updated 06/18/24 @ 10:51 by Rigoberto Orantes DO) Incisional hernia (Acute) Primary open angle glaucoma (Acute) Stricture of ureter (Acute) Malignant neoplasm of urinary organ (Acute) Dizziness (Acute) Side effect of medication (Acute) Constipation (Acute) UTI (urinary tract infection) (Acute) w/ degree of prostatitis Chronic kidney disease (CKD) (Chronic) Block, bifascicular (Acute) Primary open-angle glaucoma, left eye, moderate stage (Chronic) Chest pain (Acute) Actinic keratoses (Acute 06/24/17) Anxiety (Acute) Aortic aneurysm and dissection (Acute) AAA ruptured --multiple transfusions; repair, open repair about 2009 Benign prostatic hyperplasia (Acute) CKD (chronic kidney disease) stage 3, GFR 30-59 ml/min (Acute 07/30/16) due to ischemia during ruptured AAA 2021, stage 4 Chronic gout due to renal impairment of multiple sites without tophus (Acute 06/05/15) Essential hypertension (Acute 07/09/16) White coat augmentation neg stress echo 07/14 Glaucoma (Acute) 03/12/15; OPTICAL EXPRESSIONS Obesity (Acute) Obstructive sleep apnea syndrome (Acute) 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 Hyperlipidemia (Acute 08/04/12) 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 BELLO @ [facility] Family History Mother No problems noted. Father Neoplasm Sister Heart disease Stroke Grandfather No problems noted. Grandfather Heart disease Grandmother No problems noted. Grandmother Personal history of malignant neoplasm Sister No problems noted. Sister No problems noted. Brother Neoplasm Brother No problems noted. Brother No problems noted. Brother No problems noted. Brother No problems noted. Son No problems noted. Social History Smoking/Tobacco Use Status: Former Tobacco Use tobacco type: cigarettes Quit Date: 03/30/09 Tobacco: How many years used: 40 Second Hand Exposure: Yes Smoking risk assessment performed?: Yes Alcohol Intake: former Drug use: Never Substance use type: does not use Household members: none Housing: house Do you need help understanding health information?: Rarely Pets and animals: No Sexually active: Yes Do you think of yourself as: straight/heterosexual Current gender identity: male What is your relationship status?: How often do you talk on the phone with friends or family?: three or more times per week How often do you get together with friends or relatives?: three or more times per week How often do you attend religion or mormonism services?: decline to answer Do you belong to any clubs or organized social groups?: no Panel score (0-1 are the most socially isolated patients): 1 What type of physical activity do you participate in: walking Duration: 15-30 minutes/day Frequency: 3-4 times per week Stephani/Methodist: None Special stephani needs: No Seatbelt use: sometimes Helmet use: No Drive intox or ride w/intox rolloff 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
--- NOTE | 2024-06-18 09:34 | DI.VRAD_ITS ---
PROCEDURE INFORMATION: Exam: CT Abdomen And Pelvis Without Contrast Exam date and time: 06/18/2024 8:51 AM Age: 83 years old Clinical indication: Other: Recently reduced umbilical hernia pain in area TECHNIQUE: Imaging protocol: Computed tomography of the abdomen and pelvis without contrast. Radiation optimization: All CT scans at this facility use at least one of these dose optimization techniques: automated exposure control; mA and/or kV adjustment per patient size (includes targeted exams where dose is matched to clinical indication); or iterative reconstruction. COMPARISON: CT ABDOMEN PELVIS WO 06/12/2023 8:30 AM FINDINGS: Limitations: No intravenous contrast was administered, limiting evaluation for some pathologies. Diaphragm: Elevated left hemidiaphragm. Liver: No focal hepatic lesion identified, within the limitations of a noncontrast examination. Gallbladder and biliary ducts: Cholelithiasis. Pancreas: Pancreatic calcifications suggest cystic foci of chronic pancreatitis. Correlate clinically. Spleen: No splenomegaly. Adrenal glands: Indeterminate right adrenal mass. Consider follow-up. Kidneys and ureters: Cortical thinning in the right kidney. Bilateral renal cysts. Right hydroureteronephrosis with abrupt narrowing of the ureter in the upper pelvis, also seen previously. No ureteral calculi seen this time. Punctate left renal calcification may represent small nonobstructing calculus or renal vascular calcification. Stomach and bowel: Moderate gastric distension. Multiple dilated air and fluid-filled small bowel loops are identified and collapsed loops are also seen. Findings are consistent with small bowel obstruction. Transition point appears to be in a ventral hernia to the right of midline which contains small bowel loops. Superior to this is an additional ventral hernia containing a short segment of small bowel. Gas and fecal material in the colon, suggesting that obstruction may be early/partial or intermittent. Colonic diverticula noted. Appendix: No evidence of appendicitis. Intraperitoneal space: No free air. Vasculature: Arterial calcifications. 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 2.3 cm right common iliac artery aneurysm. Lymph nodes: No acute findings. Urinary bladder: The urinary bladder appears mildly thickened but is incompletely distended. Reproductive: Enlarged prostate indenting the posterior bladder. Masslike soft tissue density in the posterior bladder, contiguous with the prostate. Bones/joints: No pertinent acute abnormality seen. Soft tissues: See Stomach and bowel finding. IMPRESSION: 1. Ventral hernias with evidence for small bowel obstruction as described above. 2. Masslike soft tissue density in the posterior bladder, contiguous with the prostate. This may reflect prostatic enlargement but cannot exclude prostate or bladder neoplasm. Follow-up as clinically warranted. 3. Right hydroureteronephrosis. No obstructing calculus identified at this time. Cannot exclude obstruction by a non radiopaque lesion such as stricture or neoplasm. Follow-up as clinically warranted. 4. Cholelithiasis. 5. Additional findings as above. 6. THIS REPORT CONTAINS FINDINGS THAT MAY BE CRITICAL TO PATIENT CARE. The findings were verbally communicated via telephone conference with RHIANNA ORANTES at 9:33 AM EST on 06/18/2024. The findings were acknowledged and understood. Dictated and Authenticated by: Blanca Galdamez MD. Orderin Tess Franklin MD
--- NOTE | 2024-06-18 09:45 | W.SURGCON ---
Date of service: 06/18/24 Time of Service: 09:45 Assessment and Plan Assessment and plan (1) Incisional hernia: Status: Acute Assessment and plan: 83-year-old man who has multiple, reducible incisional ventral hernias on the abdominal wall. He probably did have some bowel obstruction developing prior to having the hernia reduced based off of the story. Now that it has been reduced, I do not have concerns about a bowel obstruction. Certainly the hernia could come back and/or re-incarcerated and re-obstruct. The patient has had the hernia and known about it for years, even decades. Unfortunately, it is starting to become a problem and it is likely to be a problem again in the near future. His hemoglobin A1c last?checked was somewhat elevated. He is not morbidly obese but does have a rotund abdomen. I reviewed his CT scan carefully. He has at least 3 definitive, separate defects of the abdominal wall. This is a complex hernia situation and requires complex abdominal wall reconstruction for best?management. In this particular case, a robotic abdominal wall reconstruction would be the best and most modern approach to this kind of hernia situation which is likely to be [place] cheese defects on the inside. A minimally invasive completely pre-peritoneal, large?surface area mesh would best serve the patient for definitive repair and long?term durability. He can be discharged home with an abdominal binder and I gave him explicit instructions on how to reduce the hernia himself if it pops back out and starts being uncomfortable. I recommended that he follow-up with a robotic abdominal wall reconstruction expert at either [facility], [facility] or a specialist in [place] where he can get the best surgery done for this condition. He needs his hemoglobin A1c under better control prior to surgery and should try to lose a little bit of weight prior to surgery. Outside of an emergency indication for hernia repair, this should NOT be done open if at all possible, to reduce the morbidity and mortality of a large operation which this would require. He knows to call me if there are any other concerns or questions or if he needs further follow-up about this. History of Present Illness Narrative: The patient is an 83-year-old man who has had ventral hernias in his abdominal wall since an open exploration for ruptured AAA about 20 years ago. For the first time, he says yesterday it started becoming sore and got stuck out and so he came in to be evaluated. The emergency department physician was able to reduce the hernia. He says that has never happened before. A CT scan was done at the patient's request to ensure that the aneurysm was not causing his symptoms. That showed the possibility of a bowel obstruction and small bowel at/near the ventral hernia location. At the bedside the patient denies any cramping abdominal pain and denies nausea or vomiting. He has been having bowel function. He has no subjective pain but when he feels the area where the hernia was reduced he says that is a little sore to touch. He has not had any other surgeries. PFSH All Active Problems (Updated 06/18/24 @ 10:51 by Rigoberto Pulido DO) Incisional hernia (Acute) Primary open angle glaucoma (Acute) Stricture of ureter (Acute) Malignant neoplasm of urinary organ (Acute) Dizziness (Acute) Side effect of medication (Acute) Constipation (Acute) UTI (urinary tract infection) (Acute) w/ degree of prostatitis Chronic kidney disease (CKD) (Chronic) Block, bifascicular (Acute) Primary open-angle glaucoma, left eye, moderate stage (Chronic) Chest pain (Acute) Actinic keratoses (Acute 06/24/17) Anxiety (Acute) Aortic aneurysm and dissection (Acute) AAA ruptured --multiple transfusions; repair, open repair about 2009 Benign prostatic hyperplasia (Acute) CKD (chronic kidney disease) stage 3, GFR 30-59 ml/min (Acute 07/30/16) due to ischemia during ruptured AAA 2021, stage 4 Chronic gout due to renal impairment of multiple sites without tophus (Acute 06/05/15) Essential hypertension (Acute 07/09/16) White coat augmentation neg stress echo 07/14 Glaucoma (Acute) 03/12/15; OPTICAL EXPRESSIONS Obesity (Acute) Obstructive sleep apnea syndrome (Acute) 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 Hyperlipidemia (Acute 08/04/12) 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 BELLO @ [facility] Family History Mother No problems noted. Father Neoplasm Sister Heart disease Stroke Grandfather No problems noted. Grandfather Heart disease Grandmother No problems noted. Grandmother Personal history of malignant neoplasm Sister No problems noted. Sister No problems noted. Brother Neoplasm Brother No problems noted. Brother No problems noted. Brother No problems noted. Brother No problems noted. Son No problems noted. Social History Smoking/Tobacco Use Status: Former Tobacco Use tobacco type: cigarettes Quit Date: 03/30/09 Tobacco: How many years used: 40 Second Hand Exposure: Yes Smoking risk assessment performed?: Yes Alcohol Intake: former Drug use: Never Substance use type: does not use Household members: none Housing: house Do you need help understanding health information?: Rarely Pets and animals: No Sexually active: Yes Do you think of yourself as: straight/heterosexual Current gender identity: male What is your relationship status?: How often do you talk on the phone with friends or family?: three or more times per week How often do you get together with friends or relatives?: three or more times per week How often do you attend restoration or gnosticist services?: decline to answer Do you belong to any clubs or organized social groups?: no Panel score (0-1 are the most socially isolated patients): 1 What type of physical activity do you participate in: walking Duration: 15-30 minutes/day Frequency: 3-4 times per week Stephani/Yarsanism: None Special stephani needs: No Seatbelt use: sometimes Helmet use: No Drive intox or ride w/intox entry level truck 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 Exam Narrative Exam Narrative: Gen: Non-toxic, comfortable and interactive Neuro: Alert and oriented x3 Psych: Good mood and affect. Good insight and understanding into condition. Chest: Non-labored breathing, no wheezing, no visible shortness of breath. Heart: Regular Abdomen: Soft, nondistended, grossly nontender. Well?healed midline laparotomy incision/scar goes from xiphoid to pubis. He has a very soft, reducible and nontender ventral hernia with 2 separate palpable defects. Results Last Vital Signs Temp 97.8 F 06/18/24 07:59 Pulse 78 06/18/24 07:59 Resp 14 06/18/24 07:59 BP 197/99 H 06/18/24 07:59 Pulse Ox 98 06/18/24 07:59
== END 2024-06-18 11:16 | disposition home or self-care (01) ==
PROVIDERS: Emergency Provider Student in an Organized Health Care Education/Training Program; PCP Family Medicine
DX: K42.9 Umbilical hernia without obstruction or gangrene (principal); E11.22 Type 2 diabetes mellitus with diabetic chronic kidney disease; I12.9 Hypertensive chronic kidney disease with stage 1 through stage 4 chronic kidney disease, or unspecified chronic kidney disease; N18.30 Chronic kidney disease, stage 3 unspecified; I71.40 Abdominal aortic aneurysm, without rupture, unspecified; E78.5 Hyperlipidemia, unspecified; Z79.82 Long term (current) use of aspirin; Z87.891 Personal history of nicotine dependence
CPT/HCPCS: 99284; 74176

== ENCOUNTER 2024-06-20 09:23 | Emergency (ER) | payer MEDICARE, SELFPAY ==
[2024-06-20 09:24] VITALS: BP 181/80; PULSE 68; RESP 17; TEMP 36.4; O2SAT 99
[2024-06-20 09:31] VITALS: BP 181/80; PULSE 68; RESP 17; TEMP 36.4; O2SAT 99
--- NOTE | 2024-06-20 09:59 | W.ED.GENAD ---
Discharge Plan Disposition Patient Disposition: Home Condition: Stable Discharge Details Clinical Impression: Abdominal hernia Primary Care Provider: Sander Contreras ED Provider: Flip Mcgee Home Meds and New Rx's Prescriptions: Continued terazosin 5 mg capsule 5 mg PO HS Qty: 90 3RF aspirin [Aspirin Low-Strength] 81 MG tablet,chewable 81 mg PO DAILY LANCETS 1 EACH EACH 1 ea Miscellaneous QID Qty: 400 Rx Instructions: DX: 250.0 latanoprost [Xalatan] 0.005 % drops 1 drp OU HS Qty: 7.5 6RF (DME) FreeStyle Lite Strips Strip 1 ea Miscellaneous DAILY Qty: 100 4RF Rx Instructions: DX E11.9 Test once/day atenolol 50 mg tablet 25 mg PO BID Qty: 90 3RF Patient Comments: recent change to lower dose folic acid 1 mg tablet 1 mg PO DAILY Qty: 90 3RF atorvastatin 20 mg tablet 20 mg PO DAILY Qty: 90 3RF Patient Comments: TAKE ONE TABLET BY MOUTH EVERY DAY omeprazole 20 mg capsule,delayed release(DR/EC) 20 mg PO .qod Qty: 45 3RF Patient Comments: reduce to qod brimonidine 0.2 % drops 1 drp ophthalmic (eye) BID Patient Comments: 06/01/24-rx'd by [facility] Rx Instructions: administer approximately 8 hours apart moxifloxacin 0.5 % drops, viscous 1 drp ophthalmic (eye) QID Patient Comments: 06/01/34-rx'd by [facility]/pps Rx Instructions: 1 gtt L eye QID until gone/pps prednisolone acetate 1 % drops,suspension 1 drp ophthalmic (eye) QID Patient Comments: 06/01/24-Rx'd by [facility] after surgery/pps Rx Instructions: 1 gtt L eye QID amlodipine 5 mg tablet 5 mg PO DAILY lisinopril 10 mg tablet 20 mg PO DAILY pravastatin 40 mg tablet 40 mg PO QHS dorzolamide-timolol 22.3-6.8 mg/mL drops 1 drp ophthalmic (eye) BID Patient Comments: INSTILL ONE DROP IN EACH EYE TWO TIMES A DAY Rx Instructions: 1 drop to each eye acetaminophen 500 mg capsule 500 mg PO Q6H PRN clonazepam [Klonopin] 0.5 mg tablet 0.5 mg PO QHS Rx Instructions: administer 30 minutes before bedtime cyanocobalamin (vitamin B-12) 500 mcg tablet 500 mcg PO DAILY magnesium oxide [MagOx] 400 mg (241.3 mg magnesium) tablet 400 mg PO DAILY sildenafil [Viagra] 50 mg tablet 50 mg PO ONCE Rx Instructions: administer 30 minutes to 4 hours before activity Discharge Instructions Instructions: Abdominal wall hernias, Using an abdominal binder Additional Instructions: Use your abdominal binder. Be sure to check the fit at least 3 times a day. See attached instructions on how to use abdominal binder. Please follow-up with general surgery as previously recommended. Please follow-up with your primary care physician. Return to the emergency department immediately for any worsening or new concerning symptoms. Referrals: Sander Contreras MD [Primary Care Provider] - [facility] General Date/Time Provider Initiated Documentation: 06/20/24 09:38. Limitations to Documentation: no limitations. Information obtained by: patient. HPI Narrative: HISTORY OF PRESENT ILLNESS 83-year-old male with incisional hernia, reduced in ED 2 days ago, instructed to wear abdominal binder. PMH: abdominal aortic aneurysm with partial rupture, CKD, diabetes, hypertension, hypercholesterolemia, post-AAA incisional hernia. Reports sensation of intestines protruding from hernia site and noticed non-painful bulge on one side of abdomen upon awakening, abdominal binder loose overnight, one side of abdomen more swollen. Experienced diarrhea yesterday, none today, no bowel movement today. Discontinued stool softener due to absence of bowel movements. Elevated BP today despite medication, monitors BP daily, last home reading not significantly high, BP tends to increase during doctor visits. Monitors blood sugar daily, mindful of diet and fluid intake. Patient was seen by surgical team in consultation on last ED visit and instructed to [place] [facility] [place] [facility] for follow-up care. Related Data Home Medications ?Medication ?Instructions ?Recorded ?Confirmed Lancets 1 ea miscellaneous QID #400 ea 07/15/12 06/20/24 aspirin 81 mg chewable tablet 81 mg PO DAILY 07/15/12 06/20/24 (Aspirin Low-Strength) dorzolamide 22.3 mg-timolol 6.8 1 drp ophthalmic (eye) BID 12/17/22 06/20/24 mg/mL eye drops latanoprost 0.005 % eye drops 1 drp OU HS #7.5 mL 05/14/23 06/20/24 (Xalatan) blood sugar diagnostic (FreeStyle #100 strips 06/06/23 06/20/24 Lite Strips) acetaminophen 500 mg capsule 500 mg PO Q6H PRN 08/13/23 06/20/24 clonazepam 0.5 mg tablet (Klonopin) 0.5 mg PO QHS 08/13/23 06/20/24 cyanocobalamin (vitamin B-12) 500 500 mcg PO DAILY 08/13/23 06/20/24 mcg tablet magnesium oxide 400 mg (241.3 mg 400 mg PO DAILY 08/13/23 06/20/24 magnesium) tablet (MagOx) sildenafil 50 mg tablet (Viagra) 50 mg PO ONCE 08/13/23 06/20/24 atenolol 50 mg tablet 25 mg (1/2 x 50 mg) PO BID #90 tabs 08/29/23 06/20/24 folic acid 1 mg tablet 1 mg PO DAILY #90 tabs 09/26/23 06/20/24 atorvastatin 20 mg tablet 20 mg PO DAILY #90 tabs 10/05/23 06/20/24 terazosin 5 mg capsule 5 mg PO HS #90 caps 10/13/23 06/20/24 omeprazole 20 mg capsule,delayed 20 mg PO .qod #45 caps 03/01/24 06/20/24 release brimonidine 0.2 % eye drops 1 drp ophthalmic (eye) BID 06/01/24 06/20/24 moxifloxacin 0.5 % viscous eye 1 drp ophthalmic (eye) QID 06/01/24 06/20/24 drops prednisolone acetate 1 % eye 1 drp ophthalmic (eye) QID 06/01/24 06/20/24 drops,suspension amlodipine 5 mg tablet 5 mg PO DAILY 06/07/24 06/20/24 lisinopril 10 mg tablet 20 mg PO DAILY 06/07/24 06/20/24 pravastatin 40 mg tablet 40 mg PO QHS 06/07/24 06/20/24 Previous Rx's ?Medication ?Instructions ?Recorded latanoprost 0.005 % eye drops 1 drp OU HS #7.5 mL 05/14/23 (Xalatan) blood sugar diagnostic (FreeStyle #100 strips 06/06/23 Lite Strips) atenolol 50 mg tablet 25 mg (1/2 x 50 mg) PO BID #90 tabs 08/29/23 folic acid 1 mg tablet 1 mg PO DAILY #90 tabs 09/26/23 atorvastatin 20 mg tablet 20 mg PO DAILY #90 tabs 10/05/23 terazosin 5 mg capsule 5 mg PO HS #90 caps 10/13/23 omeprazole 20 mg capsule,delayed 20 mg PO .qod #45 caps 03/01/24 release Allergies Allergy/AdvReac Type Severity Reaction Status Date / Time ciprofloxacin (From Cipro) AdvReac Intermediate Dizziness/L Verified 06/20/24 09:33 ighthead sulfamethoxazole (From AdvReac Intermediate malaise Verified 06/20/24 09:33 Bactrim) trimethoprim (From Bactrim) AdvReac Intermediate malaise Verified 06/20/24 09:33 IV contrask Allergy Intermediate renal Uncoded 06/20/24 09:33 impairment General Stated Complaint: Abd Prob SUSAN: 3 Review of Systems All systems reviewed & are unremarkable except as noted in HPI and below Constitutional Constitutional: Denies fever(s) Gastrointestinal Gastrointestinal: Denies abdominal pain Exam Const General: cooperative and no acute distress HENMO Mouth: moist mucous membranes Resp Auscultation: clear to auscultation bilaterally, no rales, no rhonchi and no wheezes Cardio Rate: regular rate and not tachycardic Rhythm: regular rhythm GI Palpation: soft, not firm, no guarding, no masses, not rigid and nontender Skin General skin exam: no rashes or lesions noted Neuro General: patient alert, patient awake, patient oriented x3 and tone normal Extrem General: no edema Course Vital Signs Vital signs: Vital Signs Temperature 36.4 C L 06/20/24 09:24 Pulse 68 06/20/24 09:24 Respiratory Rate 17 06/20/24 09:24 Blood Pressure 181/80 H 06/20/24 09:24 Pulse Oximetry 99 06/20/24 09:24 Temperature 36.4 C L 06/20/24 09:31 Temperature Source Oral 06/20/24 09:31 Pulse 68 06/20/24 09:31 Respiratory Rate 17 06/20/24 09:31 Blood Pressure 181/80 H 06/20/24 09:31 Blood Pressure Position Supine 06/20/24 09:31 Pulse Oximetry 99 06/20/24 09:31 Oxygen Delivery Method Room Air 06/20/24 09:31 Oxygen Flow Rate 0 06/20/24 09:31 Pain Level 0 06/20/24 09:32 Medical Decision Making ASSESSMENT AND PLAN Initial Assessment: 83-year-old male with concern for hernia, past medical history significant for abdominal aortic aneurysm with partial rupture, chronic kidney disease, diabetes, hypertension, hypercholesterolemia, post AAA incisional hernia. Vitals: hypertension 181/80, normal heart rate, normal respiratory rate, temperature 36.4, saturating 99% on room air. ED Course: - No palpable hernia, abdomen soft, no masses, no tenderness. - Swelling likely due to abdominal binder pressure. - Continue wearing binder, position high for support. - Nurse to assist with fitting. - Experienced diarrhea for a day, not currently. - Discontinued stool softener due to loose stools. - Resume stool softener at half dose every other day once stools normalize. - BP 151/80 mmHg, took medication before appointment. - Continue home BP monitoring and medication adherence. - Continue current diet and medication regimen. Final Assessment: No palpable hernia, swelling likely due to abdominal binder pressure. Diarrhea resolved, stool softener to be resumed at half dose every other day once stools normalize. Hypertension managed with medication adherence and home monitoring. Diabetes mellitus stable with current diet and medication regimen. Clinical Impression: - Abdominal wall incisional hernia, reduced - Soft tissue swelling of abdomen - Diarrhea - Hypertension Disposition: - Discharge MDM Components Evaluation: - Number of Differential Diagnoses or Management Options: Incisional hernia, Diarrhea, Hypertension, Diabetes mellitus - Amount and Complexity of Data Reviewed: Vitals, physical examination findings - Risk of Complication and Morbidity or Mortality: Moderate due to hypertension and diabetes mellitus This document was written with the assistance of [employer]wish. The patient consented to its use. Quality:SDCT Health Related Social Needs: No Data to Display PFSH All Active Problems (Updated 06/20/24 @ 09:59 by Flip Mcgee MD) Abdominal hernia (Acute) Incisional hernia (Acute) Primary open angle glaucoma (Acute) Stricture of ureter (Acute) Malignant neoplasm of urinary organ (Acute) Dizziness (Acute) Side effect of medication (Acute) Constipation (Acute) UTI (urinary tract infection) (Acute) w/ degree of prostatitis Chronic kidney disease (CKD) (Chronic) Block, bifascicular (Acute) Primary open-angle glaucoma, left eye, moderate stage (Chronic) Chest pain (Acute) Actinic keratoses (Acute 06/24/17) Anxiety (Acute) Aortic aneurysm and dissection (Acute) AAA ruptured --multiple transfusions; repair, open repair about 2009 Benign prostatic hyperplasia (Acute) CKD (chronic kidney disease) stage 3, GFR 30-59 ml/min (Acute 07/30/16) due to ischemia during ruptured AAA 2021, stage 4 Chronic gout due to renal impairment of multiple sites without tophus (Acute 06/05/15) Essential hypertension (Acute 07/09/16) White coat augmentation neg stress echo 07/14 Glaucoma (Acute) 03/12/15; OPTICAL EXPRESSIONS Obesity (Acute) Obstructive sleep apnea syndrome (Acute) 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 Hyperlipidemia (Acute 08/04/12) 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 BELLO @ [facility] Family History Mother No problems noted. Father Neoplasm Sister Heart disease Stroke Grandfather No problems noted. Grandfather Heart disease Grandmother No problems noted. Grandmother Personal history of malignant neoplasm Sister No problems noted. Sister No problems noted. Brother Neoplasm Brother No problems noted. Brother No problems noted. Brother No problems noted. Brother No problems noted. Son No problems noted. Social History Smoking/Tobacco Use Status: Former Tobacco Use tobacco type: cigarettes Quit Date: 03/30/09 Tobacco: How many years used: 40 Second Hand Exposure: Yes Smoking risk assessment performed?: Yes Alcohol Intake: former Drug use: Never Substance use type: does not use Household members: none Housing: house Do you need help understanding health information?: Rarely Pets and animals: No Sexually active: Yes Do you think of yourself as: straight/heterosexual Current gender identity: male What is your relationship status?: How often do you talk on the phone with friends or family?: three or more times per week How often do you get together with friends or relatives?: three or more times per week How often do you attend pentecostalism or buddhist services?: decline to answer Do you belong to any clubs or organized social groups?: no Panel score (0-1 are the most socially isolated patients): 1 What type of physical activity do you participate in: walking Duration: 15-30 minutes/day Frequency: 3-4 times per week Stephani/Anglican: None Special stephani needs: No Seatbelt use: sometimes Helmet use: No Drive intox or ride w/intox charter 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
== END 2024-06-20 10:18 | disposition home or self-care (01) ==
PROVIDERS: Emergency Provider Student in an Organized Health Care Education/Training Program; PCP Family Medicine
DX: K43.2 Incisional hernia without obstruction or gangrene (principal); E11.22 Type 2 diabetes mellitus with diabetic chronic kidney disease; I12.9 Hypertensive chronic kidney disease with stage 1 through stage 4 chronic kidney disease, or unspecified chronic kidney disease; N18.30 Chronic kidney disease, stage 3 unspecified; Z79.4 Long term (current) use of insulin; Z79.82 Long term (current) use of aspirin
CPT/HCPCS: 99283

== ENCOUNTER 2024-06-25 10:44 | Emergency (ER) | payer MEDICARE, SELFPAY ==
[2024-06-25 10:53] VITALS: BP 192/108; PULSE 60; RESP 20; TEMP 36.4; O2SAT 98
--- NOTE | 2024-06-25 11:11 | W.ED.GENAD ---
Discharge Plan Disposition Patient Disposition: Home Condition: Stable Discharge Details Clinical Impression: Incisional hernia of anterior abdominal wall without obstruction or gangrene, Essential hypertension Primary Care Provider: Sander Contreras ED Provider: Rossy Rubio Home Meds and New Rx's Prescriptions: No Action terazosin 5 mg capsule 5 mg PO HS Qty: 90 3RF latanoprost [Xalatan] 0.005 % drops 1 drp OU HS Qty: 7.5 6RF aspirin [Aspirin Low-Strength] 81 MG tablet,chewable 81 mg PO DAILY LANCETS 1 EACH EACH 1 ea Miscellaneous QID Qty: 400 Rx Instructions: DX: 250.0 (DME) FreeStyle Lite Strips Strip 1 ea Miscellaneous DAILY Qty: 100 4RF Rx Instructions: DX E11.9 Test once/day atenolol 50 mg tablet 25 mg PO BID Qty: 90 3RF Patient Comments: recent change to lower dose folic acid 1 mg tablet 1 mg PO DAILY Qty: 90 3RF atorvastatin 20 mg tablet 20 mg PO DAILY Qty: 90 3RF Patient Comments: TAKE ONE TABLET BY MOUTH EVERY DAY omeprazole 20 mg capsule,delayed release(DR/EC) 20 mg PO .qod Qty: 45 3RF Patient Comments: reduce to qod brimonidine 0.2 % drops 1 drp ophthalmic (eye) BID Patient Comments: 06/01/24-rx'd by [facility] Rx Instructions: administer approximately 8 hours apart moxifloxacin 0.5 % drops, viscous 1 drp ophthalmic (eye) QID Patient Comments: 06/01/34-rx'd by [facility]/pps Rx Instructions: 1 gtt L eye QID until gone/pps prednisolone acetate 1 % drops,suspension 1 drp ophthalmic (eye) QID Patient Comments: 06/01/24-Rx'd by [facility] after surgery/pps Rx Instructions: 1 gtt L eye QID amlodipine 5 mg tablet 5 mg PO DAILY pravastatin 40 mg tablet 40 mg PO QHS dorzolamide-timolol 22.3-6.8 mg/mL drops 1 drp ophthalmic (eye) BID Patient Comments: INSTILL ONE DROP IN EACH EYE TWO TIMES A DAY Rx Instructions: 1 drop to each eye acetaminophen 500 mg capsule 500 mg PO Q6H PRN cyanocobalamin (vitamin B-12) 500 mcg tablet 500 mcg PO DAILY magnesium oxide [MagOx] 400 mg (241.3 mg magnesium) tablet 400 mg PO DAILY Discharge Instructions Additional Instructions: hernia is reduced at this time continue outpatient follow up as scheduled HPI General Date/Time Provider Initiated Documentation: 06/25/24 11:02. Limitations to Documentation: no limitations. Information obtained by: patient. HPI Narrative: 83-year-old gentleman with past medical history of CKD, hypertension, aortic aneurysm and dissection and incisional hernia presents for evaluation of his hernia. He reports that he feels like he overdid it a little bit this weekend. He thinks that his hernia is back out. He did not try to reduce it. He denies any pain. He noticed this when he bent over today. Related Data Home Medications ?Medication ?Instructions ?Recorded ?Confirmed Lancets 1 ea miscellaneous QID #400 ea 07/15/12 06/25/24 aspirin 81 mg chewable tablet 81 mg PO DAILY 07/15/12 06/25/24 (Aspirin Low-Strength) dorzolamide 22.3 mg-timolol 6.8 1 drp ophthalmic (eye) BID 12/17/22 06/25/24 mg/mL eye drops blood sugar diagnostic (FreeStyle #100 strips 06/06/23 06/25/24 Lite Strips) acetaminophen 500 mg capsule 500 mg PO Q6H PRN 08/13/23 06/25/24 cyanocobalamin (vitamin B-12) 500 500 mcg PO DAILY 08/13/23 06/25/24 mcg tablet magnesium oxide 400 mg (241.3 mg 400 mg PO DAILY 08/13/23 06/25/24 magnesium) tablet (MagOx) atenolol 50 mg tablet 25 mg (1/2 x 50 mg) PO BID #90 tabs 08/29/23 06/25/24 folic acid 1 mg tablet 1 mg PO DAILY #90 tabs 09/26/23 06/25/24 atorvastatin 20 mg tablet 20 mg PO DAILY #90 tabs 10/05/23 06/25/24 terazosin 5 mg capsule 5 mg PO HS #90 caps 10/13/23 06/25/24 omeprazole 20 mg capsule,delayed 20 mg PO .qod #45 caps 03/01/24 06/25/24 release brimonidine 0.2 % eye drops 1 drp ophthalmic (eye) BID 06/01/24 06/25/24 moxifloxacin 0.5 % viscous eye 1 drp ophthalmic (eye) QID 06/01/24 06/25/24 drops prednisolone acetate 1 % eye 1 drp ophthalmic (eye) QID 06/01/24 06/25/24 drops,suspension amlodipine 5 mg tablet 5 mg PO DAILY 06/07/24 06/25/24 pravastatin 40 mg tablet 40 mg PO QHS 06/07/24 06/25/24 latanoprost 0.005 % eye drops 1 drp OU HS #7.5 mL 06/21/24 06/25/24 (Xalatan) Previous Rx's ?Medication ?Instructions ?Recorded blood sugar diagnostic (FreeStyle #100 strips 06/06/23 Lite Strips) atenolol 50 mg tablet 25 mg (1/2 x 50 mg) PO BID #90 tabs 08/29/23 folic acid 1 mg tablet 1 mg PO DAILY #90 tabs 09/26/23 atorvastatin 20 mg tablet 20 mg PO DAILY #90 tabs 10/05/23 terazosin 5 mg capsule 5 mg PO HS #90 caps 10/13/23 omeprazole 20 mg capsule,delayed 20 mg PO .qod #45 caps 03/01/24 release latanoprost 0.005 % eye drops 1 drp OU HS #7.5 mL 06/21/24 (Xalatan) Allergies Allergy/AdvReac Type Severity Reaction Status Date / Time ciprofloxacin (From Cipro) AdvReac Intermediate Dizziness/L Verified 06/25/24 10:57 ighthead sulfamethoxazole (From AdvReac Intermediate malaise Verified 06/25/24 10:57 Bactrim) trimethoprim (From Bactrim) AdvReac Intermediate malaise Verified 06/25/24 10:57 IV contrask Allergy Intermediate renal Uncoded 06/25/24 10:57 impairment General Stated Complaint: Abd Prob SUSAN: 3 Exam Narrative Exam Narrative: Review of Systems: All systems reviewed & are unremarkable except as noted in HPI and below Well-developed, no acute distress NCAT RRR Unlabored respiratory effort Midline incisional hernia at the superior aspect of the incision is noted that is easily reducible and nontender, the patient points to the left lower quadrant pannus flap when he stands up, but this is all tissue no hernia or bowel, there is no inguinal hernia Course Vital Signs Vital signs: Vital Signs Temperature 36.4 C L 06/25/24 10:53 Pulse 60 06/25/24 10:53 Respiratory Rate 20 06/25/24 10:53 Blood Pressure 192/108 H 06/25/24 10:53 Pulse Oximetry 98 06/25/24 10:53 Temperature 36.4 C L 06/25/24 10:53 Temperature Source Oral 06/25/24 10:53 Pulse 60 06/25/24 10:53 Respiratory Rate 20 06/25/24 10:53 Blood Pressure 192/108 H 06/25/24 10:53 Blood Pressure Position Sitting 06/25/24 10:53 Pulse Oximetry 98 06/25/24 10:53 Oxygen Delivery Method Room Air 06/25/24 10:53 Oxygen Flow Rate 0 06/25/24 10:53 Pain Level 0 06/25/24 10:53 Medical Decision Making Emergent evaluation of known hernia. On evaluation, the patient has an easily reducible ventral incisional hernia, but there is no hernia noted in the inguinal area. The patient identifies an area of his pannus and says that this is his hernia, but he was informed that this is not a hernia. I reviewed the medical record and noted his most recent clinic visit from a few days ago and his examination is consistent with that visit. I reviewed his emergency department visit from the day before that and noted that the examination is consistent. Patient is advised to continue his outpatient management and surgical clinic follow-up as needed. Wear the binder as needed for comfort. He is noted to be hypertensive and recommended to take his blood pressure medication regularly. Return precautions advised. This time there is no indication for further emergent evaluation. Quality:SDOH Health Related Social Needs: No Data to Display PFSH All Active Problems (Updated 06/25/24 @ 11:10 by Rossy Rubio MD) Abdominal hernia (Acute) Incisional hernia (Acute) Primary open angle glaucoma (Acute) Stricture of ureter (Acute) Malignant neoplasm of urinary organ (Acute) Dizziness (Acute) Side effect of medication (Acute) Constipation (Acute) UTI (urinary tract infection) (Acute) w/ degree of prostatitis Chronic kidney disease (CKD) (Chronic) Block, bifascicular (Acute) Primary open-angle glaucoma, left eye, moderate stage (Chronic) Chest pain (Acute) Actinic keratoses (Acute 06/24/17) Anxiety (Acute) Aortic aneurysm and dissection (Acute) AAA ruptured --multiple transfusions; repair, open repair about 2009 Benign prostatic hyperplasia (Acute) CKD (chronic kidney disease) stage 3, GFR 30-59 ml/min (Acute 07/30/16) due to ischemia during ruptured AAA 2021, stage 4 Chronic gout due to renal impairment of multiple sites without tophus (Acute 06/05/15) Essential hypertension (Acute 07/09/16) White coat augmentation neg stress echo 07/14 Glaucoma (Acute) 03/12/15; OPTICAL EXPRESSIONS Obesity (Acute) Obstructive sleep apnea syndrome (Acute) 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 Hyperlipidemia (Acute 08/04/12) 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 BELLO @ [facility] Family History Mother No problems noted. Father Neoplasm Sister Heart disease Stroke Grandfather No problems noted. Grandfather Heart disease Grandmother No problems noted. Grandmother Personal history of malignant neoplasm Sister No problems noted. Sister No problems noted. Brother Neoplasm Brother No problems noted. Brother No problems noted. Brother No problems noted. Brother No problems noted. Son No problems noted. Social History Smoking/Tobacco Use Status: Former Tobacco Use tobacco type: cigarettes Quit Date: 03/30/09 Tobacco: How many years used: 40 Second Hand Exposure: Yes Smoking risk assessment performed?: Yes Alcohol Intake: former Drug use: Never Substance use type: does not use Household members: none Housing: house Do you need help understanding health information?: Rarely Pets and animals: No Sexually active: Yes Do you think of yourself as: straight/heterosexual Current gender identity: male What is your relationship status?: How often do you talk on the phone with friends or family?: three or more times per week How often do you get together with friends or relatives?: three or more times per week How often do you attend adventism or alevism services?: decline to answer Do you belong to any clubs or organized social groups?: no Panel score (0-1 are the most socially isolated patients): 1 What type of physical activity do you participate in: walking Duration: 15-30 minutes/day Frequency: 3-4 times per week Stephani/Roman Catholic: None Special stephani needs: No Seatbelt use: sometimes Helmet use: No Drive intox or ride 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
== END 2024-06-25 11:22 | disposition home or self-care (01) ==
PROVIDERS: Emergency Provider Emergency Medicine; PCP Family Medicine
DX: K43.2 Incisional hernia without obstruction or gangrene (principal); E11.9 Type 2 diabetes mellitus without complications; I12.9 Hypertensive chronic kidney disease with stage 1 through stage 4 chronic kidney disease, or unspecified chronic kidney disease; N18.30 Chronic kidney disease, stage 3 unspecified; E78.5 Hyperlipidemia, unspecified; Z79.82 Long term (current) use of aspirin; Z87.891 Personal history of nicotine dependence
CPT/HCPCS: 99283

== ENCOUNTER → 2024-10-19 08:37 | Outpatient (BNVA) | payer MEDICARE, SELFPAY | PROVIDERS: PCP Family Medicine; Referring Provider Family Medicine; Visit Provider Physical Therapy Assistant | DX: D48.5 Neoplasm of uncertain behavior of skin (principal) | CPT/HCPCS: 99214 ==

== ENCOUNTER 2024-10-31 09:04 | Day surgery (SDC) | payer MEDICARE, SELFPAY ==
[2024-10-31 09:27] VITALS: BP 175/72; PULSE 59; RESP 20; TEMP 36.4; O2SAT 100
[2024-10-31] MEDS: Lactated Ringers 1,000 ML 80 ML IV (10:07)
--- NOTE | 2024-10-31 11:04 | W.ANESPRE ---
General Info Date of Service Date Performed: 10/31/24 Height: 5 ft 8 in Weight: 81 kg Body Mass Index (BMI): 27.1 Surgical Procedure: Operation Date: 10/31/24 10:25 Proposed Procedure Side Surgeon p Excision Scalp Lesion Kristy Sainz MD Actual Procedure Side Surgeon p Excision Scalp Lesion Not Applicable Kristy Sainz MD Pre-Op Diagnosis Post-Op Diagnosis Generalized skin lesions Meds Allergies and Home Medications Allergies Allergy/AdvReac Type Severity Reaction Status Date / Time ciprofloxacin (From Cipro) AdvReac Intermediate Dizziness/L Verified 10/31/24 09:19 ighthead sulfamethoxazole (From AdvReac Intermediate malaise Verified 10/31/24 09:19 Bactrim) trimethoprim (From Bactrim) AdvReac Intermediate malaise Verified 10/31/24 09:19 IV contrask Allergy Intermediate renal Uncoded 10/31/24 09:19 impairment Home Medication ?Medication ?Instructions ?Recorded Lancets 1 ea miscellaneous QID #400 ea 07/15/12 aspirin 81 mg chewable tablet 81 mg PO DAILY 07/15/12 (Aspirin Low-Strength) dorzolamide 22.3 mg-timolol 6.8 1 drp ophthalmic (eye) BID 12/17/22 mg/mL eye drops blood sugar diagnostic (FreeStyle #100 strips 06/06/23 Lite Strips) acetaminophen 500 mg capsule 500 mg PO Q6H PRN 08/13/23 cyanocobalamin (vitamin B-12) 500 500 mcg PO DAILY 08/13/23 mcg tablet magnesium oxide 400 mg (241.3 mg 400 mg PO DAILY 08/13/23 magnesium) tablet (MagOx) atenolol 50 mg tablet 25 mg (1/2 x 50 mg) PO BID #90 tabs 08/29/23 folic acid 1 mg tablet 1 mg PO DAILY #90 tabs 09/26/23 terazosin 5 mg capsule 5 mg PO HS #90 caps 10/13/23 Held on 06/25/24. Instructions: Changed by Provider omeprazole 20 mg capsule,delayed 20 mg PO .qod #45 caps 03/01/24 release brimonidine 0.2 % eye drops 1 drp ophthalmic (eye) BID 06/01/24 moxifloxacin 0.5 % viscous eye 1 drp ophthalmic (eye) QID 06/01/24 drops prednisolone acetate 1 % eye 1 drp ophthalmic (eye) QID 06/01/24 drops,suspension amlodipine 5 mg tablet 5 mg PO DAILY 06/07/24 pravastatin 40 mg tablet 40 mg PO QHS 06/07/24 Held on 06/25/24. Instructions: Changed by Provider latanoprost 0.005 % eye drops 1 drp OU HS #7.5 mL 06/21/24 (Xalatan) atorvastatin 20 mg tablet 20 mg PO DAILY #90 tabs 08/30/24 Current Visit Medications: Current Medications Generic Name Dose Route Start Last Admin Trade Name Freq PRN Reason Stop Dose Admin Ringer's Solution 1,000 mls @ 80 mls/hr 10/31/24 06:00 10/31/24 10:07 IV 10/31/24 23:59 80 mls/hr INFUSION ANDREW Administration IV Miscellaneous Supplies 1 each 10/31/24 06:00 Iv Access IV 10/31/24 23:59 DIRECTED ANDREW Sodium Chloride 0 ml 10/31/24 06:00 Normal Saline Flush 10 Ml Syr IV 10/31/24 23:59 PRN PRN Sodium Chloride 0 ml 10/31/24 06:00 Normal Saline 10 Ml Vial IJ 10/31/24 23:59 DIRECTED PRN Sterile Water 0 ml 10/31/24 06:00 Water,Injection,Sterile 10 Ml Vial IJ 10/31/24 23:59 DIRECTED PRN PFSH Active Problems Active Problems: Problem Status Onset Code Primary open angle glaucoma Acute H40.1190 Stricture of ureter Acute N13.5 Malignant neoplasm of urinary organ Acute C68.9 Dizziness Acute R42 Side effect of medication Acute T88.7XXA Constipation Acute K59.00 UTI (urinary tract infection) Acute N39.0 Chronic kidney disease (CKD) Chronic N18.9 Block, bifascicular Acute I45.2 Primary open-angle glaucoma, left eye, moderate stage Chronic H40.1122 Chest pain Acute R07.9 Actinic keratoses Acute 06/24/17 L57.0 Anxiety Acute F41.9 Aortic aneurysm and dissection Acute I71.00 Benign prostatic hyperplasia Acute N40.0 CKD (chronic kidney disease) stage 3, GFR 30-59 ml/min Acute 07/30/16 N18.3 Chronic gout due to renal impairment of multiple sites without tophus Acute 06/05/15 M1A.39X0 Essential hypertension Acute 07/09/16 I10 Glaucoma Acute H40.9 Obesity Acute E66.9 Obstructive sleep apnea syndrome Acute G47.33 Urothelial carcinoma 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 C68.9 Hyperlipidemia Acute 08/04/12 E78.5 Incisional hernia of anterior abdominal wall without obstruction or gangrene Acute K43.2 Smoker Acute F17.200 RBBB (right bundle branch block with left anterior fascicular block) Acute I45.2 Diabetes mellitus Chronic E11.9 Medical History Medical History (Updated 10/31/24 @ 11:17 by Kristy Sainz MD) Vitamin B 12 deficiency Anemia Anxiety RBBB (right bundle branch block with left anterior fascicular block) (07/30/16) Diabetes mellitus (08/04/12) Surgical History Surgical History Posterior subcapsular age-related cataract of left eye Nuclear sclerotic cataract of left eye S/P AAA repair Umbilical hernia repaired 02/28 hernia repair TURBT (08/11/16) DR. BELLO @ [facility] Tobacco Smoking/Tobacco Use Status: Former Tobacco Use Passive smoking exposure: Yes Second hand exposure: Yes Alcohol Alcohol Intake: former Substance Use Substance use: Never Substance use type: does not use Vital Signs and Lab Results Vital Signs Most Recent Vital Signs in EMR: Most Recent Vital Signs Temp Pulse Resp BP Pulse Ox 36.4 C L 59 L 20 175/72 H 100 10/31/24 09:27 10/31/24 09:27 10/31/24 09:27 10/31/24 09:27 10/31/24 09:27 Imaging and Studies Imaging and Studies Study information below may be from another EMR and interpreted by another provider. Please see original notes in EMR for more complete details. EKG Summary: 10/11/23: Exam: Resting ECG Reason for Exam: Chest Pain Patient Location: E HR:61 bpm ECG Measurements Heart Rate 61 AXIS AR 157 P 72 QRSd 143 QRS -65 QT 455 T30 QTc 454 Conclusion Sinus rhythm...normal P axis, V-rate 60- 99 Atrial premature complex...SV complex w/ short R-R interval Right bundle branch block...QRSd>120, terminal axis(90,270) I have reviewed and I agree with the emergency room physician's ECG interpretation. Stress Test Summary: 04/01/22: MPI Conclusion Myocardial perfusion is normal. There is no evidence of ischemia or prior infarction EF 57%, normal wall motion 04/09/21: Stress ECG Conclusion 1. The resting electrocardiogram showed right bundle branch block and left anterior fascicular block 2. Patient exercised on the Jhonny protocol and completed a workload of 10.16 minutes, stopping due to fatigue 3. Normal heart rate and blood pressure response to exercise. The patient achieved greater than 100% of predicted heart rate for age 4. There was no electrocardiographic evidence of myocardial ischemia 5. Occasional atrial and ventricular ectopic beats were noted Cohn Treadmill Score is 7.5 which is Low risk. Echocardiogram Summary: 03/27/21: EF 58%, Normal valves Carotid Artery Summary:: Date of Exam: 07/19/15ex: M : 2Age: 74 Exam(s) [id number] US:Carotid SYMPTOM/DIAGNOSIS: DECREASED CAROTIDS PULSE R09.89 CAROTID ULTRASOUND: There is mild bilateral plaque formation right more advanced than left. There is no evidence of a significant right or left carotid stenosis. Bilateral antegrade vertebral flow is seen. SUMMARY: No evidence of significant carotid stenosis. Anesthesia Assessment and Plan Anesthesia History Personal History: No History of Anesthesia Complications Family History: No Family History of Anesthesia Complications Exercise Tolerance Exercise Tolerance: Metabolic Equivalents>4 Cardiac & Pulmonary Exam Cardiac Exam: Normal S1/S2 Heart Sounds Pulmonary Exam: Clear Bilateral Breath Sounds Implantable Cardiac Device Does patient have a Pacemaker or an ICD?: No Airway Exam Known Difficult Airway: No Mallampati Class: 1 Mouth Opening: Normal (> 3cm) Thyromental Distance: Greater than 3 cm Neck Range of Motion: Full ROM Neck Circumference: Normal Teeth Condition: Normal Dentition ASA Classification ASA Score: ASA 3 Emergency Case?: No NPO Status NPO Status: NPO Clears >2 hours, Solids >8 hours Anesthesia Plan Resuscitation Status: Full Code Anesthesia Technique: MAC Anesthesia Airway Planned: Natural Airway Monitors Used: Standard Monitors
--- NOTE | 2024-10-31 11:17 | PDOC.DSDIS_ITS ---
Date of service: 10/31/24 Discharge Plan Disposition Patient Disposition: Home Condition: Stable Discharge Details Attending Provider: Kristy Sainz Primary Care Provider: Sander Contreras Recommendations for Follow Up Recommended tests to be ordered by follow up provider: Needs dermatology referral for remainder of scalp lesions. Looks like actinic keratosis at the least. Home Meds and New Rx's Prescriptions: Continued terazosin 5 mg capsule 5 mg PO HS Qty: 90 3RF latanoprost [Xalatan] 0.005 % drops 1 drp OU HS Qty: 7.5 6RF aspirin [Aspirin Low-Strength] 81 MG tablet,chewable 81 mg PO DAILY LANCETS 1 EACH EACH 1 ea Miscellaneous QID Qty: 400 Rx Instructions: DX: 250.0 (DME) FreeStyle Lite Strips Strip 1 ea Miscellaneous DAILY Qty: 100 4RF Rx Instructions: DX E11.9 Test once/day atenolol 50 mg tablet 25 mg PO BID Qty: 90 3RF Patient Comments: recent change to lower dose folic acid 1 mg tablet 1 mg PO DAILY Qty: 90 3RF omeprazole 20 mg capsule,delayed release(DR/EC) 20 mg PO .qod Qty: 45 3RF Patient Comments: reduce to qod brimonidine 0.2 % drops 1 drp ophthalmic (eye) BID Patient Comments: 06/01/24-rx'd by [facility] Rx Instructions: administer approximately 8 hours apart moxifloxacin 0.5 % drops, viscous 1 drp ophthalmic (eye) QID Patient Comments: 06/01/34-rx'd by [facility]/pps Rx Instructions: 1 gtt L eye QID until gone/pps prednisolone acetate 1 % drops,suspension 1 drp ophthalmic (eye) QID Patient Comments: 06/01/24-Rx'd by [facility] after surgery/pps Rx Instructions: 1 gtt L eye QID amlodipine 5 mg tablet 5 mg PO DAILY pravastatin 40 mg tablet 40 mg PO QHS atorvastatin 20 mg tablet 20 mg PO DAILY Qty: 90 3RF Patient Comments: TAKE ONE TABLET BY MOUTH EVERY DAY dorzolamide-timolol 22.3-6.8 mg/mL drops 1 drp ophthalmic (eye) BID Patient Comments: INSTILL ONE DROP IN EACH EYE TWO TIMES A DAY Rx Instructions: 1 drop to each eye acetaminophen 500 mg capsule 500 mg PO Q6H PRN cyanocobalamin (vitamin B-12) 500 mcg tablet 500 mcg PO DAILY magnesium oxide [MagOx] 400 mg (241.3 mg magnesium) tablet 400 mg PO DAILY Discharge Instructions Instructions: Stitches and jamaal, Taking care of cuts, scrapes, and puncture wounds Additional Instructions: Dressings and shower on 11/01/2024. Wash gently over the jamaal with soapy hands, rinse, pat dry. You may apply a very thin layer of antibiotic ointment to the jamaal for 1 day only if you desire. Leave the jamaal open to air and allow them generally to dry out before covering them. If you are wearing a hat, you should cover the sites with gauze to keep them clean from the hat. The area is expected to be swollen and to appear lumpy while it is healing. The jamaal will be removed between 7 and 14 days from now. Spot bleeding is normal and expected for 2 to 3 days. Referrals: Kristy Sainz MD [ [facility] STAFF PHYSICIAN, Surgery] Activity:: Activity as Tolerated Remove Dressings/Wound Care:: 24 hours Shower/Bathe:: 24 hours Diet:: As Tolerated Discharge Orders Discharge Orders: Discharge Order (Routine); Ordered 10/31/24 Ordered By: Kristy Sainz DS: Diagnosis Discharge Diagnosis (1) Lesion of skin of scalp: Status: Acute Asessment and Plan: Skin lesions removed and sent to lab. Will review lab results at office visit when we remove your jamaal.
[2024-10-31 11:18] VITALS: BMI 27.1
[2024-10-31] MEDS: Bupivacaine 0.5% Pres-Free W/EPI 30 ML VIAL (11:47)
--- NOTE | 2024-10-31 11:55 | SKI_PTH ---
PATIENT: Aaron Garcia LOC: LAY U#:[id number] AGE/SX: 84/M ROOM: RE10/31/[address]: Kristy Sainz MD : 1940 BED: DIS: 10/31/2024 SPEC #: [id number] RECD: 10/31/24 13:01 STATUS: CELIO RADHA #: [id number] PRASHANTH: 10/31/24 11:[address]: Kristy Sainz DEPT: Surgical Specimen RECD BY: Cayla Meehan ENTERED: 10/31/24 13:03 SP TYPE: SEVERO PAULINO DR: Sander Contreras MD Tissues: 1 - SKIN BIOPSY(SHAVE/PUNCH) 2 - SKIN BIOPSY(SHAVE/PUNCH) 3 - SKIN BIOPSY(SHAVE/PUNCH) Procedures: SKIN LEVEL 4 Comments: [id number]
[2024-10-31 12:20] VITALS: BP 189/74; PULSE 53; RESP 18; TEMP 36.3; O2SAT 99
[2024-10-31] MEDS: Bacitracin 1 PACKET (12:26)
--- NOTE | 2024-10-31 12:37 | W.PM.OP ---
Operative Note Operative Note PRE-OP DIAGNOSIS: SCALP SKIN LESIONS POST-OP DIAGNOSIS: same PROCEDURE: 1. Excisional biopsy of two scalp lesions 2. Shave biopsy of scalp lesion SURGEON: Kristy Sainz ORNAMENTAL [employer]AL FABRICATOR APPRENTICE: Hilda Ramirez ANESTHESIA TYPE: Local By Surgeon ESTIMATED BLOOD LOSS: 0 PATHOLOGY: other (1. Posterior scalp lesion (shave). 2. middle scalp lesion, short stitch anterior, long stitch left lateral. 3. anterior scalp lesion, short stitch anterior, long stitch left lateral. ) COMPLICATIONS: None Procedure Description: This is an 84-year-old male who was seen and evaluated in clinic for skin lesions of the scalp. In total he had 3 concerning lesions that created symptoms for him including pain and scabbing. One of the lesions had been treated with cryotherapy but increased in size after cryotherapy. We discussed the possibility of skin cancer versus other sun damage type lesions of the scalp. We discussed the possibility of benign keratosis. There were 3 lesions that warranted excision and we planned excision in the operating room due to the size of the most prominent lesion. Informed consent was obtained after discussion of the procedure risks and benefits and alternatives and expectations. He was taken to the operating room He was placed supine recumbent on the procedure table SCDs were placed and all pressure points were padded appropriately. Timeout was performed. Local anesthetic was infiltrated into the skin of the scalp around each lesion. The most posterior lesion was taken first. A 15 blade scalpel was used to perform a shave biopsy of a 6 mm keratotic lesion of the superficial scalp. It was passed off the field as the posterior scalp lesion. Next an ellipse incision was traced around the middle scalp lesion. This was the most prominent of the lesions he desired to have removed. It measured 1 cm x 1 cm and was superficial but tolerable. It was raised approximately a centimeter of the skin with a dense keratotic change. The perilesional skin appeared pink but normal. S3-1 ratio ellipse was incised and cautery was used to remove the lesion from the scalp. It was oriented with marking stitches and passed off the field as a specimen. The anterior lesion measured 9 mm round and was flat and ulcerated. A 1:3 ratio ellipse was traced to permanent linear closure. Incision was completed with a scalpel and the lesion removed from the scalp with cautery. It was oriented with marking stitches and passed off the field. Skin flaps were raised using cautery to allow for linear closure of the skin defects. Chandler were used to close the anterior and middle sites. The skin was washed and dried. Bacitracin was placed over the jamaal. Silicone dressings were placed over the sites. All sponge and instrument counts were correct at the end of the case the patient was taken to the recovery room in stable condition. No complications Date of Procedure: 10/31/24
== END 2024-10-31 12:50 | disposition home or self-care (01) ==
PROVIDERS: PCP Family Medicine; Visit Provider Surgery
PROC: (CPT 11622; principal; 2024-10-31 10:15)
DX: L57.0 Actinic keratosis (principal); C44.42 Squamous cell carcinoma of skin of scalp and neck; I45.2 Bifascicular block; F41.9 Anxiety disorder, unspecified; N18.30 Chronic kidney disease, stage 3 unspecified; I12.9 Hypertensive chronic kidney disease with stage 1 through stage 4 chronic kidney disease, or unspecified chronic kidney disease; G47.33 Obstructive sleep apnea (adult) (pediatric); E78.5 Hyperlipidemia, unspecified; E11.22 Type 2 diabetes mellitus with diabetic chronic kidney disease
CPT/HCPCS: 11622; 11621; 11102; 88305; J2004

== ENCOUNTER → 2024-11-09 10:39 | Outpatient (BNVA) | payer MEDICARE, SELFPAY | PROVIDERS: PCP Family Medicine; Referring Provider Family Medicine; Visit Provider Surgery | DX: C44.42 Squamous cell carcinoma of skin of scalp and neck (principal); L57.0 Actinic keratosis; Z48.02 Encounter for removal of sutures | CPT/HCPCS: 99024 ==

== ENCOUNTER 2024-12-01 17:57 | Inpatient (IN) | payer MEDICARE, SELFPAY ==
[2024-12-01] VITALS (21 sets, daily range): BP systolic 78–122; BP diastolic 35–78; PULSE 54–126; RESP 14–23; TEMP 36.2; O2SAT 93–97
--- NOTE | 2024-12-01 17:45 | RT.EKG_ITS ---
APPROVED REPORT Exam: Resting ECG Reason for Exam: altered mental status Patient Location: E HR:51 bpm ECG Measurements Heart Rate 51 AXIS SD 152 P 53 QRSd 153 QRS -75 QT 467 T 8 QTc 431 Conclusion Sinus bradycardia...rate< 60 RBBB and LAFB...QRSd >120mS, axis(-40,240) no ST segment or T wave abnormalitites to suggest occlusive SC
[2024-12-01] MEDS: Normal Saline Flush 10 ML SYR IVP (18:13)
[2024-12-01] MEDS: Omnipaque 350 MG/ML 100 ML BTL IJ (18:14)
[2024-12-01] MEDS: Normal Saline - Diluent 50 ML VIAL IJ (18:14)
[2024-12-01 18:26] LABS: Abs Immature Grans 0.14 10^3/uL (0.0-0.06); HCT 33.9 % (40.0-50.0); HGB 11.3 g/dL (13.5-17.5); Immature Grans % 0.7 %; MCH 31.7 pg (27.0-33.0); MCHC 33.3 % (32.0-36.0); MCV 95 fL (80-95); MPV 9.8 fL (8.0-11.0); Platelet Count 194 10^3/uL (130-400); RBC 3.57 10^6/uL (4.36-5.78); RDW 12.7 % (11.8-14.1); RDW-SD 43.8 fL; WBC 21.27 10^3/uL (4.4-10.8)
[2024-12-01 18:43] LABS: RBC Morphology Normal
--- NOTE | 2024-12-01 18:44 | DI.CT_ITS ---
Exam(s) CT BRAIN NECK CTA EXAM: CT BRAIN NECK CTA CLINICAL HISTORY: dysmetria. TECHNIQUE: Imaging Protocol: Axial CT angiography was performed with multi- slice acquisition and multi-planar and/or 3D reconstructions. CONTRAST MATERIAL: Intravenous: Omnipaque 350 contrast volume:75 mL COMPARISON: There are no priors for comparison. FINDINGS: CT Head W/O and W: Ventricles and Extra axial spaces: Normal in size and morphology for the patient's age. Hemorrhage: None. Cerebral parenchyma: There are areas of decreased attenuation in the white matter most consistent with chronic microvascular ischemic disease. No evidence of an acute territorial infarct are seen at this time. There is no mass effect. Midline shift: None. Brainstem/Cerebellum: Normal. Calvarium: Normal. Visualized Paranasal sinuses/Mastoids: Clear. Soft Tissues: There is subcutaneous air present. Enhancement: Unremarkable. CTA Neck W: Common Carotid: Right: No dissection, occlusion or significant stenosis. Atherosclerotic calcification is seen in the carotid bulb with less than 50 percent stenosis. Left: No dissection, occlusion or significant stenosis. There is mild atherosclerotic calcification in the bulb with less than 50 percent stenosis. External Carotid: Right: No occlusion or significant stenosis. Left: No occlusion or significant stenosis. Internal Carotid: Right: No dissection, occlusion or significant stenosis. There is atherosclerotic calcification in the proximal right internal carotid artery with less than 50 percent stenosis. Left: No dissection, occlusion or significant stenosis. Vertebral Artery: Right: No dissection, occlusion or significant stenosis. Left: No dissection, occlusion or significant stenosis. Lung Apices: There are small bilateral apical pneumothoraces and pneumomediastinum. Bones: Within normal limits for the patient's age. Soft Tissues: Subcutaneous emphysema is seen in the neck. Thyroid gland: Unremarkable. CTA Brain W: Internal Carotid Arteries: There is atherosclerotic calcification of the cavernous portions of the internal carotid arteries bilaterally. No significant stenosis, occlusion or aneurysm is seen. Anterior Cerebral Arteries: Right: No aneurysm, occlusion or significant stenosis. Left: No aneurysm, occlusion or significant stenosis. Middle Cerebral Arteries: Right: No aneurysm, occlusion or significant stenosis. Left: No aneurysm, occlusion or significant stenosis. Posterior Cerebral Arteries: Right: No aneurysm, occlusion or significant stenosis. Left: No aneurysm, occlusion or significant stenosis. Vertebral Arteries: Right: No aneurysm, occlusion or significant stenosis. Left: No aneurysm, occlusion or significant stenosis. Basilar Artery: No aneurysm, occlusion or significant stenosis. IMPRESSION: 1. No large vessel occlusion or significant stenosis on the CT angiography of the head. 2. No acute intracranial process. 3. No occlusion or significant stenosis on the CT angiography of the neck. 4. Small bilateral apical pneumothoraces and pneumomediastinum. 5. Subcutaneous emphysema in the neck. 6. The preliminary [facility] report was reviewed. RADIATION DOSE DELIVERED: 1,971.79mGy.cm Total DLP DATA REPOSITORY: All CT scans at this facility are submitted to the National Radiology Data Registry (NRDR) Dose Index Registry (DIR) with the [employer] ([employer]). RADIATION OPTIMIZATION: All CT scans at this facility use at least one of these dose optimization techniques: automated exposure control; mA and/or kV adjustment per patient size (includes targeted exams where dose is matched to clinical indication); or iterative reconstruction.
[2024-12-01 18:55] LABS: ALT 12 U/L (16-63); AST 21 U/L (15-37); Albumin 2.7 g/dL (3.4-5.0); Alkaline Phosphatase 61 U/L (46-116); Anion Gap 7.2 mmol/L (3-11); BUN 29 mg/dL (7-18); Bilirubin, Total 1.2 mg/dL (0.2-1.0); CO2 22.8 mmol/L (21.0-32.0); Calcium 8.6 mg/dL (8.5-10.1); Chloride 99 mmol/L (98-107); Estimated GFR 22.68 (mL/min/1.73m2); Glucose 170 mg/dL (74-106); Lipase 23 U/L (<78); Magnesium 1.7 mg/dL (1.8-2.4); NT-proBNP 1942 pg/mL (<300); Potassium 4.5 mmol/L (3.5-5.1); Sodium 129 mmol/L (136-145); TSH (W/Ref FT4) 1.23 uIU/mL (0.36-3.74); Total Protein 6.1 g/dL (6.4-8.2); Troponin I 9 ng/L (<or=76)
--- NOTE | 2024-12-01 18:57 | DI.[facility]_ITS ---
Addendum created by Nelson Martinez MD on 12/01/2024 7:02:23 PM EDT: THIS REPORT CONTAINS FINDINGS THAT MAY BE CRITICAL TO PATIENT CARE. The findings were verbally communicated via telephone conference with RHIANNA [employer] at 7:00 PM EDT on 12/01/2024. The findings were acknowledged and understood. Initial report created on 12/01/2024 6:56:58 PM EDT: PROCEDURE INFORMATION: Exam: CTA Head Without And With Contrast, Arteriography Exam date and time: 12/01/2024 6:29 PM Age: 84 years old Clinical indication: Stroke-like symptoms; Altered mental status/memory loss TECHNIQUE: Imaging protocol: Computed tomographic angiography of the head without and with contrast. Exam focused on the arteries. 3D rendering (Not supervised by radiologist): MIP and/or 3D reconstructed images were created by the technologist. Contrast material: OMNIPAQUE 350; Contrast volume: 70 ml; Contrast route: INTRAVENOUS (IV); Other technique: STROKE PROTOCOL was implemented. COMPARISON: No relevant prior studies available. FINDINGS: ANTERIOR CIRCULATION: Right internal carotid artery: Intracranial segment is patent with no significant stenosis or occlusion. No aneurysm. Right middle cerebral artery: No occlusion or significant stenosis. No aneurysm. Right anterior cerebral artery: No occlusion or significant stenosis. No aneurysm. Left internal carotid artery: Intracranial segment is patent with no significant stenosis. No aneurysm. Left middle cerebral artery: No occlusion or significant stenosis. No aneurysm. Left anterior cerebral artery: No occlusion or significant stenosis. No aneurysm. POSTERIOR CIRCULATION: Right vertebral artery: No occlusion or significant stenosis. No aneurysm. Left vertebral artery: No occlusion or significant stenosis. No aneurysm. Basilar artery: No occlusion or significant stenosis. No aneurysm. Right posterior cerebral artery: No occlusion or significant stenosis. No aneurysm. Left posterior cerebral artery: No occlusion or significant stenosis. No aneurysm. HEAD: Brain: Mild volume loss No hemorrhage. Mild white matter disease. No mass effect. Cerebral ventricles: Normal. No ventriculomegaly. Bones: Unremarkable. No acute fracture. Paranasal sinuses: Visualized sinuses are normal. No fluid levels. Mastoid air cells: Visualized mastoids are normal. No mastoid effusion. Soft tissues: Unremarkable. IMPRESSION: 1. No large vessel occlusion. 2. Unremarkable CT head. ASSESSMENT: ASPECTS (Polaris Stroke Program Early CT Score) is 10. PROCEDURE INFORMATION: Exam: CTA Neck Without And With Contrast Exam date and time: 12/01/2024 6:29 PM Age: 84 years old Clinical indication: Stroke-like symptoms; Altered mental status/memory loss TECHNIQUE: Imaging protocol: Computed tomographic angiography of the neck without and with contrast. Exam focused on the cervical segments of the vasculature. 3D rendering (Not supervised by radiologist): MIP and/or 3D reconstructed images were created by the technologist. Contrast material: OMNIPAQUE 350; Contrast volume: 70 ml; Contrast route: INTRAVENOUS (IV); COMPARISON: CT CHEST WO 08/29/2020 1:58 PM FINDINGS: Right common carotid artery: No stenosis. No dissection or occlusion. Right internal carotid artery: No stenosis of the extracranial segment. No dissection or occlusion. Right external carotid artery: No occlusion or stenosis of the origin. Left common carotid artery: No stenosis. No dissection or occlusion. Left internal carotid artery: No stenosis of the extracranial segment. No dissection or occlusion. Left external carotid artery: No occlusion or stenosis of the origin. Right vertebral artery: No stenosis. No dissection or occlusion. Left vertebral artery: No stenosis. No dissection or occlusion. Soft tissues: Air and swelling in the soft tissues of the neck left greater than right. Pneumomediastinum noted. Bones/joints: No acute fracture. Apical pneumothoraces noted right greater than left IMPRESSION: Moderate right carotid stenosis. No arterial dissection No large vessel occlusion. Small pneumothoraces right greater than left. Pneumomediastinum and air in the soft tissues of the neck extending superiorly to the cranial junction REFERENCES: NASCET CRITERIA. The degree of stenosis in the cervical segment of the internal carotid artery is based on NASCET criteria. Normal is no stenosis. Mild is less than 50% stenosis. Moderate is 50-69% stenosis. Severe is 70% to 99% stenosis. Total occlusion is no detectable patent lumen. Dictated and Authenticated by: Nelson Martinez MD. Orderin Radha Franklin MD
--- NOTE | 2024-12-01 19:00 | DI.CT_ITS ---
Exam(s) CT CHEST WO EXAM: CT CHEST WO CLINICAL HISTORY: pneumothorax, pneumomediastinum TECHNIQUE: Imaging Protocol: Axial computed tomography images with coronal and sagittal reformatted images were created and reviewed. Computer aided detection (CAD) was utilized. CONTRAST MATERIAL: Intravenous: Omnipaque 350 Contrast volume:structured data ml. COMPARISON: CT CT CHEST WO from 08/29/[address] ABDOMEN PELVIS WO from 06/18/[address] BRAIN NECK CTA from 12/01/2024 FINDINGS: Pulmonary parenchyma: Left basilar atelectasis. No dominant measurable mass. Tracheobronchial tree: No bronchiectasis or mucous plugging. Mediastinum and Maribel: No dominant adenopathy or fluid collection. Small amount of air is noted within the mediastinum. Pleura: No effusion. Tiny apical pneumothoraces, right greater than left. Trace pleural effusions. Heart: The heart is mildly dilated. Severe coronary artery calcifications are seen. Aorta: Thoracic aorta non-dilated. Mild atherosclerotic changes. Upper abdomen: Bubbles of free air are noted. There is severe right hydronephrosis, partially included in the field of view, grossly unchanged. Bones: Degenerative changes in the spine. No rib or spine fractures identified. The sternum appears intact. Soft tissues: Air in the subcutaneous tissues outside the anterior and left chest wall and upper abdomen as well as anteriorly in the neck. IMPRESSION: Tiny biapical pneumothoraces. Pneumomediastinum is also present. There is no evidence of rib fracture. Small amount of free air is also noted on the images of the upper abdomen. The preliminary [facility] report was reviewed. RADIATION DOSE DELIVERED: 377.63mGy.cm Total DLP DATA REPOSITORY: All CT scans at this facility are submitted to the National Radiology Data Registry (NRDR) Dose Index Registry (DIR) with the [employer] ([employer]). RADIATION OPTIMIZATION: All CT scans at this facility use at least one of these dose optimization techniques: automated exposure control; mA and/or kV adjustment per patient size (includes targeted exams where dose is matched to clinical indication); or iterative reconstruction.
--- NOTE | 2024-12-01 19:23 | W.ED.GENAD ---
Discharge Plan Discharge Details Chief Complaint: Dizzy/Sync Primary Care Provider: Sander Contreras ED Provider: Rigoberto Cleaning Home Meds and New Rx's Prescriptions: No Action latanoprost [Xalatan] 0.005 % drops 1 drp OU HS Qty: 7.5 6RF aspirin [Aspirin Low-Strength] 81 MG tablet,chewable 81 mg PO DAILY LANCETS 1 EACH EACH 1 ea Miscellaneous QID Qty: 400 Rx Instructions: DX: 250.0 (DME) FreeStyle Lite Strips Strip 1 ea Miscellaneous DAILY Qty: 100 4RF Rx Instructions: DX E11.9 Test once/day brimonidine 0.2 % drops 1 drp ophthalmic (eye) BID Patient Comments: 06/01/24-rx'd by [facility] Rx Instructions: administer approximately 8 hours apart atorvastatin 20 mg tablet 20 mg PO DAILY Qty: 90 3RF Patient Comments: TAKE ONE TABLET BY MOUTH EVERY DAY atenolol 50 mg tablet 25 mg PO BID Qty: 90 3RF Patient Comments: recent change to lower dose folic acid 1 mg tablet 1 mg PO DAILY Qty: 90 3RF dorzolamide-timolol 22.3-6.8 mg/mL drops 1 drp ophthalmic (eye) BID Patient Comments: INSTILL ONE DROP IN EACH EYE TWO TIMES A DAY Rx Instructions: 1 drop to each eye acetaminophen 500 mg capsule 1,000 mg PO Q6H PRN magnesium oxide [MagOx] 400 mg (241.3 mg magnesium) tablet 400 mg PO DAILY HPI General Date/Time Provider Initiated Documentation: 12/01/24 18:06. HPI Narrative: 84 year-old male presents to ED today by EMS with a chief complaint of reported unresponsive episode at pharmacy- remained conscious- and was seated on EMS arrival with onset about 30 minutes ago. Patient describes feeling dizzy, but bystanders and EMS reported he could not answer questions appropriately. Quality described as dizziness and fatigue, no radiation to chest pain, shortness of breath, nausea/vomiting, fever, cough. Severity is described as moderate. Palliating factors include nothing specific attempted. Provoking factors include nothing specific. Events leading up to the incident/Associated Symptoms: Patient is recovering from hernia surgery, d/c'd from [facility] two days ago. Patient not anticoagulated. Related Data Home Medications ?Medication ?Instructions ?Recorded ?Confirmed Lancets 1 ea miscellaneous QID #400 ea 07/15/12 12/01/24 aspirin 81 mg chewable tablet 81 mg PO DAILY 07/15/12 12/01/24 (Aspirin Low-Strength) dorzolamide 22.3 mg-timolol 6.8 1 drp ophthalmic (eye) BID 12/17/22 12/01/24 mg/mL eye drops blood sugar diagnostic (FreeStyle #100 strips 06/06/23 11/24/24 Lite Strips) acetaminophen 500 mg capsule 1,000 mg PO Q6H PRN 08/13/23 12/01/24 magnesium oxide 400 mg (241.3 mg 400 mg PO DAILY 08/13/23 12/01/24 magnesium) tablet (MagOx) brimonidine 0.2 % eye drops 1 drp ophthalmic (eye) BID 06/01/24 12/01/24 latanoprost 0.005 % eye drops 1 drp OU HS #7.5 mL 06/21/24 12/01/24 (Xalatan) atorvastatin 20 mg tablet 20 mg PO DAILY #90 tabs 08/30/24 12/01/24 atenolol 50 mg tablet 25 mg (1/2 x 50 mg) PO BID #90 tabs 11/14/24 12/01/24 folic acid 1 mg tablet 1 mg PO DAILY #90 tabs 11/17/24 12/01/24 Previous Rx's ?Medication ?Instructions ?Recorded blood sugar diagnostic (FreeStyle #100 strips 06/06/23 Lite Strips) latanoprost 0.005 % eye drops 1 drp OU HS #7.5 mL 06/21/24 (Xalatan) atorvastatin 20 mg tablet 20 mg PO DAILY #90 tabs 08/30/24 atenolol 50 mg tablet 25 mg (1/2 x 50 mg) PO BID #90 tabs 11/14/24 folic acid 1 mg tablet 1 mg PO DAILY #90 tabs 11/17/24 Allergies Allergy/AdvReac Type Severity Reaction Status Date / Time ciprofloxacin (From Cipro) AdvReac Intermediate Dizziness/L Verified 10/31/24 09:19 ighthead sulfamethoxazole (From AdvReac Intermediate malaise Verified 10/31/24 09:19 Bactrim) trimethoprim (From Bactrim) AdvReac Intermediate malaise Verified 10/31/24 09:19 IV contrask Allergy Intermediate renal Uncoded 10/31/24 09:19 impairment General Stated Complaint: Dizzy/Sync SUSAN: 3 Review of Systems All systems reviewed & are unremarkable except as noted in HPI and below Exam Narrative Exam Narrative: GENERAL APPEARANCE: Well-nourished, non-toxic, awake and alert, atraumatic, moderate acute distress. SKIN: Warm, pale, dry, intact, without rashes/lesions/ulcerations. HEAD: Normocephalic, atraumatic, normal hair distribution for gender/age. EYES: Normal conjunctiva, no exudates on lids/lashes. ENT: Nares patent, no circumoral cyanosis, no facial swelling NECK: Supple, trachea midline, painless cervical ROM. LUNGS/CHEST: Lungs CTA bilaterally- no crackles at bases, non-labored respirations, normal A/P diameter, symmetrical expansion, no chest wall deformity HEART (CV/PV): Regular rate and rhythm without murmur, no peripheral edema, no JVD. ABDOMEN: Soft, non-distended, no guarding, diffuse mild tenderness, abdominal wrap in place from surgery, no infection at surgical site. MSK: Normal ROM, no swelling/deformity to bilateral UEs or LEs, moving all extremities without weakness, no cyanosis, spine midline without tenderness, normal curvature. NEURO: Mental Status AAOx3 - alert to person, place, time No facial droop, no forehead involvement, FNF shows bilateral dysmetria Motor: No focal weakness - strength 5/5 in bilateral UEs and LEs, proximal and distal, symmetric, no pronator drift. Sensory: sensation intact to light touch globally. Gait NT. PSYCH: euthymic, cooperative, pleasant, appropriate speech Course Vital Signs Vital signs: Vital Signs Pulse 60 12/01/24 17:58 Respiratory Rate 16 12/01/24 17:58 Blood Pressure 101/41 L 12/01/24 17:58 Pulse 60 12/01/24 18:51 Respiratory Rate 15 12/01/24 18:51 Blood Pressure 122/47 L 12/01/24 18:51 Blood Pressure Mean 72 12/01/24 18:51 Blood Pressure Position Supine 12/01/24 18:51 Pulse Oximetry 94 12/01/24 18:51 Oxygen Delivery Method Room Air 12/01/24 18:51 Oxygen Flow Rate 0 12/01/24 18:51 Lab/Test Results Lab/Test Results: Laboratory Tests Range/Units 12/01/24 18:15 WBC (4.4-10.8) 10^3/uL 21.27 H RBC (4.36-5.78) 10^6/uL 3.57 L Hgb (13.5-17.5) g/dL 11.3 L Hct (40.0-50.0) % 33.9 L MCV (80-95) fL 95 MCH (27.0-33.0) pg 31.7 MCHC (32.0-36.0) % 33.3 RDW (11.8-14.1) % 12.7 Plt Count (130-400) 10^3/uL 194 MPV (8.0-11.0) fL 9.8 Immature Gran % % 0.7 Neutrophils % % 81.5 Lymphocytes % % 9.1 Monocytes % % 7.9 Eosinophils % % 0.6 Basophils % % 0.2 Nucleated RBC % (0.0-0.3) % 0.0 Absolute Neutrophils (1.2-6.7) 10^3/uL 17.34 H Absolute Lymphocytes (1.2-3.4) 10^3/uL 1.94 Absolute Monocytes (0.1-0.8) 10^3/uL 1.68 H Absolute Eosinophils (0.0-0.7) 10^3/uL 0.13 Absolute Basophils (0.0-0.2) 10^3/uL 0.04 RBC Morphology Normal Sodium (136-145) mmol/L 129 L Potassium (3.5-5.1) mmol/L 4.5 Chloride (98-107) mmol/L 99 Carbon Dioxide (21.0-32.0) mmol/L 22.8 Anion Gap (3-11) mmol/L 7.2 BUN (7-18) mg/dL 29 H Creatinine (0.70-1.30) mg/dL 2.7 H Est GFR (CKD-EPI 2020) (mL/min/1.73m2) 22.68 Glucose (74-106) mg/dL 170 H Calcium (8.5-10.1) mg/dL 8.6 Magnesium (1.8-2.4) mg/dL 1.7 L Total Bilirubin (0.2-1.0) mg/dL 1.2 H AST (15-37) U/L 21 ALT (16-63) U/L 12 L Alkaline Phosphatase (46-116) U/L 61 Troponin I (<or=76) ng/L 9 NT-Pro-B Natriuret Pep (<300) pg/mL 1942 H Total Protein (6.4-8.2) g/dL 6.1 L Albumin (3.4-5.0) g/dL 2.7 L Lipase (<78) U/L 23 TSH (0.36-3.74) uIU/mL 1.23 Medical Decision Making This dictation utilizes [id number] dictation software and may contain unedited grammatical errors. 84 year-old male presents to ED today by EMS with a chief complaint of reported unresponsive episode at pharmacy- remained conscious- and was seated on EMS arrival with onset about 30 minutes ago. Patient describes feeling dizzy, but bystanders and EMS reported he could not answer questions appropriately. Quality described as dizziness and fatigue, no radiation to chest pain, shortness of breath, nausea/vomiting, fever, cough. Severity is described as moderate. Palliating factors include nothing specific attempted. Provoking factors include nothing specific. Events leading up to the incident/Associated Symptoms: Patient is recovering from hernia surgery, d/c'd from [facility] [facility] two days ago. Patients' medical history: Anemia, anxiety, diabetes mellitus, status post AAA repair, umbilical hernia, squamous cell carcinoma of scalp, history of CKD, hypertension. Pertinent exam findings / vital signs include NIH of 1 on arrival with dysmetria with [id number], no focal weakness, no slurred speech, no facial droop, does have chronic left eye problems with surgical history but otherwise visual beatty intact, benign cardiopulmonary exam, does become mildly hypotensive when sleeping. Differential / pathologies of concern include CVA, ACS, postoperative complication, infection, developing pneumonia, vasovagal syncope. Diagnostic studies of: - CBC, CMP, magnesium, troponins, BNP, lipase, TSH, EKG, CTA brain and neck, CT chest without contrast. - CTA of the brain and neck is unremarkable though there is incidental findings of bilateral pneumothoraces and pneumomediastinum that is new, reflexed to CT chest without contrast which shows 2 small bilateral pneumothoraces and pneumomediastinum without any perforation or emergent surgical concerns - CBC shows a white count of 21 likely in the reaction of recent surgery - CMP is wholly unremarkable with known chronic kidney disease, mildly low sodium, starting slow IV fluids - Serial troponins negative - Magnesium is 1.7, will likely replete from inpatient side - Lipase within normal limits - TSH within normal limits - EKG shows no ischemic changes no arrhythmia, no T wave inversions or dynamic changes Interventions of: - [facility] Teleneurology- spoke with Dr. Watkins around 1949- recommends loading Plavix, continue aspirin, and being admitted for MRI/ECHO, NIH of 0 at that time. Spoke with [facility] radiologist shortly after- patient has new bilateral pneumothorax, and pneumomediastinum. - Patient did arrive as a stroke alert- and IV contrast was given despite it listed as allergy for renal impairment, I did consider his GFR but noted that emergent diagnosis with CTA was my only tool to assess stroke at that time, family informed me later that he does have kidney cancer not just chronic kidney disease but the risk benefit of scanning him on arrival by ambulance far outweighed not scanning, considering I did not have MRI available at the time - Hospitalist Dr. Lewis accepted for admission at 2200 hours. ED Course/Assessment/Plan: 84-year-old male presents with witnessed unresponsive but conscious episode picking up medicines from the pharmacy on his way home from admission at [facility] for umbilical hernia surgery, his [id number] showed dysmetria on arrival he had no focal weakness or slurred speech but was quite slow to respond to questions, EMS reported that he was ANO x 2 and did not know the day or where he was on scene. Teleneuro recommends loading him on Plavix, continuing aspirin and admission for MRI and echo, he has a leukocytosis likely in the setting of his recent surgery, cardiac workup negative, CMP shows mild hyponatremia and known chronic kidney disease. His incidental finding of bilateral pneumothoraces was investigated with CT chest without contrast which shows a 3 and a 1% pneumothorax respectively, he has new pneumomediastinum it is unclear where this is from but there is no perforation visualized it is possible that this is from insufflation and intubation during surgery Findings not consistent with severe stroke, acute coronary injury, developing pneumonia or atelectasis, hypoxic respiratory failure. Disposition of Transient Ischemic Attack, Bilateral Pneumothoraces, Pneumomediastinum. Patient verbalized understanding of the plan and return to ED criteria and engaged in shared decision making. Medical Records Medical records reviewed: Yes I reviewed the patient's medical records. Imaging Data Radiologic Study: Attestation: I personally reviewed and interpreted this imaging study as follows: Imaging: CT Scan Radiologist's impression: Exam(s) Addendum created by Nelson Martinez MD on 12/01/2024 7:02:23 PM EDT: THIS REPORT CONTAINS FINDINGS THAT MAY BE CRITICAL TO PATIENT CARE. The findings were verbally communicated via telephone conference with RIGOBERTO CLEANING at 7:00 PM EDT on 12/01/2024. The findings were acknowledged and understood. Initial report created on 12/01/2024 6:56:58 PM EDT: PROCEDURE INFORMATION: Exam: CTA Head Without And With Contrast, Arteriography Exam date and time: 12/01/2024 6:29 PM Age: 84 years old Clinical indication: Stroke-like symptoms; Altered mental status/memory loss TECHNIQUE: Imaging protocol: Computed tomographic angiography of the head without and with contrast. Exam focused on the arteries. 3D rendering (Not supervised by radiologist): MIP and/or 3D reconstructed images were created by the technologist. Contrast material: OMNIPAQUE 350; Contrast volume: 70 ml; Contrast route: INTRAVENOUS (IV); Other technique: STROKE PROTOCOL was implemented. COMPARISON: No relevant prior studies available. FINDINGS: ANTERIOR CIRCULATION: Right internal carotid artery: Intracranial segment is patent with no significant stenosis or occlusion. No aneurysm. Right middle cerebral artery: No occlusion or significant stenosis. No aneurysm. Right anterior cerebral artery: No occlusion or significant stenosis. No aneurysm. Left internal carotid artery: Intracranial segment is patent with no significant stenosis. No aneurysm. Left middle cerebral artery: No occlusion or significant stenosis. No aneurysm. Left anterior cerebral artery: No occlusion or significant stenosis. No aneurysm. POSTERIOR CIRCULATION: Right vertebral artery: No occlusion or significant stenosis. No aneurysm. Left vertebral artery: No occlusion or significant stenosis. No aneurysm. Basilar artery: No occlusion or significant stenosis. No aneurysm. Right posterior cerebral artery: No occlusion or significant stenosis. No aneurysm. Left posterior cerebral artery: No occlusion or significant stenosis. No aneurysm. HEAD: Brain: Mild volume loss No hemorrhage. Mild white matter disease. No mass effect. Cerebral ventricles: Normal. No ventriculomegaly. Bones: Unremarkable. No acute fracture. Paranasal sinuses: Visualized sinuses are normal. No fluid levels. Mastoid air cells: Visualized mastoids are normal. No mastoid effusion. Soft tissues: Unremarkable. IMPRESSION: 1. No large vessel occlusion. 2. Unremarkable CT head. ASSESSMENT: ASPECTS ([place] Stroke Program Early CT Score) is 10. PROCEDURE INFORMATION: Exam: CTA Neck Without And With Contrast Exam date and time: 12/01/2024 6:29 PM Age: 84 years old Clinical indication: Stroke-like symptoms; Altered mental status/memory loss TECHNIQUE: Imaging protocol: Computed tomographic angiography of the neck without and with contrast. Exam focused on the cervical segments of the vasculature. 3D rendering (Not supervised by radiologist): MIP and/or 3D reconstructed images were created by the technologist. Contrast material: OMNIPAQUE 350; Contrast volume: 70 ml; Contrast route: INTRAVENOUS (IV); COMPARISON: CT CHEST WO 08/29/2020 1:58 PM FINDINGS: Right common carotid artery: No stenosis. No dissection or occlusion. Right internal carotid artery: No stenosis of the extracranial segment. No dissection or occlusion. Right external carotid artery: No occlusion or stenosis of the origin. Left common carotid artery: No stenosis. No dissection or occlusion. Left internal carotid artery: No stenosis of the extracranial segment. No dissection or occlusion. Left external carotid artery: No occlusion or stenosis of the origin. Right vertebral artery: No stenosis. No dissection or occlusion. Left vertebral artery: No stenosis. No dissection or occlusion. Soft tissues: Air and swelling in the soft tissues of the neck left greater than right. Pneumomediastinum noted. Bones/joints: No acute fracture. Apical pneumothoraces noted right greater than left IMPRESSION: Moderate right carotid stenosis. No arterial dissection No large vessel occlusion. Small pneumothoraces right greater than left. Pneumomediastinum and air in the soft tissues of the neck extending superiorly to the cranial junction REFERENCES: NASCET CRITERIA. The degree of stenosis in the cervical segment of the internal carotid artery is based on NASCET criteria. Normal is no stenosis. Mild is less than 50% stenosis. Moderate is 50-69% stenosis. Severe is 70% to 99% stenosis. Total occlusion is no detectable patent lumen. Dictated and Authenticated by: Nelson Martinez MD. EXAM: CT BRAIN NECK CTA CLINICAL HISTORY: dysmetria. TECHNIQUE: Imaging Protocol: Axial CT angiography was performed with multi-slice acquisition and multi-planar and/or 3D reconstructions. CONTRAST MATERIAL: Intravenous: Omnipaque 350 contrast volume:75 mL COMPARISON: There are no priors for comparison. FINDINGS: CT Head W/O and W: Ventricles and Extra axial spaces: Normal in size and morphology for the patient's age. Hemorrhage: None. Cerebral parenchyma: There are areas of decreased attenuation in the white matter most consistent with chronic microvascular ischemic disease. No evidence of an acute territorial infarct are seen at this time. There is no mass effect. Midline shift: None. Brainstem/Cerebellum: Normal. Calvarium: Normal. Visualized Paranasal sinuses/Mastoids: Clear. Soft Tissues: There is subcutaneous air present. Enhancement: Unremarkable. CTA Neck W: Common Carotid: Right: No dissection, occlusion or significant stenosis. Atherosclerotic calcification is seen in the carotid bulb with less than 50 percent stenosis. Left: No dissection, occlusion or significant stenosis. There is mild atherosclerotic calcification in the bulb with less than 50 percent stenosis. External Carotid: Right: No occlusion or significant stenosis. Left: No occlusion or significant stenosis. Internal Carotid: Right: No dissection, occlusion or significant stenosis. There is atherosclerotic calcification in the proximal right internal carotid artery with less than 50 percent stenosis. Left: No dissection, occlusion or significant stenosis. Vertebral Artery: Right: No dissection, occlusion or significant stenosis. Left: No dissection, occlusion or significant stenosis. Lung Apices: There are small bilateral apical pneumothoraces and pneumomediastinum. Bones: Within normal limits for the patient's age. Soft Tissues: Subcutaneous emphysema is seen in the neck. Thyroid gland: Unremarkable. CTA Brain W: Internal Carotid Arteries: There is atherosclerotic calcification of the cavernous portions of the internal carotid arteries bilaterally. No significant stenosis, occlusion or aneurysm is seen. Anterior Cerebral Arteries: Right: No aneurysm, occlusion or significant stenosis. Left: No aneurysm, occlusion or significant stenosis. Middle Cerebral Arteries: Right: No aneurysm, occlusion or significant stenosis. Left: No aneurysm, occlusion or significant stenosis. Posterior Cerebral Arteries: Right: No aneurysm, occlusion or significant stenosis. Left: No aneurysm, occlusion or significant stenosis. Vertebral Arteries: Right: No aneurysm, occlusion or significant stenosis. Left: No aneurysm, occlusion or significant stenosis. Basilar Artery: No aneurysm, occlusion or significant stenosis. IMPRESSION: 1. No large vessel occlusion or significant stenosis on the CT angiography of the head. 2. No acute intracranial process. 3. No occlusion or significant stenosis on the CT angiography of the neck. 4. Small bilateral apical pneumothoraces and pneumomediastinum. 5. Subcutaneous emphysema in the neck. 6. The preliminary [facility] report was reviewed. Radiologic Study #2: Attestation: I personally reviewed and interpreted this imaging study as follows: Imaging: CT Scan Radiologist's impression: Exam: CT Chest Without Contrast; Diagnostic Exam date and time: 12/01/2024 8:18 PM Age: 84 years old Clinical indication: Other: Pneumothorax, pneumomediastinum TECHNIQUE: Imaging protocol: Diagnostic computed tomography of the chest without contrast. 3D rendering (Not supervised by radiologist): MIP and/or 3D reconstructed images were created by the technologist. Radiation optimization: All CT scans at this facility use at least one of these dose optimization techniques: automated exposure control; mA and/or kV adjustment per patient size (includes targeted exams where dose is matched to clinical indication); or iterative reconstruction. COMPARISON: CT CHEST WO 08/29/2020 1:58 PM FINDINGS: Lungs: Minimal subsegmental atelectasis. Pleural spaces: Small right greater than left apical pneumothoraces measuring up to 3 % and 1% respectively. Minimal effusions. Heart: Pneumomediastinum noted. Coronary calcifications noted. No cardiomegaly. No pericardial effusion. Lymph nodes: No enlarged lymph nodes. Vasculature: No aortic aneurysm. Bones/joints: No acute fracture. Degenerative changes in the spine Soft tissues: Unremarkable. Moderate to severe hydronephrosis on the right is grossly stable IMPRESSION: Pneumomediastinum and small pneumothoraces as described. No discrete rib fracture. Minimal pleural effusions Dictated and Authenticated by: Nelson Martinez MD. Lab Data Lab results reviewed: Yes I reviewed the patient's lab results. Labs: Laboratory Tests Range/Units 12/01/24 12/01/24 18:15 19:50 WBC (4.4-10.8) 10^3/uL 21.27 H RBC (4.36-5.78) 10^6/uL 3.57 L Hgb (13.5-17.5) g/dL 11.3 L Hct (40.0-50.0) % 33.9 L MCV (80-95) fL 95 MCH (27.0-33.0) pg 31.7 MCHC (32.0-36.0) % 33.3 RDW (11.8-14.1) % 12.7 Plt Count (130-400) 10^3/uL 194 MPV (8.0-11.0) fL 9.8 Immature Gran % % 0.7 Neutrophils % % 81.5 Lymphocytes % % 9.1 Monocytes % % 7.9 Eosinophils % % 0.6 Basophils % % 0.2 Nucleated RBC % (0.0-0.3) % 0.0 Absolute Neutrophils (1.2-6.7) 10^3/uL 17.34 H Absolute Lymphocytes (1.2-3.4) 10^3/uL 1.94 Absolute Monocytes (0.1-0.8) 10^3/uL 1.68 H Absolute Eosinophils (0.0-0.7) 10^3/uL 0.13 Absolute Basophils (0.0-0.2) 10^3/uL 0.04 RBC Morphology Normal Sodium (136-145) mmol/L 129 L Potassium (3.5-5.1) mmol/L 4.5 Chloride (98-107) mmol/L 99 Carbon Dioxide (21.0-32.0) mmol/L 22.8 Anion Gap (3-11) mmol/L 7.2 BUN (7-18) mg/dL 29 H Creatinine (0.70-1.30) mg/dL 2.7 H Est GFR (CKD-EPI 2020) (mL/min/1.73m2) 22.68 Glucose (74-106) mg/dL 170 H Calcium (8.5-10.1) mg/dL 8.6 Magnesium (1.8-2.4) mg/dL 1.7 L Total Bilirubin (0.2-1.0) mg/dL 1.2 H AST (15-37) U/L 21 ALT (16-63) U/L 12 L Alkaline Phosphatase (46-116) U/L 61 Troponin I (<or=76) ng/L 9 8 NT-Pro-B Natriuret Pep (<300) pg/mL 1942 H Total Protein (6.4-8.2) g/dL 6.1 L Albumin (3.4-5.0) g/dL 2.7 L Lipase (<78) U/L 23 TSH (0.36-3.74) uIU/mL 1.23 PFSH All Active Problems (Updated 11/24/24 @ 15:46 by Kristy Sainz MD) 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 (Acute) Squamous cell carcinoma of scalp (Acute) Lesion of skin of scalp (Acute) Primary open angle glaucoma (Acute) Stricture of ureter (Acute) Malignant neoplasm of urinary organ (Acute) Dizziness (Acute) Side effect of medication (Acute) Constipation (Acute) UTI (urinary tract infection) (Acute) w/ degree of prostatitis Chronic kidney disease (CKD) (Chronic) Block, bifascicular (Acute) Primary open-angle glaucoma, left eye, moderate stage (Chronic) Chest pain (Acute) Actinic keratoses (Acute 06/24/17) scalp Anxiety (Acute) Aortic aneurysm and dissection (Acute) AAA ruptured --multiple transfusions; repair, open repair about 2009 Benign prostatic hyperplasia (Acute) CKD (chronic kidney disease) stage 3, GFR 30-59 ml/min (Acute 07/30/16) due to ischemia during ruptured AAA 2021, stage 4 Chronic gout due to renal impairment of multiple sites without tophus (Acute 06/05/15) Essential hypertension (Acute 07/09/16) White coat augmentation neg stress echo 07/14 Glaucoma (Acute) 03/12/15; OPTICAL EXPRESSIONS Obesity (Acute) Obstructive sleep apnea syndrome (Acute) 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 Hyperlipidemia (Acute 08/04/12) Incisional hernia of anterior abdominal wall without obstruction or gangrene (Acute) Smoker (Acute) quit 2009, about 40-50 pk yr RBBB (right bundle branch block with left anterior fascicular block) (Acute) 06/2021-unremarkable ETT Diabetes mellitus (Chronic) 06/2021-diet controlled Medical History Vitamin B 12 deficiency Anemia Anxiety RBBB (right bundle branch block with left anterior fascicular block) (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 BELLO @ [facility] Family History Mother No problems noted. Father Neoplasm Sister Heart disease Stroke Grandfather No problems noted. Grandfather Heart disease Grandmother No problems noted. Grandmother Personal history of malignant neoplasm Sister No problems noted. Sister No problems noted. Brother Neoplasm Brother No problems noted. Brother No problems noted. Brother No problems noted. Brother No problems noted. Son No problems noted. Social History Smoking/Tobacco Use Status: Former Tobacco Use tobacco type: cigarettes Quit Date: 03/30/09 Tobacco: How many years used: 40 Second Hand Exposure: Yes Smoking risk assessment performed?: Yes Alcohol Intake: former Drug use: Never Substance use type: does not use Household members: none Housing: house Do you need help understanding health information?: Rarely Pets and animals: No Sexually active: Yes Do you think of yourself as: straight/heterosexual Current gender identity: male What is your relationship status?: How often do you talk on the phone with friends or family?: three or more times per week How often do you get together with friends or relatives?: three or more times per week How often do you attend restorationist or lutheran services?: decline to answer Do you belong to any clubs or organized social groups?: no Panel score (0-1 are the most socially isolated patients): 1 What type of physical activity do you participate in: walking Duration: 15-30 minutes/day Frequency: 3-4 times per week Stephani/Judaism: None Special stephani needs: No Seatbelt use: sometimes Helmet use: No Drive intox or ride w/intox cdl b 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
[2024-12-01] MEDS: Clopidogrel 300 MG TAB PO (19:44)
[2024-12-01] MEDS: Normal Saline 1,000 ML 150 ML IV (20:04)
[2024-12-01 20:17] LABS: Troponin I 8 ng/L (<or=76)
--- NOTE | 2024-12-01 20:36 | DI.VRAD_ITS ---
PROCEDURE INFORMATION: Exam: CT Chest Without Contrast; Diagnostic Exam date and time: 12/01/2024 8:18 PM Age: 84 years old Clinical indication: Other: Pneumothorax, pneumomediastinum TECHNIQUE: Imaging protocol: Diagnostic computed tomography of the chest without contrast. 3D rendering (Not supervised by radiologist): MIP and/or 3D reconstructed images were created by the technologist. Radiation optimization: All CT scans at this facility use at least one of these dose optimization techniques: automated exposure control; mA and/or kV adjustment per patient size (includes targeted exams where dose is matched to clinical indication); or iterative reconstruction. COMPARISON: CT CHEST WO 08/29/2020 1:58 PM FINDINGS: Lungs: Minimal subsegmental atelectasis. Pleural spaces: Small right greater than left apical pneumothoraces measuring up to 3 % and 1% respectively. Minimal effusions. Heart: Pneumomediastinum noted. Coronary calcifications noted. No cardiomegaly. No pericardial effusion. Lymph nodes: No enlarged lymph nodes. Vasculature: No aortic aneurysm. Bones/joints: No acute fracture. Degenerative changes in the spine Soft tissues: Unremarkable. Moderate to severe hydronephrosis on the right is grossly stable IMPRESSION: Pneumomediastinum and small pneumothoraces as described. No discrete rib fracture. Minimal pleural effusions Dictated and Authenticated by: Nelson Martinez MD. Orderin Radha Franklin MD
[2024-12-01 22:09] LABS: Troponin I 8 ng/L (<or=76)
--- NOTE | 2024-12-01 22:11 | W.PM.HP.N ---
Date of service: 12/01/24 Time of Service: 22:12 Assessment and Plan Assessment and plan (1) Aphasia: Status: Acute Assessment and plan: Exact etiology is unknown consult to telepsych has been performed. They are recommending an MRI to rule out ischemic stroke. Since the patient has an elevated BNP I will do an echocardiogram. As mentioned not show any acute injury. Concerning his recent hospitalization most likely this is a vasovagal event. (2) CKD (chronic kidney disease), stage IV: Status: Acute Assessment and plan: Patient does have known chronic kidney disease stage IV. I will add Mucomyst as well as continued IV hydration. Mostly Mucomyst is particularly helpful but it does have a very low side effect profile (3) Pre-syncope: Status: Acute Assessment and plan: This is my working diagnosis at this point I will hold his beta olman as he has both hypotensive and bradycardic (4) Leukocytosis: Status: Acute Assessment and plan: Most likely this is due to his recent surgery and is reactive. I will do blood and urine cultures for completeness chest x-ray pneumonia (5) SCC (squamous cell carcinoma): Status: Acute Assessment and plan: Recent procedure notes can be reviewed EMR. Patient had a SCC removed. (6) Hypotension: Status: Acute Assessment and plan: Hold beta-blockade (7) Bradycardia: Status: Acute Assessment and plan: Hold beta-blockade (8) Hydronephrosis: Status: Acute Assessment and plan: This is found on the CT and there does not appear to be any stone. This can be worked up in the outpatient setting at the discretion of his PCP. (9) Hyponatremia: Status: Acute Assessment and plan: Continue with hydration and recheck labs in the a.m. (10) Elevated brain natriuretic peptide (BNP) level: Status: Acute Assessment and plan: As mentioned above we will do an echocardiogram. (11) Pneumothorax: Status: Acute Assessment and plan: Small, will monitor. (12) Pneumomediastinum: Status: Acute Assessment and plan: Monitor. Patient will be on Lovenox for DVT prophylaxis History of Present Illness History of Present Illness Chief Complaint: aphasia Narrative: Mr. Garcia is a pleasant 84-year-old gentleman who was recently discharged from [facility] after a open hernia repair. In fact he was [facility] today [facility] when he became presyncopal had a controlled fall to his knees. Family that was with him states that he had a period of aphasia and had difficulty returning to his baseline post incident. Patient denies any history of seizures denies any bowel or bladder incontinence. Patient states he is not having any chest pain or shortness of breath. His son states that he his surgery was much longer expected as it was to be a laparoscopic done as an open procedure. Patient denies any other neurologic history. Patient did get a CT scan done in the ED which negative for any neurologic abnormalities. He also had a CT done of his chest which showed pneumomediastinum with small pneumothoraces at 3 a 1% respectively. His last contact before today with our health system was in September of this year he had a s squamous cell carcinoma. 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 (Acute) Squamous cell carcinoma of scalp (Acute) Lesion of skin of scalp (Acute) Primary open angle glaucoma (Acute) Stricture of ureter (Acute) Malignant neoplasm of urinary organ (Acute) Dizziness (Acute) Side effect of medication (Acute) Constipation (Acute) UTI (urinary tract infection) (Acute) w/ degree of prostatitis Chronic kidney disease (CKD) (Chronic) Block, bifascicular (Acute) Primary open-angle glaucoma, left eye, moderate stage (Chronic) Chest pain (Acute) Actinic keratoses (Acute 06/24/17) scalp Anxiety (Acute) Aortic aneurysm and dissection (Acute) AAA ruptured --multiple transfusions; repair, open repair about 2009 Benign prostatic hyperplasia (Acute) CKD (chronic kidney disease) stage 3, GFR 30-59 ml/min (Acute 07/30/16) due to ischemia during ruptured AAA 2021, stage 4 Chronic gout due to renal impairment of multiple sites without tophus (Acute 06/05/15) Essential hypertension (Acute 07/09/16) White coat augmentation neg stress echo 07/14 Glaucoma (Acute) 03/12/15; OPTICAL EXPRESSIONS Obesity (Acute) Obstructive sleep apnea syndrome (Acute) 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 Hyperlipidemia (Acute 08/04/12) Incisional hernia of anterior abdominal wall without obstruction or gangrene (Acute) Smoker (Acute) quit 2009, about 40-50 pk yr RBBB (right bundle branch block with left anterior fascicular block) (Acute) 06/2021-unremarkable ETT Diabetes mellitus (Chronic) 06/2021-diet controlled Medical History Vitamin B 12 deficiency Anemia Anxiety RBBB (right bundle branch block with left anterior fascicular block) (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 BELLO @ [facility] Family History Mother No problems noted. Father Neoplasm Sister Heart disease Stroke Grandfather No problems noted. Grandfather Heart disease Grandmother No problems noted. Grandmother Personal history of malignant neoplasm Sister No problems noted. Sister No problems noted. Brother Neoplasm Brother No problems noted. Brother No problems noted. Brother No problems noted. Brother No problems noted. Son No problems noted. Social History Smoking/Tobacco Use Status: Former Tobacco Use tobacco type: cigarettes Quit Date: 03/30/09 Tobacco: How many years used: 40 Second Hand Exposure: Yes Smoking risk assessment performed?: Yes Alcohol Intake: former Drug use: Never Substance use type: does not use Household members: none Housing: house Do you need help understanding health information?: Rarely Pets and animals: No Sexually active: Yes Do you think of yourself as: straight/heterosexual Current gender identity: male What is your relationship status?: How often do you talk on the phone with friends or family?: three or more times per week How often do you get together with friends or relatives?: three or more times per week How often do you attend catholic or confucianism services?: decline to answer Do you belong to any clubs or organized social groups?: no Panel score (0-1 are the most socially isolated patients): 1 What type of physical activity do you participate in: walking Duration: 15-30 minutes/day Frequency: 3-4 times per week Stephani/Yazidism: None Special stephani needs: No Seatbelt use: sometimes Helmet use: No Drive intox or ride w/intox winch 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 Meds Allergies and Home Medications Allergies Allergy/AdvReac Type Severity Reaction Status Date / Time ciprofloxacin (From Cipro) AdvReac Intermediate Dizziness/L Verified 10/31/24 09:19 ighthead sulfamethoxazole (From AdvReac Intermediate malaise Verified 10/31/24 09:19 Bactrim) trimethoprim (From Bactrim) AdvReac Intermediate malaise Verified 10/31/24 09:19 IV contrask Allergy Intermediate renal Uncoded 10/31/24 09:19 impairment Home Medications ?Medication ?Instructions ?Recorded ?Confirmed ?Type Lancets 1 ea miscellaneous QID #400 ea 07/15/12 12/01/24 History aspirin 81 mg chewable tablet 81 mg PO DAILY 07/15/12 12/01/24 History (Aspirin Low-Strength) dorzolamide 22.3 mg-timolol 6.8 1 drp ophthalmic (eye) BID 12/17/22 12/01/24 History mg/mL eye drops blood sugar diagnostic (FreeStyle #100 strips 06/06/23 11/24/24 Rx Lite Strips) acetaminophen 500 mg capsule 1,000 mg PO Q6H PRN 08/13/23 12/01/24 History magnesium oxide 400 mg (241.3 mg 400 mg PO DAILY 08/13/23 12/01/24 History magnesium) tablet (MagOx) brimonidine 0.2 % eye drops 1 drp ophthalmic (eye) BID 06/01/24 12/01/24 History latanoprost 0.005 % eye drops 1 drp OU HS #7.5 mL 06/21/24 12/01/24 Rx (Xalatan) atorvastatin 20 mg tablet 20 mg PO DAILY #90 tabs 08/30/24 12/01/24 Rx atenolol 50 mg tablet 25 mg (1/2 x 50 mg) PO BID #90 tabs 11/14/24 12/01/24 Rx folic acid 1 mg tablet 1 mg PO DAILY #90 tabs 11/17/24 12/01/24 Rx Exam Narrative Exam Narrative: HEENT-normocephalic atraumatic mucous membranes moist oropharynx is clear Neck-no lymphadenopathy JVD thyromegaly cardiovascular-distant heart sounds Murmurs Lungs-clear to auscultation bilaterally with good air exchange Abdomen-binder in place extremities-no cyanosis clubbing or edema bilaterally Neurologic-cranial nerves II through XII are intact as tested reflexes none EXTR normal as tested. He does have a symmetric smile. Can raise his eyebrows. Nonfocal exam. Results Labs 12/01/24 18:15 12/01/24 18:15 Labs: Laboratory Results - last 24 hr 12/01/24 12/01/24 18:15 19:50 WBC 21.27 H RBC 3.57 L Hgb 11.3 L Hct 33.9 L MCV 95 MCH 31.7 MCHC 33.3 RDW 12.7 Plt Count 194 MPV 9.8 Immature Gran % 0.7 Neutrophils % 81.5 Lymphocytes % 9.1 Monocytes % 7.9 Eosinophils % 0.6 Basophils % 0.2 Nucleated RBC % 0.0 Absolute Neutrophils 17.34 H Absolute Lymphocytes 1.94 Absolute Monocytes 1.68 H Absolute Eosinophils 0.13 Absolute Basophils 0.04 RBC Morphology Normal Sodium 129 L Potassium 4.5 Chloride 99 Carbon Dioxide 22.8 Anion Gap 7.2 BUN 29 H Creatinine 2.7 H Est GFR (CKD-EPI 2020) 22.68 Glucose 170 H Calcium 8.6 Magnesium 1.7 L Total Bilirubin 1.2 H AST 21 ALT 12 L Alkaline Phosphatase 61 Troponin I 9 8 NT-Pro-B Natriuret Pep 1942 H Total Protein 6.1 L Albumin 2.7 L Lipase 23 TSH 1.23 Last Vital Signs Pulse 89 12/01/24 21:48 Resp 17 09/04/25 21:48 BP 106/78 12/01/24 21:48 Pulse Ox 94 12/01/24 18:51 Time Spent Time spent with Patient: 55-74 minutes Time was spent: preparing to see the patient(eg.review tests), obtaining and/or reviewing separately otained hiistory, ordering medications,tests, procedures, referring, communicating with other health care services manager, indepentently interpreting results, counseling the patient and care coordination
--- NOTE | 2024-12-01 22:44 | W.PC.ACHO ---
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) Diabetes mellitus (08/04/12) (Last Reviewed 11/24/24 @ 15:44 by Kristy Sainz MD) Hx of local excision of skin lesion (~10/31/24) Posterior subcapsular age-related cataract of left eye Nuclear sclerotic cataract of left eye S/P AAA repair Umbilical hernia hernia repair TURBT (08/11/16) Most Recent Vital Signs Pulse 61 12/01/24 22:31 Pulse 60 12/01/24 22:31 Respiratory Rate 20 12/01/24 22:31 Respiratory Effort Normal 12/01/24 19:55 Respiratory Depth Normal 12/01/24 19:55 Respiratory Pattern Normal 12/01/24 19:55 Blood Pressure 93/61 L 12/01/24 22:31 Blood Pressure Mean 70 12/01/24 22:31 Blood Pressure Position Supine 12/01/24 18:51 Pulse Oximetry 93 12/01/24 22:31 Oxygen Delivery Method Room Air 12/01/24 18:51 Oxygen Flow Rate 0 12/01/24 18:51 Carole BARNETT notified 12/01/24 20:05 Allergies ciprofloxacin (From Cipro) Adverse Reaction (Intermediate, Verified 10/31/24 09:19) Dizziness/Lighthead also constipation/foot swelling/? tendonitis sulfamethoxazole (From Bactrim) Adverse Reaction (Intermediate, Verified 10/31/24 09:19) malaise trimethoprim (From Bactrim) Adverse Reaction (Intermediate, Verified 10/31/24 09:19) malaise IV contrask Allergy (Intermediate, Uncoded 10/31/24 09:19) renal impairment Precautions Isolation Standard precaution 12/01/24 18:22 Active Medications Generic Name Dose Route Start Last Admin Trade Name Freq PRN Reason Stop Dose Admin Sodium Chloride 1,000 mls @ 150 mls/hr 12/01/24 20:00 12/01/24 20:04 Saline 1000ml Bag IV 150 mls/hr INFUSION ANDREW Administration Iohexol 100 ml 12/01/24 18:15 12/01/24 18:14 Omnipaque 350 Mg/Ml 100 Ml Btl IJ 12/31/24 23:59 75 ml DIRECTED ANDREW Administration Sodium Chloride 0 ml 12/01/24 18:12 12/01/24 18:13 Normal Saline Flush 10 Ml Syr IVP 10 ml PRN PRN Administration Sodium Chloride 50 ml 12/01/24 18:15 12/01/24 18:14 Normal Saline - Diluent 50 Ml Vial IJ 50 ml DIRECTED ANDREW Administration IV IV Catheter Type [Right Saline Lock Forearm] IV Catheter Type [Left Saline Lock Antecubital] IV Catheter Gauge [Right 18 Forearm] IV Catheter Gauge [Left 18 Antecubital] Diet Orders Category Date Time Status Regular/Normal [DIET] Nutrition 12/02/24 Breakfast Ordered Diagnostics 12/01/24 12/01/24 12/01/24 Range/Units 21:45 19:50 18:15 WBC 21.27 H (4.4-10.8) 10^3/uL RBC 3.57 L (4.36-5.78) 10^6/uL Hgb 11.3 L (13.5-17.5) g/dL Hct 33.9 L (40.0-50.0) % MCV 95 (80-95) fL MCH 31.7 (27.0-33.0) pg MCHC 33.3 (32.0-36.0) % RDW 12.7 (11.8-14.1) % Plt Count 194 (130-400) 10^3/uL MPV 9.8 (8.0-11.0) fL Immature Gran % 0.7 % Neutrophils % 81.5 % Lymphocytes % 9.1 % Monocytes % 7.9 % Eosinophils % 0.6 % Basophils % 0.2 % Nucleated RBC % 0.0 (0.0-0.3) % Absolute Neutrophils 17.34 H (1.2-6.7) 10^3/uL Absolute Lymphocytes 1.94 (1.2-3.4) 10^3/uL Absolute Monocytes 1.68 H (0.1-0.8) 10^3/uL Absolute Eosinophils 0.13 (0.0-0.7) 10^3/uL Absolute Basophils 0.04 (0.0-0.2) 10^3/uL RBC Morphology Normal Sodium 129 L (136-145) mmol/L Potassium 4.5 (3.5-5.1) mmol/L Chloride 99 (98-107) mmol/L Carbon Dioxide 22.8 (21.0-32.0) mmol/L Anion Gap 7.2 (3-11) mmol/L BUN 29 H (7-18) mg/dL Creatinine 2.7 H (0.70-1.30) mg/dL Est GFR (CKD-EPI 2020) 22.68 (mL/min/1.73m2) Glucose 170 H (74-106) mg/dL Calcium 8.6 (8.5-10.1) mg/dL Magnesium 1.7 L (1.8-2.4) mg/dL Total Bilirubin 1.2 H (0.2-1.0) mg/dL AST 21 (15-37) U/L ALT 12 L (16-63) U/L Alkaline Phosphatase 61 (46-116) U/L Troponin I 8 8 9 (<or=76) ng/L NT-Pro-B Natriuret Pep 1942 H (<300) pg/mL Total Protein 6.1 L (6.4-8.2) g/dL Albumin 2.7 L (3.4-5.0) g/dL Lipase 23 (<78) U/L TSH 1.23 (0.36-3.74) uIU/mL 12/01/24 22:28 Blood Culture - Pending Blood 12/01/24 22:28 Blood Culture - Pending Blood [id number] Documentation Fingerstick Glucose Start: 12/01/24 18:11 Freq: Status: Active Protocol: Activity Type Activity Date Activity User E-sign Co-sign Detail Recorded Client Recorded Date Recorded By Document 12/01/24 18:10 ALEX DAEMON(9) [id number] 12/01/24 18:11 ALEX DAEMON(10) Intake and Output - 24 Hour Total 12/01/24 17:53 thru 12/01/24 22:22 Output Total 200 Balance -200 Weight 72.575 kg Output: Urine 200 Falls Risk Assessment History of Falls No History 12/01/24 18:22 Contributing Factors No Factors 12/01/24 18:22 Ambulatory Aids Independent 12/01/24 18:22 Tubes/Lines None 12/01/24 18:22 Gait Evaluation No gait disturbance 12/01/24 18:22 Cognition No cognitive impairment 12/01/24 18:22 Fall Total Score 0 12/01/24 18:22 Level of Risk Standard/Low Risk 12/01/24 18:22 Problems (Last Reviewed 11/24/24 @ 15:44 by Kristy Sainz MD) Pneumothorax (Acute) Elevated brain natriuretic peptide (BNP) level (Acute) Hyponatremia (Acute) Hydronephrosis (Acute) Bradycardia (Acute) Hypotension (Acute) SCC (squamous cell carcinoma) (Acute) Leukocytosis (Acute) Pre-syncope (Acute) CKD (chronic kidney disease), stage IV (Acute) Aphasia (Acute) Pneumomediastinum (Acute) Bilateral pneumothoraces (Acute) Transient ischemic attack (Acute) v v v v v v v v v Sending and/or Receiving Nurses: Please use comment section below to note any information pertinent to the patient hand-off not included above. Information / Comments: report received all questions answered Report received from: report received from Katja Benitez @ [id number]
[2024-12-01] MEDS: Normal Saline 250 ML IV (23:28)
[2024-12-01] MEDS: Acetaminophen 325 MG TAB 650 MG PO (23:54)
[2024-12-02] VITALS (84 sets, daily range): BP systolic 71–126; BP diastolic 30–95; PULSE 48–125; RESP 13–31; TEMP 36–36.6; O2SAT 90–99
--- NOTE | 2024-12-02 | DI.MRI_ITS ---
Exam(s) MR BRAIN WO EXAM: MR BRAIN WO CLINICAL HISTORY: cva TECHNIQUE: Multiplanar multisequence MRI of the brain was performed. COMPARISON: CT CT HEAD - STROKE PROTOCOL from 12/02/2024 FINDINGS: The exam is mildly limited by motion. VENTRICLES AND EXTRA AXIAL SPACES: Normal in size and morphology for the patient's age. MIDLINE SHIFT: None. CEREBRAL PARENCHYMA: No focus of restricted diffusion to suggest acute infarct. No space-occupying lesion identified. Moderate atrophy. No significant white matter lesions. BRAINSTEM/CEREBELLUM: Normal. VISUALIZED PARANASAL SINUSES: Clear. MASTOIDS:Clear. Vasculature: Normal flow void. PITUITARY GLAND: Unremarkable. ORBITS: Unremarkable. IMPRESSION: Atrophy. No evidence of acute infarct. DATA REPOSITORY:
--- NOTE | 2024-12-02 | DI.CT_ITS ---
Exam(s) CT ABDOMEN PELVIS WO EXAM: CT ABDOMEN PELVIS WO CLINICAL HISTORY: low BP, recent open hernia repair. TECHNIQUE: Imaging Protocol: Axial computed tomography images with coronal and sagittal reformatted images were created and reviewed. Oral: / no COMPARISON: CT CT ABDOMEN PELVIS WO from 06/18/[address] CHEST WO from 12/01/2024 FINDINGS: Lung Bases: No small to moderate-sized right pleural effusion. Small left pleural effusion. Both have increased when compared with the previous exam. Pneumomediastinum remains present. Mild basilar atelectasis. No visible pneumothorax. Liver: Normal density. No suspicious mass. Gallbladder and biliary tract: Small gallstones. No biliary dilation. Pancreas: Normal density. No abnormal calcifications or inflammatory process. Spleen: Normal. Kidneys: Severe right hydronephrosis is again noted. Left renal cysts. No radiodense stones. No obstructive uropathy. No suspicious masses seen. Adrenal glands: No masses seen. Lymph nodes: Within normal limits. Vasculature: Abdominal aorta non-dilated. Atherosclerotic changes. 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 Soft tissues: The patient is status post abdominal wall hernia repair. There are areas of hemorrhage seen within the rectus muscles. There is significant hematoma is noted in the right lateral mid abdomen, extending from the level of the inferior border of the liver through the iliac crest. Approximate dimensions are 14 by 8.5 by 17 cm. Other areas of hematoma or noted anteriorly and laterally in the low pelvis. There is air along the left lower lateral chest wall. Significant subcutaneous air also noted anteriorly and bilaterally along the basil regions. Air extends into the inguinal canals. Increased densities are seen in the lower anterior abdominal wall subcutaneous fat consistent with hematoma. Additional area of hematoma seen in the midline upper abdomen above the level of the umbilicus. Bladder: Decompressed by Obrien catheter. Bowel: No obstruction or bowel wall thickening. Peritoneal cavity: Ascites is now noted around the liver, not present on the prior exam. Multiple bubbles free air noted in the abdomen and pelvis. No focal abscess collection. No mesenteric inflammatory response. There is a small amount of hemorrhage seen low in the pelvis. Reproductive organs: Unremarkable. Bones: There are nondisplaced fractures of the of the left lateral 5th through 8th ribs. No spine or pelvic fractures. IMPRESSION: Vision appears to recently status post abdominal wall hernia repair. There are large areas of hematoma within the abdominal wall, involving the rectus muscles as well as laterally and in the anterior and left lower pelvis. Small amount free intraperitoneal hemorrhage is noted low in pelvis. Free air remains present. There is also extensive air in the subcutaneous fat. RADIATION DOSE DELIVERED: 1,315.45mGy.cm Total DLP DATA REPOSITORY: All CT scans at this facility are submitted to the National Radiology Data Registry (NRDR) Dose Index Registry (DIR) with the [employer] (ACR). RADIATION OPTIMIZATION: All CT scans at this facility use at least one of these dose optimization techniques: automated exposure control; mA and/or kV adjustment per patient size (includes targeted exams where dose is matched to clinical indication); or iterative reconstruction.
--- NOTE | 2024-12-02 | DI.CT_ITS ---
Exam(s) CT HEAD - STROKE PROTOCOL EXAM: CT HEAD - STROKE PROTOCOL CLINICAL HISTORY: unresponsive. TECHNIQUE: Imaging Protocol: Axial computed tomography images with coronal and sagittal reformatted images were created and reviewed COMPARISON: CT CT BRAIN NECK CTA from 12/01/2024 FINDINGS: Ventricles and Extra axial spaces: Normal in size and morphology for the patient's age. Hemorrhage: None. Cerebral parenchyma: No evidence of acute infarct or mass. Moderate atrophy. Mild white matter changes of microvascular disease. Midline shift: None. Brainstem/Cerebellum: Normal. Bones: No skull or facial fractures. Visualized Paranasal sinuses:Clear. Mastoids: Clear. Soft Tissues: Scattered air bubbles in the soft tissues of the upper neck. ORBITS: Unremarkable. PITUITARY: Not enlarged. IMPRESSION: No acute intracranial process. RADIATION DOSE DELIVERED: 943.99mGy.cm Total DLP DATA REPOSITORY: All CT scans at this facility are submitted to the National Radiology Data Registry (NRDR) Dose Index Registry (DIR) with the [employer] (ACR). RADIATION OPTIMIZATION: All CT scans at this facility use at least one of these dose optimization techniques: automated exposure control; mA and/or kV adjustment per patient size (includes targeted exams where dose is matched to clinical indication); or iterative reconstruction.
[2024-12-02] MEDS: Normal Saline 1,000 ML 150 ML IV ×2 (01:55→08:48)
--- NOTE | 2024-12-02 08:33 | PDOC.CMIN ---
Date of service: 12/02/24 Time of Service: 08:33 Care Management Initial Assmt Initial Assessment Reason for Hospitalization: aphasia Functional Status/Living Situation Town of Residence: [facility]/[place], [place]. Medications Medication Management: No Issues/Barriers identified Advance Directives Advance Directives: Do you have an Advance Directive: Y 08/04/12, 15:30 AD On File at [facility]: Y 08/04/12, 15:28 Date Asked 12/01/24 12/01/24, 17:59 AD Date Reviewed 12/01/24 12/01/24, 19:15 COLST On File at [facility] No 12/01/24, 19:15 COLST Date Scanned Code Status Resuscitation Status Full Code Portal Pt does not currently have a portal and education provided: Yes Insurance Coverage/Financial Issues Insurance: Medicare [facility] Care Team Visit Care Team Role Provider Type Mellissa Luke APRN MD [facility] STAFF PHYSICIAN Sander Contreras MD Primary Care Provider [facility] STAFF PHYSICIAN ANIBAL Moore Emergency Provider PHYSICIANS AUTHOR Jorge Lewis MD Admit Provider [facility] STAFF PHYSICIAN Attending Provider Discharge Potential Discharge Needs: PCP F/U Appt Anticipated Barriers to Discharge: None Identified Patient/Family Education Needs: Review discharge instructions, discuss Ask Me Three Transportation: Private vehicle Plan: Anticipate Aaron will be discharged home with no new services when medically cleared. He will follow up with his community providers and plan of care and transport with family. CM will follow and continue to support discharge planning. Social Determinants of Health Screening Will the Patient Participate in the Screening?: Unable to obtain Do you worry about having a steady place to live?: no PFSH All Active Problems (Updated 12/01/24 @ 22:25 by Jorge Lewis MD) Pneumothorax (Acute) Elevated brain natriuretic peptide (BNP) level (Acute) Hyponatremia (Acute) Hydronephrosis (Acute) Bradycardia (Acute) Hypotension (Acute) SCC (squamous cell carcinoma) (Acute) Leukocytosis (Acute) Pre-syncope (Acute) CKD (chronic kidney disease), stage IV (Acute) Aphasia (Acute) Pneumomediastinum (Acute) Bilateral pneumothoraces (Acute) Transient ischemic attack (Acute) 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 (Acute) Squamous cell carcinoma of scalp (Acute) Lesion of skin of scalp (Acute) Primary open angle glaucoma (Acute) Stricture of ureter (Acute) Malignant neoplasm of urinary organ (Acute) Dizziness (Acute) Side effect of medication (Acute) Constipation (Acute) UTI (urinary tract infection) (Acute) w/ degree of prostatitis Chronic kidney disease (CKD) (Chronic) Block, bifascicular (Acute) Primary open-angle glaucoma, left eye, moderate stage (Chronic) Chest pain (Acute) Actinic keratoses (Acute 06/24/17) scalp Anxiety (Acute) Aortic aneurysm and dissection (Acute) AAA ruptured --multiple transfusions; repair, open repair about 2009 Benign prostatic hyperplasia (Acute) CKD (chronic kidney disease) stage 3, GFR 30-59 ml/min (Acute 07/30/16) due to ischemia during ruptured AAA 2021, stage 4 Chronic gout due to renal impairment of multiple sites without tophus (Acute 06/05/15) Essential hypertension (Acute 07/09/16) White coat augmentation neg stress echo 07/14 Glaucoma (Acute) 03/12/15; OPTICAL EXPRESSIONS Obesity (Acute) Obstructive sleep apnea syndrome (Acute) 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 Hyperlipidemia (Acute 08/04/12) Incisional hernia of anterior abdominal wall without obstruction or gangrene (Acute) Smoker (Acute) quit 2009, about 40-50 pk yr RBBB (right bundle branch block with left anterior fascicular block) (Acute) 06/2021-unremarkable ETT Diabetes mellitus (Chronic) 06/2021-diet controlled Medical History Vitamin B 12 deficiency Anemia Anxiety RBBB (right bundle branch block with left anterior fascicular block) (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 BELLO @ [facility] Family History Mother No problems noted. Father Neoplasm Sister Heart disease Stroke Grandfather No problems noted. Grandfather Heart disease Grandmother No problems noted. Grandmother Personal history of malignant neoplasm Sister No problems noted. Sister No problems noted. Brother Neoplasm Brother No problems noted. Brother No problems noted. Brother No problems noted. Brother No problems noted. Son No problems noted. Social History Smoking/Tobacco Use Status: Former Tobacco Use tobacco type: cigarettes Quit Date: 03/30/09 Tobacco: How many years used: 40 Second Hand Exposure: Yes Smoking risk assessment performed?: Yes Alcohol Intake: former Drug use: Never Substance use type: does not use Household members: none Housing: house Do you need help understanding health information?: Rarely Pets and animals: No Sexually active: Yes Do you think of yourself as: straight/heterosexual Current gender identity: male What is your relationship status?: How often do you talk on the phone with friends or family?: three or more times per week How often do you get together with friends or relatives?: three or more times per week How often do you attend yazdanism or yazidism services?: decline to answer Do you belong to any clubs or organized social groups?: no Panel score (0-1 are the most socially isolated patients): 1 What type of physical activity do you participate in: walking Duration: 15-30 minutes/day Frequency: 3-4 times per week Tsephani/Adventism: None Special stephani needs: No Seatbelt use: sometimes Helmet use: No 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
[2024-12-02] MEDS: Atorvastatin 20 MG TAB PO (08:46)
[2024-12-02] MEDS: Magnesium Oxide 400 MG TAB PO (08:46)
[2024-12-02] MEDS: Folic Acid 1 MG TAB PO (08:46)
[2024-12-02] MEDS: Aspirin 81 MG CHEW PO (08:47)
--- NOTE | 2024-12-02 09:32 | NUR.NOTE ---
This nurse received report from night worker nurse, patient has a low blood pressure, he is confused at the chair eating breakfast, I helped him getting dress for a MRI programed at 0900, this nurse give morning meds to patient, not giving betablockers, moments after he passed out with transport personal, he gets back in bed and code blue is called, patient is back to verbal stimuli and goes to CT of head
[2024-12-02 13:08] LABS: HCT 24.9 % (40.0-50.0); MCH 30.9 pg (27.0-33.0); MCHC 32.1 % (32.0-36.0); MCV 96 fL (80-95); MPV 10.3 fL (8.0-11.0); Platelet Count 172 10^3/uL (130-400); RBC 2.59 10^6/uL (4.36-5.78); RDW 12.8 % (11.8-14.1); RDW-SD 44.3 fL; WBC 18.33 10^3/uL (4.4-10.8)
[2024-12-02 13:10] LABS: HGB 8.0 g/dL (13.5-17.5)
[2024-12-02 13:17] LABS: ALT 12 U/L (16-63); AST 20 U/L (15-37); Albumin 2.3 g/dL (3.4-5.0); Alkaline Phosphatase 54 U/L (46-116); Anion Gap 10.2 mmol/L (3-11); BUN 43 mg/dL (7-18); Bilirubin, Total 0.7 mg/dL (0.2-1.0); CO2 20.8 mmol/L (21.0-32.0); Calcium 8.2 mg/dL (8.5-10.1); Chloride 102 mmol/L (98-107); Estimated GFR 18.49 (mL/min/1.73m2); Glucose 148 mg/dL (74-106); Magnesium 1.9 mg/dL (1.8-2.4); Potassium 4.7 mmol/L (3.5-5.1); Sodium 133 mmol/L (136-145); Total Protein 5.5 g/dL (6.4-8.2); Troponin I 14 ng/L (<or=76)
--- NOTE | 2024-12-02 13:45 | DI.US_ITS ---
APPROVED REPORT EXAM: Comprehensive 2D, Doppler, and color-flow Echocardiogram Patient Location: In-Patient Room/Bed: 219 Material Controller: Jose E Cristina RDCS (AE) Indications: CVA Echo Enhancing Agent Indication: Rule out Shunt Agent(s) / Amount(s) Used: Agitated Saline 30.0 cc Comments: Contrast study was performed with 3 IV injections of 10ccs of agitated normal saline, at rest, with cough and post valsalva maneuver. Negative contrast study for shunt flow. Other Information Study Quality: Fair. Technically limited study due to inability to position patient, post operative dressings. Conclusion Normal left ventricular wall thickness and chamber size. Ejection fraction is 60%. Wall motion is normal Normal right ventricular size and function Atria are grossly normal in size No intracardiac shunting is identified with injection of agitated saline No significant valvular disease is identified Wall motion Left Ventricle The left ventricle is normal size. The left ventricular systolic function is normal. The left ventricular ejection fraction is within the normal range. There is normal left ventricular wall thickness. There is normal LV segmental wall motion. LVEF is 60%. Right Ventricle Right ventricle is grossly normal in size. Right ventricular systolic function is grossly normal. Atria The left atrium size is normal. Right atrium is not well visualized. Aortic Valve The aortic valve is not well visualized. Aortic valve is grossly normal in structure. No aortic regurgitation is present. Mitral Valve The mitral valve is normal in structure. Tricuspid Valve The tricuspid valve is grossly normal in structure. Pulmonic Valve Pulmonic valve is not visualized. Great Vessels Aortic root is not well visualized. Ascending aorta is not well visualized. The IVC was not visualized. Pericardium There is no pericardial effusion. 2D Dimensions IVSD d PLAX 0.92 cm M: 0.6-1.2 LVPW d PLAX 0.92 cm M: 0.6 - 1.2 LVID d PLAX 5.28 cm M: 4.2 - 5.8 LVDs 3.58 cm M: 2.5 - 4.0 LV EF Teichholz 60.1 % FS 32.26 % LV EDV (Teich) 134.3 mL LV ESV (Teich) 53.6 mL Stroke Vol Index (Teich) 43.35 LV Volumes - Method of Disks (Riley's) Single Plane 2D LV Volumes Biplane 2D LV Volumes LV EDV A4C 138.8 mL LV EDV BP 125.49 mL M: 62 - 150 LV ESV A4C 60.2 mL LV ESV BP 56.7 mL LVEF(%) A4C 56.7 % LVEF(%) BP 54.84 % M: 52 - 72 LV EDV A2C 110.1 mL LV EDV BP Index 67.46 mL/m2 M: 34 - 74 LV ESV A2C 44.1 mL SV BP LVEF(%) A2C 59.9 % SV Index LA Volume LA Length A4C 4.6 cm LA Length A2C LA Area A4C s 10.38 cm2 LA Area A2C s LA Vol A4C A-L 19.68 mL LA Vol A2C A-L LA Vol Biplane A-L LA Vol A4C MOD 18.8 mL LA Vol A2C MOD LA Vol BP MOD LV Diastology MV E' medial 0.085 (>0.07 m/s) MV E Vmax 0.62 (0.4-1.3 m/s) MV E/E' MED 7.31 (<14) MV A Vmax 0.75 (0.4-1.3 m/s) MV E' lateral 0.074 (>0.1 m/s) E/A Ratio 0.8 MV E/E' LAT 8.36 (<14) MV E' Average 0.079 m/s MV E/E'(average) 7.80 Aortic Valve AoV Vmax 1.10 m/s LVOT Vmax 0.68 m/s AoV Peak Grad 4.9 mmHg LVOT Peak Grad 1.8 mmHg AoV VTI 0.256 m LVOT VTI 0.183 m AoV Mean Chauncey. 0.78 m/s LVOT Mean Grad 1.1 mmHg AoV Mean Grad 2.7 mmHg AV Regurg Peak Gr. 4.87 mmHg Velocity Ratio 0.62 Mitral Valve MV DT 232 (160-240 msec)
[2024-12-02] MEDS: Normal Saline 1,000 ML 999 ML IV (13:55)
--- NOTE | 2024-12-02 14:21 | W.PM.DS.N ---
Date of service: 12/02/24 Time of Service: 14:21 DS: Diagnosis Discharge Diagnosis (1) Aphasia: Status: Acute (2) CKD (chronic kidney disease), stage IV: Status: Acute (3) Pre-syncope: Status: Acute (4) Leukocytosis: Status: Acute (5) SCC (squamous cell carcinoma): Status: Acute (6) Hypotension: Status: Acute (7) Bradycardia: Status: Acute (8) Hydronephrosis: Status: Acute (9) Hyponatremia: Status: Acute (10) Elevated brain natriuretic peptide (BNP) level: Status: Acute (11) Pneumothorax: Status: Acute (12) Pneumomediastinum: Status: Acute Discharge Plan Disposition Patient Disposition: Transfer-Acute Inpatient Care Specific Acute Inpt Facility: [facility] Condition: Fair Discharge Details Reason For Visit: Aphasia Now Resolved Admit Date/Time: 12/01/24 22:06 Admit Provider: Jorge Lewis Attending Provider: Jorge Lewis Primary Care Provider: Sander Contreras Hospital Course Hospital Course: Patient initially presented with signs and symptoms of aphasia after a near syncopal episode shortly [place] [facility]. By the time patient presented the emergency department he was still mildly aphasic and was recommended [place] [facility] [place] the patient have head CT (which was negative), and MRI, as well as Plavix loading dose. Patient was doing well as of the lead project engineer of 12/02/2024 having gotten up, walked around and eaten, but shortly after sitting in the chair to be wheeled into MRI he had an episode of unresponsiveness. He was placed back into bed was found to have low normal blood pressure with otherwise normal vital signs. It took about an hour for patient to return back to his mental status baseline. In the meantime he had another head CT which was negative, his brain MRI which was also negative, but he had a CT abdomen pelvis that showed large areas of hematoma within the abdominal wall involving the rectus muscle as well as laterally and in the anterior and lower pelvis as well as a small amount of free intraperitoneal hemorrhage in the lower pelvis. Patient's hemoglobin on admission was 11.3 and dropped to 8, for which the patient was given 2 units of packed red blood cells in addition to 1 L normal saline bolus as he did have a mean arterial pressure of 58. Additionally, creatinine increased from 2.7-3.2 likely due to a combination of contrast dye given on admission on 12/01/2024 as well as blood loss anemia. Case was then discussed with the patient surgery Dr. Bond who accepted the patient for transfer to the emergency department where her and her team would evaluate the patient for further care. Home Meds and New Rx's Prescriptions: No Action latanoprost [Xalatan] 0.005 % drops 1 drp OU HS Qty: 7.5 6RF aspirin [Aspirin Low-Strength] 81 MG tablet,chewable 81 mg PO DAILY LANCETS 1 EACH EACH 1 ea Miscellaneous QID Qty: 400 Rx Instructions: DX: 250.0 (DME) FreeStyle Lite Strips Strip 1 ea Miscellaneous DAILY Qty: 100 4RF Rx Instructions: DX E11.9 Test once/day brimonidine 0.2 % drops 1 drp ophthalmic (eye) BID Patient Comments: 06/01/24-rx'd by [facility] Rx Instructions: administer approximately 8 hours apart atorvastatin 20 mg tablet 20 mg PO DAILY Qty: 90 3RF Patient Comments: TAKE ONE TABLET BY MOUTH EVERY DAY atenolol 50 mg tablet 25 mg PO BID Qty: 90 3RF Patient Comments: recent change to lower dose folic acid 1 mg tablet 1 mg PO DAILY Qty: 90 3RF dorzolamide-timolol 22.3-6.8 mg/mL drops 1 drp ophthalmic (eye) BID Patient Comments: INSTILL ONE DROP IN EACH EYE TWO TIMES A DAY Rx Instructions: 1 drop to each eye acetaminophen 500 mg capsule 1,000 mg PO Q6H PRN magnesium oxide [MagOx] 400 mg (241.3 mg magnesium) tablet 400 mg PO DAILY Discharge Instructions Activity:: Activity as Tolerated Equipment/Supplies:: No Equipment Needed Diet:: As Tolerated Discharge Orders Discharge Orders: Discharge Order (Routine); Ordered 12/02/24 Ordered By: Addy Sanchez DS: Summary Time Spent with Patient providing and/or coordinating discharge services: Greater than 30 minutes Status at Discharge Functional status at discharge: independent ambulation Overall status at discharge: patient is back to baseline Mental Status: mental status grossly normal Speech and Movement: speech and movement normal Mood: congruent mood Affect: normal affect Exam Narrative Exam Narrative: Fatigued appearing older gentleman laying in bed in no acute distress, ANO x 4, heart regular rhythm, lungs clear to auscultation bilaterally, abdomen diffusely sore, though appears little more tender in the right lower quadrant, without rebound or guarding Psych Mental Status: mental status grossly normal Speech and Movement: speech and movement normal Mood: congruent mood Affect: normal affect DS: Data Vitals/I&O Vitals and I&O: Vital Signs Temperature 96.8 F L 12/02/24 10:00 Temperature Source Temporal Artery Scan 12/02/24 10:00 Pulse 89 12/02/24 11:31 Pulse Rhythm Regular 12/01/24 23:56 Pulse 54 L 12/02/24 11:40 Respiratory Rate 18 12/02/24 11:40 Respiratory Effort Normal 12/02/24 10:00 Respiratory Depth Normal 12/02/24 10:00 Respiratory Pattern Normal 12/02/24 10:00 Blood Pressure 103/76 12/02/24 11:36 Blood Pressure Mean 86 12/02/24 11:36 Blood Pressure Position Supine 12/02/24 10:00 Pulse Oximetry 96 12/02/24 11:40 Oxygen Delivery Method OxyMask 12/02/24 10:45 Oxygen Flow Rate 3 12/02/24 10:45 Pain Level 0 12/02/24 03:15 Comment Buster BARNETT notified 12/01/24 20:05 Intake & Output 12/01/24 12/02/24 12/02/24 17:59 05:59 17:59 Intake Total 1277.5 / 1277.5 1999.0 / 1999.0 Output Total 300 / 300 Balance 977.5 / 977.5 1999.0 / 1999.0 Weight 160 lb Intake: IV 1127.5 / 1127.5 1999.0 / 1999.0 Oral 150 / 150 Output: Urine 300 / 300 Other: Urine Color Yellow Urine Appearance Clear Data Completed and Pending Labs on day of discharge: Labs from last 24 hours 12/02/24 12/02/24 12/01/24 13:50 12:45 21:45 WBC 18.33 H RBC 2.59 L Hgb 8.0 L D Hct 24.9 L MCV 96 H MCH 30.9 MCHC 32.1 RDW 12.8 Plt Count 172 MPV 10.3 Immature Gran % Neutrophils % Lymphocytes % Monocytes % Eosinophils % Basophils % Nucleated RBC % Absolute Neutrophils Absolute Lymphocytes Absolute Monocytes Absolute Eosinophils Absolute Basophils RBC Morphology VBG Lactate 2.4 H* Sodium 133 L Potassium 4.7 Chloride 102 Carbon Dioxide 20.8 L Anion Gap 10.2 BUN 43 H Creatinine 3.2 H Est GFR (CKD-EPI 2020) 18.49 Glucose 148 H Calcium 8.2 L Magnesium 1.9 Total Bilirubin 0.7 AST 20 ALT 12 L Alkaline Phosphatase 54 Troponin I 14 8 NT-Pro-B Natriuret Pep Total Protein 5.5 L Albumin 2.3 L Lipase TSH ABO/Rh Pending Blood Type Recheck Antibody Screen Pending Crossmatch See Detail 12/01/24 12/01/24 19:50 18:15 WBC 21.27 H RBC 3.57 L Hgb 11.3 L Hct 33.9 L MCV 95 MCH 31.7 MCHC 33.3 RDW 12.7 Plt Count 194 MPV 9.8 Immature Gran % 0.7 Neutrophils % 81.5 Lymphocytes % 9.1 Monocytes % 7.9 Eosinophils % 0.6 Basophils % 0.2 Nucleated RBC % 0.0 Absolute Neutrophils 17.34 H Absolute Lymphocytes 1.94 Absolute Monocytes 1.68 H Absolute Eosinophils 0.13 Absolute Basophils 0.04 RBC Morphology Normal VBG Lactate Sodium 129 L Potassium 4.5 Chloride 99 Carbon Dioxide 22.8 Anion Gap 7.2 BUN 29 H Creatinine 2.7 H Est GFR (CKD-EPI 2020) 22.68 Glucose 170 H Calcium 8.6 Magnesium 1.7 L Total Bilirubin 1.2 H AST 21 ALT 12 L Alkaline Phosphatase 61 Troponin I 8 9 NT-Pro-B Natriuret Pep 1942 H Total Protein 6.1 L Albumin 2.7 L Lipase 23 TSH 1.23 ABO/Rh Blood Type Recheck Pending Antibody Screen Crossmatch 12/01/24 12:45 Blood Blood Culture - Pending 12/01/24 23:38 Urine - Clean Catch Urine Culture - Pending 12/01/24 23:34 Blood Blood Culture - Pending Preliminary micro results at discharge 12/01/24 12:45 Blood Blood Culture - Pending 12/01/24 23:38 Urine - Clean Catch Urine Culture - Pending 12/01/24 23:34 Blood Blood Culture - Pending [facility] All Active Problems (Updated 12/01/24 @ 22:25 by Jorge Lewis MD) Pneumothorax (Acute) Elevated brain natriuretic peptide (BNP) level (Acute) Hyponatremia (Acute) Hydronephrosis (Acute) Bradycardia (Acute) Hypotension (Acute) SCC (squamous cell carcinoma) (Acute) Leukocytosis (Acute) Pre-syncope (Acute) CKD (chronic kidney disease), stage IV (Acute) Aphasia (Acute) Pneumomediastinum (Acute) Bilateral pneumothoraces (Acute) Transient ischemic attack (Acute) 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 (Acute) Squamous cell carcinoma of scalp (Acute) Lesion of skin of scalp (Acute) Primary open angle glaucoma (Acute) Stricture of ureter (Acute) Malignant neoplasm of urinary organ (Acute) Dizziness (Acute) Side effect of medication (Acute) Constipation (Acute) UTI (urinary tract infection) (Acute) w/ degree of prostatitis Chronic kidney disease (CKD) (Chronic) Block, bifascicular (Acute) Primary open-angle glaucoma, left eye, moderate stage (Chronic) Chest pain (Acute) Actinic keratoses (Acute 06/24/17) scalp Anxiety (Acute) Aortic aneurysm and dissection (Acute) AAA ruptured --multiple transfusions; repair, open repair about 2009 Benign prostatic hyperplasia (Acute) CKD (chronic kidney disease) stage 3, GFR 30-59 ml/min (Acute 07/30/16) due to ischemia during ruptured AAA 2021, stage 4 Chronic gout due to renal impairment of multiple sites without tophus (Acute 06/05/15) Essential hypertension (Acute 07/09/16) White coat augmentation neg stress echo 07/14 Glaucoma (Acute) 03/12/15; OPTICAL EXPRESSIONS Obesity (Acute) Obstructive sleep apnea syndrome (Acute) 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 Hyperlipidemia (Acute 08/04/12) Incisional hernia of anterior abdominal wall without obstruction or gangrene (Acute) Smoker (Acute) quit 2009, about 40-50 pk yr RBBB (right bundle branch block with left anterior fascicular block) (Acute) 06/2021-unremarkable ETT Diabetes mellitus (Chronic) 06/2021-diet controlled Medical History Vitamin B 12 deficiency Anemia Anxiety RBBB (right bundle branch block with left anterior fascicular block) (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 BELLO @ [facility] Family History Mother No problems noted. Father Neoplasm Sister Heart disease Stroke Grandfather No problems noted. Grandfather Heart disease Grandmother No problems noted. Grandmother Personal history of malignant neoplasm Sister No problems noted. Sister No problems noted. Brother Neoplasm Brother No problems noted. Brother No problems noted. Brother No problems noted. Brother No problems noted. Son No problems noted. Social History Smoking/Tobacco Use Status: Former Tobacco Use tobacco type: cigarettes Quit Date: 03/30/09 Tobacco: How many years used: 40 Second Hand Exposure: Yes Smoking risk assessment performed?: Yes Alcohol Intake: former Drug use: Never Substance use type: does not use Household members: none Housing: house Do you need help understanding health information?: Rarely Pets and animals: No Sexually active: Yes Do you think of yourself as: straight/heterosexual Current gender identity: male What is your relationship status?: How often do you talk on the phone with friends or family?: three or more times per week How often do you get together with friends or relatives?: three or more times per week How often do you attend synagogue or mandaen services?: decline to answer Do you belong to any clubs or organized social groups?: no Panel score (0-1 are the most socially isolated patients): 1 What type of physical activity do you participate in: walking Duration: 15-30 minutes/day Frequency: 3-4 times per week Stephani/Gnosticism: None Special stephani needs: No Seatbelt use: sometimes Helmet use: No Drive 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
[2024-12-02] MEDS: Acetaminophen 325 MG TAB 650 MG PO (14:23)
--- NOTE | 2024-12-02 14:53 | CHAPLAIN ---
I had a brief visit with Araon today, explained my role and offered support. His son and daughter in law were visiting with him.
--- NOTE | 2024-12-02 15:52 | PDOC.CMPRO ---
Care Management Progress Note Progress Note Text Progress Note Text: Aaron presented to the ED with aphasia and near syncope yesterday afternoon. He had just been discharged that day from [facility] [place] for hernia repair, which was planned as laparoscopic, but became an open repair. He was doing well this morning, he was up walking in his room and ate breakfast. Aaron was sitting in the wheelchair this morning, to be taken for an MRI, and he became unresponsive. He had ok VS, but it took about an hour for him to return to baseline. During that time, he had a head CT and brain MRI which were both negative, but CT of abdomen showed large areas of hematoma. His Hct had dropped significantly. He was given 2 units of PRBCs. [facility] was called, and he was immediately accepted to [facility] ER for evaluation and further care. Aaron was transferred to [facility] before CM met with him today. Discharge Plan: Aaron was transferred to [facility] for further evaluation and care. He was transported via EMS. Social Determinants of Health Screening Will the Patient Participate in the Screening?: Unable to obtain Do you worry about having a steady place to live?: no
== END 2024-12-02 15:35 | disposition short-term general hospital (02) | DRG 91 ==
LOC: ER 22:27 → MS 22:52 → ICU 12-02 10:59 → MS 12-02 11:52 → ICU 12-02 11:52
PROVIDERS: Admitting Provider Hospitalist; Emergency Provider Physician Assistant; PCP Family Medicine; Responsible Provider Family Medicine; Visit Provider Hospitalist
DX: R47.01 Aphasia (principal); N18.4 Chronic kidney disease, stage 4 (severe); R55 Syncope and collapse; D72.829 Elevated white blood cell count, unspecified; I95.9 Hypotension, unspecified; R00.1 Bradycardia, unspecified; N13.30 Unspecified hydronephrosis; E87.1 Hypo-osmolality and hyponatremia; K66.1 Hemoperitoneum; M96.841 Postprocedural hematoma of a musculoskeletal structure following other procedure; J93.9 Pneumothorax, unspecified; I45.2 Bifascicular block; J98.2 Interstitial emphysema; R79.89 Other specified abnormal findings of blood chemistry; Z86.73 Personal history of transient ischemic attack (TIA), and cerebral infarction without residual deficits; K59.00 Constipation, unspecified; F41.9 Anxiety disorder, unspecified; I12.9 Hypertensive chronic kidney disease with stage 1 through stage 4 chronic kidney disease, or unspecified chronic kidney disease; E53.8 Deficiency of other specified B group vitamins; E11.22 Type 2 diabetes mellitus with diabetic chronic kidney disease; Z87.891 Personal history of nicotine dependence; E78.5 Hyperlipidemia, unspecified; C67.9 Malignant neoplasm of bladder, unspecified; Z85.828 Personal history of other malignant neoplasm of skin; D50.0 Iron deficiency anemia secondary to blood loss (chronic); Y83.2 Surgical operation with anastomosis, bypass or graft as the cause of abnormal reaction of the patient, or of later complication, without mention of misadventure at the time of the procedure
CPT/HCPCS: 00123; 36415; 36416; 36430; 70496; 70498; 71250; 80053; 82962; 83690; 85027; 86850; 86900; 86901; 86920; 87040; 93005; 93306; 96360; 96361; 99285; 70450; 70551; 74176; 83605; 83735; 83880; 84443; 84484; 85025; 87086; 93010; 99222; 99238; J3490; P9016